=== PATIENT | female | born 1995 | race Hispanic/Latino ===

== ENCOUNTER 2022-06-28 21:22 | Emergency (ER) | payer SELFPAY ==
[2022-06-28] MEDS ORDERED: TETRACAINE HCL 0.5% 4ML OPTH ONE (22:25)
[2022-06-28] MEDS ORDERED: FLUORESCEIN SODIUM 1 MG/WRAP ONE ×2 (22:25→22:54)
[2022-06-28] MEDS ORDERED: HYDROCODONE/APAP 5/325 MG TAB ONE ×2 (22:25→23:11)
[2022-06-28] MEDS ORDERED: TETANUS & DIPHTHERIA TOX,ADULT 0.5 ML VIAL ONE (22:26)
--- NOTE | 2022-06-28 23:03 | ER ---
Nurse's Notes [facility] Name: Leila Simons Age: 27 yrs Sex: Female : 1995 Arrival Date: 06/28/2022 Time: 21:23 Bed 19 Private MD: Diagnosis: Photokeratitis, bilateral Presentation: 06/28 21:28 Chief complaint: Patient states: eye pain, redness, swelling, constant tears. 3 Coronavirus screen: Vaccine status: Patient reports being unvaccinated. Ebola Screen: No symptoms or risks identified at this time. Initial Sepsis Screen: Does the patient meet any 2 criteria? No. Patient's initial sepsis screen is negative. Does the patient have a suspected source of infection? No. Patient's initial sepsis screen is negative. Risk Assessment: Do you want to hurt yourself or someone else? Patient reports no desire to harm self or others. Onset of symptoms was June 28, 2022. 21:28 Method Of Arrival: Ambulatory [facility] 21:28 Acuity: FREYA 4 3 Triage Assessment: 21:28 General: Appears distressed, uncomfortable, Behavior is cooperative, appropriate for [facility] age. Pain: Complains of pain in right eye and left eye Pain does not radiate. Pain currently is 10 out of 10 on a pain scale. Quality of pain is described as burning, sharp, itching Pain began 1300 today Is continuous, Alleviated by nothing. Aggravated by exposure to light, blinking the eyes. EENT: Eyes are tearing on outer aspect of conjuctiva of right eye, iris of right eye, inner aspect of conjuctiva of right eye, outer aspect of conjuctiva of left eye, iris of left eye and inner aspect of conjunctiva of left eye Sclera/Cornea are reddened in outer aspect of conjuctiva of right eye, iris of right eye, inner aspect of conjuctiva of right eye, outer aspect of conjuctiva of left eye, iris of left eye and inner aspect of conjunctiva of left eye Lid(s) swollen. Reports blurred vision pain photophobia. Neuro: Level of Consciousness is awake, alert, obeys commands, Oriented to person, place, time, situation. Cardiovascular: Capillary refill < 3 seconds Patient's skin is warm and dry. Respiratory: Airway is patent Respiratory effort is even, unlabored. GI: No signs and/or symptoms were reported involving the gastrointestinal system. : No signs and/or symptoms were reported regarding the genitourinary system. Derm: No signs and/or symptoms reported regarding the dermatologic system. Musculoskeletal: No signs and/or symptoms reported regarding the musculoskeletal system. Historical: - Allergies: 21:30 No Known Allergies; eh3 - Home Meds: 21:30 None [Active]; eh3 - PMHx: 21:30 None; eh3 - PSHx: 21:30 None; eh3 - Immunization history:: Adult Immunizations unknown. - Social history:: Smoking status: Patient denies any tobacco usage or history of. Patient/guardian denies using alcohol, street drugs. Screenin:54 Abuse screen: Denies threats or abuse. Nutritional screening: No deficits noted. ll3 Tuberculosis screening: No symptoms or risk factors identified. 22:24 Fall Risk None identified. ld1 Assessment: 21:54 General: Appears uncomfortable, Behavior is cooperative. Pain: Complains of pain in ll3 left eye and right eye Pain currently is 10 out of 10 on a pain scale. Pain began 1300 Is continuous. Neuro: Level of Consciousness is awake, alert, obeys commands, Oriented to person, place, time, situation. Respiratory: Respiratory effort is even, unlabored, Respiratory pattern is regular, symmetrical. EENT: Eyes are tearing on left eye and right eye Reports blurred vision pain in left eye and right eye. Derm: Skin is pink, warm \T\ dry. Vital Signs: 21:28 BP 133 / 92; Pulse 73; Resp 16; Temp 98.3; Pulse Ox 99% on R/A; Weight 127.01 kg; eh3 Height 5 ft. 4 in. (162.56 cm); Pain 10/10; 21:28 Body Mass Index 48.06 (127.01 kg, 162.56 cm) eh3 Visual Acuity: 22:24 Left Eye Visual acuity 20/40, ; Right Eye Visual acuity 20/40, ; Both Eyes Visual ld1 acuity 20/40; Without Lenses; ED Course: 21:23 Patient arrived in ED. ja2 21:28 Arm band placed on right wrist. eh3 21:30 Triage completed. eh3 21:40 Davina Palma MD is Attending Physician. sd2 21:44 [facility] pm1 21:44 Davina Palma MD is Attending Physician. pm1 21:54 Julio C Quinonez RN is Primary Nurse. ll3 21:54 Patient has correct armband on for positive identification. Bed in low position. Call ll3 light in reach. Side rails up X 1. Adult w/ patient. 23:03 Michael Byrnes MD is Referral Physician. pm1 23:14 No provider procedures requiring assistance completed. eh3 23:23 Patient did not have IV access during this emergency room visit. ll3 Administered Medications: 22:23 Drug: HYDROcodone-acetaminophen 5 mg-325 mg 1 tabs Route: PO; ld1 23:30 Follow up: Response: No adverse reaction ll3 22:23 Drug: Tetanus-Diphtheria Toxoid Adult 0.5 ml {Test Engineer: [email or web address]. Exp: ld1 03/26/2024. Lot #: [id number]. } Route: IM; Site: right deltoid; 23:29 Follow up: Response: No adverse reaction ll3 22:23 Drug: Tetracaine Drops 0.5 % 1 drops {Note: Administered by Lisandro Stokes NP.} ld1 Route: Ophthalmic; Site: both eyes; 23:29 Follow up: Response: No adverse reaction ll3 23:07 Drug: HYDROcodone-acetaminophen 5 mg-325 mg 1 tabs Route: PO; ll3 23:29 Follow up: Response: No adverse reaction ll3 23:07 Drug: Tobramycin Ointment (0.3 %) 1 inches Route: Ophthalmic; Site: both eyes; ll3 23:24 Follow up: Response: No adverse reaction ll3 Medication: 22:24 Vaccine Information Statement (VIS) provided today. Questions and/or concerns ld1 addressed. VIS edition date: June 28, 2022. Outcome: 23:01 Discharge ordered by . pm1 23:23 Discharged to home via wheelchair, with family. ll3 23:23 Condition: stable 23:23 Discharge instructions given to patient, family, Instructed on discharge instructions, follow up and referral plans. medication usage, Demonstrated understanding of instructions, follow-up care, medications, Prescriptions given X 2. 23:30 Patient left the ED. ld1 Signatures: Lisandro Stokes NP PROSTHETIC TECHNICIAN pm1 Geeta Hendricks RN RN ld1 Cinthya Bahena Lynsea, RN RN 3 Libertad Sethi RN RN eh3 Davina Palma MD MD sd2 Corrections: (The following items were deleted from the chart) 21:33 21:28 Pulse 73bpm; Resp 16bpm; Pulse Ox 99% RA; Temp 98.3F; 127.01 kg; Height 5 ft. 4 eh3 in.; BMI: 48.0; Pain 08/30; eh3
--- NOTE | 2022-06-28 23:03 | EDPHYS ---
Physician Documentation [facility] Name: Leila Simons Age: 27 yrs Sex: Female : 1995 Arrival Date: 06/28/2022 Time: 21:23 Bed 19 Private MD: ED Physician Davina Palma HPI: 06/28 23:05 This 27 yrs old Female presents to ER via Ambulatory with complaints of Eye pm1 Problem. 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 pm1 Onset: The symptoms/episode began/occurred today. Duration: the symptoms are continuous. Aggravated by opening eye, Alleviated by nothing. Associated signs and symptoms: Pertinent negatives: fever. Patient does not utilize any form of vision correction. Severity of symptoms: in the emergency department the symptoms are unchanged. The patient has not experienced similar symptoms in the past. The patient has not recently seen a physician. 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 She did not have any eye protection on she was just looking away from the welding. Historical: - Allergies: 21:30 No Known Allergies; eh3 - Home Meds: 21:30 None [Active]; eh3 - PMHx: 21:30 None; eh3 - PSHx: 21:30 None; eh3 - Immunization history:: Adult Immunizations unknown. - Social history:: Smoking status: Patient denies any tobacco usage or history of. Patient/guardian denies using alcohol, street drugs. ROS: 23:05 Constitutional: Negative for fever, chills, and weight loss. pm1 23:05 Cardiovascular: Negative for chest pain, palpitations, and edema, Respiratory: Negative for shortness of breath, cough, wheezing, and pleuritic chest pain, Skin: Negative for injury, rash, and discoloration, Neuro: Negative for headache, weakness, numbness, tingling, and seizure. 23:05 Eyes: Positive for pain, redness, of the right eye and left eye. 23:05 All other systems are negative. Exam: 23:09 Constitutional: This is a well developed, well nourished patient who is awake, alert, pm1 and in no acute distress. Head/Face: Normocephalic, atraumatic. 23:09 Skin: Warm, dry with normal turgor. Normal color with no rashes, no lesions, and no evidence of cellulitis. MS/ Extremity: Pulses equal, no cyanosis. Neurovascular intact. Full, normal range of motion. 23:09 Eyes: Periorbital structures: no acute changes, Extraocular movements: no acute changes, Conjunctiva: injected, bilaterally, Corneas: abrasion, that is small, on the left, on the right, foreign body, is not appreciated, a fluorescein strip employed to appreciate the findings, Sclera: no acute changes. 23:09 Cardiovascular: Exam negative for acute changes, Rate: normal, Rhythm: regular, Pulses: no pulse deficits are appreciated. 23:09 Respiratory: Exam negative for acute changes, respiratory distress, shortness of breath, Breath sounds: are clear throughout. 23:09 Musculoskeletal/extremity: Exam is negative for acute changes. 23:09 Neuro: Exam negative for acute changes, Orientation: is normal, Mentation: is normal, Motor: is normal, moves all fours. Vital Signs: 21:28 BP 133 / 92; Pulse 73; Resp 16; Temp 98.3; Pulse Ox 99% on R/A; Weight 127.01 kg; eh3 Height 5 ft. 4 in. (162.56 cm); Pain 10/10; 21:28 Body Mass Index 48.06 (127.01 kg, 162.56 cm) 3 Visual Acuity: 22:24 Left Eye Visual acuity 20/40, ; Right Eye Visual acuity 20/40, ; Both Eyes Visual ld1 acuity 20/40; Without Lenses; MDM: 21:59 Patient medically screened. pm1 22:59 Data reviewed: vital signs. Data interpreted: Pulse oximetry: on room air is 99 %. pm1 Interpretation: normal. Counseling: I had a detailed discussion with the patient and/or guardian regarding: the historical points, exam findings, and any diagnostic results supporting the discharge/admit diagnosis. 06/28 22:10 Order name: Eye Tray; Complete Time: 22:23 pm1 06/28 22:10 Order name: Fluoresene Opth strip; Complete Time: 22:23 pm1 06/28 22:10 Order name: Visual Acuity; Complete Time: 22:23 pm1 Administered Medications: 22:23 Drug: HYDROcodone-acetaminophen 5 mg-325 mg 1 tabs Route: PO; ld1 23:30 Follow up: Response: No adverse reaction ll3 22:23 Drug: Tetanus-Diphtheria Toxoid Adult 0.5 ml {Apple Packing Header: [employer]. Exp: ld1 03/26/2024. Lot #: [id number]. } Route: IM; Site: right deltoid; 23:29 Follow up: Response: No adverse reaction ll3 22:23 Drug: Tetracaine Drops 0.5 % 1 drops {Note: Administered by Lisandro Stokes NP.} ld1 Route: Ophthalmic; Site: both eyes; 23:29 Follow up: Response: No adverse reaction ll3 23:07 Drug: HYDROcodone-acetaminophen 5 mg-325 mg 1 tabs Route: PO; ll3 23:29 Follow up: Response: No adverse reaction ll3 23:07 Drug: Tobramycin Ointment (0.3 %) 1 inches Route: Ophthalmic; Site: both eyes; ll3 23:24 Follow up: Response: No adverse reaction ll3 Disposition: 06/29 01:31 Co-signature as Attending Physician, Davina Palma MD STAFF ATTESTATION The sd2 patient's history, exam findings, diagnostics, and a summary of any interventions or procedures was reviewed in detail with the ED midlevel provider. I confirm the diagnosis as documented by the midlevel provider and I agree with the care plan articulated in the disposition section with regards to our discussion of the patient's case. Davina Palma MD. Disposition Summary: 06/28/22 23:01 Discharge Ordered Location: Home pm1 Problem: new pm1 Symptoms: have improved pm1 Condition: Stable pm1 Diagnosis - Photokeratitis, bilateral pm1 Followup: pm1 - With: Emergency Department - When: As needed - Reason: Worsening of condition Followup: pm1 - With: Private Physician - When: 2 - 3 days - Reason: Recheck today's complaints, Continuance of care, Re-evaluation by your physician Followup: pm1 - With: Michael Byrnes MD - When: 2 - 3 days - Reason: Recheck today's complaints, Continuance of care, Re-evaluation by your physician Discharge Instructions: - Discharge Summary Sheet pm1 - Ultraviolet Keratitis pm1 - How to Use Eye Drops and Eye Ointments pm1 Forms: - Medication Reconciliation Form pm1 - Thank You Letter pm1 - Antibiotic Education pm1 - Prescription Opioid Use pm1 Prescriptions: - Erythromycin 5 mg/gram (0.5 %) Ophthalmic Ointment - apply 1 centimeter by OPHTHALMIC route every 8 hours for 7 days Apply to both pm1 eyes; 1 tube; Refills: 0, Product Selection Permitted - Tylenol-Codeine #3 300 mg-30 mg Oral - take 2 tablet by ORAL route every 6 hours As needed; 20 tablet; Refills: 0, pm1 Product Selection Permitted Signatures: Lisandro Stokes NP [employer] pm1 Geeta Hendricks RN RN ld1 Julio C Quinonez RN RN ll3 Libertad Sethi RN RN eh3 Davina Palma MD MD sd2
[2022-06-28] MEDS ORDERED: TOBRAMYCIN SULF 0.3% OPTH OINT ONE (23:11)
[2022-06-29 04:02] VITALS: BP 133/92; TEMP 98.3; O2SAT 99
== END 2022-06-28 23:30 | disposition home or self-care (01) ==
LOC: ER 21:22
DX: H16.133 Photokeratitis, bilateral (principal); Z23 Encounter for immunization
CPT/HCPCS: 90471; 90714; 99283

== ENCOUNTER 2022-08-03 12:58 | Emergency (ER) | payer SELFPAY ==
--- OUTSIDE RECORDS SUMMARY | 2022-08-03 13:02 | XMS REPORT | Continuity of Care Document ---
:1995 Author Organization [facility] t Address [address] [place] [address] Care Team Providers Name Role Phone JAMES POTTS Attending Clinician Unavailable JIM VANEGAS Attending Clinician Unavailable OLIVER KOVACS Attending Clinician Unavailable Rosalba Sabillon Attending Clinician Unavailable Physician, No Primary or Family Admitting Clinician Unavaila ble Payers Payer Name Policy Type Policy Number Effective Date Expiration Date S ource Problems This patient has no known problems. Allergies, Adverse Reactions, Alerts Allergy Allergy Status Severity Reaction(s) Onset Inactive Treating Comm ents Source Name Type Date Date Clinician No Known DA Active U 2011-11 [facility] Allergie 2-10 Clear s 00:00: Rosario 00 [facility] NO KNOWN Drug Active [facility] Medications This patient has no known medications. Procedures This patient has no known procedures. Encounters Start End Encounter Admission Attending Care Care Encounter Source Date/Time Date/Time Type Type Clinicians Facility Department ID 2021-03-21 2021-03-21 Emergency X [facility] ERT [id number] [facility] 22:50:00 22:50:00 [facility] 2020-12-28 2020-12-28 Emergency X KATLYN DEAGGIE ERT [id number] [facility] 22:57:00 22:57:00 JAMES [facility] 2020-07-07 2020-07-07 Emergency X GUILHERME, [facility] ERT [id number] [facility] 14:07:00 14:07:00 JIM [facility] 2020-05-10 2020-05-13 Inpatient [facility] MARIANNE [id number] [facility] 21:14:00 08:16:59 24 [facility] 2020-05-10 2020-05-10 Emergency X BETHANIE, [facility] ERT [id number] [facility] 21:47:04 21:47:04 OLIVER [facility] 2019-11-18 2019-11-18 Emergency EM Sabillon, [facility] MAR[facility] [id number] [facility] 12:05:00 13:24:00 Rosalba 40 [facility] Results Test Description Test Time Test Comments Results Result Comments Source URINALYSIS COMPLETE 2019-11-18 12:50:00 Test Item Value Reference Range Interpretation Comme nts UA COLOR (test code = COLU) YELLOW UA APPEARANCE (test code = APPU) SLHZY UA GLUCOSE DIPSTICK (test code = DGLUU) NORMAL mg/dl NORMAL UA BILIRUBIN DIPSTICK (test code = BILU) NEGATIVE mg/dL NEGATIVE UA KETONE DIPSTICK (test code = KETU) 150 mg/dl mg/dl NEGATIVE A UA SPECIFIC GRAVITY (test code = SGU) 1.020 1.000-1.030 UA BLOOD DIPSTICK (test code = DIANNE) 25 Richard/micL Richard/micL NEGATIVE A UA PH DIPSTICK (test code = ANNMARIE) 6.0 5.0-9.0 UA PROTEIN DIPSTICK (test code = PROU) 30 mg/dl NEGATIVE A UA UROBILINIOGEN DIPSTICK (test code = URO) NORMAL mg/dl NORMAL UA NITRITE DIPSTICK (test code = KAYLEIGH) NEGATIVE NEGATIVE UA LEUKOCYTE ESTERASE DIPSTICK (test code = NEGATIVE Stone/micL NEGAT HARSHAD LEUU) UA WBC (test code = WBCU) 0-3 WBC/HPF NONE UA RBC (test code = RBCU) 3-5 RBC/HPF 0-3 UA EPITHELIAL CELLS (test code = EPIU) 1-3 EPI/HPF 0-3 UA BACTERIA (test code = BACU) TRACE NONE UR HCG [id number] 12:50:00 Test Item Value Reference Range Interpretation Comments UR HCG QUAL (test code = HCGQLU) NEGATIVE NEGATIVE URINALYSIS [id number] 12:47:00 Test Item Value Reference Range Interpretation Comments UA COLOR (test code = COLU) UA APPEARANCE (test code = APPU) UA GLUCOSE DIPSTICK (test NORMAL mg/dl NORMAL code = DGLUU) UA BILIRUBIN DIPSTICK NEGATIVE mg/dL NEGATIVE (test code = BILU) UA KETONE DIPSTICK (test 150 mg/dl mg/dl NEGATIVE A code = KETU) UA SPECIFIC GRAVITY (test 1.020 1.000-1.030 code = SGU) UA BLOOD DIPSTICK (test 25 Richard/micL Richard/micL NEGATIVE A code = DIANNE) UA PH DIPSTICK (test code 6.0 5.0-9.0 = ANNMARIE) UA PROTEIN DIPSTICK (test 30 mg/dl NEGATIVE A code = PROU) UA UROBILINIOGEN DIPSTICK NORMAL mg/dl NORMAL (test code = URO) UA NITRITE DIPSTICK (test NEGATIVE NEGATIVE code = KAYLEIGH) UA LEUKOCYTE ESTERASE NEGATIVE Stone/micL NEGATIVE DIPSTICK (test code = LEUU) UA WBC (test code = WBCU) WBC/HPF NONE UA RBC (test code = RBCU) RBC/HPF 0-3 UA EPITHELIAL CELLS (test EPI/HPF 0-3 code = EPIU) UA BACTERIA (test code = NONE BACU) UR HCG [id number] 12:47:00 Test Item Value Reference Range Interpretation Comments UR HCG QUAL (test code = HCGQLU) NEGATIVE URINALYSIS [id number] 12:47:00 Test Item Value Reference Range Interpretation Comments UA COLOR (test code = COLU) UA APPEARANCE (test code = APPU) UA GLUCOSE DIPSTICK (test NORMAL mg/dl NORMAL code = DGLUU) UA BILIRUBIN DIPSTICK NEGATIVE mg/dL NEGATIVE (test code = BILU) UA KETONE DIPSTICK (test 150 mg/dl mg/dl NEGATIVE A code = KETU) UA SPECIFIC GRAVITY (test 1.020 1.000-1.030 code = SGU) UA BLOOD DIPSTICK (test 25 Richard/micL Richard/micL NEGATIVE A code = DIANNE) UA PH DIPSTICK (test code 6.0 5.0-9.0 = ANNMARIE) UA PROTEIN DIPSTICK (test 30 mg/dl NEGATIVE A code = PROU) UA UROBILINIOGEN DIPSTICK NORMAL mg/dl NORMAL (test code = URO) UA NITRITE DIPSTICK (test NEGATIVE NEGATIVE code = KAYLEIGH) UA LEUKOCYTE ESTERASE NEGATIVE Stone/micL NEGATIVE DIPSTICK (test code = LEUU) UA WBC (test code = WBCU) WBC/HPF NONE UA RBC (test code = RBCU) RBC/HPF 0-3 UA EPITHELIAL CELLS (test EPI/HPF 0-3 code = EPIU) UA BACTERIA (test code = NONE BACU) UR HCG [id number] 12:47:00 Test Item Value Reference Range Interpretation Comments UR HCG QUAL (test code = HCGQLU) NEGATIVE NEGATIVE - XR CHEST 2 [id number] 12:34:00 FAX: Oliver Kovacs NP [phone] [facility]: St: PRE Name: SHERLEY PARRISH [facility]ly [facility] : 1995 Age/S: 24/F [address] [facility] Unit #: [id number] Loc: [place], [place]: [place] [id number] Acct: [id number] Dis Date: Status: PRE ER PHONE #: [phone] Exam Date: 11/18/2019 1227 FAX #: Reason: cough EXAMS: CPT CODE: [id number] XR CHEST 2 V 50032 EXAM: - XR CHEST 2 V COMPARISON: 06/11/2018 LOCATION: [facility] HISTORY: 24 years-old Female with cough FINDINGS: The cardiomediastinal silhouette is within normal limits. The lungs are well aerated. No large pneumothorax or pleural effusion. Osseous structures and soft tissues demonstrate no acute findings. The visualized upper abdomen is unremarkable. IMPRESSION: No acute cardiopulmonary abnormality. at 1234 Reported and signed by: Krishan Pitt MD CC: Olievr Kovacs NP Technologist: BARBARA SIN Trnscrd Date/Time/By: 11/18/2019 (5936) : By: [email or web address] PAGE 1 Signed Report FAX: Oliver Kovacs NP [phone] [facility]: St: PRE Name: PARRISHSHERLEY [facility] : 1995 Age/S: Formerly [facility] [employer] Unit #: [id number] Loc: [address] [place], [place]: [place] [id number] Acct: [id number] Dis Date: Status: PRE ER PHONE #: [phone] Exam Date: 11/18/2019 1227 FAX #: [phone] Reason: cough EXAMS: CPT CODE: [id number] XR CHEST 2 V 98964 (Continued) Orig Print D/T: S: 11/18/2019 (6434) PAGE 2 Signed Report- CT ABD PELVIS [id number] 16:55:00 FAX: Toñito Aguilar MD [facility]: St: PRE Name: PARRISHSHERLEY [facility] : 1995 [facility] [address] [facility] [id number] Loc: [address] Phys: Toñ[place] [id number] Acct: [id number] Dis Date: Status: PRE ER PHONE #: [phone] Exam Date: 09/25/2019 1643 FAX #: [phone] Reason: LLq pain EXAMS: CPT CODE: [id number] CT ABD PELVIS W/CONT 70525 HISTORY: Left lower quadrant pain, abdominal pain. CT abdomen and pelvis, contrast enhanced. Reformatted sagittal and coronal images. COMPARISON: June 11, 2018 Automated exposure control, iterative reconstruction technique, and/or adjustment of mA and/or kV according to patient's size was utilized for optimum radiation dose reduction.Following the intravenous administration of 100 ml of Isovue 300 but no oral contrast, a study of the abdomen and pelvis was performed. The study includes some of the lung bases, which appear to be clear. Mild interstitial changes may be present. No pericardial or pleural fluid can be found. Similar li paul perfusion no perfusion. Hypodense area, a pseudolesion at the falciform ligament region is stable. Gallbladder intact. Liver margins are smooth. Spleen appears to be normal. Pancreas intact. No ductal dilatation. The kidneys do not show obstruction, large stones or stranding. Normal aortic diameter and perfusion. Adrenals intact. No bowel obstruction. Stomach with moderate amount of food from recent meal. Small bowel distribution intact. The large bowel shows normal appendix. No evidence of fluid accumulation. Some mild fatty infiltrative changes in the mucosa seen of the large bowel. The study of the pelvis shows bladder nearly empty. Uterus intact. Tiny follicular cysts in the ovaries likely present. Largest on the right possibly at 2 cm. No free fluid or inflammatory changes. No findings of inguinal hernia. Bony structures intact with no bony destructive or sclerotic process. Spinal alignment normal.. IMPRESSION: No acute abnormality in the abdomen or pelvis, similar PAGE 1 Signed Report (CONTINUED) FAX: Toñito Aguilar MD [facility]: St: PRE Name: SHERLEY PARRISH [facility] : 1995 Age/S: 24/F [address] [facility] [address] Unit: [id number] Loc: [address] [place], [place] Phys: Toñ[place] [id number] Acct: [id number] Dis Date: Status: PRE ER PHONE #: [phone] Exam Date: 09/25/2019 1643 FAX #: [phone] Reason: LLq pain EXAMS: CPT CODE: [id number] CT ABD PELVIS W/CONT 38707 (Continued) appearance to the previous study possibly with a right-sided follicular cyst this time. No inflammatory changes or free fluid. No acute inflammatory changes in the left lower quadrant. Location: 9 at 1009 Reported and signed by: Flynn Gaston M.D. CC: Toñito Aguilar MD Technologist: WALLACE STOREY Trnscrd Dt/Tm: 09/25/2019 (0397) tJOSE ROBERTOM Orig Print D/T: S: 09/25/2019 (4838 PAGE 2 Signed Report- DUP AB/PEL/SC [id number] 16:32:00 FAX: Toñito Aguilar MD [facility]: St: PRE Name: SHERLEY PARRISH [facility] : 1995 Age/S: 24/F [address] Unit #: [id number] Loc: [address] [place], [place] Phys: Toñ[place] [id number] Acct: [id number] Dis Date: Status: PRE ER PHONE #: [phone] Exam Date: 09/25/2019 1620 FAX #: [phone] Reason: PELVIC PAIN LLQ PAIN EXAMS: CPT CODE: [id number] DUP AB/PEL/SC COMP 36941 ULTRASOUND: - US PELVIS COMPLETE, - DUP AB/PEL/SC COMP History: Pelvic pain Comparison: None. B-mode/Delacruz scale imaging with color Doppler perfusion imaging and spectral analysis was performed. The uterus is 6.7 x 3.7 x 4.9cm with endometrium at 6.9 mm. The right ovary is 3.2 x 2.3 x 3.4 cm with uniform perfusion. Small fo llicular cyst present at 2 cm in diameter, fairly simple. Left ovary intact at 4.4 x 2 x 2.6 cm. Normal perfusion pattern. The patient refused transvaginal exam. Impression: No acute abnormality in thepelvis. Empty normal sized uterus. Tiny follicular cyst right ovary. Normal ovarian perfusion bilaterally. Location: U 19 at 1632 Reported and signed by: Ari Gaston M.D. CC: Toñito Aguilar MD Technologist: LOGAN MILLER Trnscrd Date/Time/By: 09/25/2019 (5976) : By: [facility] PAGE 1 Signed Report FAX: Toñito Aguilar MD [facility]: St: PRE -- Name: PARRISHSHERLEY Lim [facility] : 1995 Age/S: 24/F [address] [facility] Unit #: [id number] Loc: [address] [place], [place] Phys: Toñ[place] [id number] Acct: [id number] Dis Date: Status:PRE ER PHONE #: [phone] Exam Date: 09/25/2019 1620 FAX #: [phone] Reason: PELVIC PAIN LLQ PAIN EXAMS: CPT CODE: [id number] DUP AB/PEL/SC COMP 14197 (Continued) Orig Print D/T: S: 09/25/2019 (7241) PAGE 2 Signed Report- US PELVIS COMPLETE 2019-09-25 16:32:00 FAX: Toñito Aguilar MD [facility]: St: PRE Name: SHERLEY PARRISH [facility] : 1995 Age/S: 24/F [address] [facility] Unit #: [id number] Loc: [address] Phys: Toñ[place] [address] Acct: [id number] Dis Date: Status: PRE ER PHONE #: [phone] Exam Date: 09/25/2019 1619 FAX #: [phone] Reason: Pelvic pain llq pain EXAMS: CPT CODE: [id number] US PELVIS COMPLETE 33501 ULTRASOUND: - US PELVIS COMPLETE, - DUP AB/PEL/SC COMP History: Pelvic pain Comparison: None. B-mode/Delacruz scale imaging with color Doppler perfusion imaging and spectral analysis was performed. The uterus is 6.7 x 3.7 x 4.9 cm with endometrium at 6.9 mm. The right ovary is 3.2 x 2.3 x 3.4 cm with uniform perfusion. Small follicular cyst present at 2 cm in diameter, fairly simple. Left ovary intact at 4.4 x 2 x 2.6 cm. Normal perfusion pattern. The patient refused transvaginal exam. Impression: No acute abnormality in the pelvis. Empty normal sized uterus. Tiny follicular cyst right ovary. Normal ovarian perfusion bilaterally. Location: U 19 at 9743 Reported and signed by: Ari Gaston M.D. CC: Toñito Aguilar MD Technologist: LOGAN MILLER Trnscrd Date/Time/By: 09/25/2019 (9009) : By: [facility] PAGE 1 Signed Report FAX: Joe Aguilar [facility]: St: PRE --Name: SHERLEY PARRISH [facility] : 1995 Age/S: 24/F [address] [facility] #: [id number] Loc: [address] Phys: Toñ[place] [address] Acct: [id number] Dis Date: Status: PRE ER PHONE #: [phone] Exam Date: 09/25/2019 1619 FAX #: [phone] Reason: Pelvic pain llq pain EXAMS: CPT CODE: [id number] US PELVIS COMPLETE 92815 (Continued) Orig Print D/T: S: 09/25/2019(1635) PAGE 2 Signed ReportURINALYSIS [id number] 16:31:00 Test Item Value Reference Range Interpretation Comments UA COLOR (test code = YELLOW COLU) UA APPEARANCE (test code SLHZY = APPU) UA GLUCOSE DIPSTICK (test NORMAL mg/dl NORMAL code = DGLUU) UA BILIRUBIN DIPSTICK NEGATIVE mg/dL NEGATIVE (test code = BILU) UA KETONE DIPSTICK (test NEGATIVE mg/dl NEGATIVE code = KETU) UA SPECIFIC GRAVITY (test 1.020 1.000-1.030 code = SGU) UA BLOOD DIPSTICK (test NEGATIVE Richard/micL NEGATIVE code = DIANNE) UA PH DIPSTICK (test code 8.0 5.0-9.0 = ANNMARIE) UA PROTEIN DIPSTICK (test NEGATIVE mg/dl NEGATIVE code = PROU) UA UROBILINIOGEN DIPSTICK 4.0 mg/dl mg/dl NORMAL A (test code = URO) UA NITRITE DIPSTICK (test NEGATIVE NEGATIVE code = KAYLEIGH) UA LEUKOCYTE ESTERASE 25 Stone/micL Stone/micL NEGATIVE A DIPSTICK (test code = LEUU) UA WBC (test code = WBCU) 1-3 WBC/HPF NONE UA RBC (test code = RBCU) 0-1 RBC/HPF 0-3 UA EPITHELIAL CELLS (test 5-10 EPI/HPF 0-3 A code = EPIU) UA BACTERIA (test code = FEW NONE BACU) UA MUCUS (test code = 2+ MUCU) UA OTHER (test code = CLUE CELLS OTHERU) Specimen comments: Clean CatchUR HCG [id number] 16:16:00 Test Item Value Reference Range Interpretation Comments UR HCG QUAL (test code = HCGQLU) NEGATIVE NEGATIVE BASIC METABOLIC [id number] 16:16:00 Test Item Value Reference Range Interpretation Comments SODIUM (test code = NA) 142 mmol/l 134.0-147.0 N POTASSIUM (test code = K) 3.7 mmol/L 3.6-5.2 N CHLORIDE (test code = CL) 108 mmol/l 98.0-107.0 H CARBON DIOXIDE (test code = CO2) 23.1 mmol/l 21.0-33.0 N ANION GAP (test code = GAP) 14.6 0-20 N GLUCOSE (test code = GLU) 98 mg/dl 70.0-110.0 N BLOOD UREA NITROGEN (test code = 7 mg/dl 7.0-18.0 N BUN) CREATININE (test code = CREAT) 0.50 mg/dL 0.60-1.30 L GFR NON BLACK (test code = 162 mL/min 110-120 H GFRNONBLACK) GFR BLACK (test code = GFRBLACK) 196 mL/min 133-145 H CALCIUM (test code = CA) 8.9 mg/dl 8.0-10.5 N HEPATIC FUNCTION PANEL [id number] 16:16:00 Test Item Value Reference Range Interpretation Comments TOTAL PROTEIN (test code = PROT) 7.1 gm/dL 6.4-8.2 N ALBUMIN (test code = ALB) 3.6 gm/dl 3.2-4.7 N BILIRUBIN TOTAL (test code = BILT) 0.3 mg/dl 0.0-1.0 N BILIRUBIN DIRECT (test code = 0.1 mg/dl 0.0-0.3 N BILD) SGOT/AST (test code = AST) 14 Units/L 15.0-37.0 L SGPT/ALT (test code = ALT) 23 Units/L 12.0-78.0 N ALKALINE PHOSPHATASE TOTAL (test 67 Units/L 50.0-136.0 N code = ALKP) [id number] 16:16:00 Test Item Value Reference Range Interpretation Comments LIPASE (test code = LIP) 135 Units/L 65.0-230.0 N DRUGS OF ABUSE SCREEN [id number] 16:12:00 Test Item Value Reference Interpretation Comments Range URN COCAINE (test NEGATIVE NEGATIVE Cocaine cu t-off code = COCAURN) concentratio n: 300 ng/mL URN CANNABINOIDS POSITIVE NEGATIVE A UNCONFIRMED INITIAL (test code = SCREENING ONLY; SUGGEST CANNABURN) ADDITIONALCONFI RMATORY TESTING.Cannabi noids cut-off concent ration: 50 ng/mL URN AMPHETAMINE POSITIVE NEGATIVE A UNCONFIRMED INITIAL (test code = SCREENING ONLY; SUGGEST AMPHETURN) ADDITIONALCONFI RMATORY TESTING.Ampheta mine cut-off concentration: 1000 ng/mL URN BARBITURATE NEGATIVE NEGATIVE Barbiturate cut-off (test code = concentration: 200 ng/mL BARBITURN) URN BENZODIAZEPINE NEGATIVE NEGATIVE Benzodiaz epine cut-off (test code = concentration: 200 ng/mL BENZOURN) URN OPIATES (test NEGATIVE NEGATIVE Opiates cu t-off code = OPIATURN) concentrati on: 200 ng/mL URN PHENCYCLIDINE NEGATIVE NEGATIVE Phencyclid ine(PCP) cut-off (PCP) (test code = concentra tion: 25 ng/ml PHENCURN) URN METHADONE (test NEGATIVE NEGATIVE Methadon e cut-off code = METHAURN) concentrati on: 300 ng/mL Specimen comments: Clean CatchBASIC METABOLIC [id number] 16:12:00 Test Item Value Reference Range Interpretation Comments SODIUM (test code = NA) 142 mmol/l 134.0-147.0 N POTASSIUM (test code = K) 3.7 mmol/L 3.6-5.2 N CHLORIDE (test code = CL) 108 mmol/l 98.0-107.0 H CARBON DIOXIDE (test code = CO2) 23.1 mmol/l 21.0-33.0 N ANION GAP (test code = GAP) 14.6 0-20 N GLUCOSE (test code = GLU) mg/dl 70.0-110.0 BLOOD UREA NITROGEN (test code = mg/dl 7.0-18.0 BUN) CREATININE (test code = CREAT) mg/dL 0.60-1.30 GFR NON BLACK (test code = mL/min 110-120 GFRNONBLACK) GFR BLACK (test code = GFRBLACK) mL/min 133-145 CALCIUM (test code = CA) mg/dl 8.0-10.5 HEPATIC FUNCTION PANEL [id number] 16:12:00 Test Item Value Reference Range Interpretation Comments TOTAL PROTEIN (test code = PROT) gm/dL 6.4-8.2 ALBUMIN (test code = ALB) gm/dl 3.2-4.7 BILIRUBIN TOTAL (test code = BILT) mg/dl 0.0-1.0 BILIRUBIN DIRECT (test code = BILD) mg/dl 0.0-0.3 SGOT/AST (test code = AST) Units/L 15.0-37.0 SGPT/ALT (test code = ALT) Units/L 12.0-78.0 ALKALINE PHOSPHATASE TOTAL (test Units/L 50.0-136.0 code = ALKP) [id number] 16:12:00 Test Item Value Reference Range Interpretation Comments LIPASE (test code = LIP) Units/L 65.0-230.0 CBC W/AUTO [id number] 16:08:00 Test Item Value Reference Range Interpretation Comments WHITE BLOOD CELL (test code = 11.2 K/mm3 4.5-11.0 H WBC) RED BLOOD CELL (test code = 5.25 M/mm3 3.80-5.20 H RBC) HEMOGLOBIN (test code = HGB) 15.3 gm/dL 12.0-16.0 N HEMATOCRIT (test code = HCT) 46.3 % 36.0-48.0 N MEAN CELL VOLUME (test code = 88.2 UM3 82.0-99.0 N MCV) MEAN CELL HGB (test code = MCH) 29.1 UUG 25.5-32.5 N MEAN CELL HGB CONCETRATION 33.0 gm/dL 29.0-35.5 N (test code = MCHC) RED CELL DISTRIBUTION WIDTH 12.6 % 11.5-15.0 N (test code = RDW) RED CELL DISTRIBUTION WIDTH SD 40.8 fL 34.8-50.2 N (test code = RDW-SD) PLATELET COUNT (test code = 309 K/mm3 150-400 N PLT) MEAN PLATELET VOLUME (test code 10.7 fl 7.4-10.4 H = MPV) NEUTROPHIL % (test code = NT%) 59.7 % 49.0-76.0 N IMMATURE GRANULOCYTE % (test 0.4 % 0.0-0.4 N code = IG%) LYMPHOCYTE % (test code = LY%) 30.1 % 23.0-38.0 N MONOCYTE % (test code = MO%) 7.2 % 1.0-10.0 N EOSINOPHIL % (test code = EO%) 2.2 % 1.0-5.0 N BASOPHIL % (test code = BA%) 0.4 % 0.0-1.0 N NEUTROPHIL # (test code = NT#) 6.7 K/mm3 2.4-6.3 H IMMATURE GRANULOCYTE # (test 0.05 x10 3/uL 0.00-0.07 N code = IG#) LYMPHOCYTE # (test code = LY#) 3.4 K/mm3 1.2-4.0 N MONOCYTE # (test code = MO#) 0.8 K/mm3 0.0-0.6 H EOSINOPHIL # (test code = EO#) 0.3 K/MM3 0.0-0.7 N BASOPHIL # (test code = BA#) 0.1 K/mm3 0.0-0.2 N
[2022-08-03 14:16] LABS: Urine Blood Trace-intact (Negative); Urine Glucose Negative (Negative); Urine Protein Negative (Negative); Urine Specific Gravity 1.015 (1.005-1.030); Urine pH 5.5 (5.0-7.0)
[2022-08-03 14:23] LABS: Absolute Lymphocytes (CBC) 4.2 K/uL (0.7-4.9); Hematocrit 37.6 % (36.0-45.0); Lymphocytes % 30.1 % (15.3-44.8); MPV 8.2 fL (7.6-11.3); RBC Red Blood Cell Count 4.47 M/uL (3.86-4.86)
[2022-08-03] MEDS ORDERED: ONDANSETRON 4 MG/2 ML VIAL ONE (14:33)
[2022-08-03] MEDS ORDERED: NA CHLORIDE 0.9% 1,000 ML ONE (14:33)
[2022-08-03 14:44] LABS: Albumin 3.6 g/dL (3.4-5.0); Bilirubin Total 0.2 mg/dL (0.2-1.0); Potassium 3.5 mmol/L (3.5-5.1); Protein, Total 7.2 g/dL (6.4-8.2)
[2022-08-03] MEDS ORDERED: MORPHINE 4 MG/ML SYR ONE (14:44)
--- NOTE | 2022-08-03 15:31 | RAD REPORT ---
EXAM DESCRIPTION: CTAbdomen Pelvis W Contrast - 08/03/2022 3:21 pm CLINICAL HISTORY: Abdominal pain. lower abdominal pain COMPARISON: No comparisons TECHNIQUE: Biphasic CT imaging of the abdomen and pelvis was performed with 100 ml non-ionic IV cont rast. All CT scans are performed using dose optimization technique as appropriate and may include automated exposure control or mA/KV adjustment according to patient size. FINDINGS: The lung bases are clear. The liver, spleen, pancreas, adrenal glands and kidneys are within normal limits. No bowel obstruction, free air, free fluid or abscess. The appendix is normal. No evidence of signi ficant lymphadenopathy. No suspicious bony findings. IMPRESSION: No acute intra-abdominal or pelvic finding.
[2022-08-03] MEDS ORDERED: KETOROLAC 30 MG/ML INJ ONE (16:45)
--- NOTE | 2022-08-03 17:43 | RAD REPORT ---
EXAM DESCRIPTION: US - Transvaginal Study Probe - 08/03/2022 5:30 pm CLINICAL HISTORY: pelvic pain Pelvic pain. COMPARISON: No comparisons FINDINGS: The uterus is normal in size, shape and echotexture. The uterus measures 7.9 x 5.4 x 4.4 c m. The endometrial stripe measures 7 mm, normal. Both ovaries are normal in size, shape and echotexture. The right ovary measures 2.7 x 1.9 x 1.9 cm. The left ovary measures 3.1 x 2.9 x 2.3 cm. No ovarian or parovarian lesions. No adnexal masses. Normal Doppler blood flow was demonstrated to both ovaries. No significant pelvic ascites. IMPRESSION: Unremarkable study.
[2022-08-03] MEDS ORDERED: DIAZEPAM 10 MG/2 ML INJ SYRINGE ONE (18:20)
--- NOTE | 2022-08-03 18:54 | EDPHYS ---
Physician Documentation [facility] Name: Leila Simons Age: 27 yrs Sex: Female : 1995 Arrival Date: 08/03/2022 Time: 12:59 Bed 16 Private MD: ED Physician Reilly Teague HPI: 08/03 13:51 This 27 yrs old Female presents to ER via Ambulatory with complaints of jmm Abdominal Pain. 13:51 The patient presents with abdominal pain. Onset: The symptoms/episode began/occurred jmm acutely, today. The symptoms do not radiate. Associated signs and symptoms: Pertinent negatives: fever. The symptoms are described as achy. 18:52 This is a 27-year-old female with complaints of lower abdominal pelvic pain beginning jmm after performing heavy lifting earlier today. Denies vomiting or diarrhea. Denies dysuria or vaginal bleeding.. 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 - Social history:: Smoking status: Patient denies any tobacco usage or history of. ROS: 18:52 Constitutional: Negative for fever, chills, and weight loss, Cardiovascular: Negative jmm for chest pain, palpitations, and edema, Respiratory: Negative for shortness of breath, cough, wheezing, and pleuritic chest pain. 18:52 Abdomen/GI: Positive for abdominal pain. 18:52 All other systems are negative. Exam: 18:52 Constitutional: This is a well developed, well nourished patient who is awake, alert, jmm and in no acute distress. Head/Face: atraumatic. Eyes: EOMI, no conjunctival erythema appreciated ENT: Moist Mucus Membranes Neck: Trachea midline, Supple Chest/axilla: Normal chest wall appearance and motion. Cardiovascular: Regular rate and rhythm. No edema appreciated Respiratory: Normal respirations, no respiratory distress appreciated 18:52 Back: Normal ROM Skin: General appearance color normal MS/ Extremity: Moves all extremities, no obvious deformities appreciated, no edema noted to the lower extremities Neuro: Awake and alert Psych: Behavior is normal, Mood is normal, Patient is cooperative and pleasant 18:52 Abdomen/GI: Inspection: abdomen appears normal, Bowel sounds: normal, Palpation: soft, moderate abdominal tenderness, in the suprapubic area, right lower quadrant and left lower quadrant. Vital Signs: 13:31 BP 135 / 97; Pulse 72; Resp 16; Temp 98.1; Pulse Ox 100% on R/A; Weight 127.01 kg (R); bm7 Height 5 ft. 4 in. (162.56 cm); Pain 10/10; 14:32 BP 121 / 83; Pulse 60; Resp 16; Pulse Ox 98% on R/A; em6 15:30 BP 139 / 82; Pulse 79; Resp 18; Pulse Ox 98% on R/A; em6 18:00 BP 124 / 78; Pulse 61; Resp 18; Pulse Ox 98% on R/A; em6 19:15 BP 129 / 80; Pulse 84; Resp 18; Pulse Ox 99% on R/A; em6 13:31 Body Mass Index 48.06 (127.01 kg, 162.56 cm) bm7 MDM: 13:51 Patient medically screened. randy 18:53 Data reviewed: vital signs, nurses notes. Counseling: I had a detailed discussion with horace the patient and/or guardian regarding: the historical points, exam findings, and any diagnostic results supporting the discharge/admit diagnosis, lab results, the need for outpatient follow up, to return to the emergency department if symptoms worsen or persist or if there are any questions or concerns that arise at home. ED course: Pain is partially relieved in the ED. Patient advised follow-up PCP and otherwise given strict return precautions. Patient understood and agrees plan of care.. 08/03 13:52 Order name: CBC with Diff; Complete Time: 14:33 [facility] 08/03 13:52 Order name: CMP; Complete Time: 15:09 [facility] 08/03 13:52 Order name: Lipase; Complete Time: 15:09 [facility] 08/03 13:52 Order name: CT Abd/Pelvis - IV Contrast Only; Complete Time: 15:33 [facility] 08/03 14:15 Order name: Urine --Ancillary (enter results) 08/03 14:16 Order name: Urine Dipstick-Ancillary; Complete Time: 14:17 [facility] 08/03 13:52 Order name: IV Saline Lock; Complete Time: 14:13 [facility] 08/03 17:07 Order name: Transvaginal Study Probe; Complete Time: 17:46 [facility] 08/03 13:52 Order name: Labs collected and sent; Complete Time: 14:13 [facility] 08/03 13:52 Order name: Urine Dipstick-Ancillary (obtain specimen); Complete Time: 14:13 [facility] 08/03 13:52 Order name: Urine Test (obtain specimen); Complete Time: 14:14 [facility] Administered Medications: 14:10 Drug: NS 0.9% 1000 ml Route: IV; Rate: 1 bolus; Site: left antecubital; em6 19:16 Follow up: Response: No adverse reaction; IV Status: Completed infusion; IV Intake: em6 1000ml 14:10 Drug: Zofran (Ondansetron) 4 mg Route: IVP; Site: left antecubital; em6 14:30 Follow up: Response: No adverse reaction em6 14:38 Drug: morphine 4 mg Route: IVP; Infused Over: 4 mins; Site: left antecubital; em6 15:20 Follow up: Response: No adverse reaction; RASS: Alert and Calm (0) em6 16:50 Drug: Ketorolac 30 mg Route: IVP; Site: left antecubital; em6 17:20 Follow up: Response: No adverse reaction em6 18:16 Drug: Valium (diazepam) 5 mg Route: IVP; Site: left antecubital; em6 19:16 Follow up: Response: No adverse reaction; RASS: Alert and Calm (0) em6 Disposition Summary: 08/03/22 18:54 Discharge Ordered Location: Home [facility] Condition: Stable [facility] Diagnosis - Lower abdominal strain [facility] Followup: jmm - With: Private Physician - When: 2 - 3 days - Reason: Recheck today's complaints, Continuance of care, Re-evaluation by your physician Discharge Instructions: - Discharge Summary Sheet [facility] - Abdominal Pain, Adult jmm - Muscle Strain [facility] Forms: - Work release form jmm - Medication Reconciliation Form [facility] - Thank You Letter m - Antibiotic Education jmm - Prescription Opioid Use [facility] Prescriptions: - Zanaflex 4 mg Oral Tablet - take 1 tablet by ORAL route every 8 hours As needed; 20 tablet; Refills: 0, jmm Product Selection Permitted - Diclofenac Sodium 75 mg Oral Tablet Sustained Release - take 1 tablet by ORAL route 2 times per day; 30 tablet; Refills: 0, Product jabier Selection Permitted Signatures: Dispatcher [employer] EDReilly Scott MD MD cha Mickail, Joel, PA PA jmm McCarthy, Brittany, RN RN bm7 Za Manjarrez RN RN em6 Corrections: (The following items were deleted from the chart) 17:07 16:14 Pelvis Complete+US.RAD.BRZ ordered. [facility] 18:52 13:51 The symptoms are described as horace yañez
--- NOTE | 2022-08-03 18:54 | ER ---
Nurse's Notes [facility] Name: Leila Simons Age: 27 yrs Sex: Female : 1995 Arrival Date: 08/03/2022 Time: 12:59 Bed 16 Private MD: Diagnosis: Lower abdominal strain Presentation: 08/03 13:31 Chief complaint: Patient states: My doctor sent me over here today after I started bm7 vomiting and having severe pain in my lower abdomen. I was sent by Hardeep WILSON. Coronavirus screen: At this time, the client does not indicate any symptoms associated with coronavirus-19. Ebola Screen: No symptoms or risks identified at this time. Initial Sepsis Screen: Does the patient meet any 2 criteria? No. Patient's initial sepsis screen is negative. Does the patient have a suspected source of infection? No. Patient's initial sepsis screen is negative. Risk Assessment: Do you want to hurt yourself or someone else? Patient reports no desire to harm self or others. Onset of symptoms was August 03, 2022 at 08:00. 13:31 Method Of Arrival: Ambulatory 7 13:31 Acuity: FREYA 3 bm7 Triage Assessment: 13:33 General: Appears in no apparent distress. uncomfortable, obese, Behavior is calm, bm7 cooperative, appropriate for age. Pain: Complains of pain in suprapubic area. EENT: No deficits noted. No signs and/or symptoms were reported regarding the EENT system. Neuro: No deficits noted. Cardiovascular: No deficits noted. Respiratory: No deficits noted. GI: Abdomen is flat, obese, Bowel sounds present X 4 quads. Abd is soft X 4 quads Abdomen is tender to palpation in suprapubic area Reports nausea, vomiting. : Reports burning with urination. Derm: No deficits noted. No signs and/or symptoms reported regarding the dermatologic system. Musculoskeletal: No deficits noted. No signs and/or symptoms reported regarding the musculoskeletal system. 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 - Social history:: Smoking status: Patient denies any tobacco usage or history of. Screenin:40 Abuse screen: Denies threats or abuse. Nutritional screening: No deficits noted. em6 Tuberculosis screening: No symptoms or risk factors identified. Fall Risk IV access (20 points). Total Waldron Fall Scale indicates No Risk (0-24 pts). Assessment: 13:40 General: Appears comfortable, Behavior is calm, cooperative. Pain: Complains of pain in em6 right lower quadrant and left lower quadrant Pain radiates to left low back and right low back. Pain: Pain currently is 6 out of 10 on a pain scale. Quality of pain is described as radiating, sharp, Pain began suddenly, Is continuous. Neuro: Aguero Agitation-Sedation Scale (RASS): 0 - Alert and Calm Level of Consciousness is awake, alert, obeys commands, Oriented to person, place, time, situation. Cardiovascular: Heart tones present Patient's skin is warm and dry. Respiratory: Airway is patent Respiratory effort is even, unlabored, Respiratory pattern is regular, symmetrical, Breath sounds are clear bilaterally. GI: Abdomen is non-distended, Abd is soft and non tender Reports vomiting. : Reports burning with urination. EENT: No signs and/or symptoms were reported regarding the EENT system. Derm: No signs and/or symptoms reported regarding the dermatologic system. Musculoskeletal: Circulation, motion, and sensation intact. Range of motion: intact in all extremities. 14:30 Reassessment: Patient and/or family updated on plan of care and expected duration. Pain em6 level reassessed. Patient is alert, oriented x 3, equal unlabored respirations, skin warm/dry/pink. Reassessment: notified provider of the pain. new order provider . . Pain: Complains of pain in right lower quadrant and left lower quadrant Pain does not radiate. Pain currently is 10 out of 10 on a pain scale. 15:30 Reassessment: Patient and/or family updated on plan of care and expected duration. Pain em6 level reassessed. Patient is alert, oriented x 3, equal unlabored respirations, skin warm/dry/pink. Patient states symptoms have improved. 15:30 Neuro: Aguero Agitation-Sedation Scale (RASS): 0 - Alert and Calm Level of em6 Consciousness is awake, alert, obeys commands, Oriented to person, place, time, situation. 16:30 Reassessment: Patient and/or family updated on plan of care and expected duration. Pain em6 level reassessed. Patient is alert, oriented x 3, equal unlabored respirations, skin warm/dry/pink. notified provider of pain. new order given. . Pain: Complains of pain in right lower quadrant and left lower quadrant. 17:30 Reassessment: Patient appears in no apparent distress at this time. Patient and/or em6 family updated on plan of care and expected duration. Pain level reassessed. Patient is alert, oriented x 3, equal unlabored respirations, skin warm/dry/pink. 18:00 Reassessment: Patient is alert, oriented x 3, equal unlabored respirations, skin em6 warm/dry/pink. Reassessment: provider notified. new order . Pain: Complains of pain in right lower quadrant and left lower quadrant. Vital Signs: 13:31 BP 135 / 97; Pulse 72; Resp 16; Temp 98.1; Pulse Ox 100% on R/A; Weight 127.01 kg (R); bm7 Height 5 ft. 4 in. (162.56 cm); Pain 10/10; 14:32 BP 121 / 83; Pulse 60; Resp 16; Pulse Ox 98% on R/A; em6 15:30 BP 139 / 82; Pulse 79; Resp 18; Pulse Ox 98% on R/A; em6 18:00 BP 124 / 78; Pulse 61; Resp 18; Pulse Ox 98% on R/A; em6 19:15 BP 129 / 80; Pulse 84; Resp 18; Pulse Ox 99% on R/A; em6 13:31 Body Mass Index 48.06 (127.01 kg, 162.56 cm) 7 ED Course: 12:59 Patient arrived in ED. rg4 13:33 Triage completed. bm7 13:33 Arm band placed on right wrist. bm7 13:39 Alvaro Taylor PA is PHCP. jmm 13:39 Reilly Teague MD is Attending Physician. jmm 13:40 Patient has correct armband on for positive identification. Bed in low position. Call em6 light in reach. Side rails up X 1. Pulse ox on. NIBP on. 14:14 Inserted saline lock: 20 gauge in left antecubital area, using aseptic technique. Blood em6 collected. 15:23 CT Abd/Pelvis - IV Contrast Only In Process Unspecified. EDMS 15:24 Dain Sinclair, RN is Primary Nurse. jd3 17:32 Transvaginal Study Probe In Process Unspecified. EDMS 19:15 No provider procedures requiring assistance completed. IV discontinued, intact, em6 bleeding controlled, No redness/swelling at site. Pressure dressing applied. Administered Medications: 14:10 Drug: NS 0.9% 1000 ml Route: IV; Rate: 1 bolus; Site: left antecubital; em6 19:16 Follow up: Response: No adverse reaction; IV Status: Completed infusion; IV Intake: em6 1000ml 14:10 Drug: Zofran (Ondansetron) 4 mg Route: IVP; Site: left antecubital; em6 14:30 Follow up: Response: No adverse reaction em6 14:38 Drug: morphine 4 mg Route: IVP; Infused Over: 4 mins; Site: left antecubital; em6 15:20 Follow up: Response: No adverse reaction; RASS: Alert and Calm (0) em6 16:50 Drug: Ketorolac 30 mg Route: IVP; Site: left antecubital; em6 17:20 Follow up: Response: No adverse reaction em6 18:16 Drug: Valium (diazepam) 5 mg Route: IVP; Site: left antecubital; em6 19:16 Follow up: Response: No adverse reaction; RASS: Alert and Calm (0) em6 Medication: 16:25 VIS not applicable for this client. em6 Intake: 19:16 IV: 1000ml; Total: 1000ml. em6 Outcome: 18:54 Discharge ordered by . horace 19:15 Discharged to home ambulatory. em6 19:15 Condition: stable 19:15 Discharge instructions given to patient, Instructed on discharge instructions, follow up and referral plans. medication usage, Demonstrated understanding of instructions, follow-up care, medications, Prescriptions given X 2. 19:17 Patient left the ED. em6 Signatures: Dispatcher [employer] EDMS Alvaro Taylor PA PA jmm Garcia, Rubi rg4 Dain Sinclair RN RN jChula Trejo RN RN bm7 Loki, Za, RN RN em6 Corrections: (The following items were deleted from the chart) 18:28 15:30 BP 124 / 78; Pulse 61bpm; Resp 18bpm; Pulse Ox 98% RA; em6 em6
[2022-08-03 22:26] LABS: Urine Specific Gravity/Preg 1.015 (1.005-1.030)
[2022-08-04 06:45] VITALS: TEMP 98.1
[2022-08-04 06:53] VITALS: BP 129/80; O2SAT 99
== END 2022-08-03 19:17 | disposition home or self-care (01) ==
LOC: ER 12:58
DX: S39.011A Strain of muscle, fascia and tendon of abdomen, initial encounter (principal)
CPT/HCPCS: 36415; 74177; 76830; 80053; 81003; 81025; 83690; 85025; 96361; 96374; 96375; 99284; J2405; J3360; J7030; Q9967

== ENCOUNTER 2023-02-06 21:23 | Emergency (ER) | payer SELFPAY ==
--- OUTSIDE RECORDS SUMMARY | 2023-02-06 21:26 | XMS REPORT | Continuity of Care Document ---
:1995 Author Organization [facility] t Address [address] [facility] [place]. [address] [place] [address] Care Team Providers Name Role Phone PCP, PATIENT DOES NOT HAVE A Primary Care Physician Unavaila JAMES Bishop Attending Clinician Unavailable JIM VANEGAS Attending Clinician [...] Allergie 2-10 Clear s 00:00: Rosario 00 [facility] NO KNOWN Drug Active [facility] Medications This patient has no known medications. Procedures This patient has no known procedures. Encounters Start End Encounter Admission Attending Care Care Encounter Source Date/Time Date/Time Type Type Clinicians Facility Department ID 2021-03-21 2021-03-21 Emergency X [facility] ERT [id number] [facility] 22:50[facility]00 [facility] [place] 2020-12-28 2020-12-29 Emergency X KATLYN [facility] ERT [id number] Univers 22:57:00 03:04:00 JAMES [facility] [place] [facility] 2020-07-07 2020-07-07 Emergency X GUILHERME, [facility] ERT [id number] Univers 14:07:00 14:07:00 JIM [facility] [place] [facility] 2020-05-10 2020-05-13 Inpatient [facility] MAR[facility]NE [id number] [facility] 21:14:00 08:16:[address] [facility] 2020-05-10 2020-05-10 Emergency X KWASI, [facility] ERT [id number] Univers 21:47:04 21:47:04 OLIVER [facility] [place] [facility] 2019-11-18 2019-11-18 Emergency EM Ridge, [facility] [id number] [facility] 12:05:00 13:24:[address] [facility] Results Test Description Test Time [...] DIPSTICK (test code = NEGATIVE Stone/micL NEGAT AHRSHAD LEUU) UA WBC (test code = WBCU) 0-3 WBC/HPF NONE UA RBC (test code = RBCU) 3-5 RBC/HPF 0-3 UA EPITHELIAL CELLS (test code = EPIU) 1-3 EPI/HPF 0-3 UA BACTERIA (test code = BACU) TRACE NONE UR HCG [id number] 12:50:00 Test Item Value Reference Range Interpretation Comments UR HCG QUAL (test code = HCGQLU) NEGATIVE NEGATIVE URINALYSIS [id number] 12:47:00 Test Item Value Reference Range Interpretation [...] (test code = NONE BACU) UR HCG [id number] 12:47:00 Test Item Value Reference Range Interpretation Comments UR HCG QUAL (test code = HCGQLU) NEGATIVE URINALYSIS [id number] 12:47:00 Test Item Value Reference Range Interpretation [...] (test code = NONE BACU) UR HCG [id number] 12:47:00 Test Item Value Reference Range Interpretation Comments UR HCG QUAL (test code = HCGQLU) NEGATIVE NEGATIVE - XR CHEST 2 [id number] 12:34:00 FAX: Oliver Kovacs NP [phone] [place]: St: PRE Name: SHERLEY PARRISH [facility] : 1995 Age/S: 24/F [address] [facility] Unit #: [id number] Loc: [place], [place]: [place] [address] Acct: [id number] Dis Date: Status: PRE ER PHONE #: [phone] Exam Date: 11/18/2019 1227 FAX #: [phone] Reason: cough EXAMS: CPT CODE: [id number] XR CHEST 2 V 98699 EXAM: - XR CHEST 2 V COMPARISON: 06/11/2018 LOCATION: [facility] HISTORY: 24 years-old Female with cough FINDINGS: The cardiomediastinal silhouette is within normal limits. The lungs are well aerated. No large pneumothorax or pleural effusion. Osseous structures and soft tissues demonstrate no acute findings. The visualized upper abdomen is unremarkable. IMPRESSION: No acute cardiopulmonary abnormality. 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 [address] Acct: [id number] Dis Date: Status: PRE ER PHONE #: [phone] Exam Date: 11/18/2019 1227 FAX #: [phone] Reason: cough EXAMS: CPT CODE: [id number] XR CHEST 2 V 23767 (Continued) Orig Print D/T: S: 11/18/2019 (5185) PAGE 2 Signed Report- CT ABD PELVIS [id number] 16:55:00 FAX: Toñito Aguilar MD [place]: St: PRE Name: SHERLEY PARRISH [facility] : 1995 Age/S: [address] [employer] Unit: [id number] Loc: [address] [place], [place] Phys: Toñ[place] [address] Acct: [id number] Dis Date: Status: PRE ER PHONE #: [phone] Exam Date: 09/25/2019 1643 FAX #: [phone] Reason: LLq pain EXAMS: CPT CODE: [id number] CT ABD PELVIS W/CONT 80440 HISTORY: Left lower quadrant pain, abdominal pain. [...] Signed Report (CONTINUED) FAX: Toñito Aguilar MD [place]: St: PRE Name: SHERLEY PARRISH [facility] : 1995 Age/S: [address] [facility] Unit: [id number] Loc: [address] Phys: Toñ[place] [address] Acct: [id number] Dis Date: Status: PRE ER PHONE #: [phone] Exam Date: 09/25/2019 1643 FAX #: [phone] Reason: LLq pain EXAMS: CPT CODE: [id number] CT ABD PELVIS W/CONT 01617 (Continued) appearance to the previous study possibly with a right-sided follicular cyst this time. No inflammatory changes or free fluid. No acute inflammatory changes in the left lower quadrant. Location: 9 at 9594 Reported and signed by: Flynn Gaston M.D. CC: Toñito Aguilar MD Technologist: WALLACE STOREY Trninrd Dt/Tm: 09/25/2019 (0063) t.JAYLENM Orig Print D/T: S: 09/25/2019 (6768 PAGE 2 Signed Report- JODRAN CASTRO/ROHIT/DONNIE [id number] 16:32:00 FAX: Toñito Aguilar MD [place]: St: PRE Name: SHERLEY PARRISH [facility] : 1995 Age/S: F [address] [facility] [employer] Unit #: [id number] Loc: [address] Phys: Toñ[place] [address] Acct: [id number] Dis Date: Status: PRE ER PHONE #: [phone] Exam Date: 09/25/2019 1620 FAX #: [phone] Reason: PELVIC PAIN LLQ PAIN EXAMS: CPT CODE: [id number] DUP AB/PEL/SC COMP 31261 ULTRASOUND: - US PELVIS COMPLETE, - DUP [...] MD Technologist: LOGAN MILLER Trnscrd Date/Time/By: 09/25/2019 (9952) : By: [facility] PAGE 1 Signed Report FAX: Toñito Aguilar MD [place]: St: PRE -- Name: SHERLEY PARRISH [facility] : 1995 Age/S: 24/F [address] [facility] Unit #: [id number] Loc: [address] Phys: Toñ[place] [address] Acct: [id number] Dis Date: Status: PRE ER PHONE #: [phone] Exam Date: 09/25/2019 1620 FAX #: [phone] Reason: PELVIC PAIN LLQPAIN EXAMS: CPT CODE: [id number] DUP AB/PEL/SC COMP 27600 (Continued) Orig Print D/T: S: 09/25/2019 (0601) PAGE 2 Signed Report- US PELVIS COMPLETE 2019-09-25 16:32:00 FAX: Toñito Aguilar MD [place]: St: PRE Name: SHERLEY PARRISH [facility] : 1995 Age/S: 24/F [address] [facility] Unit #: [id number] Loc: [address] Phys: Toñ[place] [address] Acct: [id number] Dis Date: Status: PRE ER PHONE #: [phone] Exam Date: 09/25/2019 1619 FAX #: [phone] Reason: Pelvic pain llq pain EXAMS: CPT CODE: [id number] US PELVIS COMPLETE 91977 ULTRASOUND: - US PELVIS COMPLETE, - DUP AB/PEL/SC COMP History: Pelvic pain Comparison: None. B-mode/Delacruz scale imaging with color Doppler perfusion imaging and spectral analysis was performed. The uterus is 6.7 x 3.7 x 4.9 cm with endometrium at 6.9 mm. The right ovary is 3.2 x 2.3 x 3.4 cm with uniform perfusion. Small f ollicular cyst present at 2 cm in diameter, [...] MD Technologist: LOGAN MILLER Trnscrd Date/Time/By: 09/25/2019 (0984) : By: Carissa PAGE 1 Signed Report FAX: Toñito Aguilar MD [place]: St: PRE -- Name: SHERLEY PARRISH [facility] : 1995 Age/S: 24/F [address] [facility] Unit #: [id number] Loc: [address] Phys: Toñ[place] [address] Acct: [id number] Dis Date: Status: PRE ER PHONE #: [phone] Exam Date: 09/25/2019 1619 FAX #: [phone] Reason: Pelvic pain llq pain EXAMS: CPT CODE: [id number] US PELVIS COMPLETE 26080 (Continued) Orig Print D/T: S: 09/25/2019 (1219) PAGE 2 Signed ReportURINALYSIS COMPLETE 2019-09-25 16:31:00 Test Item Value Reference Range Interpretation [...] CELLS OTHERU) Specimen comments: Clean CatchUR HCG [id number] 16:16:00 Test Item Value Reference Range Interpretation Comments UR HCG QUAL (test code = HCGQLU) NEGATIVE NEGATIVE BASIC METABOLIC [id number] 16:16:00 Test Item Value Reference Range Interpretation [...] 8.9 mg/dl 8.0-10.5 N HEPATIC FUNCTION PANEL [id number] 16:16:00 Test Item Value Reference Range Interpretation [...] 67 Units/L 50.0-136.0 N code = ALKP) [id number] 16:16:00 Test Item Value Reference Range Interpretation Comments LIPASE (test code = LIP) 135 Units/L 65.0-230.0 N DRUGS OF ABUSE SCREEN [id number] 16:12:00 Test Item Value Reference Interpretation Comments [...] 300 ng/mL Specimen comments: Clean CatchBASIC METABOLIC [id number] 16:12:00 Test Item Value Reference Range Interpretation [...] = CA) mg/dl 8.0-10.5 HEPATIC FUNCTION PANEL [id number] 16:12:00 Test Item Value Reference Range Interpretation Comments TOTAL PROTEIN (test code = PROT) gm/dL 6.4-8.2 ALBUMIN (test code = ALB) gm/dl 3.2-4.7 BILIRUBIN TOTAL (test code = BILT) mg/dl 0.0-1.0 BILIRUBIN DIRECT (test code = BILD) mg/dl 0.0-0.3 SGOT/AST (test code = AST) Units/L 15.0-37.0 SGPT/ALT (test code = ALT) Units/L 12.0-78.0 ALKALINE PHOSPHATASE TOTAL (test Units/L 50.0-136.0 code = ALKP) [id number] 16:12:00 Test Item Value Reference Range Interpretation Comments LIPASE (test code = LIP) Units/L 65.0-230.0 CBC W/AUTO [id number] 16:08:00 Test Item Value Reference Range Interpretation [...]
[2023-02-06 22:20] LABS: Urine Blood 3+ (Negative); Urine Glucose Negative (Negative); Urine Protein 2+ (Negative); Urine Specific Gravity 1.025 (1.005-1.030); Urine pH 5.5 (5.0-7.0)
[2023-02-06 22:24] LABS: Absolute Lymphocytes (CBC) 1.8 K/uL (0.7-4.9); Hematocrit 43.5 % (36.0-45.0); Lymphocytes % 12.1 % (15.3-44.8); MCV 84.2 fL (80-100); MPV 8.1 fL (7.6-11.3); RBC Red Blood Cell Count 5.16 M/uL (3.86-4.86)
[2023-02-06 22:29] LABS: Urine Specific Gravity/Preg 1.025 (1.005-1.030)
[2023-02-06] MEDS ORDERED: ONDANSETRON 4 MG/2 ML VIAL ONE (22:30)
[2023-02-06] MEDS ORDERED: DIPHENHYDRAMINE 50 MG/ML VIAL ONE (22:30)
[2023-02-06] MEDS ORDERED: NA CHLORIDE 0.9% 1,000 ML ONE (22:31)
[2023-02-06] MEDS ORDERED: PANTOPRAZOLE 40 MG INJ ONE (22:31)
[2023-02-06] MEDS ORDERED: DICYCLOMINE HCL 20 MG/2 ML AMP IM ONE (22:31)
[2023-02-06 22:33] LABS: Urine Bacteria <20 /HPF (<20); Urine Mucus 3+ /HPF (None Seen); Urine RBC >50 /HPF (None Seen)
[2023-02-06 22:43] LABS: Albumin 3.8 g/dL (3.4-5.0); Bilirubin Total 0.6 mg/dL (0.2-1.0); Potassium 3.3 mEq/L (3.5-5.1); Protein, Total 7.8 g/dL (6.4-8.2)
[2023-02-06 23:21] LABS: SARS-COV-2 RT PCR NEGATIVE (NEGATIVE)
[2023-02-07] MEDS ORDERED: POTASSIUM 25 MEQ EFFERV TAB ONE (00:14)
[2023-02-07] MEDS ORDERED: NA CHLORIDE 0.9% 1,000 ML ONE (00:26)
--- NOTE | 2023-02-07 00:40 | ER ---
Nurse's Notes [facility] Name: Leila Simons Age: 27 yrs Sex: Female : 1995 Arrival Date: 02/06/2023 Time: 21:26 Bed 5 Private MD: Diagnosis: Diarrhea, unspecified;Nausea with vomiting, unspecified Presentation: 02/06 21:31 Chief complaint: Patient states: "I have been having diarrhea and vomiting all day. as6 It's been pretty bad". Coronavirus screen: At this time, the client does not indicate any symptoms associated with coronavirus-19. Ebola Screen: No symptoms or risks identified at this time. Initial Sepsis Screen: Does the patient meet any 2 criteria? No. Patient's initial sepsis screen is negative. Does the patient have a suspected source of infection? No. Patient's initial sepsis screen is negative. Risk Assessment: Do you want to hurt yourself or someone else? Patient reports no desire to harm self or others. Onset of symptoms was February 06, 2023. 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 - Social history:: Smoking status: Patient denies any tobacco usage or history of. Screenin:55 [facility] ED Fall Risk Assessment (Adult) History of falling in the last 3 months, jb4 including since admission No falls in past 3 months (0 pts) Confusion or Disorientation No (0 pts) Score/Fall Risk Level 0 - 2 = Low Risk Oriented to surroundings, Maintained a safe environment. Abuse screen: Denies threats or abuse. Nutritional screening: No deficits noted. Tuberculosis screening: No symptoms or risk factors identified. Assessment: 21:53 General: Appears in no apparent distress. comfortable, Behavior is calm, cooperative, jb4 appropriate for age. Pain: Complains of pain in right lower quadrant and left lower quadrant Pain does not radiate. Pain currently is 9 out of 10 on a pain scale. Quality of pain is described as crampy. Neuro: Level of Consciousness is awake, alert, obeys commands, Oriented to person, place, time, situation. Cardiovascular: Patient's skin is warm and dry. Respiratory: Airway is patent Respiratory effort is even, unlabored, Respiratory pattern is regular, symmetrical. GI: Abdomen is non-distended, obese, Reports diarrhea, nausea, vomiting. : No signs and/or symptoms were reported regarding the genitourinary system. EENT: No signs and/or symptoms were reported regarding the EENT system. Derm: Skin is intact, Skin is pink, warm \\T\\ dry. Musculoskeletal: Circulation, motion, and sensation intact. Range of motion: intact in all extremities. 23:02 Reassessment: Patient appears in no apparent distress at this time. Patient and/or jb4 family updated on plan of care and expected duration. Pain level reassessed. Patient is alert, oriented x 3, equal unlabored respirations, skin warm/dry/pink. 02/07 00:13 Reassessment: Patient appears in no apparent distress at this time. Patient and/or jb4 family updated on plan of care and expected duration. Pain level reassessed. Patient is alert, oriented x 3, equal unlabored respirations, skin warm/dry/pink. Patient states feeling better. 00:52 Reassessment: Patient appears in no apparent distress at this time. Patient and/or jb4 family updated on plan of care and expected duration. Pain level reassessed. Patient is alert, oriented x 3, equal unlabored respirations, skin warm/dry/pink. D/c pending completion of IV fluids. 02:00 Reassessment: Patient appears in no apparent distress at this time. Patient and/or jb4 family updated on plan of care and expected duration. Pain level reassessed. Patient is alert, oriented x 3, equal unlabored respirations, skin warm/dry/pink. Patient states feeling better. Vital Signs: 02/06 21:31 BP 131 / 93; Pulse 111; Resp 18 S; Temp 98(O); Pulse Ox 95% on R/A; Weight 113.4 kg as6 (R); Height 5 ft. 4 in. (R); Pain 9/10; 22:45 BP 115 / 80; Pulse 96; Resp 16; Pulse Ox 98% on R/A; jb4 02/07 00:13 BP 121 / 71; Pulse 107; Resp 16; Pulse Ox 99% on R/A; jb4 01:00 BP 145 / 81; Pulse 106; Resp 16; Pulse Ox 99% on R/A; jb4 02:00 BP 130 / 87; Pulse 103; Resp 16; Pulse Ox 97% on R/A; jb4 02/06 21:31 Body Mass Index 42.91 (113.40 kg, 162.56 cm) as6 02/06 21:31 Pain Scale: Adult as6 ED Course: 02/06 21:26 Patient arrived in ED. jj6 21:31 Arm band placed on. as6 21:32 Reilly White PA is PHCP. cp 21:32 Corby Nicholson DO is Attending Physician. cp 21:33 Triage completed. as6 21:52 Librado Bradford, RN is Primary Nurse. jb4 21:55 Patient has correct armband on for positive identification. Bed in low position. Call jb4 light in reach. Side rails up X 1. Client placed on continuous cardiac and pulse oximetry monitoring. NIBP monitoring applied. 22:10 Initial lab(s) drawn, by me, sent to lab. Inserted saline lock: 22 gauge in right jb4 forearm, using aseptic technique. Blood collected. 22:13 Lipase Sent. jb4 22:13 CMP Sent. jb4 22:13 CBC with Diff Sent. jb4 23:12 CT Abd/Pelvis - IV Contrast Only In Process Unspecified. EDMS 02/07 02:01 No provider procedures requiring assistance completed. IV discontinued, intact, jb4 bleeding controlled, No redness/swelling at site. Pressure dressing applied. Administered Medications: 02/06 22:18 CANCELLED (Physician Discretion): diphenhydrAMINE IVP 12.5 mg IVP once cp 22:38 Drug: Pantoprazole IVP 40 mg Route: IVP; Site: right forearm; jb4 23:00 Follow up: Response: No adverse reaction; Marked relief of symptoms jb4 22:38 Drug: Dicyclomine IM 20 mg Route: IM; Site: right gluteus; jb4 23:00 Follow up: Response: No adverse reaction; Marked relief of symptoms jb4 22:38 Drug: diphenhydrAMINE IVP 25 mg Route: IVP; Site: right forearm; jb4 23:00 Follow up: Response: No adverse reaction; Marked relief of symptoms jb4 22:39 Drug: NS 0.9% IV 1000 ml Route: IV; Rate: 1 bolus; Site: right forearm; jb4 23:45 Follow up: Response: No adverse reaction; Marked relief of symptoms; IV Status: jb4 Infusion continued; IV Intake: 1000ml 22:39 Drug: Ondansetron IVP 4 mg Route: IVP; Site: right forearm; jb4 23:00 Follow up: Response: No adverse reaction; Marked relief of symptoms jb4 02/07 00:17 Drug: Potassium PO Effervescent Tablet 50 mEq Route: PO; jb4 01:58 Follow up: Response: No adverse reaction jb4 00:29 Drug: NS 0.9% IV 1000 ml Route: IV; Rate: 1 bolus; Site: right antecubital; jb4 01:58 Follow up: Response: No adverse reaction; Marked relief of symptoms; IV Status: jb4 Completed infusion; IV Intake: 1000ml Medication: 02:00 VIS not applicable for this client. jb4 Intake: 02/06 23:45 IV: 1000ml; Total: 1000ml. jb4 02/07 01:58 IV: 1000ml; Total: 2000ml. jb4 Outcome: 00:38 Discharge ordered by MD. cp 02:01 Discharged to home ambulatory, with family. jb4 02:01 Condition: stable 02:01 Discharge instructions given to patient, Instructed on discharge instructions, follow up and referral plans. medication usage, Demonstrated understanding of instructions, follow-up care, medications, Prescriptions given X 2. 02:03 Patient left the ED. jb4 Signatures: Dispatcher [employer] EDCT Reilly White PA PA cp Bryson, James, RN RN jb4 Ling Hernández jj6 Jean Carlos Alfnoso RN RN as6 Corrections: (The following items were deleted from the chart) 00:53 00:52 Reassessment: Patient appears in no apparent distress at this time. Patient jb4 and/or family updated on plan of care and expected duration. Pain level reassessed. Patient is alert, oriented x 3, equal unlabored respirations, skin warm/dry/pink. jb4
--- NOTE | 2023-02-07 00:40 | EDPHYS ---
Physician Documentation [facility] Name: Leila Simons Age: 27 yrs Sex: Female : 1995 Arrival Date: 02/06/2023 Time: 21:26 Bed 5 Private MD: ED Physician Corby Nicholson HPI: 02/05 22:00 This 27 yrs old Female presents to ER via Ambulatory with complaints of cp Nausea/Vomiting/Diarrhea. 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 - Social history:: Smoking status: Patient denies any tobacco usage or history of. ROS: 02/05 22:10 Constitutional: Positive for body aches, chills, poor PO intake, Negative for fever. cp 22:10 Eyes: Negative for injury, pain, redness, and discharge. cp 22:10 Cardiovascular: Negative for chest pain. 22:10 Respiratory: Negative for cough, shortness of breath, wheezing. 22:10 Abdomen/GI: Positive for abdominal pain, nausea, vomiting, and diarrhea, anorexia, Negative for hematemesis, black/tarry stool, rectal bleeding. 22:10 All other systems are negative. Exam: 22:10 Head/Face: Normocephalic, atraumatic. cp 22:10 Constitutional: The patient appears in no acute distress, alert, awake, non-toxic, well developed, well nourished, obese. 22:10 Eyes: Periorbital structures: appear normal, Conjunctiva: normal, no exudate, no injection, Sclera: no appreciated abnormality, Lids and lashes: appear normal, bilaterally. 22:10 ENT: External ear(s): are unremarkable, Nose: is normal, Mouth: Lips: moist, Oral mucosa: pink and intact, moist, Posterior pharynx: is normal, airway is patent, no erythema, no exudate. 22:10 Chest/axilla: Inspection: normal. 22:10 Cardiovascular: Rate: tachycardic, Rhythm: regular. 22:10 Respiratory: the patient does not display signs of respiratory distress, Respirations: normal, no use of accessory muscles, no retractions, labored breathing, is not present, Breath sounds: are clear throughout, no decreased breath sounds, no stridor, no wheezing. 22:10 Abdomen/GI: Inspection: abdomen appears normal, Bowel sounds: active, all quadrants, Palpation: soft, in all quadrants, moderate abdominal tenderness, in all quadrants. 22:10 Back: CVA tenderness, is absent. 22:10 Neuro: Orientation: to person, place \T\ time. Mentation: is normal. Vital Signs: 02/06 21:31 BP 131 / 93; Pulse 111; Resp 18 S; Temp 98(O); Pulse Ox 95% on R/A; Weight 113.4 kg as6 (R); Height 5 ft. 4 in. (R); Pain 9/10; 22:45 BP 115 / 80; Pulse 96; Resp 16; Pulse Ox 98% on R/A; jb4 02/07 00:13 BP 121 / 71; Pulse 107; Resp 16; Pulse Ox 99% on R/A; jb4 01:00 BP 145 / 81; Pulse 106; Resp 16; Pulse Ox 99% on R/A; jb4 02:00 BP 130 / 87; Pulse 103; Resp 16; Pulse Ox 97% on R/A; jb4 02/06 21:31 Body Mass Index 42.91 (113.40 kg, 162.56 cm) as6 02/06 21:31 Pain Scale: Adult as6 MDM: 02/06 21:35 Patient medically screened. cp 02/06 21:52 Order name: CBC with Diff; Complete Time: 23:09 cp 02/06 23:51 Interpretation: Normal except: WBC 15.10; RBC 5.16; CANDACE% 83.0; LYM% 12.1; NEUT A 12.5. cp 02/06 21:52 Order name: CMP; Complete Time: 23:09 cp 02/06 21:52 Order name: Lipase; Complete Time: 23:09 cp 02/06 21:52 Order name: Urine Microscopic Only; Complete Time: 23:09 cp 02/06 22:18 Order name: COVID-19/FLU A+B; Complete Time: 23:50 cp 02/06 23:50 Interpretation: Reviewed. 02/06 22:20 Order name: Urine --Ancillary (enter results); Complete Time: 23:09 rv1 02/06 22:21 Order name: Urine Dipstick-Ancillary; Complete Time: 23:09 EDMS 02/06 22:35 Order name: Urine Culture EDMN 02/06 22:18 Order name: CT Abd/Pelvis - IV Contrast Only cp 02/06 21:52 Order name: IV Saline Lock; Complete Time: 22:13 cp 02/06 21:52 Order name: Labs collected and sent; Complete Time: 22:13 cp 02/06 21:52 Order name: Urine Dipstick-Ancillary (obtain specimen); Complete Time: 22:20 cp 02/06 21:52 Order name: Urine Test (obtain specimen); Complete Time: 22:20 cp 02/07 00:04 Order name: PO challenge; Complete Time: 00:17 cp Administered Medications: 22:18 CANCELLED (Physician Discretion): diphenhydrAMINE IVP 12.5 mg IVP once cp 22:38 Drug: Pantoprazole IVP 40 mg Route: IVP; Site: right forearm; jb4 23:00 Follow up: Response: No adverse reaction; Marked relief of symptoms jb4 22:38 Drug: Dicyclomine IM 20 mg Route: IM; Site: right gluteus; jb4 23:00 Follow up: Response: No adverse reaction; Marked relief of symptoms jb4 22:38 Drug: diphenhydrAMINE IVP 25 mg Route: IVP; Site: right forearm; jb4 23:00 Follow up: Response: No adverse reaction; Marked relief of symptoms jb4 22:39 Drug: NS 0.9% IV 1000 ml Route: IV; Rate: 1 bolus; Site: right forearm; jb4 23:45 Follow up: Response: No adverse reaction; Marked relief of symptoms; IV Status: jb4 Infusion continued; IV Intake: 1000ml 22:39 Drug: Ondansetron IVP 4 mg Route: IVP; Site: right forearm; jb4 23:00 Follow up: Response: No adverse reaction; Marked relief of symptoms jb4 02/07 00:17 Drug: Potassium PO Effervescent Tablet 50 mEq Route: PO; jb4 01:58 Follow up: Response: No adverse reaction jb4 00:29 Drug: NS 0.9% IV 1000 ml Route: IV; Rate: 1 bolus; Site: right antecubital; jb4 01:58 Follow up: Response: No adverse reaction; Marked relief of symptoms; IV Status: jb4 Completed infusion; IV Intake: 1000ml Disposition: 03:45 Co-signature as Attending Physician, Corby Nicholson DO I was immediately available on-site ms3 in the Emergency Department for consultation in the care of the patient. Disposition Summary: 02/07/23 00:38 Discharge Ordered Location: Home cp Problem: new cp Symptoms: have improved cp Condition: Stable cp Diagnosis - Diarrhea, unspecified cp - Nausea with vomiting, unspecified cp Followup: cp - With: Private Physician - When: 2 - 3 days - Reason: Worsening of condition Discharge Instructions: - Discharge Summary Sheet cp - Food Choices to Help Relieve Diarrhea, Adult cp - Diarrhea, Adult cp - Nausea and Vomiting, Adult cp Forms: - Medication Reconciliation Form cp - Thank You Letter cp - Antibiotic Education cp - Prescription Opioid Use cp - Work release form jb4 Prescriptions: - Zofran 4 mg Oral Tablet - take 1 tablet by ORAL route every 12 hours As needed; 20 tablet; Refills: 0, cp Product Selection Permitted - dicyclomine 20 mg Oral Tablet - take 1 tablet by ORAL route 4 times per day; 30 tablet; Refills: 0, Product cp Selection Permitted Signatures: Dispatcher [employer] EDMS Reilly White PA PA cp Librado Bradford, RN RN jb4 Corby Nicholson DO DO ms3 Jean Carlos Alfonso RN RN as6 Corrections: (The following items were deleted from the chart) 02/06 22:18 22:18 diphenhydrAMINE IVP 12.5 mg IVP once ordered. cp cp 02/08 02:03 02/06 22:00 This 27 yrs old Female presents to ER via Ambulatory with cp complaints of Nausea/Vomiting/Diarrhea. cp
[2023-02-07 08:15] VITALS: TEMP 98
[2023-02-07 08:19] VITALS: BP 130/87; O2SAT 97
--- NOTE | 2023-02-07 12:05 | RAD REPORT ---
EXAM DESCRIPTION: Abdomen and Pelvis with contrast CLINICAL HISTORY: Abdominal pain. TECHNIQUE: CT scan of the abdomen and pelvis was performed with intravenous contrast. 5 mm axial ethel ges were obtained along with coronal and sagittal reformatted images. COMPARISON: 08/03/2022. DOSE OPTIMIZATION: This facility uses dose optimization techniques as appropriate to perform exams, including at least one of the following techniques: 1. Automated exposure control. 2. Adjustment of the mA and/or kV according to patient size (this includes techniques or standardized protocols for targeted exams where dose is matched to the indication/reason for exam, i.e. extremiti es or head). 3. Use of iterative reconstructive technique. FINDINGS: Lung Bases: No active disease. Liver: There is diffuse fatty liver infiltration. Spleen: Normal. Pancreas: Normal. Gallbladder: Normal. Adrenal Glands: Normal. Kidneys: Normal. Retroperitoneal Structures: Normal. Bowel Survey: The stomach is mildly distended with gas and fluid. There are multiple mildly distended small bowel loops with air-fluid levels. The appendix is unremarkable. There is evidence of liquefied stool throughout the colon. The above findings are suggestive of gastroenteritis with diarrhea. Uterus and Adnexa: Normal. Urinary Bladder: Normal. Peritoneal Cavity: Normal. Mesenteric Structures: Normal. Abdominal Wall: No hernia. Bony Structures: No suspicious lesions. IMPRESSION: 1. Findings suggestive of gastroenteritis with diarrhea. 2. Diffuse fatty liver infiltration. Electronically signed by: Geo Hopper MD 02/06/2023 11:28 PM CDT Due to temporary technical issues with the PACS/Fluency reporting system, reports are being signed by the in house radiologists without review as a courtesy to insure prompt reporting. The interpreting radiologist is fully responsible for the content of the report.
== END 2023-02-07 02:03 | disposition home or self-care (01) ==
LOC: ER 21:23
DX: R19.7 Diarrhea, unspecified (principal); R11.2 Nausea with vomiting, unspecified
CPT/HCPCS: 0240U; 36415; 74177; 80053; 81003; 81015; 81025; 83690; 85025; 87086; 87088; C9113; J0500; J1200; J2405; J7030; Q9967

== ENCOUNTER 2023-06-15 14:14 | Emergency (ER) | payer OTHER, SELFPAY ==
--- OUTSIDE RECORDS SUMMARY | 2023-06-15 14:18 | XMS REPORT | Continuity of Care Document ---
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 Quality Painful Radiation Does not radiate. Migration/Movement None Severity: Onset Moderate Severity: Current Moderate Associated with Reports: Nausea, Vomiting. Denies: Chills, Const ipation, Diarrhea, Fever. Associated Other Reports dizziness but denies UT I Sx. Exacerbated by Nothing Relieved by Nothing Free Text HPI Notes Free Text HPI Notes 24 y/o F presents to the ED with c/o LLQ abd pain onset today (time unspecified) . Pt reports associated dizziness and N/V but de nies UTI Sx, fever, chills, constipation or diarrhea. Pt reports LNMP as July. Pt reports she took home a test recently and it resulted negati ve. Portions of this section were scribed by Rai Navarro on 09/25/19 at 1937 Risk-Abd Pain F Under 40 )( Ectopic Risk factors reviewed Coronary Artery Disease Risk factors reviewed Thoracic Aortic Dissection Risk factors reviewed Portions of this section were scribed by Rai Navarro on 09/25/19 at 1937 Review of Systems ROS Statements All systems rev neg except as marked. Focused Review of Systems Constitutional Denies: Chills, Fever, Lethargy. Respiratory Denies: Cough, non-productive, Cough, productive , Shortness of breath. Cardiovascular Denies: Chest pain, Syncope. GI Reports: Abdominal pain (LLQ ), Nausea, Vomiting . Denies: Bloody/tarry stool, Constipation, Diarrhea. Female Denies: Dysuria, Flank pain, Hematuria. Musculoskeletal Denies: Back pain, Neck pain, Thoracic pain. Additional Review of Systems Eyes Denies: Redness bilat, Swelling bilat. Ears/Nose/Throat Denies: Nasal congestion, Sore throat. Skin Denies: Diaphoresis, Rash. Neurologic Reports: Dizziness. Denies: Change LOC, Confusion, Focal weakness, Generalized weakness, Headache, Lightheaded, Numbness, Synco pe. Portions of this section were scribed by Rai Navarro on 09/25/19 at 1937 Past Medical History - Adult Stated Complaint ABDOMINAL PAIN Allergies Coded Allergies: No Known Allergies (10/30/12) Home Medications Reported Medications No Known Home Medications Review of Nursing Notes Rev avail, and agree Pt reports no significant: Past medical history, Past surgical history, Family history Alcohol Use Denies EtOH use Drug Use Denies recreational drugs Smoking status for patients 13 years old or olde r: Current every day smoker Other Social History Local resident, Good social support Portions of this section were scribed by Rai Navarro on 09/25/19 at 1937 Physical Exam Vital Signs Vital Signs First Documented: Result Date Time Pulse Ox 100 09/25 151 B/P 131/91 09/25 151 B/P Mean 104 09/25 1514 O2 Delivery Room air 09/25 1514 Temp 36.7 09/25 151 Pulse 100 09/25 1514 Resp 18 09/25 1514 Last Documented: Result Date Time Pulse Ox 99 09/25 175 B/P 127/80 09/25 1759 B/P Mean 95 09/25 1759 Temp 36.6 09/25 1759 Pulse 96 09/25 175 Resp 18 09/25 175 O2 Delivery Room air 09/25 151 Review of Vital Signs Reviewed Focused PE General/Const General/Const Awake, Alert, Well developed Eyes Eyes PERRL, EOMI, No periorbital redness, No pe riorbital swelling, Conjunctiva NL Ears/Nose/Throat Ears/Nose/Throat Airway patent, Mucous membrane s moist, Pharynx NL Resp/Chest Respiratory/Chest Breath sounds NL, Breath soun ds = bilat, No respiratory distress, No rales, No rhonc hi, No wheezing, No chest tenderness, No chest wall deformity Cardiovascular Cardiovascular Heart rate NL, Regular rhythm, H eart sounds NL, Peripheral circulation NL, Pulses = bilaterally Abdomen/GI Abdomen/GI Soft, No guarding, No rebound, No di stention Tenderness/Guarding/Rebound Tender LLQ (TO PALPATION ). MS Back Back Inspection NL, Full range of motion, Painl ess range of motion, Non- tender, No midline vertebral tend, No pa raspinal tenderness, No CVA tenderness Skin Skin No rash, Warm, Dry Neurologic Neurologic Oriented X3, Speech NL, No m otor deficits, No sensory deficits, CN II - XII intact, Reflexes equal bilat, Cerebella r NL, Memory NL Additional PE MS Neck Neck Supple, No meningismus, Full range of motion, No adenopathy, No swelling , Non-tender, No midline vertebral tend Portions of this section were scribed by Rai Navarro on 09/25/19 at 1937 Interpretation Diagnostics Lab Results Interpretation Results Laboratory Tests 09/25/19 1533: [Embedded Image Not Available] Laboratory Tests: 09/25 09/25 1550 1550 Toxicology Urine Opiates Screen (NEGATIVE) NEGATIVE Urine Methadone Screen (NEGATIVE) NEGATIVE Urine Barbiturates (NEGATIVE) NEGATIVE Ur Phencyclidine Scrn (NEGATIVE) NEGATIVE Ur Amphetamines Screen (NEGATIVE) POSITIVE H U Benzodiazepines Scrn (NEGATIVE) NEGATIVE Urine Cocaine Screen (NEGATIVE) NEGATIVE Urine Cannabinoids (NEGATIVE) POSITIVE H Urines Urine Color YELLOW Urine Appearance SLHZY Urine pH (5.0 - 9.0) 8.0 Ur Specific Hardy (1.000 - 1.030) 1.020 Urine Protein (NEGATIVE mg/dl) NEGATIVE Urine Glucose (UA) (NORMAL mg/dl) NORMAL Urine Ketones (NEGATIVE mg/dl) NEGATIVE Urine Blood (NEGATIVE Richard/micL) NEGATIVE Urine Nitrite (NEGATIVE) NEGATIVE Urine Bilirubin (NEGATIVE mg/dL) NEGATIVE Urine Urobilinogen (NORMAL mg/dl) 4.0 mg/dl H Ur Leukocyte Esterase (NEGATIVE Stone/micL) 25 Le u/micL H Urine RBC (0 - 3 RBC/HPF) 0-1 Urine WBC (NONE WBC/HPF) 1-3 Ur Epithelial Cells (0 - 3 EPI/HPF) 5-10 H Urine Bacteria (NONE) FEW Urine Mucus 2+ Urine Other CLUE CELLS Urine HCG, Qual (NEGATIVE) NEGATIVE 09/25 1533 Chemistry Sodium (134.0 - 147.0 mmol/l) 142 Potassium (3.6 - 5.2 mmol/L) 3.7 Chloride (98.0 - 107.0 mmol/l) 108 H Carbon Dioxide (21.0 - 33.0 mmol/l) 23.1 Anion Gap (0 - 20) 14.6 BUN (7.0 - 18.0 mg/dl) 7 Creatinine (0.60 - 1.30 mg/dL) 0.50 L Est GFR ( Amer) (133 - 145 mL/min) 196 H Est GFR (Non-Af Amer) (110 - 120 mL/min) 162 H Glucose (70.0 - 110.0 mg/dl) 98 Calcium (8.0 - 10.5 mg/dl) 8.9 Total Bilirubin (0.0 - 1.0 mg/dl) 0.3 Direct Bilirubin (0.0 - 0.3 mg/dl) 0.1 AST (15.0 - 37.0 Units/L) 14 L ALT (12.0 - 78.0 Units/L) 23 Total Alk Phosphatase (50.0 - 136.0 Units/L) 67 Total Protein (6.4 - 8.2 gm/dL) 7.1 Albumin (3.2 - 4.7 gm/dl) 3.6 Lipase (65.0 - 230.0 Units/L) 135 Hematology WBC (4.5 - 11.0 K/mm3) 11.2 H RBC (3.80 - 5.20 M/mm3) 5.25 H Hgb (12.0 - 16.0 gm/dL) 15.3 Hct (36.0 - 48.0 %) 46.3 MCV (82.0 - 99.0 UM3) 88.2 MCH (25.5 - 32.5 UUG) 29.1 MCHC (29.0 - 35.5 gm/dL) 33.0 RDW (11.5 - 15.0 %) 12.6 Plt Count (150 - 400 K/mm3) 309 MPV (7.4 - 10.4 fl) 10.7 H Neut % (Auto) (49.0 - 76.0 %) 59.7 Lymph % (Auto) (23.0 - 38.0 %) 30.1 [place] % (Auto) (1.0 - 10.0 %) 7.2 Eos % (Auto) (1.0 - 5.0 %) 2.2 Baso % (Auto) (0.0 - 1.0 %) 0.4 Neut # (Auto) (2.4 - 6.3 K/mm3) 6.7 H Lymph # (Auto) (1.2 - 4.0 K/mm3) 3.4 [place] # (Auto) (0.0 - 0.6 K/mm3) 0.8 H Eos # (Auto) (0.0 - 0.7 K/MM3) 0.3 Baso # (Auto) (0.0 - 0.2 K/mm3) 0.1 Immature Gran % (0.0 - 0.4 %) 0.4 Immature Gran # (0.00 - 0.07 x10 3/uL) 0.05 Recent Impressions: ULTRASOUND - US PELVIS COMPLETE 09/25 1619 Report Impression - Status: SIGNED Entered: 09/25/2019 1635 Impression: No acute abnormality in the pelvis. Empty normal sized uterus. Tiny follicular cyst right ovary. Normal ovarian perfusion bilaterally. Location: U 19 Impression By: Mariza Ross ULTRASOUND - DUP AB/PEL/SC COMP 09/25 1620 Report Impression - Status: SIGNED Entered: 09/25/2019 1635 Impression: No acute abnormality in the pelvis. Empty normal sized uterus. Tiny follicular cyst right ovary. Normal ovarian perfusion bilaterally. Location: U 19 Impression By: Mariza Ross CAT SCAN - CT ABD PELVIS W/CONT 09/25 1643 Report Impression - Status: SIGNED Entered: 09/25/2019 1658 IMPRESSION: No acute abnormality in the abdomen or pelvis, similar appearance to the previous study possibly with a right-sided follicular cyst this time. No inflammatory zambrano es or free fluid. No acute inflammatory changes in the left lower steven drant. Location: U19 Impression By: Mariza Ross Lab Imaging Statement Laboratory radiographic studies reviewed and con sidered in the medical decision-making. Point of Care Testing Urinalysis Interpretation U/A reviewed Pulse Oximetry Pulse Ox % 100 On: Room air Interpretation Interpreted by me, Pulse oximetr y normal Time 1514 Test UR HCG REVIEWED Free Text I D Notes Free Text I D Notes ULTRASOUND - US PELVIS COMPLETE 09/25 1619 Report Impression - Status: SIGNED Entered: 09/25/2019 1635 Interpreted by : Radiologist Reviewed by : ED physician Impression: No acute abnormality in the pelvis. Empty normal sized uterus. Tiny follicular cyst right ovary. Normal ovarian perfusion bilaterally. Location: U 19 Impression By: Mariza Ross ULTRASOUND - DUP AB/PEL/SC COMP 09/25 1620 Report Impression - Status: SIGNED Entered: 09/25/2019 1635 Interpreted by : Radiologist Reviewed by : ED physician Impression: No acute abnormality in the pelvis. Empty normal sized uterus. Tiny follicular cyst right ovary. Normal ovarian perfusion bilaterally. Location: U 19 Impression By: Mariza Ross CAT SCAN - CT ABD PELVIS W/CONT 09/25 1643 Report Impression - Status: SIGNED Entered: 09/25/2019 1658 Interpreted by : Radiologist Reviewed by : ED physician IMPRESSION: No acute abnormality in the abdomen or pelvis, similar appearance to the previous study possibly with a right-sided follicular cyst this time. No inflammatory zambrano es or free fluid. No acute inflammatory changes in the left lower steven drant. Portions of this section were scribed by Rai Navarro on 09/25/19 at 1937 Re-Evaluation [facility] )( Re-Evaluation/Progress #1 Time of Re-Eval 1600 )( Re-Eval Status Improved Re-Eval Abdomen Soft, Non-tender Pain Re-Evaluation Denies pain Exam Post Tx - General Active, Alert, Appears no n-toxic Exam Post Tx - Sys Review Lungs clear Plan Post Re-Eval Plan discharge Abd Pain MDM Note F < 40 The patient is resting comfortably and feels bet ter, is alert and in no distress. The repeat examination is unremarkable and benign; in particular, there is no discomfort at McBurney's point. The history, exam, diagnostic testing, and current condition do not suggest ac cole appendicitis, bowel obstruction, tubovarian abscess, ectopic pregnan cy, ovarian torsion, acute cholecystitis, bowel perforation, major gastroin testinal bleeding, severe diverticulitis, sepsis, or other significant pat hology to warrant further testing, continued ED treatment, admission, or s urgical evaluation at this point. The vital signs have been stable. The pat ient does not have uncontrollable pain, intractable vomiting, or ot her significant symptoms. The patient's condition is stable and appropriate fo r discharge. The patient will pursue further outpatient evaluation with the [facility] care physician or other designated or consulting physician as in dicated in the discharge instructions. Re-Evaluation/Progress #2 Text/Dict Note > feeling much better > no N/V Time of Eval 1739 Re-Eval Status Improved ED Course Medication(s) Ordered Medication(s) Ordered: Central Nervous System Agents Sig/Hannah Start time Last Medication Dose Route Stop Time Status Admin Ketorolac 15 MG X1ED STA 09/25 1723 DC Tromethamine IV 09/25 1724 Diagnostic Agents Sig/Hannah Start time Last Medication Dose Route Stop Time Status Admin Iopamidol 0 .STK-MED ONE 09/25 1631 DC 09/25 IV 1647 Electrolytic, Caloric, And Dustin Sig/Hannah Start time Last Medication Dose Route Stop Time Status Admin Sodium Chloride 1,000 ML X1ED 09/25 1545 DCD 11 IV 10/25 1544 1606 Gastrointestinal Drugs Sig/Hannah Start time Last Medication Dose Route Stop Time Status Admin Ondansetron HCl 4 MG X1ED STA 09/25 1544 DC 11 IV 09/25 1545 1605 Portions of this section were scribed by Rai Navarro on 09/25/19 at 1937 Patient Discharge Departure Vital Signs/Condition Vital Signs First Documented: Result Date Time Pulse Ox 100 09/25 151 B/P 131/91 09/25 151 B/P Mean 104 09/25 151 O2 Delivery Room air 09/25 1514 Temp 36.7 09/25 151 Pulse 100 09/25 151 Resp 18 09/25 1514 Last Documented: Result Date Time Pulse Ox 99 09/25 1759 B/P 127/80 09/25 1759 B/P Mean 95 09/25 1759 Temp 36.6 09/25 1759 Pulse 96 09/25 1759 Resp 18 09/25 1759 O2 Delivery Room air 09/25 1514 All vital signs available at the time of this en try have been reviewed. Condition Improved Clinical Impression Clinical Impression Primary Impression: Ovarian cyst Secondary Impressions: Abdominal pain, Bacterial vaginosis Time of Impression 1740 Disposition Decision Discharge )( Discharged to Home Yes )( Time 1741 )( Date 09/25/19 Discharge/Care Plan Counseled Regarding Diagnosi s, Lab results, Imaging studies, Prescriptions, Need for follow-up, Smoking cessation, When to return to ED Prescriptions flagyl, tylenol extra strength; See Rx. Prescriptions Reviewed Risks, Benefits Discharge Note I have spoken with the patie nt and/or caregivers. I have explained the patient's condition, diagnoses and khalida atment plan based on the information available to me at this time. I have answered the patient's and/ or caregiver's questions and addressed any concerns. The patient and/or careg tj have as good an understanding of the patient 's diagnosis, condition and treatment plan as can be expected at this point. The vital signs have bee n stable. The patient's condition is stable and appr opriate for discharge from the emergency department. The patient will pursue further outpatient evalu ation with the primary care physician or other designated or consulting phys ician as outlined in the discharge instructions. The patient and/or caregivers are agreeable to this plan of care and follow-up instructions have been exp lained in detail. The patient and/or caregivers have received these instructio ns in written format and have expressed an understanding of the discharge inst ructions. The patient and/or caregivers are aware that any significant change in condition or worsening of symptoms should prompt an immediate return to [facility] or the closest emergency department or a call to 911. Quality Measures Preg Test for Women w/Abd Pa in Female age 14-50, Complaint of abdominal pn, Any preg test ordered Smoking Cessation Screened, tobacco user, Tobacc o cess intervention Tobacco Screening/Cessation 18 years or older, C ounseled 3-10 minutes Smoking Cessation Counseling The patient was questioned r egarding their smoking habits, and I have determined , as the patient's treating physician, that ther e is a medical necessity in regards to the patient's med ical condition to provide smoking cessation program education. The patient was a dvised to stop smoking and counseled for a period of greater than 3 minutes. The patient was instructed to follow up with a primary care physician for smoking cessation and given i nformation regarding local smoking cessation programs i n the area. The patient received detailed discharge instructions as to how to stop smoking. The patient expressed an understanding of the need to follow up and the plan for smokin g cessation. Supervising Physician Note Scribe Statement Rai Myles, 09/25/19 1547, scribing fo r and in the presence of [Dr. Aguilar ]. Signed By: Rai Myles, 09/25/19 6184 Provider Scribed Statement I personally performed the s ervices described in this documentation and reviewed the documentation that was dictated to the scrib e(s) in my presence, and it accurately records my words and actions. Toñito Aguilar, 09/27/19 Portions of this section were scribed by Rai Navarro on 09/25/19 at 1937 Electronically Signed by Toñito Aguilar MD on 06/08 at 8566 RPT #:[id number] END OF REPORT
[2023-06-15 14:46] LABS: Absolute Lymphocytes (CBC) 2.9 K/uL (0.7-4.9); Lymphocytes % 32.9 % (15.3-44.8); MCV 81.7 fL (80-100); MPV 7.9 fL (7.6-11.3); RBC Red Blood Cell Count 4.89 M/uL (3.86-4.86)
[2023-06-15] MEDS ORDERED: NA CHLORIDE 0.9% 1,000 ML ONE (14:49)
[2023-06-15] MEDS ORDERED: ONDANSETRON 4 MG/2 ML VIAL ONE (14:49)
--- NOTE | 2023-06-15 14:54 | RAD REPORT ---
EXAM DESCRIPTION: CT - CTHCSPWOC - 06/15/2023 2:41 pm CLINICAL HISTORY: Trauma, head and neck injury. PAIN COMPARISON: No comparisons TECHNIQUE: Axial 5 mm thick images of the head were obtained. Axial 2 mm thick images of the cervical spine were obtained with sagittal and coronal reconstruction images generated and reviewed. All CT scans are performed using dose optimization technique as appropriate and may include automated exposure control or mA/KV adjustment according to patient size. FINDINGS: CT HEAD WITHOUT CONTRAST: No acute hemorrhage, hydrocephalus or extra-axial collection is identified.No areas of brain edema or midline shift. The paranasal sinuses and mastoids are clear, except for a 2 cm mucous retention cyst left maxillary antrum.The calvarium is intact. CT CERVICAL SPINE WITHOUT CONTRAST: No fracture or subluxation.No prevertebral soft tissues swelling is identified. IMPRESSION: No acute intracranial or cervical spine findings.
[2023-06-15 15:01] LABS: Albumin 3.4 g/dL (3.4-5.0); Bilirubin Total 0.5 mg/dL (0.2-1.0); Potassium 3.7 mEq/L (3.5-5.1); Protein, Total 7.3 g/dL (6.4-8.2)
--- NOTE | 2023-06-15 16:14 | ER ---
Nurse's Notes [facility] Name: Leila Simons Age: 28 yrs Sex: Female : 1995 Arrival Date: 06/15/2023 Time: 14:14 Bed 5 Private MD: Diagnosis: Unspecified injury of head, initial encounter;Concussion without loss of consciousness Presentation: 06/15 14:20 Chief complaint: Patient states: "I fell coming down the steps of the RV 3 days ago and aa5 I was seen at the ER in [place] because I hit my head but since yesterday my head pain has gotten worse and I feel dizzy at times". Pt denies vomiting but reports nausea. Coronavirus screen: nausea. Ebola Screen: Patient denies travel to an Ebola-affected area in the 21 days before illness onset. Initial Sepsis Screen: Does the patient meet any 2 criteria? No. Patient's initial sepsis screen is negative. Does the patient have a suspected source of infection? No. Patient's initial sepsis screen is negative. Risk Assessment: Do you want to hurt yourself or someone else? Patient reports no desire to harm self or others. Onset of symptoms was May 2023. 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 - Social history:: Smoking status: Patient denies any tobacco usage or history of. Screenin:15 [facility] ED Fall Risk Assessment (Adult) History of falling in the last 3 months, db including since admission No falls in past 3 months (0 pts) Confusion or Disorientation No (0 pts) Intoxicated or Sedated No (0 pts) Impaired Gait No (0 pts) Mobility Assist Device Used No (0 pt) Altered Elimination No (0 pt) Score/Fall Risk Level 0 - 2 = Low Risk Oriented to surroundings, Maintained a safe environment. Abuse screen: Denies threats or abuse. Denies injuries from another. Nutritional screening: No deficits noted. Tuberculosis screening: No symptoms or risk factors identified. Assessment: 15:15 Reassessment: Patient appears in no apparent distress at this time. Patient and/or db family updated on plan of care and expected duration. Pain level reassessed. Patient is alert, oriented x 3, equal unlabored respirations, skin warm/dry/pink. General: Appears in no apparent distress. comfortable, Behavior is calm, cooperative. Pain: Complains of pain in scalp. Pain: Complains of pain in head. Neuro: Level of Consciousness is awake, alert, obeys commands, Oriented to person, place, time, situation, Moves all extremities. Respiratory: Airway is patent Respiratory effort is even, unlabored, Respiratory pattern is regular, symmetrical. GI: Abdomen is flat. 16:00 Reassessment: Patient appears in no apparent distress at this time. Patient and/or db family updated on plan of care and expected duration. Pain level reassessed. Patient is alert, oriented x 3, equal unlabored respirations, skin warm/dry/pink. General: Appears in no apparent distress. comfortable. Vital Signs: 14:20 BP 135 / 88; Pulse 81; Resp 18 S; Temp 97(TE); Pulse Ox 99% on R/A; Weight 113.4 kg aa5 (R); Height 5 ft. 6 in. (R); 15:00 BP 103 / 53; Pulse 73; Resp 16; Pulse Ox 96% on R/A; db 16:00 BP 108 / 56; Pulse 72; Resp 16; Pulse Ox 100% on R/A; db 14:20 Body Mass Index 40.35 (113.40 kg, 167.64 cm) aa5 Ayo Coma Score: 16:05 Eye Response: spontaneous(4). Motor Response: obeys commands(6). Verbal Response: randy oriented(5). Total: 15. ED Course: 14:19 Patient arrived in ED. im 14:20 Arm band placed on. aa5 14:23 Triage completed. aa5 14:25 Reilly Teague MD is Attending Physician. randy 14:41 Inserted saline lock: 20 gauge in left antecubital area, using aseptic technique. sm8 14:42 CT Head C Spine In Process Unspecified. EDMS 15:44 Genia Freeman, ERIKA is Primary Nurse. db 16:12 Phil Liu MD is Referral Physician. randy 16:46 Patient has correct armband on for positive identification. Bed in low position. Call db light in reach. Side rails up X2. Provided Education on: DISCHARGED. 16:46 No provider procedures requiring assistance completed. IV discontinued, intact, db bleeding controlled, No redness/swelling at site. Administered Medications: 15:01 Drug: NS 0.9% IV 1000 ml Route: IV; Rate: 1 bolus; Site: left antecubital; ko1 16:00 Follow up: Response: No adverse reaction; IV Status: Completed infusion; IV Intake: db 1000ml 15:01 Drug: Ondansetron IVP 4 mg Route: IVP; Site: left antecubital; ko1 16:44 Follow up: Response: No adverse reaction db 16:15 Drug: Ketorolac IVP 30 mg Route: IVP; Site: right antecubital; db 16:43 Follow up: Response: No adverse reaction db 16:37 CANCELLED (Duplicate Order): fentaNYL (PF) IVP 50 mcg IVP once randy Medication: 15:15 VIS not applicable for this client. db Intake: 16:00 IV: 1000ml; Total: 1000ml. db Outcome: 16:13 Discharge ordered by . [facility] 16:46 Discharged to home with family. db 16:46 Condition: stable 16:46 Discharge instructions given to patient, family, Instructed on discharge instructions, follow up and referral plans. Prescriptions given X 2. 16:50 Patient left the ED. db Signatures: Dispatcher [employer] Reilly Rivera MD MD cha Calderon, Audri, RN RN aa5 Ruth Rico RN RN ko1 Genia Freeman RN RN db Belle Quintero Scarlett sm8 Corrections: (The following items were deleted from the chart) 14:42 14:40 Inserted saline lock: 20 gauge in left antecubital area, using aseptic technique. sm8 upper arm, using aseptic technique. sm8
--- NOTE | 2023-06-15 16:14 | EDPHYS ---
Physician Documentation [facility] Name: Leila Simons Age: 28 yrs Sex: Female : 1995 Arrival Date: 06/15/2023 Time: 14:14 Bed 5 Private MD: ED Physician Reilly Teague HPI: 06/15 16:02 This 28 yrs old Female presents to ER via Ambulatory with complaints of Fall randy Injury - on 06/12. 16:02 Details of fall: The patient fell from a height, down approximately 3 stairs. Onset: randy The symptoms/episode began/occurred 3 day(s) ago. Associated injuries: The patient sustained injury to the head, neck injury, contusion, decreased range of motion. Severity of symptoms: At their worst the symptoms were mild, in the emergency department the symptoms are unchanged. The patient has not experienced similar symptoms in the past. 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 - Social history:: Smoking status: Patient denies any tobacco usage or history of. ROS: 16:03 Constitutional: Negative for fever, chills, and weight loss, Eyes: Negative for injury, randy pain, redness, and discharge, ENT: Negative for injury, pain, and discharge, Cardiovascular: Negative for chest pain, palpitations, and edema, Respiratory: Negative for shortness of breath, cough, wheezing, and pleuritic chest pain, Abdomen/GI: Negative for abdominal pain, nausea, vomiting, diarrhea, and constipation, Back: Negative for injury and pain, : Negative for injury, bleeding, discharge, and swelling, MS/Extremity: Negative for injury and deformity, Skin: Negative for injury, rash, and discoloration, Psych: Negative for depression, anxiety, suicide ideation, homicidal ideation, and hallucinations, Allergy/Immunology: Negative for hives, rash, and allergies, Endocrine: Negative for neck swelling, polydipsia, polyuria, polyphagia, and marked weight changes, Hematologic/Lymphatic: Negative for swollen nodes, abnormal bleeding, and unusual bruising. 16:03 Neck: Positive for pain with movement, of the left base of the skull. 16:03 Neuro: Positive for headache. Exam: 16:03 Constitutional: This is a well developed, well nourished patient who is awake, alert, randy and in no acute distress. Eyes: Pupils equal round and reactive to light, extra-ocular motions intact. Lids and lashes normal. Conjunctiva and sclera are non-icteric and not injected. Cornea within normal limits. Periorbital areas with no swelling, redness, or edema. ENT: Nares patent. No nasal discharge, no septal abnormalities noted. Tympanic membranes are normal and external auditory canals are clear. Oropharynx with no redness, swelling, or masses, exudates, or evidence of obstruction, uvula midline. Mucous membranes moist. Neck: Trachea midline, no thyromegaly or masses palpated, and no cervical lymphadenopathy. Supple, full range of motion without nuchal rigidity, or vertebral point tenderness. No Meningismus. Chest/axilla: Normal chest wall appearance and motion. Nontender with no deformity. No lesions are appreciated. Cardiovascular: Regular rate and rhythm with a normal S1 and S2. No gallops, murmurs, or rubs. Normal PMI, no JVD. No pulse deficits. Respiratory: Lungs have equal breath sounds bilaterally, clear to auscultation and percussion. No rales, rhonchi or wheezes noted. No increased work of breathing, no retractions or nasal flaring. Abdomen/GI: Soft, non-tender, with normal bowel sounds. No distension or tympany. No guarding or rebound. No evidence of tenderness throughout. Back: No spinal tenderness. No costovertebral tenderness. Full range of motion. Skin: Warm, dry with normal turgor. Normal color with no rashes, no lesions, and no evidence of cellulitis. MS/ Extremity: Pulses equal, no cyanosis. Neurovascular intact. Full, normal range of motion. Neuro: Awake and alert, GCS 15, oriented to person, place, time, and situation. Cranial nerves II-XII grossly intact. Motor strength 5/5 in all extremities. Sensory grossly intact. Cerebellar exam normal. Normal gait. Psych: Awake, alert, with orientation to person, place and time. Behavior, mood, and affect are within normal limits. 16:03 Constitutional: The patient appears alert, awake, well developed, well hydrated, well groomed, well nourished, obese. 16:03 Head/face: Noted is contusion, that is superficial, of the scalp and left base of the skull. Vital Signs: 14:20 BP 135 / 88; Pulse 81; Resp 18 S; Temp 97(TE); Pulse Ox 99% on R/A; Weight 113.4 kg aa5 (R); Height 5 ft. 6 in. (R); 15:00 BP 103 / 53; Pulse 73; Resp 16; Pulse Ox 96% on R/A; db 16:00 BP 108 / 56; Pulse 72; Resp 16; Pulse Ox 100% on R/A; db 14:20 Body Mass Index 40.35 (113.40 kg, 167.64 cm) aa5 Ayo Coma Score: 16:05 Eye Response: spontaneous(4). Motor Response: obeys commands(6). Verbal Response: randy oriented(5). Total: 15. MDM: 14:25 Patient medically screened. randy 16:05 Differential diagnosis: closed head injury, cardiac contusion, C spine fracture, randy cervical epidural bleed, epidural hematoma, intracerebral hemorrhage, migraine, subarachnoid bleed, subdural hematoma. Differential diagnosis: abrasion, closed head injury, contusion, fracture, multiple trauma, sprain, strain. Data reviewed: vital signs, nurses notes, lab test result(s), radiologic studies, CT scan. Consideration of Admission/Observation Escalation of care including admission/observation considered. I considered the following discharge prescriptions or medication management in the emergency department Medications were administered in the Emergency Department. See MAR. Independent interpretation of the following test(s) in the Emergency Department CT Scan: My interpretation is CT HEAD AND C SPINE. Test considered but Not performed: EKG: NO EKG. Historians other than the Patient: PT ONLY. Care significantly affected by the following chronic conditions: THYROID, OBESITY. Counseling: I had a detailed discussion with the patient and/or guardian regarding: the historical points, exam findings, and any diagnostic results supporting the discharge/admit diagnosis, lab results, radiology results, the need for outpatient follow up, for definitive care, a family practitioner. 06/15 14: Order name: CBC with Diff; Complete Time: 15:57 [facility] 06/15 14:27 Order name: Comprehensive Metabolic Panel; Complete Time: 15:57 [facility] 07/26 14:26 Order name: CT Head C Spine; Complete Time: 15:57 randy Administered Medications: 15:01 Drug: NS 0.9% IV 1000 ml Route: IV; Rate: 1 bolus; Site: left antecubital; ko1 16:00 Follow up: Response: No adverse reaction; IV Status: Completed infusion; IV Intake: db 1000ml 15:01 Drug: Ondansetron IVP 4 mg Route: IVP; Site: left antecubital; ko1 16:44 Follow up: Response: No adverse reaction db 16:15 Drug: Ketorolac IVP 30 mg Route: IVP; Site: right antecubital; db 16:43 Follow up: Response: No adverse reaction db 16:37 CANCELLED (Duplicate Order): fentaNYL (PF) IVP 50 mcg IVP once randy Disposition Summary: 06/15/23 16:13 Discharge Ordered Location: Home randy Problem: new randy Symptoms: have improved randy Condition: Stable randy Diagnosis - Unspecified injury of head, initial encounter randy - Concussion without loss of consciousness randy Followup: randy - With: Private Physician - When: 2 - 3 days - Reason: Recheck today's complaints, Continuance of care, Re-evaluation by your physician Followup: randy - With: Phil Liu MD - When: 2 - 3 days - Reason: Recheck today's complaints, Re-evaluation by your physician Discharge Instructions: - Discharge Summary Sheet randy - Concussion, Adult randy - Head Injury, Adult randy - Concussion, Adult, [id number] randy - Head Injury, Adult, [id number] [facility] Forms: - Medication Reconciliation Form [facility] - Thank You Letter [facility] - Antibiotic Education [facility] - Prescription Opioid Use [facility] - Patient Portal Instructions [facility] Prescriptions: - Ibuprofen 600 mg Oral Tablet - take 1 tablet by ORAL route every 6 hours As needed take with food; 25 tablet; [facility] Refills: 0, Product Selection Permitted - Zofran 4 mg Oral Tablet - take 1 tablet by ORAL route every 12 hours As needed; 20 tablet; Refills: 0, [facility] Product Selection Permitted Signatures: Dispatcher [employer] Reilly Rivera MD MD cha Calderon, Audri RN RN aa5 Ruth Rico RN RN ko1 Genia Freeman RN RN db Corrections: (The following items were deleted from the chart) 16:37 15:48 fentaNYL (PF) IVP 50 mcg IVP once ordered. randy randy
[2023-06-15] MEDS ORDERED: KETOROLAC 30 MG/ML INJ ONE (16:48)
[2023-06-15 17:43] VITALS: TEMP 97
[2023-06-15 17:45] VITALS: BP 108/56; O2SAT 100
== END 2023-06-15 16:50 | disposition home or self-care (01) ==
LOC: ER 14:14
DX: S06.0X0A Concussion without loss of consciousness, initial encounter (principal)
CPT/HCPCS: 85025; 36415; 80053; 70450; 72125; J2405; J7030; 99284

== ENCOUNTER 2023-07-22 10:36 | Emergency (ER) | payer OTHER ==
--- OUTSIDE RECORDS SUMMARY | 2023-07-22 10:41 | XMS REPORT | Continuity of Care Document ---
:1995 Author Organization [facility] t Address [address] [place] [address] Care Team Providers Name Role Phone PCP, PATIENT DOES NOT HAVE A Primary Care Physician UnavailZELALEM Almanzar Attending Clinician Unavailable Zelalem Loomis MD Attending Clinician Petrona Carbajal Attending Clinician Unavailable JAMES POTTS Attending Clinician Unavailable JIM VANEGAS Attending Clinician Unavailable OLIVER VILLALPANDO Attending Clinician Unavailable Rosalba Sabillon Attending Clinician Unavailable ZELALEM LOOMIS Admitting Clinician Unavailable Physician, No Primary or Family Admitting Clinician Aleksandra bloom Payers Payer Name Policy Type Policy Number Effective Date Expiration Date S delmis [employer] [id number] 2023 OUT OF NETWORK 00:00:00 Problems This patient has no known problems. Allergies, Adverse Reactions, Alerts Allergy Allergy Status Severity Reaction(s) Onset Inactive Treating Comm ents Source Name Type Date Date Clinician No Known DA Active U 2011-11 [facility] All[facility]ie 2-10 Clear s 00:00: Rosario 00 [facility] NO KNOWN Drug Active Univers ALLERGIE Class ity of S [place] [facility] Social History Social Habit Start Date Stop Date Quantity Comments Source Gender identity [facility] Sexual orientation Univer sity [facility] Tobacco use and 2021-03-21 2021-03-21 Smokeless Universit y of exposure 00:00:00 00:00:00 tobacco non-user [facility] History of Social 2021-03-21 2021-03-21 Univers ity of function 00:00:00 00:00:00 [facility] [birth year] [facility] Smoking Status Start Date Stop Date Source Never smoked tobacco [facility] Medications Ordered Filled Start Stop Current Ordering Indication Dosage Frequency Signature Comments Components Source Medication Medication Date Date Medication? Clinician (SIG) Name Name FENTanyl PF 2022- No 50ug 50 mcg, Un tj (SUBLIMAZE 06-13 Intramuscu it y of (PF)) 02:15: 01:51 lar, ONCE, [place] injection 00 :00 1 dose, On Medi nickolas 50 mcg [facility] 06/12/23 at 2114, Routine ondansetron 2022- No 4mg 4 mg, Univ ers (ZOFRAN-ODT 06-13 Oral, ity of ) 02:15: 01:51 ONCE, 1 [place] disintegrat 00 :00 dose, On Medi nickolas ing tablet [facility] 4 mg 06/12/23 at 211, Routine acetaminoph 2022- Yes 4647 1{tbl} Take 1 U nivers en-codeine 06-12 08-13 tablet by ity of 300-30 mg 00:00: 04:59 mouth [place] tablet 00 :00 every 6 Medical (six) Branch hours as needed for Pain (scale 4-6) for up to 20 days. Indication s: acute pain ondansetron 2022- Yes [id number] 4mg Take 1 Univers (ZOFRAN) 4 06-12 [...] Indication s: acute pain cyclobenzap 2020-0 Yes [id number] 10mg Take 1 Univers rine 10 mg 8-17 tablet by ity of tablet 00:00: mouth 3 [place] 00 (three) Medical times Branch daily as needed for Muscle Spasms. ibuprofen 2020-0 Yes [id number] 800mg Take 1 Univers 800 mg 8-17 tablet by ity of tablet 00:00: mouth [place] 00 every 8 Medical (eight) Branch hours as needed for Pain (scale 4-6). cyclobenzap 2020-0 Yes [id number] 10mg Take 1 Univers rine 10 mg 6-21 tablet by ity of tablet 00:00: mouth [place] 00 every 8 Medical (eight) Branch hours as needed for Muscle Spasms for up to 15 doses. Vital Signs Vital Name Observation Time Observation Value Comments Source Systolic blood 2023-06-13 03:00:00 141 mm[Hg] Univer sity [facility] Diastolic blood 2023-06-13 03:00:00 97 mm[Hg] [facility] Heart rate 2023-06-13 03:00:00 81 /min [facility] Oxygen saturation in 2023-06-13 03:00:00 98 /min [facility] Arterial blood by [facility] Pulse oximetry Branch Body temperature 2023-06-13 01:24:00 36.94 Carol [facility] Respiratory rate 2023-06-13 01:07:00 20 /min [facility] Body height 2023-06-13 01:06:[address] [facility] Body weight 2023-06-13 01:06:[address] [facility] BMI 2023-06-13 01:06:00 48.06 kg/m2 [facility] Procedures Procedure Date / Time Performed Performing Clinician [facility] e CONSENT/REFUSAL FOR 2023-06-13 01:05:04 Doctor Unassigned, No Un [facility] DIAGNOSIS AND Name Medical Branch TREATMENT Encounters Start End Encounter Admission Attending Care Care Encounter Source Date/Time Date/Time Type Type Clinicians Facility Department ID 2023-06-12 2023-06-12 Emergency X VLADISLAV [facility] ERT [id number] Univers 20:07:00 22:10:00 ZELALEM anthony [facility] 2023-06-12 2023-06-12 Emergency Vladislav [facility] [id number] Univers 20:07:00 22:10:00 Zelalem [facility] [id number] itanthony [facility] [id number] [facility] [id number] [address] ([facility] 2023-05-13 2023-05-13 Outpatient Cheremateng [facility] [id number] [facility] 15:15:00 15:15:00 , [facility] 2021-03-21 2021-03-21 Emergency X [facility] ERT [id number] Univers 22:50:00 22:50:00 [facility] 2020-12-28 2020-12-29 Emergency [facility] ERT [id number] Univers 22:57:00 03:04:00 JAMES [facility] 2020-07-07 2020-07-07 Emergency X GUILHERME, [facility] ERT [id number] Univers 14:07:00 14:07:00 JIM [facility] 2020-05-10 2020-05-13 Inpatient HCAMN MARIANNE [id number] [facility] 21:14:00 08:16:59 24 [facility] 2020-05-10 2020-05-10 Emergency X BETHANIE, [facility] ERT [id number] Univers 21:47:04 21:47:04 OLIVER [facility] 2019-11-18 2019-11-18 Emergency EM Ridge, [facility] MAR[facility] [id number] [facility] 12:05:00 13:24:00 Rosalba 40 [facility] Results Test Description Test Time Test [...] code = BACU) TRACE NONE UR HCG [id number] 12:50:00 Test Item Value Reference Range Interpretation Comments UR HCG QUAL (test code = HCGQLU) NEGATIVE NEGATIVE URINALYSIS [id number] 12:47:00 Test Item Value Reference Range Interpretation [...] (test code = NONE BACU) UR HCG [id number] 12:47:00 Test Item Value Reference Range Interpretation Comments UR HCG QUAL (test code = HCGQLU) NEGATIVE URINALYSIS [id number] 12:47:00 Test Item Value Reference Range Interpretation [...] (test code = NONE BACU) UR HCG [id number] 12:47:00 Test Item Value Reference Range Interpretation Comments UR HCG QUAL (test code = HCGQLU) NEGATIVE NEGATIVE - XR CHEST 2 [id number] 12:34:00 FAX: Oliver Villalpando NP [phone] [place]: [address] St: PRE Name: SHERLEY PARRISH [facility] : 1995 Age/S: 69[address] [facility] [employer] [facility] Unit #: [id number] Loc: [place], [place] Phys: NatalieCristino fortunena RECYCLABLE 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 The lungs are well aerated. No large pneumothorax or pleural effusion. Osseous structures and soft tissues demonstrate no acute findings. The visualized upper abdomenis unremarkable. IMPRESSION: No acute cardiopulmonary abnormality. at 1234 Reported and signed by: Krishan Pitt MD CC: Oliver Villalpando NP Technologist: BARBARA SIN Trnscrd Date/Time/By: 11/18/2019 (1234) : By: [email or web address] PAGE 1 Signed Report FAX: Oliver Villalpando NP [phone] [place]: St: PRE Name: SHERLEY PARRISH [facility] : 1995 [facility] 69[address] [facility]: [id number] Loc: [place], [place] Phys: Oliver Villalpando [id number] Acct: [id number] Dis Date: Status: PRE ER PHONE #: [phone] Exam Date: 11/18/2019 1227 FAX #: [phone] Reason: cough EXAMS: CPT CODE: [id number] XR CHEST 2 V 87180 (Continued) Orig Print D/T: S: 11/18/2019 (1237) PAGE 2 Signed Report- CT ABD PELVIS [id number] 16:55:00 FAX: Toñito Aguilar MD [place]: St: PRE Name: SHERLEY PARRISH [facility] : 1995 Age/S: 24/F [address] [facility] Unit: [id number] Loc: [address] Phys: Toñ[place] [id number] Acct: [id number] Dis Date: Status: PRE ER PHONE #: [phone] Exam Date: 09/25/2019 1643 FAX #: [phone] Reason: LLq pain EXAMS: CPT CODE: [id number] CT ABD PELVIS W/CONT 21845 HISTORY: Left lower quadrant pain, abdominal pain. CT abdomen and pelvis, contrast enhanced. Reformatted sagittal and coronal images.COMPARISON: June 11, 2018 Automated exposure control, iterative [...] or pleural fluid can be found. Similar l iver perfusion no perfusion. Hypodense area, a pseudolesion [...] No free fluid or inflammatory changes. No findingsof inguinal hernia. Bony structures intact with no bony destructive or sclerotic process. Spinal alignment normal.. IMPRESSION: No acute abnormality in the abdomen or pelvis, similar PAGE 1 Signed Report (CONTINUED) FAX: Toñito Aguilar MD [place]: St: PRE Name: PARRISHSHERLEY [facility] : 1995 Age/S: 24/F [address] [facility] Unit: [id number] Loc: [address] Phys: Toñ[place] [id number] Acct: [id number] Dis Date: Status: PRE ER PHONE #: [phone] Exam Date: 09/25/2019 1643 FAX #: [phone] Reason: LLq pain EXAMS: CPT CODE: [id number] CT ABD PELVIS W/CONT 70049 (Continued) appearance to the previous study possibly with a right-sided follicular cyst this time. No inflammatory changes or free fluid. No acute inflammatory changes in the left lower quadrant. Location: U19 at 9982 Reported and signed by: Ari Gaston M.D. CC: Toñito Aguilar MD Technologist: WALLACE STOREY Trnscrd Dt/Tm: 09/25/2019 (2428) tJOSE ROBERTOM Orig Print D/T: S: 09/25/2019 (1658 PAGE 2 Signed Report- DUP AB/PEL/SC [id number] 16:32:00 FAX: Toñito Aguilar MD [place]: St: PRE Name: SHERLEY PARRISH [facility] : 1995 Age/S: 24/F [address] [facility] [employer] [facility] Unit #: [id number] Loc: [address] Phys: Toñ[place] [address] Acct: [id number] Dis Date: Status: PRE ER PHONE #: [phone] Exam Date: 09/25/2019 1620 FAX #: [phone] Reason: PELVIC PAIN LLQ PAIN EXAMS: CPT CODE: [id number] DUP AB/PEL/SC COMP 80051 ULTRASOUND: - US PELVIS COMPLETE, - DUP AB/PEL/SC COMP History: Pelvic pain Comparison: None. B-mode/Delacruz scale imagingwith color Doppler perfusion imaging and spectral analysis [...] MD Technologist: LOGAN MILLER Trnscrd Date/Time/By: 09/25/2019 (9519) : By: [facility] PAGE 1 Signed Report FAX: Toñito Aguilar MD [place]: St: PRE --- Name: SHERLEY PARRISH [facility] : 1995 Age[facility]S: /69[address] [facility] #: [id number] Loc: [address] Phys: Toñ[place] [id number] Acct: [id number] Dis Date: Status: PRE ER PHONE #: [phone] Exam Date: 09/25/2019 1620 FAX #: [phone] Reason: PELVIC PAIN LLQ PAIN EXAMS: CPT CODE: [id number] DUP AB/PEL/SC COMP 13944 (Continued) Orig Print D/T: S: 09/25/2019 (1635) PAGE 2 Signed Report- US PELVIS COMPLETE 2019-09-25 16:32:00 FAX: Toñito Aguilar MD [place]: St: PRE Name: SHERLEY PARRISH [facility] : 1995 Age/S: 69[address] [facility] Unit #: [id number] Loc: [address] Phys: Toñ[place] [address] Acct: [id number] Dis Date: Status: PRE ER PHONE #: [phone] Exam Date: 09/25/2019 1619 FAX #: [phone] Reason: Pelvic pain llq pain EXAMS: CPT CODE: [id number] US PELVIS COMPLETE 57232 ULTRASOUND: - US PELVIS COMPLETE, - DUP [...] CC: Toñito Aguilar MD Technologist: LOGAN MILLER Trnpard Date/Time/By: 09/25/2019 (9085) : By: [facility] PAGE 1 Signed Report FAX: Toñito Aguilar MD [place]: St: PRE -- Name: SHERLEY PARRISH [facility] : 1995 Age/S: 24/F [address] [facility] Unit #: [id number] Loc: [address] [place] [address] Phys: Toñ[place] [address] Acct: [id number] Dis Date: Status: PRE ER PHONE #: [phone] Exam Date: 09/25/2019 1619 FAX #: [phone] Reason: Pelvic pain llq pain EXAMS: CPT CODE: [id number] US PELVIS COMPLETE 27567 (Continued) Orig Print D/T: S: 09/25/2019 (9718) PAGE 2 Signed ReportURINALYSIS COMPLETE 2019-09-25 16:31:00 [...] CELLS OTHERU) Specimen comments: Clean CatchUR HCG [id number] 16:16:00 Test Item Value Reference Range Interpretation Comments UR HCG QUAL (test code = HCGQLU) NEGATIVE NEGATIVE BASIC METABOLIC [id number] 16:16:00 Test Item Value Reference Range Interpretation [...] 8.9 mg/dl 8.0-10.5 N HEPATIC FUNCTION PANEL [id number] 16:16:00 Test Item Value Reference Range Interpretation [...] 67 Units/L 50.0-136.0 N code = ALKP) [id number] 16:16:00 Test Item Value Reference Range Interpretation Comments LIPASE (test code = LIP) 135 Units/L 65.0-230.0 N DRUGS OF ABUSE SCREEN [id number] 16:12:00 Test Item Value Reference Interpretation Comments [...] 300 ng/mL Specimen comments: Clean CatchBASIC METABOLIC [id number] 16:12:00 Test Item Value Reference Range Interpretation [...] = CA) mg/dl 8.0-10.5 HEPATIC FUNCTION PANEL [id number] 16:12:00 Test Item Value Reference Range Interpretation Comments TOTAL PROTEIN (test code = PROT) gm/dL 6.4-8.2 ALBUMIN (test code = ALB) gm/dl 3.2-4.7 BILIRUBIN TOTAL (test code = BILT) mg/dl 0.0-1.0 BILIRUBIN DIRECT (test code = BILD) mg/dl 0.0-0.3 SGOT/AST (test code = AST) Units/L 15.0-37.0 SGPT/ALT (test code = ALT) Units/L 12.0-78.0 ALKALINE PHOSPHATASE TOTAL (test Units/L 50.0-136.0 code = ALKP) [id number] 16:12:00 Test Item Value Reference Range Interpretation Comments LIPASE (test code = LIP) Units/L 65.0-230.0 CBC W/AUTO [id number] 16:08:00 Test Item Value Reference Range Interpretation [...] differe nt from the original. Shawnee Zamora [facility] 22:06:01-00:00 Pt discharged to home, pt gi [...] nt from the original. 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 Patient denies LOC or blood thinner use. Reports head pain and vomiting. Pmhx: hypothyroidism Patient GCS 15, RR Even and unlabored, NAD Electronically signed by Chen Houser RN at 8:07 PM CDT 2023-06-12 Formatting of this note is different from the or iginal. [facility] 20:04:00-00:00 [facility] Emergency Department Note Patient Name: Sherley Parrish Date of : 1995 28 year old female Treatment Room: [place] [address] Primary Care Physician: PATIENT DOES NOT HAVE [...] located right side of head and currently 10/. In erika tion, patient also c/o nause a with dry heaving as well. Patient also c/o nausea with dry heaving. 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 Gastrointestinal: Positive for nausea and vomiting. Negative for abdominal pain. 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 No loc reported. CT head unremark able. [...] Electronically signed by: Zelalem Loomis MD 06/12/232134 [facility] 2020-05-10 [facility] 21:20:00-00:00 [facility] EMERGENCY PROVIDER REPORT REPORT#:[id number] REPORT STATUS: Signed DATE:05/10/20 TIME: 2119 PATIENT: SHERLEY PARRISH UNIT #: [id number] ROOM/BED: AGE: 25 SEX: F PCP PHYS: No Primary or Family Ph ysician SERVICE AUTHOR: Soren Ramirez MD * ALL edits or amendments must be made on the Biodesy/computer document * HPI-Back Pain Under 40 General [...] 05/10 2115 Pulse 77 05/10 2115 Resp 20 05/10 2115 Review of Vital Signs Reviewed Free Text [...] Soren Ramirez MD on at 2201 RPT #:[id number] END OF REPORT 2019-11-18 [facility] 12:16:00-00:00 [facility] [facility] ([facility]) EMERGENCY PROVIDER REPORT REPORT#:[id number] REPORT STATUS: Signed DATE:11/18/19 TIME: 1216 PATIENT: SHERLEY PARRISH UNIT #: [id number] ROOM/BED: AGE: 24 SEX: F PCP PHYS: No Primary or Family P hysician SERVICE AUTHOR: Oliver Villalpando NP * ALL edits or amendments must be made on the Biodesy/computer document * [id number] Illness General Confirmed Patient Yes Patient Type [...] throat x 3 days. patient works at [employer]. Patient also states sh e took a [...] Result Date Time Pulse Ox 98 11/18 120 B/P 133/88 11/186 B/P Mean 103 11/18 1206 O2 Delivery Room air 11/18 120 Temp 38.8 11/18 120 Pulse 116 11/18 120 Resp 18 11/18 1206 Review of Vital [...] pH (5.0 - 9.0) 6.0 Ur Specific [place] (1.000 - 1.030) 1.020 Urine Protein (NEGATIVE [...] B Antigen - COM P NASOPHARG 11/18 123 Influenza Virus Type A Antigen - CO MP NASOPHARG Recent Impressions: RADIOLOGY - XR CHEST 2 V 11/18 1227 Report Impression - Status: SIGNED Entered: 11/18/2019 1237 IMPRESSION: No acute cardiopulmonary abnormality. Impression By: [email or web address] - Krishan Pitt MD Lab Imaging Statement Laboratory radiographic studies reviewed and co nsidered in the medical decision-making. Point of Care [...] X1ED STA 11/18 1215 DC 11/18 PO 12/29 1216 1236 Hormones And Synthetic Substit Sig/Hannah [...] symptoms should prompt an immediate return to [facility] or the closest emergency department or a call to 911. Electronically Signed by Oliver Villalpando NP on at 1329 RPT #:[id number] END OF REPORT 2019-11-18 [facility] 12:16:00-00:00 [facility] [facility] ([facility]) EMERGENCY PROVIDER REPORT REPORT#:[id number] REPORT STATUS: Signed DATE:11/18/19 TIME: 1216 PATIENT: SHERLEY PARRISH UNIT #: [id number] ROOM/BED: AGE: 24 SEX: F PCP PHYS: No Primary or Family Ph ysician SERVICE AUTHOR: Oliver Villalpando NP * ALL edits or amendments must be made on the Biodesy/computer document * Oliver Villalpando 11/18/19 1216: [id number]-[id number]-[id number] Illness General Confirmed Patient Yes Patient Type [...] throat x 3 days. patient works at [employer]. Patient also states sh e took a [...] pH (5.0 - 9.0) 6.0 Ur Specific [place] (1.000 - 1.030) 1.020 Urine Protein (NEGATIVE [...] symptoms should prompt an immediate return to [facility] or the closest emergency department or a call to 911. Rosalba Sabillon 11/18/19 1341: QET-Suy-Ioqp Illness General Initial Greet Date/Time 11/18/19 1209 Patient Discharge Departure Supervising Physician Note MidLv Saw Pt Alone I have reviewed the PA/RECYCLABLE MATERIALS COLLECTOR's note and plan of car e. I was available for consultation as needed at al l times during the patient's visit in the emergency department. I agree with the clinical impression , plan and disposition. Electronically Signed by Oliver Villalpando NP on at 1329 Electronically Signed by Rosalba Sabillon MD on at 1341 RPT #:[id number] END OF REPORT 2019-09-25 [facility] 15:46:00-00:00 [facility] ([facility]) EMERGENCY PROVIDER REPORT REPORT#:[id number] REPORT STATUS: Signed DATE:09/25/19 TIME: 1546 PATIENT: SHERLEY PARRISH UNIT #: [id number] ROOM/BED: AGE: 24 SEX: F PCP PHYS: No Primary or Family P hysician SERVICE AUTHOR: Toñito Aguilar MD * ALL edits or amendments must be made on the Biodesy/computer document * HPI-Abd Pain F Under 40 [...] 09/25 175 O2 Delivery Room air 09/25 1514 Review of Vital Signs Reviewed Focused PE [...] pH (5.0 - 9.0) 8.0 Ur Specific [place] (1.000 - 1.030) 1.020 Urine Protein (NEGATIVE [...] % (Auto) (23.0 - 38.0 %) 30.1 Billings % (Auto) (1.0 - 10.0 %) 7.2 Eos % (Auto) (1.0 - 5.0 %) 2.2 Baso % (Auto) (0.0 - 1.0 %) 0.4 Neut # (Auto) (2.4 - 6.3 K/mm3) 6.7 H Lymph # (Auto) (1.2 - 4.0 K/mm3) 3.4 Billings # (Auto) (0.0 - 0.6 K/mm3) 0.8 [...] perfusion bilaterally. Location: U 19 Impression By: Mariaz Ross CAT SCAN - CT ABD PELVIS [...] Rai Navarro on 09/25/19 at 1937 Re-Evaluation [facility] )( Re-Evaluation/Progress #1 Time of Re-Eval 1600 [...] and current condition do not suggest ac ione appendicitis, bowel obstruction, tubovarian abscess, ectopic pregnan [...] will pursue further outpatient evaluation with the [facility] care physician or other designated or [...] Ox 100 09/25 151 B/P 131/91 09/25 1514 B/P Mean 104 09/25 151 O2 Delivery Room air 09/25 1514 Temp 36.7 09/25 151 Pulse 100 09/25 151 Resp 18 09/25 1514 Last Documented: Result Date Time Pulse Ox 99 09/25 1759 B/P 127/80 09/25 1759 B/P Mean 95 09/25 1759 Temp 36.6 09/25 175 Pulse 96 09/25 175 Resp 18 09/25 1759 O2 Delivery Room air 09/25 151 All vital signs available at the time [...] symptoms should prompt an immediate return to [facility] or the closest emergency department or a [...] Aguilar ]. Signed By: Rai Myles, 09/25/19 3090 Provider Scribed Statement I personally performed the s ervices described in this documentation and reviewed the documentation that was dictated to the scrib e(s) in my presence, and it accurately records my words and actions. Toñito Aguilar, 09/27/19 Portions of this section were scribed by Rai Navarro on 09/25/19 at 1937 Electronically Signed by Toñito Aguilar MD on 06/08 at 8805 RPT #:[id number] END OF REPORT
[2023-07-22] MEDS ORDERED: ONDANSETRON 4 MG (ODT) TAB ONE (11:12)
[2023-07-22] MEDS ORDERED: IBUPROFEN 400 MG TAB ONE (11:12)
[2023-07-22 11:31] LABS: SARS-CoV-2 Antigen Rapid Res Negative (Negative)
--- NOTE | 2023-07-22 12:32 | ER ---
Nurse's Notes [facility] Name: Leila Simons Age: 28 yrs Sex: Female : 1995 Arrival Date: 07/22/2023 Time: 10:36 Bed 18 Private MD: Diagnosis: Vomiting, unspecified;Viral illness Presentation: 07/22 10:52 Chief complaint: Patient states: Cough, vomiting, fever, chills and diarrhea, onset nj1 yesterday. Has a bad headache. Coronavirus screen: Vaccine status: Patient reports being unvaccinated. Ebola Screen: Patient denies travel to an Ebola-affected area in the 21 days before illness onset. Initial Sepsis Screen: Does the patient meet any 2 criteria? HR > 90 bpm. No. Patient's initial sepsis screen is negative. Does the patient have a suspected source of infection? No. Patient's initial sepsis screen is negative. Risk Assessment: Do you want to hurt yourself or someone else? Patient reports no desire to harm self or others. Onset of symptoms was July 21, 2023. 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 - Social history:: Smoking status: Patient denies any tobacco usage or history of. - Family history:: not pertinent. - Hospitalizations: : No recent hospitalization is reported. Screenin:29 [facility] ED Fall Risk Assessment (Adult) History of falling in the last 3 months, mb9 including since admission No falls in past 3 months (0 pts) Confusion or Disorientation No (0 pts) Intoxicated or Sedated No (0 pts) Impaired Gait No (0 pts) Mobility Assist Device Used No (0 pt) Altered Elimination No (0 pt) Score/Fall Risk Level 0 - 2 = Low Risk Oriented to surroundings, Maintained a safe environment, Educated pt \T\ family on fall prevention, incl call for assistance when getting out of bed. Abuse screen: Denies threats or abuse. Nutritional screening: No deficits noted. Tuberculosis screening: No symptoms or risk factors identified. Assessment: 12:28 General: Appears in no apparent distress. Behavior is calm, cooperative, appropriate mb9 for age. Pain: Complains of pain in head Pain does not radiate. Quality of pain is described as throbbing. Neuro: Aguero Agitation-Sedation Scale (RASS): 0 - Alert and Calm Level of Consciousness is awake, alert, obeys commands, Oriented to person, place, time, situation, Appropriate for age. Neuro: Reports headache. Cardiovascular: Patient's skin is warm and dry. Respiratory: Reports cough that is. GI: Abdomen is round non-distended, Bowel sounds present X 4 quads. Abd is soft and non tender X 4 quads. Reports diarrhea, nausea, vomiting. : No signs and/or symptoms were reported regarding the genitourinary system. Derm: Skin is pink, warm \T\ dry. Musculoskeletal: Range of motion: intact in all extremities. Vital Signs: 10:52 BP 138 / 92; Pulse 108; Resp 18; Temp 99.8(O); Pulse Ox 98% ; Weight 127.01 kg; Height nj1 5 ft. 4 in. ; 12:28 BP 135 / 95; Pulse 95; Resp 18; Pulse Ox 97% on R/A; mb9 10:52 Body Mass Index 48.06 (127.01 kg, 162.56 cm) nj1 ED Course: 10:40 Patient arrived in ED. im 10:42 Indra Wade MD is Attending Physician. rn 10:56 Triage completed. nj1 10:56 Arm band placed on right wrist. nj1 12:27 Rosario García, ERIKA is Primary Nurse. mb9 12:29 Bed in low position. Call light in reach. Side rails up X 1. Client placed on mb9 continuous cardiac and pulse oximetry monitoring. NIBP monitoring applied. 12:30 No provider procedures requiring assistance completed. Patient did not have IV access mb9 during this emergency room visit. Administered Medications: 11:02 Drug: Ondansetron PO 4 mg Route: PO; nj1 12:27 Follow up: Response: No adverse reaction mb9 11:02 Drug: Ibuprofen PO 800 mg Route: PO; nj1 12:27 Follow up: Response: No adverse reaction mb9 Medication: 12:30 VIS not applicable for this client. mb9 Outcome: 12:32 Discharge ordered by . rn 12:55 Discharged to home ambulatory. mb9 12:55 Condition: stable 12:55 Discharge instructions given to patient, Instructed on discharge instructions, follow up and referral plans. Demonstrated understanding of instructions, follow-up care, medications, Prescriptions given X 1. 12:56 Patient left the ED. mb9 Signatures: Indra Wade MD MD rn Breneman, Rosario Mcmahon RN RN mb9 Courtney Atwood RN RN nj1 Belle Quintero Corrections: (The following items were deleted from the chart) 10:56 10:52 Pulse 108bpm; Resp 18bpm; Pulse Ox 98%; Temp 99.8F Oral; 127.01 kg; Height 5 ft. nj1 4 in.; BMI: 48.0; nj1 10:56 10:56 PMHx: Thyroid problem; nj1 nj1
--- NOTE | 2023-07-22 12:32 | EDPHYS ---
Physician Documentation [facility] Name: Leila Simons Age: 28 yrs Sex: Female : 1995 Arrival Date: 07/22/2023 Time: 10:36 Bed 18 Private MD: ED Physician Indra Wade HPI: 07/22 10:59 This 28 yrs old Female presents to ER via Ambulatory with complaints of Flu rn Symptoms, Vomiting/Diarrhea. 10:59 The patient presents to the emergency department with nausea, vomiting, diarrhea. rn Onset: The symptoms/episode began/occurred this morning. Possible causes: unknown. The symptoms are aggravated by nothing. The symptoms are alleviated by nothing. Severity of symptoms: At their worst the symptoms were moderate in the emergency department the symptoms are unchanged. The patient has not experienced similar symptoms in the past. Patient reports woke up early this morning with fever/chills/vomiting and diarrhea. Denies abdominal pain. Denies shortness of breath. No known sick contacts.. 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 - Social history:: Smoking status: Patient denies any tobacco usage or history of. - Family history:: not pertinent. - Hospitalizations: : No recent hospitalization is reported. ROS: 10:59 Constitutional: Positive for fever and chills Eyes: Negative for injury, pain, redness, rn and discharge, ENT: Positive for nasal congestion and sore throat Cardiovascular: Negative for chest pain, palpitations, and edema, Respiratory: Positive for cough, negative for shortness of breath Abdomen/GI: Positive for nausea/vomiting/diarrhea, negative for abdominal pain MS/Extremity: Negative for injury and deformity, Skin: Negative for injury, rash, and discoloration, Neuro: Positive for headache and generalized weakness Exam: 10:59 Constitutional: This is a well developed, well nourished patient who is awake, alert, rn and in no acute distress. Ambulatory to triage without difficulty or assistance Head/Face: Normocephalic, atraumatic. ENT: Mild pharyngeal erythema, no stridor, uvula midline Cardiovascular: Tachycardic, regular. No pulse deficits. Respiratory: No increased work of breathing, no retractions or nasal flaring. Abdomen/GI: Soft, non-tender Skin: Warm, dry MS/ Extremity: Pulses equal, no cyanosis. Neuro: Awake and alert, GCS 15 Vital Signs: 10:52 BP 138 / 92; Pulse 108; Resp 18; Temp 99.8(O); Pulse Ox 98% ; Weight 127.01 kg; Height nj1 5 ft. 4 in. ; 12:28 BP 135 / 95; Pulse 95; Resp 18; Pulse Ox 97% on R/A; mb9 10:52 Body Mass Index 48.06 (127.01 kg, 162.56 cm) nj1 MDM: 10:42 Patient medically screened. rn 12:31 Differential diagnosis: viral gastroenteritis, gastroenteritis, COVID, flu, viral rn illness. Data reviewed: vital signs, nurses notes, lab test result(s), and as a result, I will discharge patient. Counseling: I had a detailed discussion with the patient and/or guardian regarding the historical points, exam findings, and any diagnostic results supporting the discharge/admit diagnosis, lab results, the need for outpatient follow up, to return to the emergency department if symptoms worsen or persist or if there are any questions or concerns that arise at home. Response to treatment: the patient's symptoms have markedly improved after treatment, and as a result, I will discharge patient. Special discussion: I discussed with the patient/guardian in detail that at this point there is no indication for admission to the hospital. It is understood, however, that if the symptoms persist or worsen the patient needs to return immediately for re-evaluation. ED course: Patient feels much better, nausea resolved after Zofran. COVID/flu/strep all negative. Most likely viral illness. Will DC home with as needed Zofran and given return precautions.. 07/22 10:43 Order name: SARS RAPID; Complete Time: 12:03 rn 07/22 10:43 Order name: Flu; Complete Time: 12:03 rn 07/22 10:49 Order name: Strep rn 07/22 11:33 Order name: Throat Culture EDMS Administered Medications: 11:02 Drug: Ondansetron PO 4 mg Route: PO; la1 12:27 Follow up: Response: No adverse reaction mb9 11:02 Drug: Ibuprofen PO 800 mg Route: PO; nj1 12:27 Follow up: Response: No adverse reaction mb9 Disposition Summary: 07/22/23 12:32 Discharge Ordered Location: Home rn Problem: new rn Symptoms: have improved rn Condition: Stable rn Diagnosis - Vomiting, unspecified rn - Viral illness rn Followup: rn - With: Private Physician - When: As needed - Reason: Recheck today's complaints, Re-evaluation by your physician Discharge Instructions: - Discharge Summary Sheet rn - Nausea and Vomiting, Adult rn - Viral Illness, Adult rn Forms: - Medication Reconciliation Form rn - Thank You Letter rn - Antibiotic nurse extern - Prescription Opioid Use rn - Patient Portal Instructions rn - Leadership Thank You Letter rn - Work release form mb9 Prescriptions: - ondansetron 4 mg Oral Tablet,disintegrating - take 1 tablet by ORAL route every 8 hours As needed; 15 tablet; Refills: 0, rn Product Selection Permitted Signatures: Dispatcher [employer] EDIndra Villar MD MD rn Jaco, Norma, RN RN nj1 Rosario García RN mb9 Corrections: (The following items were deleted from the chart) 10:56 10:56 PMHx: Thyroid problem; nj1 nj1
[2023-07-22 13:09] VITALS: TEMP 99.8
[2023-07-22 13:13] VITALS: BP 135/95; O2SAT 97
== END 2023-07-22 12:56 | disposition home or self-care (01) ==
LOC: ER 10:36
DX: B34.9 Viral infection, unspecified (principal); Z20.822 Contact with and (suspected) exposure to COVID-19; E03.9 Hypothyroidism, unspecified
CPT/HCPCS: 87070; 36415; 87081; 87804 ×2; 99283; 87811; Q0162

== ENCOUNTER 2024-03-06 16:52 | Emergency (ER) | payer OTHER ==
--- OUTSIDE RECORDS SUMMARY | 2024-03-06 16:56 | XMS REPORT | Continuity of Care Document ---
Author Name Unknown Address [address] [facility] [place] [address] [facility] thconnect Address [address] [facility] [address] [place] [address] Care Team Providers Care Vaccine Specialist Name Role Phone PCP, PATIENT DOES NOT HAVE A Primary Care Physic prashanth Unavailable FARHAT DEL TORO Attending Clinician UnavailCED Manuel Attending Clinician Unavailable BÁRBARA HUA Attending Clinician Unavailable GENET DENSON Attending Clinician UnaJADIEL Hsu Attending Clinician Unavailable LAB90 Attending Clinician Unavailable DON VALENCIA Attending Clinician Unavailab ZELALEM Arroyo Attending Clinician Unavailable Zelalem Loomis MD Attending Clinician [phone] Petrona Carbajal Attending Clinician Unavailable JAMES POTTS Attending Clinician Unavailab JIM Muse Attending Clinician Unavailable OLIVER VILLALPANDO Attending Clinician Unavailable Rosalba Sabillon Attending Clinician Unavailable ZELALEM LOOMIS Admitting Clinician Unavailable Physician, No Primary or Family Admitting Clinic prashanth Unavailable Payers Payer Name Policy Type Policy Number Effective Date Expirati on Date Source [employer]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 9 [id number] 2023 00:00:00 [employer]WORK [id number] 2023 00:00:00 Problems Condition Name Condition Details Condition Category Status Onset Date Resolution Date Last Treatment Date Treating Clinician Comments Source Well adult exam Well adult exam Disease Active 2022-11 00:00: 00 Elizabeth carolina Class 3 severe obesity due to excess calories with body mass index (BMI) of 40.0 to 44.9 in adult Class 3 severe obesity due to excess calories with body mass index (BMI) of 40.0 to 44.9 in adult Disease Active 2022-11 00:00: 00 Elizabeth carolina Allergies, Adverse Reactions, Alerts Allergy Name Allergy Type Status Severity Reaction(s) Onset Date Inactive Date Treating Clinician Comments Source No Known Allergie s DA Active 2011-11 00:00: 00 [facility] NO KNOWN ALLERGIE S Drug Class Active [facility] Social History Social Habit Start Date Stop Date Quantity Comments Source Gender identity [facility] History of tobacco use Cigarette Smoker Elizabeth han - External Sexual orientation Brina Wynne - External History of Social function 2023-11-04 00:00:00 2023-11-04 00:00:00 Elizabeth Wynne - External Alcoholic beverage intake 2023-11-04 00:00:00 2023-11-04 00:00:00 .29 /d Elizabeth Wynne - External Tobacco use and exposure 2023-11-04 00:00:00 2023-11-04 00:00:00 Former smokeless tobacco user Elizabeth Wynne - External Alcohol intake 2023-11-04 00:00:00 2023-11-04 00:00:00 .29 /d Elizabeth Wynne - External Sex assigned at 1995 00:00:00 1995 00:00:00 Elizabeth Wynne - External Smoking Status Start Date Stop Date Source Ex-smoker 2023-11-04 00:00:00 2023-11-04 00:00:00 Brina Dempsey Never smoked tobacco [facility] Medications Ordered Medication Name Filled Medication Name Start Date Stop Date Current Medication? Ordering Clinician Indication Dosage Frequency Signature (SIG) Comments Components Source Ondansetron (ZOFRAN) 8 MG oral TABLET DISPERSIBLE 02-25 00:00: 00 Yes [id number] 8mg Q.30649753 [id number] 3D Take 1 tablet (8 mg total) by mouth every 8 hours as needed for nausea. Elizabeth carolina Albuterol HFA 108 (90 Base) MCG/ACT IN AERS 02-25 00:00: 00 Yes [id number] 2{puff} Q.25D Inhale 2 puffs into the lungs every 6 hours as needed for wheezing. Elizabeth carolina PseudoephMorisB romphen-DM 30-2-10 MG/5ML oral Syrup 02-25 00:00: 00 Yes [id number] 10mL Q.25D Take 10 mL by mouth 4 times daily as needed. Elizabeth carolina Nirmatrelvi r & Ritonavir STANDARD (30) (300/100) Therapy Pack 02-25 00:00: 00 Yes [id number] Take two 150 mg nirmatrelv ir (pink) tablets with one 100 mg ritonavir (white) tablet by mouth two times daily for 5 days. Elizabeth carolina Mupirocin (BACTROBAN) 2 % apply externally Ointment 2022-11 2-15 00:00: 00 Yes [id number] Apply 1 applicatio n. topically 3 times daily. Elizabeth carolina FENTanyl PF (SUBLIMAZE (PF)) injection 50 mcg 06-13 02:15: 00 06-13 01:51 :00 No 50ug 50 mcg, Intramuscu lar, ONCE, 1 dose, On 06/12/23 at 2115, Routine [facility] ondansetron (ZOFRAN-ODT ) disintegrat ing tablet 4 mg 06-13 02:15: 00 06-13 01:51 :00 No 4mg 4 mg, Oral, ONCE, 1 dose, On 06/12/23 at 2115, Rout[facility] acetaminoph en-codeine 300-30 mg tablet 06-12 00:00: 00 07-03 04:59 :00 No [id number] 1{tbl} Take 1 tablet by mouth every 6 (six) hours as needed for Pain (scale 4-6) for up to 20 days. Indication s: acute pain [facility] ondansetron (ZOFRAN) 4 mg tablet 06-12 00:00: 00 06-23 04:59 :00 No [id number] 4mg Take 1 tablet by mouth every 8 (eight) hours as needed for Nausea and Vomiting (N/V) for up to 10 days. [facility] traMADoL 50 mg tablet 12-29 00:00: 00 Yes [id number] 50mg Take 1 tablet by mouth every 6 (six) hours as needed for Pain (scale 7-10). Indication s: acute pain [facility] cyclobenzap rine 10 mg tablet 07-07 00:00: 00 Yes [id number] 10mg Take 1 tablet by mouth 3 (three) times daily as needed for Muscle Spasms. [facility] ibuprofen 800 mg tablet 07-07 00:00: 00 Yes [id number] 800mg Take 1 tablet by mouth every 8 (eight) hours as needed for Pain (scale 4-6). [facility] cyclobenzap rine 10 mg tablet 6 00:00: 00 Yes [id number] 10mg Take 1 tablet by mouth every 8 (eight) hours as needed for Muscle Spasms for up to 15 doses. [facility] Immunizations Ordered Immunization Name Filled Immunization Name Date Status Comments Source Tdap- (Boostrix, Adacel) Unknown Completed Elizabeth Wynne - External Influenza, Injectable, Mdck, Preservative Free, Quadrivalent Unknown Completed Elizabeth Wynne - External Tdap- (Boostrix, Adacel) Unknown Completed Elizabeth Wynne - External Influenza, Injectable, Mdck, Preservative Free, Quadrivalent Unknown Completed Elizabeth Wynne - External Tdap- (Boostrix, Adacel) Unknown Completed Elizabeth Urbinaybold - External Influenza, Injectable, Mdck, Preservative Free, Quadrivalent Unknown Completed Elizabeth Urbinaybold - External Vital Signs Vital Name Observation Time Observation Value Comments S delmis Systolic blood pressure 2023-11-04 16:18:00 128 mm[Hg] Elizabeth Urbinaybo ld - External Diastolic blood pressure 2023-11-04 16:18:00 65 mm[Hg] Elizabeth Urbinaybo ld - External Heart rate 2023-11-04 16:18:00 72 /min Benigno cruz Seybold - External Body temperature 2023-11-04 16:18:00 36 Carol Elizabeth Urbinaybold - External Respiratory rate 2023-11-04 16:18:00 16 /min Elizabeth Urbinaybold - External Body height 2023-11-04 16:18:00 157.5 cm Adrienne ey Seybold - External Body weight 2023-11-04 16:18:00 108.863 kg Adrienne ey Seybold - External BMI 2023-11-04 16:18:00 43.90 kg/m2 Adrienne ey Seybold - External Oxygen saturation in Arterial blood by Pulse oximetry 2023-11-04 16:18:00 97 /min Elizabeth Meehano ld - External Systolic blood pressure 2023-06-13 03:00:00 141 mm[Hg] [facility] Diastolic blood pressure 2023-06-13 03:00:00 97 mm[Hg] [facility] Heart rate 2023-06-13 03:00:00 81 /min [facility] [place] [place] [facility] in Arterial blood by Pulse oximetry 2023-06-13 03:00:00 98 /min [facility] Body temperature 2023-06-13 01:24:00 36.94 Carol [facility] Respiratory rate 2023-06-13 01:07:00 20 /min [facility] Body height 2023-06-13 01:06:00 162.6 cm [facility] Body weight 2023-06-13 01:06:00 127.007 kg [facility] BMI 2023-06-13 01:06:00 48.06 kg/m2 [facility] Procedures Procedure Date / Time Performed Performing Clinicia n Source CONSENT/REFUSAL FOR DIAGNOSIS AND TREATMENT 2023-06-13 01:05:04 Doctor Unassigned, [place] [facility] Encounters Start Date/Time End Date/Time Encounter Type Admission Type Attending [facility] Care Department Encounter ID Source 2024-02-29 11:00:00 2024-02-29 11:00:00 Outpatient FARHAT DEL TORO [id number] [facility] 2024-02-26 14:15:00 2024-02-26 14:15:00 Outpatient YEYO CED ELIZABETH BETANCOURT [id number] [facility] 2024-01-26 18:15:00 2024-01-26 18:15:00 Outpatient BÁRBARA HUA [id number] [facility] 2023-12-22 13:45:00 2023-12-22 13:45:00 Outpatient GENET DENSON [id number] [facility] 2023-11-28 00:00:00 2023-11-28 00:00:00 Outpatient SANTO JADIEL ELIZABETH BETANCOURT [id number] [facility] 2023-11-07 08:55:00 2023-11-07 08:55:00 Outpatient LAB90 ELIZABETH BETANCOURT [id number] [facility] 2023-11-04 10:30:00 2023-11-04 10:30:00 Outpatient ANNIEDON [id number] [facility] 2023-08-31 14:22:34 2023-08-31 14:22:34 Outpatient SFA SFA [id number] Dmitriy Herbert 2023-08-29 14:14:37 2023-08-29 14:14:37 Outpatient SFA SFA [id number] Dmitriy Herbert 2023-06-12 20:07:00 2023-06-12 22:10:00 Emergency ZELALEM JIMENES [facility]ATOLY [id number] [facility] 2023-06-12 20:07:00 2023-06-12 22:10:00 Zelalem Baca [facility] [id number] [facility] 2023-05-13 15:15:00 2023-05-13 15:15:00 Outpatient Petrona Carbajal CHW CHW [id number] [facility] 2021-03-21 22:50:00 2021-03-21 22:50:00 Emergency X RUST ERT [id number] [facility] 2020-12-28 22:57:00 2020-12-29 03:04:00 Emergency X JAMES POTTS [facility] ERT [id number] [facility] 2020-07-07 14:07:00 2020-07-07 14:07:00 Emergency X JIM VANEGAS [facility] ERT [id number] [facility] 2020-05-10 21:14:00 2020-05-13 08:16:59 Inpatient HCAMN MARIANNE [id number] 2020-05-10 21:47:04 2020-05-10 21:47:04 Emergency X OLIVER VILLALPANDO RUST ERT [id number] [facility] 2019-11-18 12:05:00 2019-11-18 13:24:00 Emergency EM Rosalba Sabillon HCAMN MARIANNE [id number] [facility] Results Test Description Test Time Test Comments Results Result Co mments Source UR HCG [id number] 12:50:00* Test Item Value Reference Range Interpretation Comme nts UR HCG QUAL (test code = HCGQLU) NEGATIVE NEGATIVE URINALYSIS [id number] 12:47:00* Test Item Value Reference Range Interpretation Comme nts UA COLOR (test code = COLU) UA APPEARANCE (test code = APPU) UA GLUCOSE DIPSTICK (test code = DGLUU) [...] UA LEUKOCYTE ESTERASE DIPSTICK (test code = LEUU) NEGATIVE Stone/micL NEGATIVE UA WBC (test code = WBCU) WBC/HPF NONE UA RBC (test code = RBCU) RBC/HPF 0-3 UA EPITHELIAL CELLS (test code = EPIU) EPI/HPF 0-3 UA BACTERIA (test code = BACU) NONE UR HCG [id number] 12:47:00* Test Item Value Reference Range Interpretation Comme nts UR HCG QUAL (test code = HCGQLU) NEGATIVE URINALYSIS [id number] 12:47:00* Test Item Value Reference Range Interpretation Comme nts UA COLOR (test code = COLU) UA APPEARANCE (test code = APPU) UA GLUCOSE DIPSTICK (test code = DGLUU) [...] UA LEUKOCYTE ESTERASE DIPSTICK (test code = LEUU) NEGATIVE Stone/micL NEGATIVE UA WBC (test code = WBCU) WBC/HPF NONE UA RBC (test code = RBCU) RBC/HPF 0-3 UA EPITHELIAL CELLS (test code = EPIU) EPI/HPF 0-3 UA BACTERIA (test code = BACU) NONE UR HCG [id number] 12:47:00* Test Item Value Reference Range Interpretation Comme nts UR HCG QUAL (test code = HCGQLU) NEGATIVE NEGATIVE - XR CHEST 2 [id number] 12:34:00FAX: Oliver Villalpando NP [phone] [facility]: St: PRE Name: SHERLEY PARRISH [facility] : 1995 Age/S: 24/F [address] [facility] Unit #: [id number] Loc: [place], [place]: [place] [address] Acct: [id number] Dis Date: Status: PRE ER PHONE #: [phone] Exam Date: 11/18/2019 1227 FAX #: Reason: cough EXAMS: CPT CODE: [id number] XR CHEST 2 V [id number] EXAM: - XR CHEST 2 V COMPARISON: 06/11/2018 LOCATION: 7 HISTORY: 24 years-old Female with cough FINDINGS: The cardiomediastinal silhouette is within normal limits. The lungs are well aerated. No large pneumothorax or pleural effusion. Osseous structures and soft tissues demonstrate no acute findings. The visualized upper abdomen is unremarkable. IMPRESSION: No acute cardiopulmonary abnormality. at 7371 Reported and signed by: Krishan Pitt MD CC: Oliver Villalpando NP Technologist: BARBARA SIN Trnscrd Date/Time/By: 11/18/2019 (0824) : By: [email or web address] PAGE 1 Signed Report FAX: Oliver Villalpando NP [phone] [facility]: St: PRE Name: SHERLEY PARRISH [facility] : 1995Age/S: [address] [facility] [employer] Unit #: [id number] Loc: [place], [place] Phys: Oliver Villalpando REJI [address] Acct: [id number] Dis Date: Status: PRE ER PHONE #: [phone] Exam Date: 2018 1227 FAX #: [phone] Reason: cough EXAMS: CPT CODE: [id number] XR CHEST 2 V 40937 (Continued) Orig Print D/T: S: 11/18/2019 (1237) PAGE 2 Signed Report- CT ABD PELVIS [id number] 16:55:00FAX: Toñito Aguilar MD [facility]: St: PRE Name: SHERLEY PARRISH [facility] : 1995 Age/S: [address] [facility] [employer] Unit: [id number] Loc: [address] Phys: Toñ[place] [address] Acct: [id number] Dis Date: Status: PRE ER PHONE #: [phone] Exam Date: 09/25/2019 1643 FAX #: [phone] Reason: LLq pain EXAMS: CPT CODE: [id number] CT ABD PELVIS W/CONT 60135 HISTORY: Left lower quadrant pain, abdominal pain. [...] includes some of the lung bases, which appearto be clear. Mild interstitial changes may be present. No pericardial or pleural fluid can be found. Similar liver perfusion no perfusion. Hypodense area, a pseudolesion at the falciform ligament region is stable. Gallbladder intact. Liver margins are smooth. Spleen appears to be normal. Pancreas intact. No ductal dilatation. The kidneys do not show obstruction, large stones or stranding. Normalaortic diameter and perfusion. Adrenals intact. No bowel obstruction. Stomach with moderate amount o f food from recent meal. Small bowel distribution intact. The large bowel shows normal appendix. Noevidence of fluid accumulation. Some mild fatty infiltrative changes in the mucosa seen of the large bowel. The study of the pelvis shows bladder nearly empty. Uterus intact. Tiny follicular cysts inthe ovaries likely present. Largest on the right possibly at 2 cm. No free fluid or inflammatory changes. No findings of inguinal hernia. Bony structures intact with no bony destructive or scleroticprocess. Spinal alignment normal.. IMPRESSION: No acute abnormality in the abdomen or pelvis, similar PAGE 1 Signed Report (CONTINUED) FAX: Toñito Aguilar MD [facility]: St: PRE Name: LINDA PARRISHZMINE [facility] : 1995 Age/S: 24/F [address] [facility] Unit: [id number] Loc: [address] Phys: Toñ[place] [address] Acct: [id number] Dis Date: Status: PRE ER PHONE #: [phone] Exam Date: 11/25/2018 1643 FAX #: [phone] Reason: LLq pain EXAMS: CPT CODE: [id number] CT ABD PELVIS [id number] (Continued) appearance to the previous study possibly with a right-sided follicular cyst thistime. No inflammatory changes or free fluid. No acute inflammatory changes in the left lower quadrant. Location: U19 at 1652 Reported and signed by: Ari Gaston M.D. CC: Toñito Aguilar MD Technologist: WALLACE Garcia Dt/Tm: 09/25/2019 (3479) t.ALBINOR.RCM Orig Print D/T: S: 09/25/2019 (0897 PAGE 2 Signed Report- DUP AB/PEL/SC [id number] 16:32:00FAX: Toñito Aguilar MD [facility]: St: PRE Name: SHERLEY PARRISH [facility] : 1995 Age/S: 24/F [address] [facility] Unit #: [id number] Loc: [address] Phys: Toñ[place] [address] Acct: [id number] Dis Date: Status: PRE ER PHONE #: [phone] Exam Date: 09/25/2019 1620 FAX #: [phone] Reason: PELVIC PAIN LLQ PAIN EXAMS: CPT CODE: [id number] DUP AB/PEL/SC COMP 73226 ULTRASOUND: - US PELVIS COMPLETE, - DUP [...] CC: Toñito Aguilar MD Technologist: LOGAN MILLER Trnazrd Date/Time/By: 09/25/2019 (326) : By: MonchoLUCILE [facility] PAGE 1 Signed Report FAX: Toñito Aguilar MD [facility]: St: PRE Name: SHERLEY PARRISH [facility] : 1995 Age/S: 24/F [address] [facility] Unit #: [id number] Loc: [address] Phys: Toñ[place] [address] Acct: [id number] Dis Date: Status: PRE ER PHONE #: [phone] Exam Date: 09/25/2019 1620 FAX #: [phone] Reason: PELVIC PAIN LLQ PAIN EXAMS: CPT CODE: [id number] DUP AB/PEL/SC COMP 08744 (Continued) Orig Print D/T: S: 09/25/2019 (1635) PAGE 2 Signed Report- US PELVIS COMPLETE 2019-09-25 16:32:00FAX: Toñito Aguilar MD [facility]: St: PRE Name: SHERLEY PARRISH [place] : 1995 Age/S: 24/F [address] [facility] [employer] [facility] Unit #: [id number] Loc: [address] Phys: Toñ[place] [address] Acct: [id number] Dis Date: Status: PRE ER PHONE #: [phone] Exam Date: 09/25/2019 1619 FAX #: [phone]: Pelvic pain llq pain EXAMS: CPT CODE: [id number] US PELVIS COMPLETE 34940 ULTRASOUND: - US PELVIS COMPLETE, - DUP AB/PEL/SC COMP History: Pelvic pain Comparison: None. B-mode/Delacruz scale imaging with color Doppler perfusion imaging and spectral analysis was performed. The uterus is 6.7 x 3.7 x 4.9 cm with endometrium at 6.9 mm. The right ovary is 3.2 x 2.3 x 3.4 cm with uniform perfusion.Small follicular cyst present at 2 cm in [...] MD Technologist: LOGAN MILLER Trnscrd Date/Time/By: 09/25/2019 (1632) : By: MonchoLUCILE [facility] PAGE 1 Signed Report FAX: Toñito Aguilar MD [facility]: St: PRE Name: SHERLEY PARRISH [facility] : 1995 Age/S: 24/F [address] [employer] Unit #: [id number] Loc: [address] [place], [place] Phys: Toñ[place] [address] Acct: [id number] Dis Date: Status: PRE ER PHONE #: [phone] Exam Date: 09/25/2019 1619 FAX #: [phone] Reason: Pelvic pain llq pain EXAMS: CPT CODE: [id number] US PELVIS COMPLETE 60130 (Continued) Orig Print D/T: S: 09/25/2019 (4525) PAGE 2 Signed ReportURINALYSIS COMPLETE 2019-09-25 16:31:00* Test Item Value Reference Range Interpretation Comme nts UA COLOR (test code = COLU) YELLOW UA APPEARANCE (test code = APPU) SLHZY UA GLUCOSE DIPSTICK (test code = DGLUU) NORMAL mg/dl NORMAL UA BILIRUBIN DIPSTICK (test code = BILU) NEGATIVE mg/dL NEGATIVE UA KETONE DIPSTICK (test code = KETU) NEGATIVE mg/dl NEGATIVE UA SPECIFIC GRAVITY (test code = SGU) 1.020 1.000-1.030 UA BLOOD DIPSTICK (test code = DIANNE) NEGATIVE Richard/micL NEGATIVE UA PH DIPSTICK (test code = ANNMARIE) 8.0 5.0-9.0 UA PROTEIN DIPSTICK (test code = PROU) NEGATIVE mg/dl NEGATIVE UA UROBILINIOGEN DIPSTICK (test code = URO) 4.0 mg/dl mg/dl NORMAL A UA NITRITE DIPSTICK (test code = KAYLEIGH) NEGATIVE NEGATIVE UA LEUKOCYTE ESTERASE DIPSTICK (test code = LEUU) 25 Stone/micL Stone/micL NEGATIVE A UA WBC (test code = WBCU) 1-3 WBC/HPF NONE UA RBC (test code = RBCU) 0-1 RBC/HPF 0-3 UA EPITHELIAL CELLS (test code = EPIU) 5-10 EPI/HPF 0-3 A UA BACTERIA (test code = BACU) FEW NONE UA MUCUS (test code = MUCU) 2+ UA OTHER (test code = OTHERU) CLUE CELLS Specimen comments: Clean CatchUR HCG [id number] 16:16:00* Test Item Value Reference Range Interpretation Comme nts UR HCG QUAL (test code = HCGQLU) NEGATIVE NEGATIVE BASIC METABOLIC [id number] 16:16:00* Test Item Value Reference Range Interpretation Comme nts SODIUM (test code = NA) 142 mmol/l 134.0-147.0 N POTASSIUM (test code = K) 3.7 mmol/L 3.6-5.2 N CHLORIDE (test code = CL) 108 mmol/l 98.0-107.0 H CARBON DIOXIDE (test code = CO2) 23.1 mmol/l 21.0-33.0 N ANION GAP (test code = GAP) 14.6 0-20 N GLUCOSE (test code = GLU) 98 mg/dl 70.0-110.0 N BLOOD UREA NITROGEN (test co de = BUN) 7 mg/dl 7.0-18.0 N CREATININE (test code = CREAT) 0.50 mg/dL 0.60-1.30 L GFR NON BLACK (test code = GFRNONBLACK) 162 mL/min 110-120 H GFR BLACK (test code = GFRBLACK) 196 mL/min 133-145 H CALCIUM (test code = CA) 8.9 mg/dl 8.0-10.5 N HEPATIC FUNCTION PANEL [id number] 16:16:00* Test Item Value Reference Range Interpretation Comme nts TOTAL PROTEIN (test code = PROT) 7.1 gm/dL 6.4-8.2 N ALBUMIN (test code = ALB) 3.6 gm/dl 3.2-4.7 N BILIRUBIN TOTAL (test code = BILT) 0.3 mg/dl 0.0-1.0 N BILIRUBIN DIRECT (test code = BILD) 0.1 mg/dl 0.0-0.3 N SGOT/AST (test code = AST) 14 Units/L 15.0-37.0 L SGPT/ALT (test code = ALT) 23 Units/L 12.0-78.0 N ALKALINE PHOSPHATASE TOTAL ( test code = ALKP) 67 Units/L 50.0-136.0 N [id number] 16:16:00* Test Item Value Reference Range Interpretation Comme nts LIPASE (test code = LIP) 135 Units/L 65.0-230.0 N DRUGS OF ABUSE SCREEN [id number] 16:12:00* Test Item Value Reference Range Interpretation Comments URN COCAINE (test code = COCAURN) NEGATIVE NEGATIVE Cocaine cut-off concentration: 300 ng/mL URN CANNABINOIDS (test code = CANNABURN) POSITIVE NEGATIVE A UNCONFIRMED INIT IAL SCREENING ONLY; SUGGEST ADDITIONALCONFIRMATORY TESTING.Cannabinoids cut-off concentration: 50 ng/mL URN AMPHETAMINE (test code = AMPHETURN) POSITIVE NEGATIVE A UNCONFIRMED INIT IAL SCREENING ONLY; SUGGEST ADDITIONALCONFIRMATORY TESTING.Amphetamine cut-off concentration: 1000 ng/mL URN BARBITURATE (test code = BARBITURN) NEGATIVE NEGATIVE Barbiturate cut- off concentration: 200 ng/mL URN BENZODIAZEPINE (test code = BENZOURN) NEGATIVE NEGATIVE Benzodiazepine c ut-off concentration: 200 ng/mL URN OPIATES (test code = OPIATURN) NEGATIVE NEGATIVE Opiates cut-off concentration: 200 ng/mL URN PHENCYCLIDINE (PCP) (test code = PHENCURN) NEGATIVE NEGATIVE Phencyclidine(PC P) cut-off concentration: 25 ng/ml URN METHADONE (test code = METHAURN) NEGATIVE NEGATIVE Methadone cut-o ff concentration: 300 ng/mL Specimen comments: Clean CatchBASIC METABOLIC [id number] 16:12:00* Test Item Value Reference Range Interpretation Comme nts SODIUM (test code = NA) 142 mmol/l 134.0-147.0 N POTASSIUM (test code = K) 3.7 mmol/L 3.6-5.2 N CHLORIDE (test code = CL) 108 mmol/l 98.0-107.0 H CARBON DIOXIDE (test code = CO2) 23.1 mmol/l 21.0-33.0 N ANION GAP (test code = GAP) 14.6 0-20 N GLUCOSE (test code = GLU) mg/dl 70.0-110.0 BLOOD UREA NITROGEN (test co de = BUN) mg/dl 7.0-18.0 CREATININE (test code = CREAT) mg/dL 0.60-1.30 GFR NON BLACK (test code = GFRNONBLACK) mL/min 110-120 GFR BLACK (test code = GFRBLACK) mL/min 133-145 CALCIUM (test code = CA) mg/dl 8.0-10.5 HEPATIC FUNCTION PANEL [id number] 16:12:00* Test Item Value Reference Range Interpretation Comme nts TOTAL PROTEIN (test code = PROT) gm/dL 6.4-8.2 ALBUMIN (test code = ALB) gm/dl 3.2-4.7 BILIRUBIN TOTAL (test code = BILT) mg/dl 0.0-1.0 BILIRUBIN DIRECT (test code = BILD) mg/dl 0.0-0.3 SGOT/AST (test code = AST) Units/L 15.0-37.0 SGPT/ALT (test code = ALT) Units/L 12.0-78.0 ALKALINE PHOSPHATASE TOTAL ( test code = ALKP) Units/L 50.0-136.0 [id number] 16:12:00* Test Item Value Reference Range Interpretation Comme nts LIPASE (test code = LIP) Units/L 65.0-230.0 CBC W/AUTO [id number] 16:08:00* Test Item Value Reference Range Interpretation Comme nts WHITE BLOOD CELL (test code = WBC) 11.2 K/mm3 4.5-11.0 H RED BLOOD CELL (test code = RBC) 5.25 M/mm3 3.80-5.20 H HEMOGLOBIN (test code = HGB) 15.3 gm/dL 12.0-16.0 N HEMATOCRIT (test code = HCT) 46.3 % 36.0-48.0 N MEAN CELL VOLUME (test code = MCV) 88.2 UM3 82.0-99.0 N MEAN CELL HGB (test code = MCH) 29.1 UUG 25.5-32.5 N MEAN CELL HGB CONCETRATION (test code = MCHC) 33.0 gm/dL 29.0-35.5 N RED CELL DISTRIBUTION WIDTH (test code = RDW) 12.6 % 11.5-15.0 N RED CELL DISTRIBUTION WIDTH SD (test code = RDW-SD) 40.8 fL 34.8-50.2 N PLATELET COUNT (test code = PLT) 309 K/mm3 150-400 N MEAN PLATELET VOLUME (test c ode = MPV) 10.7 fl 7.4-10.4 H NEUTROPHIL % (test code = NT%) 59.7 % 49.0-76.0 N IMMATURE GRANULOCYTE % (test code = IG%) 0.4 % 0.0-0.4 N LYMPHOCYTE % (test code = LY%) 30.1 % 23.0-38.0 N MONOCYTE % (test code = MO%) 7.2 % 1.0-10.0 N EOSINOPHIL % (test code = EO%) 2.2 % 1.0-5.0 N BASOPHIL % (test code = BA%) 0.4 % 0.0-1.0 N NEUTROPHIL # (test code = NT#) 6.7 K/mm3 2.4-6.3 H IMMATURE GRANULOCYTE # (test code = IG#) 0.05 x10 3/uL 0.00-0.07 N LYMPHOCYTE # (test code = LY#) 3.4 K/mm3 1.2-4.0 N MONOCYTE # (test code = MO#) 0.8 K/mm3 0.0-0.6 H EOSINOPHIL # (test code = EO#) 0.3 K/MM3 0.0-0.7 N BASOPHIL # (test code = BA#) 0.1 K/mm3 0.0-0.2 N Notes Date/Time Note Provider Source 2023-06-12 22:06:01 pPdv6QOD67YWp5COHT7qtwBA8mzcljxuuEhiq+0M Lb 86TRmgGAE4zevYt8zuDNJV2749-29-07O24:06:01F ormatting of this note might be different from the original.Pt discharged to home, pt given printed and verbal discharge instructions regarding diagnosis provided and follow up with PCP. Pt verbalized understanding of instructions, pt awake alert oriented, resp reg unlabored, skin w/d, color appropriate for race, moves all ext well. No adverse reaction to meds given in ER noted upon discharge. PIV d'cd, catheter intact, bleeding controlled and dressing intact. Prescription given.Advised to seek medical attention for new/prolonged/worsening of symptoms, pt ambulated from unit with steady gait, in no apparent distress. 07247-5Ssijdmmdd department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 Resp 18 11/18 120 Last Documented: Result Date Time Pulse Ox 98 11/18 1206 B/P 133/88 11/18 1206 B/P Mean 103 11/18 1206 O2 Delivery Room air 11/18 120 Temp 38.8 11/18 120 Pulse 116 11/18 120 Resp 18 11/18 120 Review of Vital Signs Reviewed Focused PEGeneral/Const General/Const Awake, Alert, No acute distress, Well appearing, Well developed, Well hydrated, Well nourished, Cooperative, Not toxic appearingEyes Eyes Atraumatic, PERRL, No nystagmus, No scleral icterusEars/Nose/Throat Ears/Nose/Throat Atraumatic, Airway patent Pharynx/Tonsils/Uvula Tonsillar erythema L, Tonsillar swelling R, Tonsillar swelling L. MS Neck Neck Atraumatic, Supple, No meningismus, Full range of motionResp/Chest Respiratory/Chest Atraumatic, Breath sounds NL, Breath sounds = bilat, No respiratory distressCardiovascular Cardiovascular Heart sounds NL, No murmurs, Cap refill not delayed Heart Rate/Rhythm Tachycardia. Negative: Irregular rhythm, Irreg irregular rhythm. Abdomen/GI Abdomen/GI Atraumatic, Soft, Non-tender, BS normoactiveLymphatic Lymphatic No gross adenopathy, No cervical adenopathy, No axillary adenopathySkin Skin Atraumatic, Color NL, No rash, Warm, Dry, IntactNeurologic Neurologic Oriented X3, Speech NL, No motor deficits, No sensory deficits Interpretation Diagnostics Lab Results InterpretationResultsLaboratory Tests: 11/18 1238 Urines Urine Color YELLOW Urine Appearance SLHZY Urine pH (5.0 - 9.0) 6.0 Ur Specific [place] (1.000 - 1.030) 1.020 Urine Protein (NEGATIVE mg/dl) 30 H Urine Glucose (UA) (NORMAL mg/dl) NORMAL Urine Ketones (NEGATIVE mg/dl) 150 mg/dl H Urine Blood (NEGATIVE Richard/micL) 25 Richard/micL H Urine Nitrite (NEGATIVE) NEGATIVE Urine Bilirubin (NEGATIVE mg/dL) NEGATIVE Urine Urobilinogen (NORMAL mg/dl) NORMAL Ur Leukocyte Esterase (NEGATIVE Stone/micL) NEGATIVE Urine RBC (0 - 3 RBC/HPF) 3-5 Urine WBC (NONE WBC/HPF) 0-3 Ur Epithelial Cells (0 - 3 EPI/HPF) 1-3 Urine Bacteria (NONE) TRACE Urine HCG, Qual (NEGATIVE) NEGATIVE Microbiology: Date/Time Procedure - Status Source Growth 11/18 1238 Group A Strep Rapid Antigen - RES THROAT 11/18 1238 Streptococcus Culture - RES THROAT 11/18 1238 Influenza Virus Type B Antigen - COMP NASOPHARG 11/18 1238 Influenza Virus Type A Antigen - COMP NASOPHARG Recent Impressions:RADIOLOGY - XR CHEST 2 V 11/18 1227 Report Impression - Status: SIGNED Entered: 11/18/2019 1237 IMPRESSION: No acute cardiopulmonary abnormality.Impression By: Cecille1 - Krishan Pitt MD Lab Imaging StatementLaboratory radiographic studies reviewed and considered in the medical decision-making. Point of Care TestingMicro Interpretation Influenza rapid - pos, Strep rapid - negUrinalysis Interpretation reviewedPulse Oximetry Pulse Ox % 98 On: Room airPregnancy Test Negative - urine HCG Re-Evaluation MDM Re-Evaluation/Progress URI/Flu Adult MDM NoteThe patient is now resting comfortably, is alert and in no distress. The patienthas a normal mental status and is neurologically intact. The patient appears well and is able to tolerate food or fluid by mouth, and there is no significantdehydration. There is no respiratory distress and no signs of systemic toxicity.The history, exam, diagnostic testing (if any) and current condition do not demonstrate an infectious process such as meningitis, severe pneumonia, retropharyngeal abscess, epiglottitis, sepsis or other serious bacterial infection requiring further testing, treatment, consultation, or admission at this time. The vital signs have been stable. The patient's condition is stable and appropriate for discharge. The patient will pursue further outpatient evaluation with the primary care physician or other designated or consulting physician as indicated in the discharge instructions. ED CourseMedication(s) OrderedMedication(s) Ordered:Central Nervous System Agents Sig/Hannah Start time Last [...] 11/18 1223 1235 Patient Discharge Departure Vital Signs/ConditionVital SignsFirst Documented: Result Date Time Pulse Ox 98 11/18 1206 B/P 133/88 11/18 1206 B/P Mean 103 11/18 1206 O2 Delivery Room air 11/18 120 Temp 38.8 11/18 1206 Pulse 116 11/18 1206 Resp 18 11/18 120 Last Documented: Result Date Time Pulse Ox 98 11/18 1206 B/P 133/88 11/18 1206 B/P Mean 103 11/18 1206 O2 Delivery Room air 11/18 120 Temp 38.8 11/18 1206 Pulse 116 11/18 1206 Resp 18 11/18 120 All vital signs available at the time of this entry have been reviewed. Condition Improved Clinical ImpressionClinical ImpressionPrimary Impression: Influenza B Disposition DecisionDischarge )( Discharged to Home Yes )( Time 1312 )( Date 11/18/19 Discharge/Care PlanCounseled Regarding Diagnosis, Lab results, Imaging studies, Prescriptions, Needfor follow-up, When to return to EDPrescriptionstamiflutessalon pearleprednisonemotrinPrescriptions Reviewed Risks, Benefits, Alternative treatment Discharge NoteI have spoken with the patient and/or caregivers. I have explained the patient'scondition, diagnoses and treatment plan based on the information available to meat this time. I have answered the patient's and/or caregiver's questions and addressed any concerns. The patient and/or caregivers have as good an understanding of the patient's diagnosis, condition and treatment plan as can beexpected at this point. The vital signs have been stable. The patient's condition is stable and appropriate for discharge from the emergency department. The patient will pursue further outpatient evaluation with the primary care physician or other designated or consulting physician as outlined in the discharge instructions. The patient and/or caregivers are agreeable to this planof care and follow-up instructions have been explained in detail. The patient and/or caregivers have received these instructions in written format and have expressed an understanding of the discharge instructions. The patient and/or caregivers are aware that any significant change in condition or worsening of symptoms should prompt an immediate return to this or the closest emergency department or a call to 911. Rosalba Sabillon 11/18/19 1341:RVU-Eek-Cpzv Illness GeneralInitial Greet Date/Time 11/18/19 1209 Patient Discharge Departure Supervising Physician Note MidLv Saw Pt AloneI have reviewed the PA/SHAREPOINT ANALYST's note and plan of care. I was available for consultation as needed at all times during the patient's visit in the emergency department. I agree with the clinical impression, plan and disposition. at 1329 at 1341RPT #:[id number] OF REPORTEDEmergency department [id number]:16:00E.[id number] for patient [id number]:42:01 [facility] 2019-09-25 15:46:00 [id number] [id number]:46:00 [facility] CenterEMERGENC[facility] PROVIDER REPORTREPORT#:[id number] REPORT STATUS: SignedDATE:09/25/19 TIME: 1546 PATIENT: SHERLEY PARRISH UNIT #: [id number]#: [id number] ROOM/BED:AGE: 24 SEX: F PCP PHYS: No Primary or Family PhysicianSERVICE AUTHOR: Toñito Aguilar MD * ALL edits or amendments must be made on the electronic/computer document * HPI-Abd Pain F Under 40 GeneralConfirmed Patient YesInitial Greet Date/Time 09/25/19 1513 PresentationChief Complaint Abdominal pain (LLQ )Hx Obtained From PatientSudden in Onset? NoOnset Occurred TodaySymptom Duration Since onsetProgression since Onset UnchangedContext of Onset N/A Caused by No trauma by historyLocation LLQQuality PainfulRadiationDoes not radiate. Migration/Movement NoneSeverity: Onset ModerateSeverity: Current ModerateAssociated withReports: Nausea, Vomiting. Denies: Chills, Constipation, Diarrhea, Fever. Associated Other Reports dizziness but denies UTI Sx. Exacerbated by NothingRelieved by Nothing Free Text HPI NotesFree Text HPI Notes24 y/o F presents to the ED with c/o LLQ abd pain onset today (time unspecified). Pt reports associated dizziness and N/V but denies UTI Sx, fever, chills, constipation or diarrhea. Pt reports LNMP as July. Pt reports she took homea test recently and it resulted negative. Portions of this section were scribed by Rai Myles on 09/25/19 at 1937 Risk-Abd Pain F Under 40)( Ectopic Risk factors reviewedCoronary Artery Disease Risk factors reviewedThoracic Aortic Dissection Risk factors reviewed Portions of this section were scribed by Rai Myles on 09/25/19 at 1937 Review of Systems ROS StatementsAll systems rev neg except as marked. Focused Review of SystemsConstitutionalDenies: Chills, Fever, Lethargy. RespiratoryDenies: Cough, non-productive, Cough, productive, Shortness of breath. CardiovascularDenies: Chest pain, Syncope. GIReports: Abdominal pain (LLQ ), Nausea, Vomiting. Denies: Bloody/tarry stool, Constipation, Diarrhea. FemaleDenies: Dysuria, Flank pain, Hematuria. MusculoskeletalDenies: Back pain, Neck pain, Thoracic pain. Additional Review of SystemsEyesDenies: Redness bilat, Swelling bilat. Ears/Nose/ThroatDenies: Nasal congestion, Sore throat. SkinDenies: Diaphoresis, Rash. NeurologicReports: Dizziness. Denies: Change LOC, Confusion, Focal weakness, Generalized weakness, Headache, Lightheaded, Numbness, Syncope. Portions of this section were scribed by Rai Myles on 09/25/19 at 1937 Past Medical History - AdultStated Complaint ABDOMINAL PAINAllergiesCoded Allergies:No Known Allergies (10/30/12) Home MedicationsReported MedicationsNo Known Home Medications Review of Nursing Notes Rev avail, and agreePt reports no significant: Past medical history, Past surgical history, Family historyAlcohol Use Denies EtOH useDrug Use Denies recreational drugsSmoking status for patients 13 years old or older: Current every day smokerOther Social History Local resident, Good social support Portions of this section were scribed by Rai Myles on 09/25/19 at 1937 Physical Exam Vital SignsVital SignsFirst Documented: Result Date Time Pulse Ox 100 09/25 1514 B/P 131/91 09/25 1514 B/P Mean 104 09/25 1514 O2 Delivery Room air 09/25 1514 Temp 36.7 09/25 1514 Pulse 100 09/25 151 Resp 18 09/25 1514 Last Documented: Result Date Time Pulse Ox 99 09/25 1759 B/P 127/80 09/25 1759 B/P Mean 95 09/25 1759 Temp 36.6 09/25 1759 Pulse 96 09/25 1759 Resp 18 09/25 1759 O2 Delivery Room air 09/25 1514 Review of Vital Signs Reviewed Focused PEGeneral/Const General/Const Awake, Alert, Well developedEyes Eyes PERRL, EOMI, No periorbital redness, No periorbital swelling, Conjunctiva NLEars/Nose/Throat Ears/Nose/Throat Airway patent, Mucous membranes moist, Pharynx NLResp/Chest Respiratory/Chest Breath sounds NL, Breath sounds = bilat, No respiratory distress, No rales, No rhonchi, No wheezing, No chest tenderness, No chest wall deformityCardiovascular Cardiovascular Heart rate NL, Regular rhythm, Heart sounds NL, Peripheral circulation NL, Pulses = bilaterallyAbdomen/GI Abdomen/GI Soft, No guarding, No rebound, No distention Tenderness/Guarding/Rebound Tender LLQ (TO PALPATION ). MS Back Back Inspection NL, Full range of motion, Painless range of motion, Non-tender, No midline vertebral tend, No paraspinal tenderness, No CVA tendernessSkin Skin No rash, Warm, DryNeurologic Neurologic Oriented X3, Speech NL, No motor deficits, No sensory deficits, CNII - XII intact, Reflexes equal bilat, Cerebellar NL, Memory NL Additional PEMS Neck Neck Supple, No meningismus, Full range of motion, No adenopathy, No swelling, Non-tender, No midline vertebral tend Portions of this section were scribed by Rai Myles on 09/25/19 at 1937 Interpretation Diagnostics Lab Results InterpretationResultsLaboratory Tests 09/25/19 1533:[Embedded Image Not Available]Laboratory Tests: 09/25 09/25 1550 1550 Toxicology Urine Opiates Screen (NEGATIVE) NEGATIVE Urine Methadone Screen (NEGATIVE) NEGATIVE Urine Barbiturates (NEGATIVE) NEGATIVE Ur Phencyclidine Scrn (NEGATIVE) NEGATIVE Ur Amphetamines Screen (NEGATIVE) POSITIVE H U Benzodiazepines Scrn (NEGATIVE) NEGATIVE Urine Cocaine Screen (NEGATIVE) NEGATIVE Urine Cannabinoids (NEGATIVE) POSITIVE H Urines Urine Color YELLOW Urine Appearance SLHZY Urine pH (5.0 - 9.0) 8.0 Ur Specific [place] (1.000 - 1.030) 1.020 Urine Protein (NEGATIVE mg/dl) NEGATIVE Urine Glucose (UA) (NORMAL mg/dl) NORMAL Urine Ketones (NEGATIVE mg/dl) NEGATIVE Urine Blood (NEGATIVE Richard/micL) NEGATIVE Urine Nitrite (NEGATIVE) NEGATIVE Urine Bilirubin (NEGATIVE mg/dL) NEGATIVE Urine Urobilinogen (NORMAL mg/dl) 4.0 mg/dl H Ur Leukocyte Esterase (NEGATIVE Stone/micL) 25 Stone/micL H Urine RBC (0 - 3 RBC/HPF) [...] % (Auto) (23.0 - 38.0 %) 30.1 [place] % (Auto) (1.0 - 10.0 %) 7.2 Eos % (Auto) (1.0 - 5.0 %) 2.2 Baso % (Auto) (0.0 - 1.0 %) 0.4 Neut # (Auto) (2.4 - 6.3 K/mm3) 6.7 H Lymph # (Auto) (1.2 - 4.0 K/mm3) 3.4 [place] # (Auto) (0.0 - 0.6 K/mm3) 0.8 H Eos # (Auto) (0.0 - 0.7 K/MM3) 0.3 Baso # (Auto) (0.0 - 0.2 K/mm3) 0.1 Immature Gran % (0.0 - 0.4 %) 0.4 Immature Gran # (0.00 - 0.07 x10 3/uL) 0.05 Recent Impressions:ULTRASOUND - US PELVIS COMPLETE 09/25 8849 Report Impression - Status: SIGNED Entered: 09/25/2019 6430 Impression: No acute abnormality in the pelvis. Empty normal sizeduterus. Tiny follicular cyst right ovary. Normal ovarian perfusionbilaterally. Location: U 19Impression By: Carissa Gaston M.D.ULTRASOUND - DUP AB/PEL/SC COMP 09/25 1620 Report Impression - Status: SIGNED Entered: 09/25/2019 1635 Impression: No acute abnormality in the pelvis. Empty normal sizeduterus. Tiny follicular cyst right ovary. Normal ovarian perfusionbilaterally. Location: U 19Impression By: Carissa Gaston M.D.CAT SCAN - CT ABD PELVIS W/CONT 09/25 1643 Report Impression - Status: SIGNED Entered: 09/25/2019 1658 IMPRESSION: No acute abnormality in the abdomen or pelvis, similarappearance to the previous study possibly with a right-sidedfollicular cyst this time. No inflammatory changes or free fluid. Noacute inflammatory changes in the left lower quadrant. Location: D23Pwdgeaerdh By: Carissa Gaston M.D. Lab Imaging StatementLaboratory radiographic studies reviewed and considered in the medical decision-making. Point of Care TestingUrinalysis Interpretation U/A reviewedPulse Oximetry Pulse Ox % 100 On: Room air Interpretation Interpreted by me, Pulse oximetry normal Time 1514Pregnancy Test UR HCG REVIEWED Free Text I D NotesFree Text I D NotesULTRASOUND - US PELVIS COMPLETE 09/25 1619 Report Impression - Status: SIGNED Entered: 09/25/2019 1635 Interpreted by : Radiologist Reviewed by : ED physician Impression: No acute abnormality in the pelvis. Empty normal sizeduterus. Tiny follicular cyst right ovary. Normal ovarian perfusionbilaterally. Location: U 19Impression By: Carissa Gaston M.D. ULTRASOUND - DUP AB/PEL/SC COMP 09/25 1620 Report Impression - Status: SIGNED Entered: 09/25/2019 1635 Interpreted by : Radiologist Reviewed by : ED physician Impression: No acute abnormality in the pelvis. Empty normal sizeduterus. Tiny follicular cyst right ovary. Normal ovarian perfusionbilaterally. Location: U 19Impression By: Carissa Gaston M.D. CAT SCAN - CT ABD PELVIS W/CONT 09/25 1643 Report Impression - Status: SIGNED Entered: 09/25/2019 1658 Interpreted by : Radiologist Reviewed by : ED physician IMPRESSION: No acute abnormality in the abdomen or pelvis, similarappearance to the previous study possibly with a right-sidedfollicular cyst this time. No inflammatory changes or free fluid. Noacute inflammatory changes in the left lower quadrant. Portions of this section were scribed by Rai Myles on 09/25/19 at 1937 Re-Evaluation MDM )( Re-Evaluation/Progress #1Time of Re-Eval 1600)( Re-Eval Status ImprovedRe-Eval Abdomen Soft, Non-tenderPain Re-Evaluation Denies painExam Post Tx - General Active, Alert, Appears non-toxicExam Post Tx - Sys Review Lungs clearPlan Post Re-Eval Plan discharge Abd Pain MDM Note F < 40The patient is resting comfortably and feels better, is alert and in no distress. The repeat examination is unremarkable and benign; in particular, there is no discomfort at McBurney's point. The history, exam, diagnostic testing, and current condition do not suggest acute appendicitis, bowel obstruction, tubovarian abscess, ectopic , ovarian torsion, acute cholecystitis, bowel perforation, major gastrointestinal bleeding, severe diverticulitis, sepsis, or other significant pathology to warrant further testing, continued ED treatment, admission, or surgical evaluation at this point. The vital signs have been stable. The patient does not have uncontrollable pain, intractable vomiting, or other significant symptoms. The patient's condition is stable and appropriate for discharge. The patient will pursue further outpatient evaluation with the primary care physician or other designated or consulting physician as indicated in the discharge instructions. Re-Evaluation/Progress #2Text/Dict Note> feeling much better> no N/V Time of Eval 1739Re-Eval Status Improved ED CourseMedication(s) OrderedMedication(s) Ordered:Central Nervous System Agents Sig/Hannah Start time Last [...] Chloride 1,000 ML X1ED 09/25 1545 DCD 09/25 IV 10/25 1544 1606 Gastrointestinal Drugs Sig/Hannah Start time Last Medication Dose Route Stop Time Status Admin Ondansetron HCl 4 MG X1ED STA 09/25 1544 DC 09/25 IV 09/25 1545 1605 Portions of this section were scribed by Rai Myles on 09/25/19 at 1937 Patient Discharge Departure Vital Signs/ConditionVital SignsFirst Documented: Result Date Time Pulse Ox 100 09/25 1514 B/P 131/91 09/25 1514 B/P Mean 104 09/25 151 O2 Delivery Room air 09/25 1514 Temp 36.7 09/25 151 Pulse 100 09/25 1514 Resp 18 09/25 1514 Last Documented: Result Date Time Pulse Ox 99 09/25 1759 B/P 127/80 09/25 175 B/P Mean 95 09/25 175 Temp 36.6 09/25 175 Pulse 96 09/25 175 Resp 18 09/25 175 O2 Delivery Room air 09/25 151 All vital signs available at the time of this entry have been reviewed. Condition Improved Clinical ImpressionClinical ImpressionPrimary Impression: Ovarian cystSecondary Impressions: Abdominal pain, Bacterial vaginosisTime of Impression 174 Disposition DecisionDischarge )( Discharged to Home Yes )( Time 174 )( Date 09/25/19 Discharge/Care PlanCounseled Regarding Diagnosis, Lab results, Imaging studies, Prescriptions, Needfor follow-up, Smoking cessation, When to return to EDPrescriptionsflagyl, tylenol extra strength; See Rx. Prescriptions Reviewed Risks, Benefits Discharge NoteI have spoken with the patient and/or caregivers. I have explained the patient'scondition, diagnoses and treatment plan based on the information available to meat this time. I have answered the patient's and/or caregiver's questions and addressed any concerns. The patient and/or caregivers have as good an understanding of the patient's diagnosis, condition and treatment plan as can beexpected at this point. The vital signs have been stable. The patient's condition is stable and appropriate for discharge from the emergency department. The patient will pursue further outpatient evaluation with the primary care physician or other designated or consulting physician as outlined in the discharge instructions. The patient and/or caregivers are agreeable to this planof care and follow-up instructions have been explained in detail. The patient and/or caregivers have received these instructions in written format and have expressed an understanding of the discharge instructions. The patient and/or caregivers are aware that any significant change in condition or worsening of symptoms should prompt an immediate return to this or the closest emergency department or a call to 911. Quality MeasuresPreg Test for Women w/Abd Pain Female age 14-50, Complaint of abdominal pn, Any preg test orderedSmoking Cessation Screened, tobacco user, Tobacco cess interventionTobacco Screening/Cessation 18 years or older, Counseled 3-10 minutes Smoking Cessation CounselingThe patient was questioned regarding their smoking habits, and I have determined, as the patient's treating physician, that there is a medical necessity in regards to the patient's medical condition to provide smoking cessation program education. The patient was advised to stop smoking and counseled for a period ofgreater than 3 minutes. The patient was instructed to follow up with a primary care physician for smoking cessation and given information regarding local smoking cessation programs in the area. The patient received detailed discharge instructions as to how to stop smoking. The patient expressed an understanding of the need to follow up and the plan for smoking cessation. Supervising Physician Note Scribe StatementRai Myles, 09/25/19 1667, scribing for and in the presence of [Dr. Aguilar ].Signed By: Rai Myles, 09/25/19 5563 Provider Scribed StatementI personally performed the services described in this documentation and reviewedthe documentation that was dictated to the scribe(s) in my presence, and it accurately records my words and actions. Toñito Aguilar, 09/27/19 Portions of this section were scribed by Rai Myles on 09/25/19 at 1937 at 8406RPT #:[id number] OF REPORTHendrick [facility] department [id number]:46:00E.[id number] for patient [id number]:[id number] [facility]MN
[2024-03-06] MEDS ORDERED: ONDANSETRON 4 MG/2 ML VIAL ONE (17:23)
[2024-03-06] MEDS ORDERED: MECLIZINE HCL 12.5 MG TAB ONE (17:30)
[2024-03-06 17:36] LABS: Absolute Basophils 0.1 K/uL (0-0.5); Absolute Eosinophils 0.2 K/uL (0-0.5); Absolute Lymphocytes (CBC) 4.2 K/uL (0.7-4.9); Absolute Monocytes 0.7 K/uL (0.1-1.3); Absolute Neutrophil 6.5 K/uL (1.8-8.0); Basophils % 0.8 % (0-1.3); Eosinophils % 1.8 % (0-4.4); Hematocrit 42.2 % (36.0-45.0); Hemoglobin 13.9 g/dL (12.0-15.0); Lymphocytes % 35.5 % (15.3-44.8); MCHC 32.9 g/dL (32.0-36.0); MCV 85.2 fL (80-100); MPV 8.5 fL (7.6-11.3); Monocytes % 6.3 % (3.3-12.3); Neutrophils % 55.6 % (41.7-73.7); Nucleated Red Blood Cells % 0.1 % (0-0); Platelets 286 thou/uL (152-406); RBC Red Blood Cell Count 4.96 M/uL (3.86-4.86); Red Cell Distribution Width 13.9 % (12.1-15.2)
[2024-03-06 17:55] LABS: Anion Gap 8.5 mEq/L (5.0-15.0); Potassium 3.5 mEq/L (3.5-5.1); Troponin High Sensitivity 5.3 pg/mL (<58.9)
--- NOTE | 2024-03-06 18:10 | RAD REPORT ---
EXAM DESCRIPTION: Johnny Single View03/06/2024 5:51 pm CLINICAL HISTORY: DYSPNEA COMPARISON: No comparisons TECHNIQUE: Portable AP view of the chest. FINDINGS: Decreased inspiratory effort and elevation of the right hemidiaphragm somewhat limit evalu ation. The lungs are clear. No pneumothorax or effusion. The cardiomediastinal contours are unremark able. IMPRESSION: No acute cardiopulmonary process.
--- NOTE | 2024-03-06 18:32 | ER ---
Nurse's Notes [facility] Name: Leila Simons Age: 28 yrs Sex: Female : 1995 Arrival Date: 03/06/2024 Time: 16:52 Bed 5 Private MD: Diagnosis: Dizziness and giddiness Presentation: 03/06 17:04 Chief complaint: Patient states: fatigue, dizziness and scalp pain x2-3 days. as6 Coronavirus screen: At this time, the client does not indicate any symptoms associated with coronavirus-19. Ebola Screen: No symptoms or risks identified at this time. Initial Sepsis Screen: Does the patient meet any 2 criteria? No. Patient's initial sepsis screen is negative. Does the patient have a suspected source of infection? No. Patient's initial sepsis screen is negative. Risk Assessment: Do you want to hurt yourself or someone else? Patient reports no desire to harm self or others. Onset of symptoms was March 04, 2024. 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 - Infectious Disease History:: Denies. - Social history:: Smoking status: Patient denies any tobacco usage or history of. Screenin:15 Abuse screen: Denies threats or abuse. Denies injuries from another. Nutritional nj1 screening: No deficits noted. 17:15 Tuberculosis screening: No symptoms or risk factors identified. nj1 18:15 [facility] ED Fall Risk Assessment (Adult) History of falling in the last 3 months, kb3 including since admission No falls in past 3 months (0 pts) Confusion or Disorientation No (0 pts) Intoxicated or Sedated No (0 pts) Impaired Gait No (0 pts) Mobility Assist Device Used No (0 pt) Altered Elimination No (0 pt) Score/Fall Risk Level 0 - 2 = Low Risk Oriented to surroundings, Maintained a safe environment, Educated pt \T\ family on fall prevention, incl call for assistance when getting out of bed. Assessment: 17:15 General: Appears in no apparent distress. comfortable, Behavior is calm, cooperative, nj1 appropriate for age. 17:15 Pain: Denies pain. Neuro: Level of Consciousness is awake, alert, obeys commands, nj1 Oriented to person, place, time, situation, Reports weakness generalized Malaise. Cardiovascular: Patient's skin is warm and dry. Rhythm is regular. Respiratory: Airway is patent Respiratory effort is even. 17:20 GI: Pt is actively vomiting. nj1 Vital Signs: 17:03 BP 118 / 83; Pulse 66; Resp 18 S; Temp 98.4(O); Pulse Ox 100% on R/A; Weight 97.52 kg as6 (R); Height 5 ft. 2 in. (R); Pain 10/10; 18:28 BP 123 / 93; Pulse 65; Resp 20; Pulse Ox 100% on R/A; nj1 17:03 Body Mass Index 39.32 (97.52 kg, 157.48 cm) as6 17:03 Pain Scale: Adult as6 ED Course: 16:55 Patient arrived in ED. ec2 16:55 Chepe Wing MD is Attending Physician. ec2 16:59 Courtney Atwood, ERIKA is Primary Nurse. nj1 17:03 Arm band placed on. as6 17:05 Triage completed. as6 17:15 Patient has correct armband on for positive identification. Bed in low position. Call nj1 light in reach. Adult w/ patient. 17:15 Provided Education on: call light, fall precautions. nj1 17:20 Inserted saline lock: 22 gauge in right forearm, using aseptic technique. Blood nj1 collected. 17:53 XRAY Chest (1 view) In Process Unspecified. EDMS 18:00 Door closed. Noise minimized. Lights dimmed. Warm blanket given. as6 18:00 EKG done, by ED staff, reviewed by Chepe Wing MD. as6 18:45 No provider procedures requiring assistance completed. nj1 18:45 IV discontinued, intact, bleeding controlled, Pressure dressing applied. nj1 Administered Medications: 17:27 Drug: Ondansetron IVP 4 mg IVP once; over 2 minutes Route: IVP; Site: right forearm; nj1 18:00 Follow up: Response: No adverse reaction; Nausea is decreased nj1 17:34 Drug: Meclizine PO 50 mg PO once Route: PO; nj1 18:40 Follow up: Response: No adverse reaction; Marked relief of symptoms nj1 Medication: 18:45 VIS not applicable for this client. nj1 Outcome: 18:31 Discharge ordered by . ec2 18:45 Discharged to home ambulatory, with significant other, nj1 18:45 Condition: stable nj1 18:45 Discharge instructions given to patient, Instructed on discharge instructions, follow up and referral plans. medication usage, Demonstrated understanding of instructions, follow-up care, medications, Prescriptions given X 1, 18:49 Patient left the ED. nj1 Signatures: Dispatcher [employer] Jean Carlos Pritchard RN RN as6 Maria A Cast RN RN kb3 Courtney Atwood RN RN nj1 Chepe Wing MD MD ec2
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
[2024-03-06 23:41] VITALS: BP 123/93; TEMP 98.4; O2SAT 100
== END 2024-03-06 18:49 | disposition home or self-care (01) ==
LOC: ER 16:52
DX: R42 Dizziness and giddiness (principal)
CPT/HCPCS: 93005; 85025; 80048; 36415; 84484; 71045; 96374; 99284; J8597; J2405

== ENCOUNTER 2024-07-05 01:41 | Emergency (ER) | payer OTHER ==
[2024-07-05] MEDS ORDERED: NA CHLORIDE 0.9% 50 ML ONE (02:59)
[2024-07-05] MEDS ORDERED: KETOROLAC 30 MG/ML INJ ONE (02:59)
[2024-07-05] MEDS ORDERED: DIPHENHYDRAMINE 50 MG/ML VIAL ONE (02:59)
[2024-07-05] MEDS ORDERED: METOCLOPRAMIDE 10 MG/2mL INJ ONE (02:59)
[2024-07-05] MEDS ORDERED: NA CHLORIDE 0.9% 1,000 ML ONE (03:00)
[2024-07-05 03:08] LABS: PT Prothrombin Time 10.9 SECONDS (9.4-12.5); Protime INR 0.97
[2024-07-05 03:22] LABS: Specific Gravity 1.023 (1.005-1.030)
[2024-07-05 03:25] LABS: Absolute Basophils 0.1 K/uL (0-0.5); Absolute Eosinophils 0.1 K/uL (0-0.5); Absolute Lymphocytes (CBC) 4.6 K/uL (0.7-4.9); Absolute Monocytes 1.1 K/uL (0.1-1.3); Absolute Neutrophil 7.6 K/uL (1.8-8.0); Basophils % 0.7 % (0-1.3); Eosinophils % 0.5 % (0-4.4); Hematocrit 44.6 % (36.0-45.0); Lymphocytes % 34.3 % (15.3-44.8); MCH 29.2 pg (27.0-35.0); MCHC 33.6 g/dL (32.0-36.0); MCV 86.9 fL (80-100); MPV 8.8 fL (7.6-11.3); Monocytes % 7.9 % (3.3-12.3); Neutrophils % 56.6 % (41.7-73.7); Platelets 312 thou/uL (152-406); RBC Red Blood Cell Count 5.13 M/uL (3.86-4.86)
[2024-07-05 03:27] LABS: ALT/SGPT 22 U/L (13-56); AST/SGOT 13 U/L (15-37); Albumin 3.8 g/dL (3.4-5.0); Albumin/Globulin Ratio 0.9 (1.1-1.8); Alkaline Phosphatase 77 U/L (45-117); Anion Gap 11.6 mEq/L (5.0-15.0); BUN Blood Urea Nitrogen 10 mg/dL (7-18); Bicarbonate 24 mEq/L (21-32); Bilirubin Total 0.4 mg/dL (0.2-1.0); Globulin 4.1 g/dL (2.3-3.5); Glomerular Filtration Rate 108 ml/min (=/>90); Glucose Level 103 mg/dL (74-106); Magnesium 2.2 mg/dL (1.6-2.4); Potassium 3.6 mEq/L (3.5-5.1); Protein, Total 7.9 g/dL (6.4-8.2); Sodium Level 137 mEq/L (136-145)
[2024-07-05 03:29] LABS: Bilirubin Direct < 0.2 mg/dL (0-0.2); Bilirubin Indirect, Calculated 0.2 mg/dL (0.2-0.8)
--- NOTE | 2024-07-05 05:37 | ER ---
Nurse's Notes [facility] Name: Leila Simons Age: 29 yrs Sex: Female : 1995 Arrival Date: 07/05/2024 Time: 01:41 Bed 13 Private MD: Diagnosis: Chronic tension-type headache;Partially erupted wisdom tooth #17, pain associated with partial eruption of wisdom tooth, dental cavity tooth #16, dental cavity tooth #32 Presentation: 07/05 01:59 Chief complaint: Patient states: bad headache on zoroastrian that radiates to the top of vc1 head. Dizzy. Coronavirus screen: Client denies travel out of the [place] in the last 14 days. At this time, the client does not indicate any symptoms associated with coronavirus-19. Ebola Screen: Patient negative for fever greater than or equal to 101.5 degrees Fahrenheit, and additional compatible Ebola Virus Disease symptoms Patient denies exposure to infectious person. Patient denies travel to an Ebola-affected area in the 21 days before illness onset. No symptoms or risks identified at this time. Initial Sepsis Screen: Does the patient meet any 2 criteria? No. Patient's initial sepsis screen is negative. Does the patient have a suspected source of infection? No. Patient's initial sepsis screen is negative. Risk Assessment: Do you want to hurt yourself or someone else? Patient reports no desire to harm self or others. Note Been having headaches for about 6 months has a head CT ordered without contrast on the . Onset of symptoms is unknown. Care prior to arrival: None. Activity prior to arrival: None. Mechanism of Injury: No Mechanism of Injury. Transition of care: patient was not received from another setting of care. 01:59 Method Of Arrival: Ambulatory vc1 01:59 Acuity: FREYA 3 vc1 Triage Assessment: 02:03 Headache History: The patient has had previous headaches and this one is similar to 1 previous episodes. General: Appears in no apparent distress. comfortable, well groomed, well developed, well nourished, Behavior is calm, cooperative, appropriate for age. Pain: Complains of pain in right zoroastrian and left zoroastrian Pain radiates to top of head Pain currently is 10 out of 10 on a pain scale. Quality of pain is described as throbbing, Pain began suddenly, about 6 months, tonight is worse Also complains of photophobia. EENT: No deficits noted. No signs and/or symptoms were reported regarding the EENT system. Neuro: Reports dizziness, headache parietal area. Cardiovascular: No deficits noted. Respiratory: Airway is patent Respiratory effort is even, unlabored, Respiratory pattern is regular, symmetrical, Breath sounds are clear bilaterally. GI: No deficits noted. No signs and/or symptoms were reported involving the gastrointestinal system. : No deficits noted. No signs and/or symptoms were reported regarding the genitourinary system. Derm: Skin is intact, is healthy with good turgor, Skin is dry, Skin is normal. Musculoskeletal: No deficits noted. No signs and/or symptoms reported regarding the musculoskeletal system. 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 - Infectious Disease History:: Denies. - Social history:: Smoking status: Reported history of juuling and/or vaping. - Family history:: not pertinent. Screenin:05 [facility] ED Fall Risk Assessment (Adult) History of falling in the last 3 months, vc1 including since admission No falls in past 3 months (0 pts) Confusion or Disorientation No (0 pts) Intoxicated or Sedated No (0 pts) Impaired Gait No (0 pts) Mobility Assist Device Used No (0 pt) Altered Elimination No (0 pt) Score/Fall Risk Level 0 - 2 = Low Risk Oriented to surroundings, Maintained a safe environment, Educated pt \T\ family on fall prevention, incl call for assistance when getting out of bed. Abuse screen: Denies threats or abuse. Nutritional screening: No deficits noted. Tuberculosis screening: No symptoms or risk factors identified. Assessment: 05:55 Reassessment: Patient appears in no apparent distress at this time. Patient and/or vc1 family updated on plan of care and expected duration. Pain level reassessed. Patient is alert, oriented x 3, equal unlabored respirations, skin warm/dry/pink. Patient states feeling better. Patient states symptoms have improved. Vital Signs: 01:59 BP 145 / 92; Pulse 83; Resp 16; Temp 99.2; Pulse Ox 100% ; Weight 88 kg; Height 5 ft. 2 vc1 in. ; Pain 10/10; 05:55 BP 138 / 88; Pulse 80; Resp 16; Pulse Ox 100% ; vc1 01:59 Body Mass Index 35.48 (88.00 kg, 157.48 cm) vc1 01:59 Pain Scale: Adult vc1 Springer Coma Score: 22:12 Eye Response: spontaneous(4). Motor Response: obeys commands(6). Verbal Response: sp4 oriented(5). Total: 15. 22:13 Eye Response: spontaneous(4). Motor Response: obeys commands(6). Verbal Response: sp4 oriented(5). Total: 15. NIH Stroke Scale Scores: 22:12 NIHSS Score: 0 sp4 ED Course: 01:43 Patient arrived in ED. jj6 01:45 Reggie Garcia MD is Attending Physician. sp4 02:02 Triage completed. vc1 02:03 Arm band placed on right wrist. vc1 02:03 Patient has correct armband on for positive identification. Bed in low position. Call vc1 light in reach. Pulse ox on. NIBP on. 03:12 Basic Metabolic Panel Sent. vc1 03:12 CBC with Diff Sent. vc1 03:12 LFT's Sent. vc1 03:12 Magnesium Sent. vc1 03:12 Test, Urine Sent. vc1 03:12 Inserted saline lock: 20 gauge in right upper arm, using aseptic technique. Blood vc1 collected. Flushed with 10 mL NS. 03:19 CT Head Brain wo Cont In Process Unspecified. EDMS 05:35 Fabián Torres DDS is Referral Physician. sp4 05:55 Sarahi Agudelo, ERIKA is Primary Nurse. vc1 05:55 No provider procedures requiring assistance completed. IV discontinued, intact, vc1 bleeding controlled, No redness/swelling at site. Pressure dressing applied. 06:07 Provided Education on: medication safety. vc1 Administered Medications: 03:11 Drug: NS 0.9% IV 1000 ml IV at 1 bolus Per protocol; 1000 mL bolus Route: IV; Rate: 1 vc1 bolus; Site: right upper arm; 05:58 Follow up: IV Status: Completed infusion; IV Intake: 1000ml vc1 03:11 Drug: metoCLOPramide IVP 10 mg IVP once; over 1 to 2 minutes Route: IVP; Site: right vc1 upper arm; 05:58 Follow up: Response: No adverse reaction; Marked relief of symptoms vc1 03:11 Drug: diphenhydrAMINE IVP 25 mg IVP once Route: IVP; Site: right antecubital; vc1 05:58 Follow up: Response: No adverse reaction; Marked relief of symptoms; Pain is decreased vc1 03:12 Drug: Ketorolac IVP 30 mg IVP once Route: IVP; Site: right upper arm; vc1 05:58 Follow up: Response: No adverse reaction; Marked relief of symptoms; Pain is decreased vc1 Medication: 02:06 VIS not applicable for this client. vc1 Intake: 05:58 IV: 1000ml; Total: 1000ml. vc1 Outcome: 05:36 Discharge ordered by spAbiel 06:05 Discharged to home ambulatory, vc1 06:05 Condition: good 06:05 Discharge instructions given to patient, Instructed on discharge instructions, follow up and referral plans. Demonstrated understanding of instructions, follow-up care, Prescriptions given X 2, 06:08 Patient left the ED. vc1 NIH Stroke Scale - NIH Stroke Score Date: 07/05/2024 Time: 22:12 Total Score = 0 10. Dysarthria (speech clarity - read or repeat words) - 0(Normal) 11. Extinction and Inattention (visual/tactile/auditory/spatial/personal) - 0(No abnormality) 1a. Level of Consciousness (LOC) - 0(Alert) 1b. Level of Consciousness (LOC) (Month \T\ Age) - 0(Both) 1c. LOC Commands (Open \T\ Closes Eyes/Clinic Md Associate) - 0(Both) 2. Best Gaze (Lateral Gaze Paresis) - 0(Normal) 3. Visual Field Loss - 0(No visual loss) 4. Facial Palsy - 0(Normal) 5a. Left Arm: Motor (10-second hold) - 0(No drift) 5b. Right Arm: Motor (10-second hold) - 0(No drift) 6a. Left Leg: Motor (5-second hold - always test supine) - 0(No drift) 6b. Right Leg: Motor (5-second hold - always test supine) - 0(No drift) 7. Limb Ataxia (finger/nose \T\ heel/weber - test with eyes open) - 0(Absent) 8. Sensory Loss (pinprick arms/legs/face) - 0(Normal) 9. Best Language: Aphasia (description/naming/reading) - 0(No aphasia) Initials: sp4 Signatures: Dispatcher [employer] Ling [id number] Sarahi Agudelo RN RN vc1 Reggie Garcia MD MD sp4
--- NOTE | 2024-07-05 05:37 | EDPHYS ---
Physician Documentation [facility] Name: Leila Simons Age: 29 yrs Sex: Female : 1995 Arrival Date: 07/05/2024 Time: 01:41 Bed 13 Private MD: ED Physician Reggie Garcia HPI: 07/05 02:18 This 29 yrs old Female presents to ER via Ambulatory with complaints of sp4 Headache, Dizziness. 02:18 29-year-old female presents with persistent headaches for the past 6 months.. sp4 22:12 Patient presents with 6 months of worsening headache and dizziness.. 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 - Infectious Disease History:: Denies. - Social history:: Smoking status: Reported history of juuling and/or vaping. - Family history:: not pertinent. ROS: 22:12 Constitutional: Negative for fever, chills, and weight loss, Positive persistent sp4 headache and dizziness 22:12 All other systems are negative, Exam: 22:12 Constitutional: This is a well developed, well nourished patient who is awake, alert, sp4 and in no acute distress. Head/Face: Normocephalic, atraumatic. Eyes: Pupils equal round and reactive to light, extra-ocular motions intact. Lids and lashes normal. Conjunctiva and sclera are not injected. Cornea within normal limits. Periorbital areas with no swelling, redness, or edema. ENT: Nares patent. No nasal discharge, no septal abnormalities noted. Tympanic membranes are normal and external auditory canals are clear. Oropharynx with no redness, swelling, or masses, exudates, or evidence of obstruction, uvula midline. Mucous membranes moist. Neck: Trachea midline, no thyromegaly or masses palpated, and no cervical lymphadenopathy. Supple, full range of motion without nuchal rigidity, or vertebral point tenderness. Chest/axilla: Normal chest wall appearance and motion. Nontender with no deformity. No lesions are appreciated. Cardiovascular: Regular rate and rhythm with a normal S1 and S2. No gallops, murmurs, or rubs. Normal PMI, no JVD. No pulse deficits. Respiratory: Lungs have equal breath sounds bilaterally, clear to auscultation and percussion. No rales, rhonchi or wheezes noted. No increased work of breathing, no retractions or nasal flaring. Abdomen/GI: Soft, with normal bowel sounds. No distension or tympany. No guarding or rebound. No evidence of tenderness throughout. Back: No spinal tenderness. No costovertebral tenderness. Skin: Warm, dry with normal turgor. Normal color with no rashes, no lesions, and no evidence of cellulitis. MS/ Extremity: Pulses equal, no cyanosis. Neurovascular intact. Full, normal range of motion. Neuro: Awake and alert, GCS 15, oriented to person, place, time, and situation. Cranial nerves II-XII grossly intact. Motor strength 5/5 in all extremities. Sensory grossly intact. Psych: Awake, alert, with orientation to person, place and time. Behavior, mood, and affect are within normal limits Vital Signs: 01:59 BP 145 / 92; Pulse 83; Resp 16; Temp 99.2; Pulse Ox 100% ; Weight 88 kg; Height 5 ft. 2 vc1 in. ; Pain 10/10; 05:55 BP 138 / 88; Pulse 80; Resp 16; Pulse Ox 100% ; vc1 01:59 Body Mass Index 35.48 (88.00 kg, 157.48 cm) vc1 01:59 Pain Scale: Adult vc1 NIH Stroke Scale Scores: 22:12 NIHSS Score: 0 sp4 Ayo Coma Score: 22:12 Eye Response: spontaneous(4). Motor Response: obeys commands(6). Verbal Response: sp4 oriented(5). Total: 15. 22:13 Eye Response: spontaneous(4). Motor Response: obeys commands(6). Verbal Response: sp4 oriented(5). Total: 15. MDM: 01:45 Patient medically screened. sp4 05:28 ED course: CLINICAL HISTORY: Headache COMPARISON: CT Head C Spine MPR 06/15/2023. sp4 TECHNIQUE: CT HEAD WITHOUT IV CONTRAST on 07/05/2024 2:17 AM CDT This exam was performed according to our departmental dose-optimization program, which includes automated exposure control, adjustment of the mA and/or kV according to patient size and/or use of iterative reconstruction technique. FINDINGS: There is no acute hemorrhage, mass effect or midline shift. Delacruz-white differentiation is preserved. There is no hydrocephalus. There is no significant volume loss for age. The calvarium is intact. Orbits and globes are unremarkable. There is a mucous retention cyst in the floor of the left maxillary sinus. Mastoid air cells are clear. IMPRESSION: No acute intracranial findings.. 22:13 Differential diagnosis: cluster headache, glaucoma, migraine, neoplasm, vasomotor sp4 headache. Data reviewed: vital signs, nurses notes, lab test result(s), radiologic studies, CT scan. ED course: CT labs are unremarkable. Patient stable for discharge.. 07/05 01:45 Order name: Test, Urine; Complete Time: 05:28 sp4 07/05 02:17 Order name: Basic Metabolic Panel; Complete Time: : sp4 07/05 02:17 Order name: CBC with Diff; Complete Time: 05: sp4 07/05 02:17 Order name: LFT's; Complete Time: 05: sp4 07/05 02:17 Order name: Magnesium; Complete Time: : sp4 07/05 02:17 Order name: PT-INR; Complete Time: 05:28 sp4 07/05 02:17 Order name: TSH; Complete Time: 05: sp4 07/05 02:17 Order name: T4 Free; Complete Time: 05: sp4 07/05 02:17 Order name: CT Head Brain wo Cont sp4 07/05 02:17 Order name: IV Saline Lock; Complete Time: 03:12 sp4 07/05 02:17 Order name: Labs collected and sent; Complete Time: 03:12 sp4 Administered Medications: 03:11 Drug: NS 0.9% IV 1000 ml IV at 1 bolus Per protocol; 1000 mL bolus Route: IV; Rate: 1 vc1 bolus; Site: right upper arm; 05:58 Follow up: IV Status: Completed infusion; IV Intake: 1000ml vc1 03:11 Drug: metoCLOPramide IVP 10 mg IVP once; over 1 to 2 minutes Route: IVP; Site: right vc1 upper arm; 05:58 Follow up: Response: No adverse reaction; Marked relief of symptoms vc1 03:11 Drug: diphenhydrAMINE IVP 25 mg IVP once Route: IVP; Site: right antecubital; vc1 05:58 Follow up: Response: No adverse reaction; Marked relief of symptoms; Pain is decreased vc1 03:12 Drug: Ketorolac IVP 30 mg IVP once Route: IVP; Site: right upper arm; vc1 05:58 Follow up: Response: No adverse reaction; Marked relief of symptoms; Pain is decreased vc1 Disposition Summary: 07/05/24 05:36 Discharge Ordered Notes: Location: Home sp4 Problem: new sp4 Symptoms: have improved sp4 Condition: Stable sp4 Diagnosis - Chronic tension-type headache sp4 - Partially erupted wisdom tooth #17, pain associated with partial eruption of wisdom sp4 tooth, dental cavity tooth #16, dental cavity tooth #32 Followup: sp4 - With: Fabián Torres DDS - When: 7 - 10 days - Reason: Recheck today's complaints Discharge Instructions: - Discharge Summary Sheet sp4 - General Headache Without Cause sp4 Forms: - Patient Portal Instructions sp4 Prescriptions: - Fioricet 50-300-40 mg Oral capsule - take 1 capsule ORAL route every 8 hours PRN headache; 30 capsule; Refills: 0, sp4 Product Selection Permitted - promethazine 25 mg Oral tablet - take 1 tablet ORAL route every 6 hours As needed PRN nausea; 30 tablet; sp4 Refills: 0, Product Selection Permitted NIH Stroke Scale - NIH Stroke Score Date: 07/05/2024 Time: 22:12 Total Score = 0 10. Dysarthria (speech clarity - read or repeat words) - 0(Normal) 11. Extinction and Inattention (visual/tactile/auditory/spatial/personal) - 0(No abnormality) 1a. Level of Consciousness (LOC) - 0(Alert) 1b. Level of Consciousness (LOC) (Month \T\ Age) - 0(Both) 1c. LOC Commands (Open \T\ Closes Eyes/Buttermaker) - 0(Both) 2. Best Gaze (Lateral Gaze Paresis) - 0(Normal) 3. Visual Field Loss - 0(No visual loss) 4. Facial Palsy - 0(Normal) 5a. Left Arm: Motor (10-second hold) - 0(No drift) 5b. Right Arm: Motor (10-second hold) - 0(No drift) 6a. Left Leg: Motor (5-second hold - always test supine) - 0(No drift) 6b. Right Leg: Motor (5-second hold - always test supine) - 0(No drift) 7. Limb Ataxia (finger/nose \T\ heel/weber - test with eyes open) - 0(Absent) 8. Sensory Loss (pinprick arms/legs/face) - 0(Normal) 9. Best Language: Aphasia (description/naming/reading) - 0(No aphasia) Initials: sp4 Signatures: Dispatcher [employer] EDMS Sarahi Agudelo RN RN vc1 Reggie Garcia MD MD sp4 Corrections: (The following items were deleted from the chart) 02:17 02:17 BASIC METABOLIC PANEL+C.LAB.BRZ ordered. EDMS EDMS 02:17 02:17 CBC+H.LAB.BRZ ordered. EDMS EDMS 02:17 02:17 HEPATIC FUNCTION+C.LAB.BRZ ordered. EDMS EDMS 02:17 02:17 MAGNESIUM+C.LAB.BRZ ordered. EDMS EDMS 02:17 02:17 PROTIME (+INR)+COAG.LAB.BRZ ordered. EDMS EDMS 02:17 02:17 THYROID STIMULAT HORMONE+C.LAB.BRZ ordered. EDMS EDMS 02:17 02:17 T4 FREE+C.LAB.BRZ ordered. EDMS EDMS 02:18 02:18 Head Brain Wo Cont+CT.RAD.BRZ ordered. EDMS EDMS
[2024-07-05 06:12] VITALS: TEMP 99.2; O2SAT 100
[2024-07-05 06:14] VITALS: BP 138/88
--- NOTE | 2024-07-05 13:34 | RAD REPORT ---
EXAM DESCRIPTION: CT - Head Brain Wo Cont - 07/05/2024 3:17 am CLINICAL HISTORY: Headache COMPARISON: CT Head C Spine MPR 06/15/2023. TECHNIQUE: CT HEAD WITHOUT IV CONTRAST on 07/05/2024 2:17 AM CDT This exam was performed according to our departmental dose-optimization program, which includes autom ated exposure control, adjustment of the mA and/or kV according to patient size and/or use of iterati ve reconstruction technique. FINDINGS: There is no acute hemorrhage, mass effect or midline shift. Delacruz-white differentiation is preserved. There is no hydrocephalus. There is no significant volume loss for age. The calvarium is intact. Orbits and globes are unremarkable. There is a mucous retention cyst in the floor of the left maxillary sinus. Mastoid air cells are clear. IMPRESSION: No acute intracranial findings. Electronically signed by: Major Purvis MD 07/05/2024 04:41 AM CDT RP Due to temporary technical issues with the PACS/Fluency reporting system, reports are being signed by the in house radiologist without review as a courtesy to ensure prompt reporting. The interpreting r adiologist is fully responsible for the content of the report.
--- OUTSIDE RECORDS SUMMARY | 2024-07-06 09:18 | XMS REPORT | Continuity of Care Document ---
Author Name Unknown Address [address] [facility] [address] [place] [address] [facility] thconnect Address [address] [facility] [place] [address] Care Team Providers Care Cut Off Saw Set Up Operator Name Role Phone PCP, PATIENT DOES NOT HAVE A Primary Care Physic prashanth Unavailable DON VALENCIA Attending Clinician Unavailab le LAB90 Attending Clinician Unavailable FARHAT DEL TORO Attending Clinician UnavailCED Manuel Attending Clinician Unavailable BÁRBARA HUA Attending Clinician Unavailable GENET DENSON Attending Clinician UnaJADIEL Hsu Attending Clinician Unavailable ZELALEM LOOMIS Attending Clinician Unavailable Zelalem Loomis MD Attending Clinician [phone] Petrona Carbajal Attending Clinician Unavailable JAMES POTTS Attending Clinician Unavailab JIM Muse Attending Clinician Unavailable OLIVER VILLALPANDO Attending Clinician Unavailable Rosalba Sabillon Attending Clinician Unavailable ZELALEM LOOMIS Admitting Clinician Unavailable Physician, No Primary or Family Admitting Clinic prashanth Unavailable Payers Payer Name Policy Type Policy Number Effective Date Expirati on Date Source [employer] MP MARCEL HERNANDEZ S 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 94 ON 9 [id number] 2023 00:00:00 [employer] COMM[employer] OUT OF NETWORK [id number] 2023 00:00:00 Problems Condition Name Condition Details [...] Allergie s DA Active 2011-11 00:00: 00 [facility] NO KNOWN ALLERGIE S Drug Class Active [facility] Social History Social Habit Start Date Stop Date Quantity Comments Source Gender identity [facility] History of tobacco use Cigarette Smoker Elizabeth han - External Sexual orientation Brina Wynne - External Alcoholic beverage intake 2024-06-15 00:00:00 2024-06-15 00:00:00 .29 /d Elizabeth Wynne - External Tobacco use and exposure 2023-11-04 00:00:00 2023-11-04 00:00:00 Former smokeless tobacco user Elizabeth Wynne - External Alcohol intake 2023-11-04 00:00:00 2023-11-04 00:00:00 .29 /d Eliazbeth Wynne - External History of Social function 2023-11-04 00:00:00 2023-11-04 00:00:00 Elizabeth Wynne - External Sex assigned at 1995 00:00:00 1995 00:00:00 Elizabeth Wynne - External Smoking Status Start Date Stop Date Source Ex-smoker 2023-11-04 00:00:00 2023-11-04 00:00:00 K anthony Dempsey Never smoked tobacco [facility] Medications Ordered Medication Name Filled Medication Name Start Date Stop Date Current Medication? Ordering Clinician Indication Dosage Frequency Signature (SIG) Comments Components Source Topiramate 25 MG oral Tablet 06-15 00:00: 00 Yes [id number] 25mg Q.5D Take 1 tablet (25 mg total) by mouth 2 times daily. Elizabeth carolina Sumatriptan Succinate 25 MG oral Tablet 06-15 00:00: 00 06-15 00:00 :00 No [id number] 25mg Take 1 tablet (25 mg total) by mouth once as needed for migraine (May repeat in 2 hours if unresolved . Do not exceed 200 mg in 24 hours.). Elizabeth carolina Ondansetron (ZOFRAN) 8 MG oral TABLET DISPERSIBLE 02-25 00:00: 00 06-15 00:00 :00 No [id number] 8mg Q.79607484 [id number] 3D Take 1 tablet (8 mg total) by mouth every 8 hours as needed for nausea. Elizabeth carolina Albuterol HFA 108 (90 Base) MCG/ACT IN AERS 02-25 00:00: 00 06-15 00:00 :00 No [id number] 2{puff} Q.25D Inhale 2 puffs into the lungs every 6 hours as needed for wheezing. Elizabeth carolina Pseudoeph-B romphen-DM 30-2-10 MG/5ML oral Syrup 02-25 00:00: 00 06-15 00:00 :00 No [id number] 10mL Q.25D Take 10 mL by mouth 4 times daily as needed. Elizabeth carolina Nirmatrelvi r & Ritonavir STANDARD (30) (300/100) Therapy Pack 02-25 00:00: 00 06-15 00:00 :00 No [id number] Take two 150 mg nirmatrelv ir (pink) tablets with one 100 mg ritonavir (white) tablet by mouth two times daily for 5 days. Elizabeth carolina Mupirocin (BACTROBAN) 2 % apply externally Ointment 2022-11 2-15 00:00: 00 06-15 00:00 :00 No [id number] Q.83113436 [id number] 3D Apply 1 applicatio n. topically 3 times daily. Elizabeth carolina FENTanyl PF (SUBLIMAZE (PF)) injection 50 mcg 06-13 02:15: 00 06-13 01:51 :00 No 50ug 50 mcg, Intramuscu lar, ONCE, 1 dose, On 06/12/23 at 211, Routine [facility] ondansetron (ZOFRAN-ODT ) disintegrat ing tablet 4 mg 06-13 02:15: 00 06-13 01:51 :00 No 4mg 4 mg, Oral, ONCE, 1 dose, On Tue06/12/23 at 211, Routine [facility] acetaminoph en-codeine 300-30 mg tablet 06-12 00:00: 00 07-03 04:59 :00 No [id number] 1{tbl} Take 1 tablet by mouth every 6 (six) hours as needed for Pain (scale 4-6) for up to 20 days. Indication s: acute pain [facility] ondansetron (ZOFRAN) 4 mg tablet 06-12 00:00: 00 06-23 04:59 :00 No [id number] 4mg Take 1 tablet by mouth every 8 (eight) hours as needed for Nausea and Vomiting (N/V) for up to 10 days. [facility] traMADoL 50 mg tablet 12-29 00:00: 00 Yes [id number] 50mg Take 1 tablet by mouth every 6 (six) hours as needed for Pain (scale 7-10). Indication s: acute pain [facility] cyclobenzap rine 10 mg tablet 07-07 00:00: 00 Yes [id number] 10mg Take 1 tablet by mouth 3 (three) times daily as needed for Muscle Spasms. [facility] ibuprofen 800 mg tablet 07-07 00:00: 00 Yes [id number] 800mg Take 1 tablet by mouth every 8 (eight) hours as needed for Pain (scale 4-6). [facility] cyclobenzap rine 10 mg tablet 05-11 00:00: 00 Yes [id number] 10mg Take 1 tablet by mouth every 8 (eight) hours as needed for Muscle Spasms for up to 15 doses. [facility] Immunizations Ordered Immunization Name Filled Immunization Name Date Status Comments Source Tdap- (Boostrix, Adacel) Unknown Completed Elizaebth ybold - External Influenza, Injectable, Mdck, Preservative Free, Quadrivalent Unknown Completed Elizabeth Seybold - External Tdap- (Boostrix, Adacel) Unknown Completed Elizabeth ybold - External Influenza, Injectable, Mdck, Preservative Free, Quadrivalent Unknown Completed Elizabeth Seybold - External Tdap- (Boostrix, Adacel) Unknown Completed Elizabeth carolynold - External Influenza, Injectable, Mdck, Preservative Free, Quadrivalent Unknown Completed Elizabeth Seybold - External Tdap- (Boostrix, Adacel) Unknown Completed Elizabeth Seybold - External Influenza, Injectable, Mdck, Preservative Free, Quadrivalent Unknown Completed Elizabeth ybguille - External Vital Signs Vital Name Observation Time Observation Value Comments S ource Systolic blood pressure 2024-06-15 19:42:00 118 mm[Hg] Elizabeth selene ld - External Diastolic blood pressure 2024-06-15 19:42:00 78 mm[Hg] Elizabeth Carter ld - External Heart rate 2024-06-15 19:42:00 68 /min Benigno cruz Seybguille - External Body temperature 2024-06-15 19:42:00 36.56 Carol Elizabeth ybold - External Respiratory rate 2024-06-15 19:42:00 18 /min Elizabeth Meehanold - External Body height 2024-06-15 19:42:00 157.5 cm Adrienne roa Seybold - External Body weight 2024-06-15 19:42:00 87.544 kg Adrienne roa Seybold - External BMI 2024-06-15 19:42:00 35.30 kg/m2 Adrienne roa Seybold - External Oxygen saturation in Arterial blood by Pulse oximetry 2024-06-15 19:42:00 99 /min Elizabeth Meehano ld - External Systolic blood pressure 2023-11-04 16:18:00 128 mm[Hg] Elizabeth Meehano ld - External Diastolic blood pressure 2023-11-04 16:18:00 65 mm[Hg] Elizabeth Urbinaybo ld - External Heart rate 2023-11-04 16:18:00 72 /min Benigno cruz Seybold - External Body temperature 2023-11-04 16:18:00 36 Carol Elizabeth Urbinaybold - External Respiratory rate 2023-11-04 16:18:00 16 /min Elizabeth Urbinaybold - External Body height 2023-11-04 16:18:00 157.5 cm Adrienne roa Seybold - External Body weight 2023-11-04 16:18:00 108.863 kg Adrienne roa Seybold - External BMI 2023-11-04 16:18:00 43.90 kg/m2 Adrienne roa Seybold - External Oxygen saturation in Arterial blood by Pulse oximetry 2023-11-04 16:18:00 97 /min Elizabeth Meehano ld - External Systolic blood pressure 2023-06-13 03:00:00 141 mm[Hg] [facility] Diastolic blood pressure 2023-06-13 03:00:00 97 mm[Hg] [facility] Heart rate 2023-06-13 03:00:00 81 /min [facility] Oxygen saturation in Arterial blood by Pulse oximetry 2023-06-13 03:00:00 98 /min [facility] Body temperature 2023-06-13 01:24:00 36.94 Carol [facility] Respiratory rate 2023-06-13 01:07:00 20 /min [facility] Body height 2023-06-13 01:06:00 162.6 cm [facility] Body weight 2023-06-13 01:06:00 127.007 kg [facility] BMI 2023-06-13 01:06:00 48.06 kg/m2 [facility] Procedures Procedure Date / Time Performed Performing Clinicia n Source CONSENT/REFUSAL FOR DIAGNOSIS AND TREATMENT 2023-06-13 01:05:04 Doctor Unassigned, [facility] Encounters Start Date/Time End Date/Time Encounter Type Admission Type Attending [facility] Care Department Encounter ID Source 2024-07-13 08:30:00 2024-07-13 08:30:00 Outpatient DON VALENCIACAITLIN BETANCOURT [id number] Elizabeth guille 2024-07-10 08:00:00 2024-07-10 08:00:00 Outpatient ELIZABETH BETANCOURT [id number] [facility] 2024-07-05 00:00:00 2024-07-05 00:00:00 Outpatient DON VALENCIA ELIZABETH BETANCOURT [id number] [facility] 2024-07-05 00:00:00 2024-07-05 00:00:00 Outpatient DON VALENCIA ELIZABETH BETANCOURT [id number] [facility] 2024-07-04 08:00:00 2024-07-04 08:00:00 Outpatient ELIZABETH BETANCOURT [id number] [facility] 2024-07-02 08:00:00 2024-07-02 08:00:00 Outpatient ELIZABETH BETANCOURT [id number] [facility] 2024-06-29 16:10:00 2024-06-29 16:10:00 Outpatient LABDat ELIZABETH BETANCOURT [id number] [facility] 2024-06-29 00:00:00 2024-06-29 00:00:00 Outpatient DON VALENCIA ELIZABETH BETANCOURT [id number] [facility] 2024-06-27 08:00:00 2024-06-27 08:00:00 Outpatient [facility]ABETH [facility]ANCOURT [id number] [facility] 2024-06-22 00:00:00 2024-06-22 00:00:00 Outpatient DON VALENCIA ELIZABETH BETANCOURT [id number] [facility] 2024-06-20 08:00:00 2024-06-20 08:00:00 Outpatient ELIZABETH BETANCOURT [id number] Elizabeth [facility] 2024-06-19 00:00:00 2024-06-19 00:00:00 Outpatient DON VALENCIA ELIZABETH BETANCOURT [id number] [facility] 2024-06-19 00:00:00 2024-06-19 00:00:00 Outpatient DON VALENCIA ELIZABETH BETANCOURT [id number] Elizabeth Urbinaybguille 2024-06-15 15:45:00 2024-06-15 15:45:00 Outpatient LABDat ELIZABETH BETANCOURT [id number] Elizabeth Urbinaybguille 2024-06-15 15:00:00 2024-06-15 15:00:00 Outpatient DON VALENCIA ELIZABETH BETANCOURT [id number] [facility] 2024-06-15 00:00:00 2024-06-15 00:00:00 Outpatient ELIZABETH BETANCOURT [id number] Elizabeth [facility] 2024-06-15 00:00:00 2024-06-15 00:00:00 Outpatient DON VALNECIA ELIZABETH BETANCOURT [id number] [facility] 2024-03-07 00:00:00 2024-03-07 00:00:00 Outpatient DON VALENCIA [facility]AB[facility] [id number] [facility] 2024-02-29 11:00:00 2024-02-29 11:00:00 Outpatient FARHAT DEL TORO [id number] [facility] 2024-02-26 14:15:00 2024-02-26 14:15:00 Outpatient CED ORONA [id number] [facility] 2024-01-26 18:15:00 2024-01-26 18:15:00 Outpatient BÁRBARA HUA [id number] [facility] 2023-12-22 13:45:00 2023-12-22 13:45:00 Outpatient GENET DENSON [id number] [facility] 2023-11-28 00:00:00 2023-11-28 00:00:00 Outpatient JADIEL BLANCHARD [id number] [facility] 2023-11-07 08:55:00 2023-11-07 08:55:00 Outpatient LAB90 ELIZABETH BETANCOURT [id number] [facility] 2023-11-04 10:30:00 2023-11-04 10:30:00 Outpatient DON VALENCIA [id number] Elizabeth Wynne 2023-08-31 14:22:34 2023-08-31 14:22:34 Outpatient [facility] [id number] Dmitriy Herbert 2023-08-29 14:14:37 2023-08-29 14:14:37 Outpatient [facility] [id number] Dmitriy Herbert 2023-06-12 20:07:00 2023-06-12 22:10:00 Emergency X ZELALEM LOOMIS [facility] ERT [id number] [facility] 2023-06-12 20:07:00 2023-06-12 22:10:00 Emergency Zelalem Loomis [facility] [id number] [facility] 2023-05-13 15:15:00 2023-05-13 15:15:00 Outpatient Raven Petrona [facility] [id number] [facility] 2021-03-21 22:50:00 2021-03-21 22:50:00 Emergency X [facility] ERT [id number] [facility] 2020-12-28 22:57:00 2020-12-29 03:04:00 Emergency X KATLYN JAMES [facility] ERT [id number] [facility] 2020-07-07 14:07:00 2020-07-07 14:07:00 Emergency X JIM VANEGAS [facility] ERT [id number] [facility] 2020-05-10 21:14:00 2020-05-13 08:16:59 Inpatient HCAMN MARIANNE [id number] [facility] 2020-05-10 21:47:04 2020-05-10 21:47:04 Emergency X RAVIGHISLAINEOLIVER [facility] ERT [id number] [facility] 2019-11-18 12:05:00 2019-11-18 13:24:00 Emergency EM Rosalba Sabillon HCAMN MARIANNE [id number] [facility] Results Test Description Test Time Test Comments Results Result Co mments Source UR HCG [id number] 12:50:00* Test Item Value Reference Range Interpretation Comme nts UR HCG QUAL (test code = HCGQLU) NEGATIVE NEGATIVE URINALYSIS [id number] 12:47:00* Test Item Value Reference Range Interpretation [...] (test code = BACU) NONE UR HCG [id number] 12:47:00* Test Item Value Reference Range Interpretation Comme nts UR HCG QUAL (test code = HCGQLU) NEGATIVE URINALYSIS [id number] 12:47:00* Test Item Value Reference Range Interpretation [...] (test code = BACU) NONE UR HCG [id number] 12:47:00* Test Item Value Reference Range Interpretation Comme nts UR HCG QUAL (test code = HCGQLU) NEGATIVE NEGATIVE - XR CHEST 2 [id number] 12:34:00FAX: Oliver Villalpando NP [phone] [place]: St: PRE Name: SHERLEY PARRISH [facility] : 1995 Age/S: 24/F [address] [facility] Unit #: [id number] [place]: [place]: [place] [id number] Acct: [id number] Dis Date: Status: PRE ER PHONE #: [phone] Exam Date: 11/18/2019 1227 FAX #: [phone] Reason: cough EXAMS: CPT CODE: [id number] XR CHEST 2 V 55781 EXAM: - XR CHEST 2 V COMPARISON: 06/11/2018 LOCATION: [facility] HISTORY: 24 years-old Female with cough FINDINGS: The cardiomediastinal silhouette is within normal limits. The lungs are well aerated. No large pneumothorax or pleural effusion. Osseous structures and soft tissues demonstrate no acute findings. The visualized upper abdomen is unremarkable. IMPRESSION: No acute cardiopulmonary abnormality. Electronically Signedby Krishan Pitt MD on 11/18/2019 at 8479 Reported and signed by: Krishan Pitt MD CC: Oliver Villalpando NP Technologist: BARBARA Wynnrd Date/Time/By: 11/18/2019 (5540) : By: [email or web address] PAGE 1 Signed Report FAX: Oliver Villalpando NP [phone] [place]: St: PRE Name: SHERLEY PARRISH [facility] : 1995 Age/S: 24/F [address] [facility] [employer] Unit #: [id number] Loc: [place], [place] Phys: Oliver Villalpando NET FRONT END DEVELOPER [address] Acct: [id number] Dis Date: Status: PRE ER PHONE #: [phone] Exam Date: 1227 FAX #: [phone] Reason: cough EXAMS: CPT CODE: [id number] XR CHEST 2 V 82289 (Continued) Orig Print D/T: S: 11/18/2019 (7672) PAGE 2 Signed Report- CT ABD PELVIS [id number] 16:55:00FAX: Toñito Aguilar MD [place]: St: PRE Name: SHERLEY PARRISH [facility] : 1995 Age/S: 24/F [address] [employer] Unit: [id number] Loc: [address] [place], [place] Phys: Toñ[place] [address] Acct: [id number] Dis Date: Status: PRE ER PHONE #: [phone] Exam Date: 09/25/2019 1643 FAX #: [phone] Reason: LLq pain EXAMS: CPT CODE: [id number] CT ABD PELVIS W/CONT 96353 HISTORY: Left lower quadrantpain, abdominal pain. CT abdomen and pelvis, contrast enhanced. Reformatted sagittal and coronal images. COMPARISON: June 11, 2018 Automated exposure control, iterative reconstruction technique, and/or adjustment of mA and/or kV according to patient's size was utilized for optimum radiation dose re duction. Following the intravenous administration of 100 ml [...] are smooth. Spleen appears to be normal. Pancreasintact. No ductal dilatation. The kidneys do not show obstruction, large stones or stranding. Normal aortic diameter and perfusion. Adrenals intact. No bowel obstruction. Stomach with moderate amountof food from recent meal. Small bowel distribution [...] Signed Report (CONTINUED) FAX: Toñito Aguilar MD [place]: St: PRE Name: SHERLEY PARRISH [facility] : 1995 Age/S: [address] [facility] Unit: [id number] Loc: E.[address] [place] [address] Phys: Toñ[place] [address] Acct: [id number] Dis Date: Status: PRE ER PHONE #: [phone] Exam Date: 11/25/2018 1643 FAX #: [phone] Reason: LLq pain EXAMS: CPT CODE: [id number] CT ABD PELVIS [id number] (Continued) appearance to the previous study possibly with a right-sided follicular cyst thistime. No inflammatory changes or free fluid. No acute inflammatory changes in the left lower quadrant. Location: 9 at 3754 Reported and signed by: Ari Gaston M.D. CC: Toñito Aguilar MD Technologist: WALLACE STOREY Trnjose ard Dt/Tm: 09/25/2019 (2446) [id number] Orig Print D/T: S: 09/25/2019 (9828 PAGE 2 Signed Report- DUP AB/PEL/SC COMP 2019-09-25 16:32:00FAX: Toñito Aguilar MD [place]: EM St: PRE Name: SHERLEY PARRISH [facility] : 1995 Age/S: [address] [facility] Unit #: [id number] Loc: [address] Phys: Toñ[place] [address] Acct: [id number] Dis Date: Status: PRE ER PHONE #: [phone] Exam Date: 09/25/2019 1626 FAX #: [phone] Reason: PELVIC PAIN LLQ PAIN EXAMS: CPT CODE: [id number] DUP AB/PEL/SC COMP 30603 ULTRASOUND: - US PELVIS COMPLETE, - DUP [...] MD Technologist: LOGAN MILLER Trnscrd Date/Time/By: 09/25/2019 (163) : By: [facility] PAGE 1 Signed Report FAX: Toñito Aguilar MD [place]: St: PRE Name: SHERLEY PARRISH [facility] : 1995 Age/S: 24/F [address] [facility] Unit #: [id number] Loc: [address] [place], [place] Phys: Toñ[place] [address] Acct: [id number] Dis Date: Status: PRE ER PHONE #: [phone] Exam Date: 09/25/2019 1620 FAX #: [phone] Reason: PELVIC PAIN LLQ PAIN EXAMS: CPT CODE: [id number] DUP AB/PEL/SC COMP 32491 (Continued) Orig Print D/T: S: 09/25/2019 (1633) PAGE 2 Signed Report- US PELVIS COMPLETE 2019-09-25 16:32:00FAX: Toñito Aguilar MD [place]: St: PRE Name: SHERLEY PARRISH [facility] : 1995 Age/S: 24/F [address] [facility] Unit #: [id number] Loc: [address] Phys: Toñ[place] [address] Acct: [id number] Dis Date: Status: PRE ER PHONE #: [phone] Exam Date: 09/25/2019 1619 FAX #: [phone] Reason: Pelvic pain llq pain EXAMS: CPT CODE: [id number] US PELVIS COMPLETE 10640 ULTRASOUND: - USPELVIS COMPLETE, - DUP AB/PEL/SC COMP History: Pelvic [...] Ari Gaston M.D. CC: Toñito Aguilar MD Technologist:LOGAN MILLER Trnscrd Date/Time/By: 09/25/2019 (5032) : By: Carissa PAGE 1 Signed Report FAX: Toñito Aguilar MD [place]: St: PRE Name: SHERLEY PARRISH [facility] : 1995 Age/S: 24/F [address] [facility] [employer] Unit #: [id number] Loc: [address] Phys: Toñ[place] [address] Acct: [id number] Dis Date: Status: PRE ER PHONE #: [phone] Exam Date: 09/25/2019 1619 FAX #: [phone] Reason: Pelvic pain llq pain EXAMS: CPT CODE: [id number] PELVIS COMPLETE 81110 (Continued) Orig Print D/T: S: 09/25/2019 (1497) PAGE 2 Signed ReportURINALYSIS COMPLETE 2019-09-25 16:31:00* [...] CLUE CELLS Specimen comments: Clean CatchUR HCG [id number] 16:16:00* Test Item Value Reference Range Interpretation Comme nts UR HCG QUAL (test code = HCGQLU) NEGATIVE NEGATIVE BASIC METABOLIC [id number] 16:16:00* Test Item Value Reference Range Interpretation [...] 8.9 mg/dl 8.0-10.5 N HEPATIC FUNCTION PANEL [id number] 16:16:00* Test Item Value Reference Range Interpretation [...] code = ALKP) 67 Units/L 50.0-136.0 N [id number] 16:16:00* Test Item Value Reference Range Interpretation Comme nts LIPASE (test code = LIP) 135 Units/L 65.0-230.0 N DRUGS OF ABUSE SCREEN [id number] 16:12:00* Test Item Value Reference Range Interpretation [...] 300 ng/mL Specimen comments: Clean CatchBASIC METABOLIC [id number] 16:12:00* Test Item Value Reference Range Interpretation [...] = CA) mg/dl 8.0-10.5 HEPATIC FUNCTION PANEL [id number] 16:12:00* Test Item Value Reference Range Interpretation [...] ( test code = ALKP) Units/L 50.0-136.0 [id number] 16:12:00* Test Item Value Reference Range Interpretation Comme nts LIPASE (test code = LIP) Units/L 65.0-230.0 CBC W/AUTO [id number] 16:08:00* Test Item Value Reference Range Interpretation [...] Notes Date/Time Note Provider Source 2023-06-12 22:06:01 Formatting of this n ote might be different from the original. Pt discharged to home, pt given printed and [...] with steady gait, in no apparent distress. Shawnee Zamora RN [facility] 2023-06-12 20:05:26 Formatting of this n ote might be different from the original. 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 Patient denies LOC or blood thinner use. Reports head pain and vomiting. Pmhx: hypothyroidism Patient GCS 15, RR Even and unlabored, NAD Chen Houser RN [facility] 2023-06-12 20:04:00 Formatting of this n ote is different from the original. [facility] Emergency Department Note Patient Name: Sherley Parrish Date of : 1995 28 year old female Treatment Room: [place] [address] Primary Care Physician: PATIENT DOES NOT HAVE A PCP Patient Escorted by: Self [9] Mode of Arrival: Personal means [1] EMS Treatment Prior to ED Arrival: Travel and Exposure Screening: Symptoms Does patient have any of these symptoms?: (not recorded) Exposure Screening Has patient had contact with someone with a communicable disease in the last month?: (not recorded) Diseases exposed to:: (not recorded) Is Patient ?: (not recorded) Exposure Date: (not recorded) Chief Complaint: Chief Complaint Patient presents with Fall Head Injury History of Present Illness: Patient presenting to ED with c/o headache and [...] any recent illness History provided by: Patient contract engineer used: No Past Medical History/Immunizations: No past [...] Heart sounds: Normal heart sounds. No murmur heard. Pulmonary: Effort: Pulmonary effort is normal. 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 No loc reported. CT head unremarkable. X ray of right knee also done and unremarkable as well. Patient DC home and instructed to follow up with PCP as needed Medical Decision Making Problems Addressed: Acute pain of right knee: acute illness or injury Concussion without loss of consciousness, sequela: acute illness or injury Contusion of right knee, initial encounter: acute illness or injury Fall, initial encounter: acute illness or injury Nonintractable headache, unspecified chronicity pattern, unspecified headache type: acute illness or injury Amount and/or Complexity of Data Reviewed Radiology: ordered. Decision-making details documented in ED Course. Risk Prescription drug management. [...] Electronically signed by: Zelalem Loomis MD 06/12/232134 [facility] 2020-05-10 21:20:00 [facility] ([facility] EMERGENCY PROVIDER REPORT REPORT#:[id number] REPORT STATUS: Signed DATE:05/10/20 TIME: 2119 PATIENT: SHERLEY PARRISH UNIT #: [id number] ROOM/BED: AGE: 25 SEX: F PCP PHYS: No Primary or Family Physician SERVICE AUTHOR: Soren Ramirez MD * ALL edits or amendments must be made on the electronic/computer document * HPI-Back Pain Under 40 General [...] Associated with Denies: Abdominal pain, Chest pain, Cough, Dyspnea, Dysuria, [...] Risk Stratification Thoracic Aortic Dissection Risk factors reviewed, No risk factors Epidural Hematoma Risk factors reviewed, No risk factors Epidural Abscess Risk factors reviewed, No risk factors Nexus C-Spine Criteria No: Post midline tenderness, Intoxicated, Altered LOC/alertness, Focal neuro deficit pres, Distracting injury pres. Review of Systems Free Text ROS Notes Free Text ROS Notes Constitutional no fever Head - No headache ENT no earache no sore throat no nasal bleeding. Eyes no blurry vision no eye pain no photophobia Respiratory system no shortness of breath no cough Cardiovascular system no chest pain Abdominal no abdominal pain no nausea no vomiting Skin no rash no lacerations no abrasions Musculoskeletal has back pain. Hematology: No bleeding. Endocrine no polydipsia no polyphagia. Allergy and immunology no hives no itching no rhinorrhea no sneezing Neurology - no altered mental status no confusions no dizziness no lightheadedness no syncope Psychiatry no agitation no confusion no hallucinations no [...] patients 13 years old or older: Never Smoker Other Social History Local resident, Good social support Physical Exam Vital Signs Vital Signs First Documented: Result Date Time Pulse Ox 100 05/10 2115 B/P 139/98 05/10 2115 B/P Mean 111 05/10 2115 O2 Delivery Room air 05/10 2115 Temp 36.4 05/10 2115 Pulse 77 05/10 2115 Resp 20 05/10 2115 Last Documented: Result Date Time Pulse Ox 100 05/10 2115 B/P 139/98 05/10 2115 B/P Mean 111 05/10 2115 O2 Delivery Room air 05/10 2115 Temp 36.4 05/10 2115 Pulse 77 05/10 2115 Resp 05/10 Review of Vital Signs Reviewed Free Text PE Notes Free Text PE Notes General examination alert awake no acute distress nontoxic appearance cooperative Head atraumatic normocephalic Neck atraumatic supple no meningismus signs no adenopathy no swelling no midline tenderness nontender no JVD no tracheal deviation no carotid bruit bruit Lymphadenopathy no gross lymphadenopathy Eyes atraumatic pupils equal and reactive to light no nystagmus no scleral icterus ENT atraumatic airway patent no peritonsillar abscess no trismus no pooling of secretions Respiratory system atraumatic breath sounds are normal no respiratory distress no rails no wheezing no rhonchi no retractions Cardiovascular system heart rate normal regular rhythm heart sounds normal no gallop no murmur capillary refills normal Abdomen atraumatic soft nontender McBurney's no nontender no guarding no rebound bowel sounds normal no distention Back -tenderness to the left paraspinal soft tissue lumbar area no midline tenderness straight leg raising test negative no CVA tenderness Skin atraumatic color normal no rash no swelling normal turgor Upper extremity atraumatic normal on inspection no deformity Lower extremity atraumatic normal inspection no deformity Neuro oriented x3 speech normal no motor deficits . Cranial nerves II through XII intact reflexes normal cerebellar normal memory normal Patient Discharge Departure Vital Signs/Condition Vital [...] OF URGENT CARES IN THE AREA at [address] [facility] #:[id number] END OF REPORT [facility] 2019-11-18 12:16:00 [facility] ([facility]) EMERGENCY PROVIDER REPORT REPORT#:[id number] REPORT STATUS: Signed DATE:11/18/19 TIME: 1216 PATIENT: SHERLEY PARRISH UNIT #: [id number] ROOM/BED: AGE: 24 SEX: F PCP PHYS: No Primary or Family Physician SERVICE AUTHOR: Oliver Villalpando NET FRONT END DEVELOPER * ALL edits or amendments must be made on the electronic/computer document * [id number] Illness General Confirmed Patient Yes Patient Type [...] Notes Patient is a 24 year old female that presents with FLS and sore throat x 3 days. patient works at [employer]. Patient also states she took a home test that was positive then again and it was negative . LMP- August. Patient has no other compliant then those of FLS Review of Systems ROS Statements All systems rev neg except as marked. Complete sys rev neg except as marked. Focused Review of Systems Constitutional Reports: Chills, Fever, Malaise. Denies: Fatigue, Lethargy. Eyes Denies: Blurred bilat, Diplopia, Discharge bilat, Eye pain bilat, Photophobia, Redness bilat. Ears/Nose/Throat Reports: Nasal congestion, Sore throat. Denies: Ear drainage bilat, Ear ringing bilat, Earache bilat, Hearing loss bilat, Mouth pain, Nose bleeding, Sinus problem. Respiratory Reports: Cough, productive, Dyspnea on exertion. Denies: Cough, non-productive, Pleuritic pain, Shortness of breath, Wheezing. Cardiovascular Denies: Chest pain, Dyspnea on exertion, Palpitations, Syncope. GI Denies: Abdominal pain, Diarrhea, Nausea, Vomiting. Musculoskeletal Reports: Myalgia. Denies: Back pain, Extremity pain, Extremity swelling. Hematologic Denies: Adenopathy, Bleeding, Bruising. [...] years old or older: Current every day smoker Other Social History [...] PE General/Const General/Const Awake, Alert, No acute distress, Well appearing, Well developed , Well hydrated, Well nourished, Cooperative, Not toxic appearing Eyes Eyes Atraumatic, PERRL, No nystagmus, No scleral icterus Ears/Nose/Throat Ears/Nose/Throat Atraumatic, Airway patent Pharynx/Tonsils/Uvula Tonsillar erythema L, Tonsillar swelling R, Tonsillar swelling L. MS Neck Neck Atraumatic, Supple, No meningismus, Full range of motion Resp/Chest Respiratory/Chest Atraumatic, Breath sounds NL, Breath sounds = bilat, No respiratory distress Cardiovascular Cardiovascular Heart sounds NL, No murmurs, Cap refill not delayed Heart Rate/Rhythm Tachycardia. Negative: Irregular rhythm, Irreg irregular rhythm. Abdomen/GI Abdomen/GI Atraumatic, Soft, Non-tender, BS normoactive Lymphatic Lymphatic No gross adenopathy, No cervical adenopathy, No axillary adenopathy Skin Skin Atraumatic, Color NL, No rash, Warm, Dry, Intact Neurologic Neurologic Oriented X3, Speech NL, No motor deficits, No sensory deficits Interpretation Diagnostics Lab Results Interpretation Results Laboratory Tests: 11/18 1238 Urines Urine Color YELLOW Urine Appearance SLHZY Urine pH (5.0 - 9.0) 6.0 Ur Specific [place] (1.000 - 1.030) 1.020 Urine Protein (NEGATIVE [...] Type A Antigen - COMP NASOPHARG Recent Impressions: RADIOLOGY - XR CHEST 2 V 11/18 1227 Report Impression - Status: SIGNED Entered: 11/18/2019 1237 IMPRESSION: No acute cardiopulmonary abnormality. Impression By: [email or web address] - Krishan Pitt MD Lab Imaging Statement Laboratory radiographic studies reviewed and considered in the medical decision-making. Point of Care Testing Micro Interpretation Influenza rapid - pos, Strep rapid - neg Urinalysis Interpretation reviewed Pulse Oximetry Pulse Ox % 98 On: Room air Test Negative - urine HCG Re-Evaluation MDM Re-Evaluation/Progress URI/Flu Adult MDM Note The patient is now resting comfortably, is alert and in no distress. The patient has a normal mental status and is neurologically intact. The patient appears well and is able to tolerate food or fluid by mouth, and there is no significant dehydration. There is no respiratory distress and no signs of systemic toxicity. The history, exam, diagnostic testing (if any) and [...] as indicated in the discharge instructions. ED Course Medication(s) Ordered Medication(s) Ordered: Central [...] entry have been reviewed. Condition Improved Clinical Impression Clinical Impression Primary Impression: Influenza B Disposition Decision Discharge )( Discharged to Home Yes )( Time 1312 )( Date 11/18/19 Discharge/Care Plan Counseled Regarding Diagnosis, Lab results, Imaging studies, Prescriptions, Need for follow-up, When to return to ED Prescriptions tamiflu tessalon pearle prednisone motrin Prescriptions Reviewed Risks, Benefits, Alternative treatment Discharge Note I have spoken with the patient and/or caregivers. I have explained the patient's condition, diagnoses and treatment plan based on the [...] of care and follow-up instructions have been explained in detail. The patient and/or caregivers have received these instructions in written format and have expressed an understanding of the discharge instructions. The patient and/or caregivers are aware that any significant change in condition or worsening of symptoms should prompt an immediate return to this or the closest emergency department or a call to 911. at 1329 RPT #:[id number] END OF REPORT [facility] 2019-11-18 12:16:00 [facility] ([facility] EMERGENCY PROVIDER REPORT REPORT#:[id number] REPORT STATUS: Signed DATE:11/18/19 TIME: 1216 PATIENT: SHERLEY PARRISH UNIT #: [id number] ROOM/BED: AGE: 24 SEX: F PCP PHYS: No Primary or Family Physician SERVICE AUTHOR: Oliver Villalpando NP * ALL edits or amendments must be made on the electronic/computer document * Oliver Villalpando 11/18/19 1216: [id number] Illness General Confirmed Patient Yes Patient Type [...] Notes Patient is a 24 year old female that presents with FLS and sore throat x 3 days. patient works at [employer]. Patient also states she took a home test that was positive then again and it was negative . LMP- August. Patient has no other compliant then those of FLS Review of Systems ROS Statements All systems rev neg except as marked. Complete sys rev neg except as marked. Focused Review of Systems Constitutional Reports: Chills, Fever, Malaise. Denies: Fatigue, Lethargy. Eyes Denies: Blurred bilat, Diplopia, Discharge bilat, Eye pain bilat, Photophobia, Redness bilat. Ears/Nose/Throat Reports: Nasal congestion, Sore throat. Denies: Ear drainage bilat, Ear ringing bilat, Earache bilat, Hearing loss bilat, Mouth pain, Nose bleeding, Sinus problem. Respiratory Reports: Cough, productive, Dyspnea on exertion. Denies: Cough, non-productive, Pleuritic pain, Shortness of breath, Wheezing. Cardiovascular Denies: Chest pain, Dyspnea on exertion, Palpitations, Syncope. GI Denies: Abdominal pain, Diarrhea, Nausea, Vomiting. Musculoskeletal Reports: Myalgia. Denies: Back pain, Extremity pain, Extremity swelling. Hematologic Denies: Adenopathy, Bleeding, Bruising. [...] years old or older: Current every day smoker Other Social History [...] PE General/Const General/Const Awake, Alert, No acute distress, Well appearing, Well developed , Well hydrated, Well nourished, Cooperative, Not toxic appearing Eyes Eyes Atraumatic, PERRL, No nystagmus, No scleral icterus Ears/Nose/Throat Ears/Nose/Throat Atraumatic, Airway patent Pharynx/Tonsils/Uvula Tonsillar erythema L, Tonsillar swelling R, Tonsillar swelling L. MS Neck Neck Atraumatic, Supple, No meningismus, Full range of motion Resp/Chest Respiratory/Chest Atraumatic, Breath sounds NL, Breath sounds = bilat, No respiratory distress Cardiovascular Cardiovascular Heart sounds NL, No murmurs, Cap refill not delayed Heart Rate/Rhythm Tachycardia. Negative: Irregular rhythm, Irreg irregular rhythm. Abdomen/GI Abdomen/GI Atraumatic, Soft, Non-tender, BS normoactive Lymphatic Lymphatic No gross adenopathy, No cervical adenopathy, No axillary adenopathy Skin Skin Atraumatic, Color NL, No rash, Warm, Dry, Intact Neurologic Neurologic Oriented X3, Speech NL, No motor deficits, No sensory deficits Interpretation Diagnostics Lab Results Interpretation Results Laboratory Tests: 11/18 1238 Urines Urine Color YELLOW Urine Appearance SLHZY Urine pH (5.0 - 9.0) 6.0 Ur Specific [place] (1.000 - 1.030) 1.020 Urine Protein (NEGATIVE [...] Type A Antigen - COMP NASOPHARG Recent Impressions: RADIOLOGY - XR CHEST 2 V 11/18 1227 Report Impression - Status: SIGNED Entered: 11/18/2019 1237 IMPRESSION: No acute cardiopulmonary abnormality. Impression By: [email or web address] - Krishan Pitt MD Lab Imaging Statement Laboratory radiographic studies reviewed and considered in the medical decision-making. Point of Care Testing Micro Interpretation Influenza rapid - pos, Strep rapid - neg Urinalysis Interpretation reviewed Pulse Oximetry Pulse Ox % 98 On: Room air Test Negative - urine HCG Re-Evaluation MDM Re-Evaluation/Progress URI/Flu Adult MDM Note The patient is now resting comfortably, is alert and in no distress. The patient has a normal mental status and is neurologically intact. The patient appears well and is able to tolerate food or fluid by mouth, and there is no significant dehydration. There is no respiratory distress and no signs of systemic toxicity. The history, exam, diagnostic testing (if any) and [...] as indicated in the discharge instructions. ED Course Medication(s) Ordered Medication(s) Ordered: Central [...] 133/88 11/18 1206 B/P Mean 103 11/18 120 O2 Delivery Room air 11/18 1206 Temp 38.8 11/18 120 Pulse 116 11/18 1206 Resp 18 11/18 1206 All vital signs available at the time of this entry have been reviewed. Condition Improved Clinical Impression Clinical Impression Primary Impression: Influenza B Disposition Decision Discharge )( Discharged to Home Yes )( Time 1312 )( Date 11/18/19 Discharge/Care Plan Counseled Regarding Diagnosis, Lab results, Imaging studies, Prescriptions, Need for follow-up, When to return to ED Prescriptions tamiflu tessalon pearle prednisone motrin Prescriptions Reviewed Risks, Benefits, Alternative treatment Discharge Note I have spoken with the patient and/or caregivers. I have explained the patient's condition, diagnoses and treatment plan based on the [...] of care and follow-up instructions have been explained [...] call to 911. Rosalba Sabillon 11/18/19 1341: [id number] Illness General Initial Greet Date/Time 11/18/19 1209 Patient Discharge Departure Supervising Physician Note MidLv Saw Pt Alone I have reviewed the PA/NET FRONT END DEVELOPER's note and plan of care. I was available for consultation as needed at all times during the patient's visit in the emergency department. I agree with the clinical impression, plan and disposition. at 1329 at 1327 [facility] #:[id number] END OF REPORT [facility] 2019-09-25 15:46:00 [facility] ([facility]) EMERGENCY PROVIDER REPORT REPORT#:[id number] REPORT STATUS: Signed DATE:09/25/19 TIME: 1546 PATIENT: SHERLEY PARRISH UNIT #: [id number] ROOM/BED: AGE: 24 SEX: F PCP PHYS: No Primary or Family Physician SERVICE AUTHOR: Toñito Aguilar MD * ALL [...] Associated with Reports: Nausea, Vomiting. Denies: Chills, Constipation, Diarrhea, Fever. Associated Other Reports dizziness but denies UTI Sx. Exacerbated by Nothing Relieved by Nothing Free Text HPI Notes Free Text HPI Notes 24 y/o F presents to the ED with c/o LLQ abd pain onset today (time unspecified) . Pt reports associated dizziness and N/V but denies UTI Sx, fever, chills, constipation or diarrhea. Pt reports LNMP as July. Pt reports she took home a test recently and it resulted negative. Portions [...] Fever, Lethargy. Respiratory Denies: Cough, non-productive, Cough, productive, Shortness of breath. Cardiovascular Denies: Chest pain, Syncope. GI Reports: Abdominal pain (LLQ ), Nausea, Vomiting. Denies: Bloody/tarry stool, Constipation, Diarrhea. Female Denies: [...] years old or older: Current every day smoker Other Social History [...] No periorbital redness, No periorbital swelling, Conjunctiva NL Ears/Nose/Throat Ears/Nose/Throat Airway patent, Mucous membranes moist, Pharynx NL Resp/Chest Respiratory/Chest Breath sounds NL, Breath sounds = bilat, No respiratory distress, No rales, No rhonchi, No wheezing, No chest tenderness, No chest wall deformity Cardiovascular Cardiovascular Heart rate NL, Regular rhythm, Heart sounds NL, Peripheral circulation NL, Pulses = bilaterally Abdomen/GI Abdomen/GI Soft, No guarding, No rebound, No distention Tenderness/Guarding/Rebound Tender LLQ (TO PALPATION ). MS Back Back Inspection NL, Full range of motion, Painless range of motion, Non- tender, No midline vertebral tend, No paraspinal tenderness, No CVA tenderness Skin Skin No rash, Warm, Dry Neurologic Neurologic Oriented X3, Speech NL, No motor deficits, No sensory deficits, CN II - XII intact, Reflexes equal bilat, Cerebellar NL, Memory NL Additional PE MS Neck [...] pH (5.0 - 9.0) 8.0 Ur Specific Linden (1.000 - 1.030) 1.020 Urine Protein (NEGATIVE [...] % (Auto) (23.0 - 38.0 %) 30.1 [place] % (Auto) (1.0 - 10.0 %) 7.2 Eos % (Auto) (1.0 - 5.0 %) 2.2 Baso % (Auto) (0.0 - 1.0 %) 0.4 Neut # (Auto) (2.4 - 6.3 K/mm3) 6.7 H Lymph # (Auto) (1.2 - 4.0 K/mm3) 3.4 [place] # (Auto) (0.0 - 0.6 K/mm3) 0.8 [...] perfusion bilaterally. Location: U 19 Impression By: Carissa Gaston M.D. ULTRASOUND - DUP AB/PEL/SC COMP 09/25 1620 Report Impression - Status: SIGNED Entered: 09/25/2019 1635 Impression: No acute abnormality in the pelvis. Empty normal sized uterus. Tiny follicular cyst right ovary. Normal ovarian perfusion bilaterally. Location: U 19 Impression By: Carissa Gaston M.D. CAT SCAN - CT ABD PELVIS W/CONT 09/25 1643 Report Impression - Status: SIGNED Entered: 09/25/2019 1658 IMPRESSION: No acute abnormality in the abdomen or pelvis, similar appearance to the previous study possibly with a right-sided follicular cyst this time. No inflammatory changes or free fluid. No acute inflammatory changes in the left lower quadrant. Location: U19 Impression By: Carissa Gaston M.D. Lab Imaging Statement Laboratory radiographic studies reviewed and considered in the medical decision-making. Point of Care Testing Urinalysis Interpretation U/A reviewed Pulse Oximetry Pulse Ox % 100 On: Room air Interpretation Interpreted by id, Pulse oximetry normal Time 1514 Test UR HCG REVIEWED [...] perfusion bilaterally. Location: U 19 Impression By: Carissa Gaston M.D. ULTRASOUND - DUP AB/PEL/SC COMP 09/25 1620 Report Impression - Status: SIGNED Entered: 09/25/2019 1635 Interpreted by : Radiologist Reviewed by : ED physician Impression: No acute abnormality in the pelvis. Empty normal sized uterus. Tiny follicular cyst right ovary. Normal ovarian perfusion bilaterally. Location: U 19 Impression By: Carissa Gaston M.D. CAT SCAN - [...] 09/25/19 at 1937 Re-Evaluation MDM )( Re-Evaluation/Progress #1 Time of Re-Eval 1600 )( Re-Eval Status Improved Re-Eval Abdomen Soft, Non-tender Pain Re-Evaluation Denies pain Exam Post Tx - General Active, Alert, Appears non-toxic Exam Post Tx - Sys Review Lungs clear Plan Post Re-Eval Plan discharge Abd Pain MDM Note F < 40 The patient is resting comfortably and feels better, [...] as indicated in the discharge instructions. Re-Evaluation/Progress #2 Text/Dict [...] 09/25 1514 O2 Delivery Room air 09/25 151 Temp 36.7 09/25 151 Pulse 100 09/25 1514 Resp 18 09/25 151 Last Documented: Result Date Time Pulse Ox 99 09/25 1759 B/P 127/80 09/25 1759 B/P Mean 95 09/25 1759 Temp 36.6 09/25 175 Pulse 96 09/25 175 Resp 18 09/25 175 O2 Delivery Room air 09/25 151 All vital signs available at the time of this entry have been reviewed. Condition Improved Clinical Impression Clinical Impression Primary Impression: Ovarian cyst Secondary Impressions: Abdominal pain, Bacterial vaginosis Time of Impression 1740 Disposition Decision Discharge )( Discharged to Home Yes )( Time 174 )( Date 09/25/19 Discharge/Care Plan Counseled Regarding Diagnosis, Lab results, Imaging studies, Prescriptions, Need for follow-up, Smoking cessation, When to return to ED Prescriptions flagyl, tylenol extra strength; See Rx. Prescriptions Reviewed Risks, Benefits Discharge Note I have spoken with the patient and/or caregivers. I have explained the patient's condition, diagnoses and treatment plan based on the [...] of care and follow-up instructions have been explained [...] Quality Measures Preg Test for Women w/Abd Pain Female age 14-50, Complaint of abdominal pn, Any preg test ordered Smoking Cessation Screened, tobacco user, Tobacco cess intervention Tobacco Screening/Cessation 18 years or older, Counseled 3-10 minutes Smoking Cessation Counseling The patient was questioned regarding their smoking habits, and I have determined , as the patient's treating physician, that there [...] for smoking cessation. Supervising Physician Note Scribe Statement Rai Myles, 09/25/19 1547, scribing for and in the presence of [Dr. Aguilar ]. Signed By: Rai Myles, 09/25/191546 Provider Scribed Statement I personally performed the services described in this documentation and reviewed the documentation that was dictated to the scribe(s) in my presence, and it accurately records my words and actions. Toñito Aguilar, 09/27/19 Portions of this section were scribed by Rai Myles on 09/25/19 at 1937 at 205 RPT #:[id number] END OF REPORT [facility]
== END 2024-07-05 06:08 | disposition home or self-care (01) ==
LOC: ER 01:41
DX: G44.229 Chronic tension-type headache, not intractable (principal); K00.6 Disturbances in tooth eruption; K08.89 Other specified disorders of teeth and supporting structures; K02.9 Dental caries, unspecified; E03.9 Hypothyroidism, unspecified; F17.290 Nicotine dependence, other tobacco product, uncomplicated; Z79.899 Other long term (current) drug therapy
CPT/HCPCS: 85025; 80048; 36415; 83735; 81025; 85610; 80076; 84443; 84439; 70450; 99284; J2765; J1200; J7030

== ENCOUNTER 2024-09-15 19:51 | Emergency (ER) | payer OTHER ==
--- OUTSIDE RECORDS SUMMARY | 2024-09-15 19:54 | XMS REPORT | Continuity of Care Document ---
Author Name Unknown Address [address] [facility] [address]. [address] [place] [address] [facility] thconnect Address [address] [facility]. 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 9 [id number] 2023 00:00:00 [employer] [id number] 2023 00:00:00 Problems Condition Name Condition Details Condition Category Status Onset Date Resolution Date Last Treatment Date Treating Clinician Comments Source Well adult exam Well adult exam Disease Active 2022-11 00:00: 00 Elizabeth Ashrafa ge Class 3 severe obesity due to excess calories with body mass index (BMI) of 40.0 to 44.9 in adult Class 3 severe obesity due to excess calories with body mass index (BMI) of 40.0 to 44.9 in adult Disease Active 2022-11 00:00: 00 Elizabeth Wynne - [place] Allergies, Adverse Reactions, Alerts Allergy Name Allergy Type Status Severity Reaction(s) Onset Date Inactive Date Treating Clinician Comments Source No Known Allergie s DA Active U 2011-11 00:00: 00 [facility] NO KNOWN ALLERGIE S Drug Class Active [facility] Social History Social Habit Start Date Stop Date Quantity Comments Source Gender identity [facility] History of tobacco use Cigarette Smoker Elizabeth han - External Sexual orientation Brina Wynne - External Alcoholic beverage intake 2024-06-15 00:00:00 2024-06-15 00:00:00 .29 /d Elizabeth Wynne - External Tobacco use and exposure 2023-11-04 00:00:00 2023-11-04 00:00:00 Former smokeless tobacco user Elizabeth Wynne - External Alcohol intake 2023-11-04 00:00:00 2023-11-04 00:00:00 .29 /d Elizabeth Wynne - External History of Social function 2023-11-04 00:00:00 2023-11-04 00:00:00 Elizabeth Wynne - External Sex [birth year] at 1995 00:00:00 1995 00:00:00 Elizabeth Wynne - External Smoking Status Start Date Stop Date Source Ex-smoker 2023-11-04 00:00:00 2023-11-04 00:00:00 Brina Wynne - Roselyn Never smoked tobacco [facility] Medications Ordered Medication Name Filled Medication Name Start Date Stop Date Current Medication? Ordering Clinician Indication Dosage Frequency Signature (SIG) Comments Components Source Topiramate 25 MG oral Tablet 06-15 00:00: 00 Yes [id number] 25mg Q.5D Take 1 tablet (25 mg total) by mouth 2 times daily. Elizabeth carolina Sumatriptan Succinate 25 MG oral Tablet 06-15 00:00: 00 06-15 00:00 :00 No [id number] 25mg Take 1 tablet (25 mg total) by mouth once as needed for migraine (May repeat in 2 hours if unresolved . Do not exceed 200 mg in 24 hours.). Elizabeth carolina Ondansetron (ZOFRAN) 8 MG oral TABLET DISPERSIBLE 02-25 00:00: 00 06-15 00:00 :00 No [id number] 8mg Q.[id number] 3D Take 1 tablet (8 mg total) by mouth every 8 hours as needed for nausea. Elizabeth carolina Albuterol HFA 108 (90 Base) MCG/ACT IN AERS 02-25 00:00: 00 06-15 00:00 :00 No [id number] 2{puff} Q.25D Inhale 2 puffs into the lungs every 6 hours as needed for wheezing. Elizabeth carolina Pseudoeph-B romphen-DM 30-2-10 MG/5ML oral Syrup 02-25 00:00: 00 06-15 00:00 :00 No [id number] 10mL Q.25D Take 10 mL by mouth 4 times daily as needed. Elizabeth carolina Nirmatrelvi r & Ritonavir STANDARD (30) (300/100) Therapy Pack 02-25 00:00: 00 06-15 00:00 :00 No [id number] Take two 150 mg nirmatrelv ir (pink) tablets with one 100 mg ritonavir (white) tablet by mouth two times daily for 5 days. Elizabeth carolina Mupirocin (BACTROBAN) 2 % apply externally Ointment 2022-11 00:00: 00 06-15 00:00 :00 No [id number] Q.[id number] 3D Apply 1 applicatio n. topically 3 times daily. Elizabeth carolina FENTanyl PF (SUBLIMAZE (PF)) injection 50 mcg 06-13 02:15: 00 06-13 01:51 :00 No 50ug 50 mcg, Intramuscu lar, ONCE, 1 dose, On 06/12/23 at 2114, Routine [facility] ondansetron (ZOFRAN-ODT ) disintegrat ing tablet 4 mg 06-13 02:15: 06-13 01:51 :00 No 4mg 4 mg, Oral, ONCE, 1 dose, On 06/12/23 at 2114, [facility]ine [facility] acet[facility]oph [facility]-codeine 300-30 mg tablet 06-12 00:00: 00 07-03 04:59 :00 No [id number] 1{tbl} Take 1 tablet by mouth every 6 (six) hours as needed for Pain (scale 4-6) for up to 20 days. Indication s: acute pain [facility] ondansetron (ZOFRAN) 4 mg tablet 06-12 00:00: 00 06-23 04:59 :00 No [id number] 4mg Take 1 tablet by mouth every 8 (eight) hours as needed for Nausea and Vomiting (N/V) for up to 10 days. [facility] traMADoL 50 mg tablet 12-29 00:00: 00 Yes [id number] 50mg Take 1 tablet by mouth every 6 (six) hours as needed for Pain (scale 7-10). Indication s: acute pain [facility] cyclobenzap rine 10 mg tablet 17 00:00: 00 Yes [id number] 10mg Take 1 tablet by mouth 3 (three) times daily as needed for Muscle Spasms. [facility] ibuprofen 800 mg tablet 817 00:00: 00 Yes [id number] 800mg Take 1 tablet by mouth every 8 (eight) hours as needed for Pain (scale 4-6). [facility] cyclobenzap rine 10 mg tablet 05-11 00:00: 00 Yes [id number] 10mg Take 1 tablet by mouth every 8 (eight) hours as needed for Muscle Spasms for up to 15 doses. [facility] Immunizations Ordered Immunization Name Filled Immunization Name Date Status Comments Source Tdap- (Boostrix, Adacel) Unknown Completed Elizabeth Meehanold - External Influenza, Injectable, Mdck, Preservative Free, Quadrivalent Unknown Completed Elizabeth Seybold - External Tdap- (Boostrix, Adacel) Unknown Completed Elizabeth Meehanold - External Influenza, Injectable, Mdck, Preservative Free, Quadrivalent Unknown Completed Elizabeth Seybold - External Tdap- (Boostrix, Adacel) Unknown Completed Elizabeth ybold - External Influenza, Injectable, Mdck, Preservative Free, Quadrivalent Unknown Completed Elizabeth Seybold - External Tdap- (Boostrix, Adacel) Unknown Completed Elizabeth ybold - External Influenza, Injectable, Mdck, Preservative Free, Quadrivalent Unknown Completed Elizabeth ybold - External Vital Signs Vital Name Observation Time Observation Value Comments S ource Systolic blood pressure 2024-06-15 19:42:00 118 mm[Hg] Elizabeth Carter ld - External Diastolic blood pressure 2024-06-15 19:42:00 78 mm[Hg] Elizabeth Meehano ld - External Heart rate 2024-06-15 19:42:00 68 /min Benigno cruz Seybold - External Body temperature 2024-06-15 19:42:00 36.56 Carol Elizabeth ybold - External Respiratory rate 2024-06-15 19:42:00 18 /min Elizabeth ybold - External Body height 2024-06-15 19:42:00 157.5 cm Adrienne ey Seybold - External Body weight 2024-06-15 19:42:00 87.544 kg Adrienne ey Seybold - External BMI 2024-06-15 19:42:00 35.30 kg/m2 Adrienne ey Seybold - External Oxygen saturation in Arterial blood by Pulse oximetry 2024-06-15 19:42:00 99 /min Elizabeth Meehano ld - External Systolic blood pressure 2023-11-04 16:18:00 128 mm[Hg] Elizabeth Meehano ld - External Diastolic blood pressure 2023-11-04 16:18:00 65 mm[Hg] Elizabeth Meehano ld - External Heart rate 2023-11-04 16:18:00 [...] Systolic blood pressure 2023-06-13 03:00:00 141 mm[Hg] [facility] Diastolic blood pressure 2023-06-13 03:00:00 97 mm[Hg] [facility] Heart rate 2023-06-13 03:00:00 81 /min [facility] in Arterial blood by Pulse oximetry 2023-06-13 03:00:00 98 /min [facility] Body temperature 2023-06-13 01:24:00 36.94 Carol [facility] Respiratory rate 2023-06-13 01:07:00 20 /min [facility] BMI 2023-06-13 01:06:00 48.06 kg/m2 [facility] Body height 2023-06-13 01:06:00 162.6 cm [facility] Body weight 2023-06-13 01:06:00 127.007 kg [facility] Procedures Procedure Date / Time Performed Performing Clinicia n Source CONSENT/REFUSAL FOR DIAGNOSIS AND TREATMENT 2023-06-13 01:05:04 Doctor Unassigned, Mccaulley [facility] Encounters Start Date/Time End Date/Time Encounter Type Admission Type Attending [facility] Care Department Encounter ID Source 2024-09-24 09:45:00 2024-09-24 09:45:00 Outpatient MARY LALA [facility] [id number] [facility] 2024-09-10 14:00:00 2024-09-10 14:00:00 Outpatient BEENA HARDIN [facility] [id number] [facility] 2024-09-03 13:45:00 2024-09-03 13:45:00 Outpatient GILDA RODRIGUEZ [id number] [facility] 2024-08-14 08:00:00 2024-08-14 08:00:00 [facility] [id number] [facility] 08:30:00 2024-07-24 08:30:00 Outpatient ELIZABETH BETANCOURT [id number] Elizabeth [facility] 2024-07-16 00:00:00 2024-07-16 00:00:00 Outpatient DON VALENCIA [id number] [facility] 2024-07-15 00:00:00 2024-07-15 00:00:00 Outpatient DON VALENCIA [id number] [facility] 2024-07-13 08:30:00 2024-07-13 08:30:00 Outpatient DON VALENCIA [id number] [facility] 2024-07-11 09:30:00 2024-07-11 09:30:00 Outpatient ELIZABETH BETANCOURT [id number] Elizabeth [facility] 2024-07-10 08:00:00 2024-07-10 08:00:00 Outpatient ELIZABETH BETANCOURT [id number] Elizabeth [facility] 2024-07-05 00:00:00 2024-07-05 00:00:00 Outpatient DON VALENCIA [id number] [facility] 2024-07-05 00:00:00 2024-07-05 00:00:00 Outpatient DON VALENCIA ELIZABETH [id number] [facility] 2024-07-04 08:00:00 2024-07-04 08:00:00 Outpatient ELIZABETH ELIZABETH [id number] [facility] 2024-07-02 08:00:00 2024-07-02 08:00:00 Outpatient ELIZABETH ELIZABETH [id number] [facility] 2024-07-01 00:00:00 2024-07-01 00:00:00 Outpatient DON VALENCIA ELIZABETH [id number] [facility] 2024-06-29 16:10:00 2024-06-29 16:10:00 Outpatient LABDat ELIZABETH ELIZABETH [id number] [facility] 2024-06-29 00:00:00 2024-06-29 00:00:00 Outpatient DON VALENCIA [facility] [id number] [facility] 2024-06-27 08:00:00 2024-06-27 08:00:00 Outpatient ELIZABETH ELIZABETH [id number] [facility] 2024-06-22 00:00:00 2024-06-22 00:00:00 Outpatient DON VALENCIA ELIZABETH [id number] [facility] 2024-06-20 08:00:00 2024-06-20 08:00:00 Outpatient ELIZABETH BETANCOURT [id number] [facility] 2024-06-19 00:00:00 2024-06-19 00:00:00 Outpatient DON VALENCIA ELIZABETH [id number] [facility] 2024-06-19 00:00:00 2024-06-19 00:00:00 Outpatient DON VALENCIA ELIZABETH [id number] Elizabeth Seybold 2024-06-15 15:45:00 2024-06-15 15:45:00 Outpatient LAB90 ELIZABETH BETANCOURT [id number] Elizabeth Sey[facility] 2024-06-15 15:00:00 2024-06-15 15:00:00 Outpatient DON VALENCIA [facility] [id number] Elizabeth [facility] 2024-06-15 00:00:00 2024-06-15 00:00:00 Outpatient ELIZABETH BETANCOURT [id number] [facility] 2024-06-15 00:00:00 2024-06-15 00:00:00 Outpatient DON VALENCIA [facility] [id number] [facility] 2024-03-07 00:00:00 2024-03-07 00:00:00 Outpatient DON VALENCIA [facility] [id number] [facility] 2024-02-29 11:00:00 2024-02-29 11:00:00 Outpatient ALVERTOFARHAT [facility] [id number] [facility] 2024-02-26 14:15:00 2024-02-26 14:15:00 Outpatient YEYO CED [facility] [id number] [facility] 2024-01-26 18:15:00 2024-01-26 18:15:00 Outpatient BÁRBARA HUA [id number] [facility] 2023-12-22 13:45:00 2023-12-22 13:45:00 Outpatient DENSONGENET TRIANA [facility] [id number] [facility] 2023-11-28 00:00:00 2023-11-28 00:00:00 Outpatient RENEAJADIEL BARRETT [facility] [id number] [facility] 2023-11-07 08:55:00 2023-11-07 08:55:00 Outpatient DENISE [facility] [id number] [facility] 2023-11-04 10:30:00 2023-11-04 10:30:00 Outpatient DON VALENCIA [facility] [id number] [facility] 2023-08-31 14:22:34 2023-08-31 14:22:34 Outpatient SFA SFA [id number] Dmitriy Herbert 2023-08-29 14:14:37 2023-08-29 14:14:37 Outpatient SFA SFA [id number] Dmitriy Herbert 2023-06-12 20:07:00 2023-06-12 22:10:00 Emergency X ZELALEM LOOMIS [facility] [id number] [facility] 2023-06-12 20:07:00 2023-06-12 22:10:00 Emergency Zelalem Loomis [facility] ([facility] [id number] [facility] 2023-05-13 15:15:00 2023-05-13 15:15:00 Outpatient Petrona Carbajal CHW CHW [id number] [facility] 2021-03-21 22:50:00 2021-03-21 22:50:00 Emergency X [facility] E[facility] [id number] [facility] 2020-12-28 22:57:00 2020-12-29 03:04:00 Emergency X JAMES POTTS [facility] [id number] [facility] 2020-07-07 14:07:00 2020-07-07 14:07:00 Emergency X JIM VANEGAS [facility] [id number] [facility] 2020-05-10 21:14:00 2020-05-13 08:16:59 Inpatient HCAMN MARIANNE [id number] [facility] 2020-05-10 21:47:04 2020-05-10 21:47:04 Emergency X OLIVER VILLALPANDO [facility] [id number] [facility] 2019-11-18 12:05:00 2019-11-18 13:24:00 Emergency EM Ridge Rosalba HCAMN MARIANNE [id number] [facility] Results Test Description Test Time Test Comments Results Result Co mments Source UR HCG [id number] 12:50:00* Test Item Value Reference Range Interpretation Comme nts UR HCG QUAL (test code = HCGQLU) NEGATIVE NEGATIVE URINALYSIS [id number] 12:47:00* Test Item Value Reference Range Interpretation [...] (test code = BACU) NONE UR HCG [id number] 12:47:00* Test Item Value Reference Range Interpretation Comme nts UR HCG QUAL (test code = HCGQLU) NEGATIVE URINALYSIS [id number] 12:47:00* Test Item Value Reference Range Interpretation [...] (test code = BACU) NONE UR HCG [id number] 12:47:00* Test Item Value Reference Range Interpretation Comme nts UR HCG QUAL (test code = HCGQLU) NEGATIVE NEGATIVE - XR CHEST 2 [id number] 12:34:00FAX: Oliver Villalpando NP [phone] [place]: St: PRE Name: SHERLEY PARRISH [facility] : 1995 Age/S: 24/F [facility] Unit #: [id number] [place]: [place] Phys: Oliver Vill[place]ando [place] [id number]: [id number] Dis Date: Status: PRE ER PHONE #: [phone] Exam Date: 11/18/2019 1227 FAX #: [phone] Reason: cough EXAMS: CPT CODE: [id number] XR CHEST 2 V 25832 EXAM: - XR CHEST 2 V COMPARISON: 06/11/2018 LOCATION: [facility] HISTORY: 24 years-old Female with cough FINDINGS: The cardiomediastinal silhouette is within normal limits. The lungs are well aerated. No large pneumothorax or pleuraleffusion. Osseous structures and soft tissues demonstrate no acute findings. The visualized upper abdomen is unremarkable. IMPRESSION: No acute cardiopulmonary abnormality. at 8804 Reported and signed by: Krishan Pitt MD CC: Oliver Villalpando NP Technologist: BARBARA SIN Trnscrd Date/Time/By: 11/18/2019 (6254) : By: [email or web address] PAGE 1 Signed Report FAX: Oliver Villalpando NP [phone] [place]: St: PRE Name: SHERLEY PARRISH [facility] : 1995 [facility] [address] [facility] [id number] Loc: [place], [place]: [place] [id number] Acct: [id number] Dis Date: Status: PRE ER PHONE #: [phone] Exam Date: 1227 FAX #: [phone] Reason: cough EXAMS: CPT CODE: [id number] XR CHEST 2 V 73480 (Continued) Orig Print D/T: S: 11/18/2019 (1237) PAGE 2 Signed Report- CT ABD PELVIS [id number] 16:55:00FAX: Toñito Aguilar MD [place]: St: PRE Name: FRANCOISSHERLEY [facility] : 1995 [facility] [address] [facility] Unit: [id number] Loc: [address] Phys: Toñ[place] [address] Acct: [id number] Dis Date: Status: PRE ER PHONE #: [phone] Exam Date: 09/25/2019 1643 FAX #: [phone] Reason: LLq pain EXAMS: CPT CODE: [id number] CT ABD PELVIS W/CONT 30285 HISTORY: Left lower quadrant pain, abdominal pain. CT abdomen and pelvis, contrast enhanced. Reformatted sagittal and coronal images. COMPARISON: June 11, 2018 Automated exposure control, iterative reconstruction technique, and/oradjustment of mA and/or kV according to patient's [...] Signed Report (CONTINUED) FAX: Toñito Aguilar MD [place]: St: PRE Name: SHERLEY PARRISH [facility] : 1995 Age/S: 24/F [address] [facility] [employer] Unit: [id number] Loc: [address] Phys: Toñ[place] [address] Acct: [id number] Dis Date: Status: PRE ER PHONE #: [phone] Exam Date: 03/2019 1643 FAX #: [phone] Reason: LLq pain EXAMS: CPT CODE: [id number] CT ABD PELVIS W/CONT 62993 (Continued) appearance to the previous study possibly with a right-sided follicular cyst this time. No inflammatory changes or free fluid. No acute inflammatory changes in the left lower quadrant. Location: U19 at 1655 Reported and signed by: Ari Gaston M.D. CC: Toñito Aguilar MD Technologist: WALLACE STOREY Trnscrd Dt/Tm: 09/25/2019 (6073) tJOSE ROBERTOM Orig Print D/T: S: 09/25/2019 (9733 PAGE 2 Signed Report- DUP AB/PEL/SC COMP 2019-09-25 16:32:00FAX: Toñito Aguilar MD [place]: St: PRE Name: PARRISHSHERLEY [facility] : 1995 Age/S: 24/F [address] [facility] Unit #: [id number] Loc: [address] Phys: Toñ[place] [address] Acct: [id number] Dis Date: Status: PRE ER PHONE #: [phone] Exam Date: 09/25/2019 1620 FAX #: [phone] Reason: PELVIC PAIN LLQ PAIN EXAMS: CPT CODE: [id number] DUP AB/PEL/SC COMP 16859 ULTRASOUND: - USPELVIS COMPLETE, - DUP AB/PEL/SC [...] Aguilar MD Technologist:LOGAN MILLER Trnscrd Date/Time/By: 09/25/2019 (116) : By: [facility] PAGE 1 Signed Report FAX: Toñito Aguilar MD [place]: St: PRE Name: SHERLEY PARRISH [facility] : 1995 Age/S: 24/F [address] [facility] Unit #: [id number] Loc: [address] Phys: Toñ[place] [address] Acct: [id number] Date: Status: PRE ER PHONE #: [phone] Exam Date: 09/25/2019 1620 FAX #: [phone] Reason: PELVIC PAIN LLQ PAIN EXAMS: CPT CODE: [id number] DUP AB/PEL/SC COMP 59234 (Continued) Orig Print D/T: S: 09/25/2019 (6876) PAGE 2 Signed Report- US PELVIS COMPLETE 2019-09-25 16:32:00FAX: Toñito Aguilar MD [place]: St: PRE Name: SHERLEY PARRISH [facility] : 1995 Age/S: 24/F [address] [facility] Unit #: [id number] Loc: [address] Phys: Toñ[place] [address] Acct: [id number] Dis Date: Status: PRE ER PHONE #: [phone] Exam Date: 09/25/2019 1619 FAX #: [phone] Reason: Pelvic pain llq pain EXAMS: CPT CODE: [id number] US PELVIS COMPLETE 54926 ULTRASOUND: - USPELVIS COMPLETE, - DUP AB/PEL/SC [...] MILLER Trnscrd Date/Time/By: 09/25/2019 (163) : By: [facility] PAGE 1 Signed Report FAX: Toñito Aguilar MD [place]: St: PRE Name: SHERLEY PARRISH [facility] : 1995 Age/S: 24/F [address] [facility] [employer] Unit #: [id number] Loc: E[facility] [place], [place] Phys: Toñ[place] [address] Acct: [id number] Date: Status: PRE ER PHONE #: [phone] Exam Date: 09/25/2019 1617 FAX #: [phone] Reason: Pelvic pain llq pain EXAMS: CPT CODE: [id number] US PELVIS COMPLETE 69963 (Continued) Orig Print D/T: S: 09/25/2019 (1394) PAGE 2 Signed ReportURINALYSIS COMPLETE 2019-09-25 16:31:00* [...] CLUE CELLS Specimen comments: Clean CatchUR HCG [id number] 16:16:00* Test Item Value Reference Range Interpretation Comme nts UR HCG QUAL (test code = HCGQLU) NEGATIVE NEGATIVE BASIC METABOLIC [id number] 16:16:00* Test Item Value Reference Range Interpretation [...] 8.9 mg/dl 8.0-10.5 N HEPATIC FUNCTION PANEL [id number] 16:16:00* Test Item Value Reference Range Interpretation [...] code = ALKP) 67 Units/L 50.0-136.0 N [id number] 16:16:00* Test Item Value Reference Range Interpretation Comme nts LIPASE (test code = LIP) 135 Units/L 65.0-230.0 N DRUGS OF ABUSE SCREEN [id number] 16:12:00* Test Item Value Reference Range Interpretation [...] 300 ng/mL Specimen comments: Clean CatchBASIC METABOLIC [id number] 16:12:00* Test Item Value Reference Range Interpretation [...] = CA) mg/dl 8.0-10.5 HEPATIC FUNCTION PANEL [id number] 16:12:00* Test Item Value Reference Range Interpretation [...] ( test code = ALKP) Units/L 50.0-136.0 [id number] 16:12:00* Test Item Value Reference Range Interpretation Comme nts LIPASE (test code = LIP) Units/L 65.0-230.0 CBC W/AUTO [id number] 16:08:00* Test Item Value Reference Range Interpretation [...] in no apparent distress. Shawnee Zamora RN [facility] 2023-06-12 20:05:26 Formatting of this n ote might be different from the original. 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 Patient denies LOC or blood thinner use. Reports head pain and vomiting. Pmhx: hypothyroidism Patient GCS 15, RR Even and unlabored, NAD Chen Houser RN [facility] [employer] 2023-06-12 20:04:00 Formatting of this n ote is different from the original. 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 No loc reported. CT head unremarkable. X [...] Electronically signed by: Zelalem Loomis MD 06/12/232134 On license of [facility] 2020-05-10 21:20:00 [facility] ([facility] EMERGENCY PROVIDER REPORT REPORT#:[id number] REPORT STATUS: Signed DATE:05/10/20 TIME: 2119 PATIENT: SHERLEY PARRISH UNIT #: [id number] ROOM/BED: AGE: 25 SEX: F PCP PHYS: [...] URGENT CARES IN THE AREA at 2201 RPT #:[id number] END OF REPORT [facility] 2019-11-18 12:16:00 [facility] ([facility]) EMERGENCY PROVIDER REPORT REPORT#:[id number] REPORT STATUS: Signed DATE:11/18/19 TIME: 1216 PATIENT: SHERLEY PARRISH UNIT #: [id number] ROOM/BED: AGE: 24 SEX: F PCP PHYS: No Primary or Family Physician SERVICE AUTHOR: Oliver Villalpando NP * ALL edits or amendments must be made on the electronic/computer document * [id number] Illness General Confirmed Patient Yes Patient Type [...] throat x 3 days. patient works at [employer]. Patient also states she took a home [...] pH (5.0 - 9.0) 6.0 Ur Specific [place] (1.000 - 1.030) 1.020 Urine Protein (NEGATIVE [...] a call to 911. at 1329 RPT #:[id number] END OF REPORT [facility] 2019-11-18 12:16:00 [facility] ([facility]) EMERGENCY PROVIDER REPORT REPORT#:[id number] REPORT STATUS: Signed DATE:11/18/19 TIME: 1215 PATIENT: SHERLEY PARRISH UNIT #: [id number] ROOM/BED: AGE: 24 SEX: F PCP PHYS: No Primary or Family Physician SERVICE AUTHOR: Oliver Villalpando NP * ALL edits or amendments must be made on the electronic/computer document * Oliver Villalpando 11/18/19 1216: [id number] Illness General Confirmed Patient Yes Patient Type [...] throat x 3 days. patient works at [employer]. Patient also states she took a home [...] Diagnostics Lab Results Interpretation Results Laboratory Tests: 11/188 Urines Urine Color YELLOW Urine Appearance SLHZY Urine pH (5.0 - 9.0) 6.0 Ur Specific [place] (1.000 - 1.030) 1.020 Urine Protein (NEGATIVE [...] call to 911. Rosalba Sabillon 11/18/19 1341: [id number] Illness General Initial Greet Date/Time 11/18/19 1209 Patient Discharge Departure Supervising Physician Note MidLv Saw Pt Alone I have reviewed the PA/PROCESS SAFETY MANAGER's note and plan of care. I was available for consultation as needed at all times during the patient's visit in the emergency department. I agree with the clinical impression, plan and disposition. at 1329 at 1341 RPT #:[id number] END OF REPORT [facility] 2019-09-25 15:46:00 [facility] ([facility]) EMERGENCY PROVIDER REPORT REPORT#:[id number] REPORT STATUS: Signed DATE:09/25/19 TIME: 1546 PATIENT: SHERLEY PARRISH UNIT #: [id number] ROOM/BED: AGE: 24 SEX: F PCP PHYS: [...] Pulse 100 09/25 151 Resp 18 09/25 151 Last Documented: Result Date Time Pulse Ox 99 09/25 175 B/P 127/80 09/25 175 B/P Mean 95 09/25 1759 Temp 36.6 [...] pH (5.0 - 9.0) 8.0 Ur Specific [place] (1.000 - 1.030) 1.020 Urine Protein (NEGATIVE [...] CELLS Urine HCG, Qual (NEGATIVE) NEGATIVE 09/25 153 Chemistry Sodium (134.0 - 147.0 mmol/l) 142 [...] % (Auto) (23.0 - 38.0 %) 30.1 Dukes % (Auto) (1.0 - 10.0 %) 7.2 Eos % (Auto) (1.0 - 5.0 %) 2.2 Baso % (Auto) (0.0 - 1.0 %) 0.4 Neut # (Auto) (2.4 - 6.3 K/mm3) 6.7 H Lymph # (Auto) (1.2 - 4.0 K/mm3) 3.4 Dukes # (Auto) (0.0 - 0.6 K/mm3) 0.8 H Eos # (Auto) (0.0 - 0.7 K/MM3) 0.3 Baso # (Auto) (0.0 - 0.2 K/mm3) 0.1 Immature Gran % (0.0 - 0.4 %) 0.4 Immature Gran # (0.00 - 0.07 x10 3/uL) 0.05 Recent Impressions: ULTRASOUND - US PELVIS COMPLETE 09/25 161 Report Impression - Status: SIGNED Entered: 09/25/2019 [...] Interpreted by me, Pulse oximetry normal Time 1514 Test UR [...] Room air 09/25 151 Temp 36.7 09/25 1514 Pulse 100 09/25 1514 Resp 18 09/25 1514 Last Documented: Result Date Time Pulse Ox 99 09/25 1759 B/P 127/80 09/25 175 B/P Mean 95 09/25 175 Temp 36.6 09/25 175 Pulse 96 09/25 1759 Resp 18 09/25 [...] Physician Note Scribe Statement Rai Myles, 09/25/19 5716, scribing for and in the presence of [Dr. Aguilar ]. Signed By: Rai Myles, 09/25/19 3559 Provider Scribed Statement I personally performed the services described in this documentation and reviewed the documentation that was dictated to the scribe(s) in my presence, and it accurately records my words and actions. Toñito Aguilar, 09/27/19 Portions of this section were scribed by Rai Myles on 09/25/19 at 1937 at 2057 RPT #:[id number] END OF REPORT [facility]
[2024-09-15] MEDS ORDERED: HYDROCODONE/APAP 5/325 MG TAB ONE (20:36)
[2024-09-15] MEDS ORDERED: KETOROLAC 30 MG/ML INJ ONE (20:36)
--- NOTE | 2024-09-15 21:17 | EDPHYS ---
Physician Documentation [facility] Name: Leila Simons Age: 29 yrs Sex: Female : 1995 Arrival Date: 09/15/2024 Time: 19:51 Bed IW3 Private MD: ED Physician Indra Wade HPI: 09/15 22:44 This 29 yrs old Female presents to ER via Ambulatory with complaints of dr5 Toothache. 22:44 The patient presents with broken tooth/teeth, pain, redness, swelling. The problem is dr5 located in the right buccal mucosa. Pt is a 29 year old female coming in with continued right sided tooth pain. Pt has been taking amoxicillin for 2-3 days. She reports going to the dentist and was told she needed her tooth removed.. 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 - Infectious Disease History:: Denies. - Social history:: Smoking status: Patient denies any tobacco usage or history of. Patient/guardian denies using alcohol, street drugs. ROS: 22:44 Constitutional: as per hpi dr5 Exam: 22:44 Constitutional: This is a well developed, well nourished patient who is awake, alert, dr5 and in no acute distress. Neck: Trachea midline, no thyromegaly or masses palpated, and no cervical lymphadenopathy. Supple, full range of motion without nuchal rigidity, or vertebral point tenderness. No Meningismus. Chest/axilla: Normal chest wall appearance and motion. Nontender with no deformity. No lesions are appreciated. Cardiovascular: Regular rate and rhythm with a normal S1 and S2. Normal PMI, no JVD. No pulse deficits. Respiratory: Lungs have equal breath sounds bilaterally, clear to auscultation. No rales, rhonchi or wheezes noted. No increased work of breathing, no retractions or nasal flaring. Abdomen/GI: Soft, non-tender, non-distended Back: No spinal tenderness. No costovertebral tenderness. Full range of motion. Neuro: Awake and alert, GCS 15, oriented to person, place, time, and situation. Cranial nerves II-XII grossly intact. Motor strength 5/5 in all extremities. Sensory grossly intact. Cerebellar exam normal. Normal gait. 22:44 ENT: Mouth: abscess, that is minimal, of the lower right first bicuspid, lower right second bicuspid and lower right first molar, Vital Signs: 20:16 BP 138 / 97; Pulse 76; Resp 17 S; Temp 97.4(O); Pulse Ox 100% on R/A; Weight 68.04 kg aa5 (R); Height 5 ft. 2 in. (R); 21:27 BP 131 / 89; Pulse 71; Resp 16 S; Temp 97.1(O); Pulse Ox 100% on R/A; lg3 20:16 Body Mass Index 27.44 (68.04 kg, 157.48 cm) aa5 MDM: 19:53 Medical Screening Exam initiated dr5 22:44 Differential diagnosis: dental caries, dental abscess, pericoronitis. Data reviewed: dr5 vital signs, nurses notes. Consideration of Admission/Observation Escalation of care including admission/observation considered. Considered admission if patient presented with fever and facial swelling / abscess concerning about going into the facial cavities.. I considered the following discharge prescriptions or medication management in the emergency department Medications were administered in the Emergency Department. See MAR. Care significantly affected by the following chronic conditions: Hypothyroidism. Care significantly affected by the following Social Determinants of Health: Poor access to healthcare and/or lack of insurance, Poor access to transportation. Medication response: Toradol partially relieved the patient's pain, [place]. Response to treatment: the patient's symptoms have markedly improved after treatment. ED course: Will add clindamycin on to her current regimen. I recommended patient follow up with dentist this next week for management and removal of tooth.. Administered Medications: 20:59 Drug: Ketorolac IM 15 mg IM once Route: IM; Site: right deltoid; aa5 21:27 Follow up: Response: No adverse reaction lg3 20:59 Drug: HYDROcodone-acetaminophen PO 5 mg-325 mg 1 tabs PO once Route: PO; aa5 21:26 Follow up: Response: No adverse reaction; Marked relief of symptoms; RASS: Alert and lg3 Calm (0) Disposition: 22:47 Co-signature as Attending Physician, Indra Wade MD I reviewed the patient's care rn provided by the Advanced Practice Provider and agree with the diagnosis and treatment plan. Disposition Summary: 09/15/24 21:16 Discharge Ordered Notes: Location: Home dr5 Condition: Stable dr5 Diagnosis - Dental caries, unspecified dr5 Followup: dr5 - With: Emergency Department - When: As needed - Reason: Worsening of condition Followup: dr5 - With: Private Physician - When: 1 - 2 days - Reason: Recheck today's complaints, Continuance of care, Re-evaluation by your physician Discharge Instructions: - Discharge Summary Sheet dr5 - Dental Pain dr5 Forms: - Medication Reconciliation Form dr5 - Antibiotic Education dr5 - Patient Portal Instructions dr5 - Leadership Thank You Letter dr5 Prescriptions: - Clindamycin HCl 300 mg Oral Capsule - take 1 capsule ORAL route every 6 hours for 10 days; 40 capsule; Refills: 0, dr5 Product Selection Permitted - Ibuprofen 800 mg Oral Tablet - take 1 tablet ORAL route every 8 hours As needed take with food; 30 tablet; dr5 Refills: 0, Product Selection Permitted Signatures: Indra Wade MD MD rn Calderon, Audri RN RN aa5 Oli Stewart, BLOWING ENGINEER-C BLOWING ENGINEER-Cdr5 Zbarina Lozano RN lg3
--- NOTE | 2024-09-15 21:17 | ER ---
Nurse's Notes [facility] Name: Leila Simons Age: 29 yrs Sex: Female : 1995 Arrival Date: 09/15/2024 Time: 19:51 Bed IW3 Private MD: Diagnosis: Dental caries, unspecified Presentation: 09/15 20:16 Chief complaint: Patient states: bad tooth on ABX and pain meds. new onset headache. aa5 Coronavirus screen: Client denies travel out of the [place] in the last 14 days. At this time, the client does not indicate any symptoms associated with coronavirus-19. Ebola Screen: No symptoms or risks identified at this time. Initial Sepsis Screen: Does the patient meet any 2 criteria? No. Patient's initial sepsis screen is negative. Does the patient have a suspected source of infection? No. Patient's initial sepsis screen is negative. Risk Assessment: Do you want to hurt yourself or someone else? Patient reports no desire to harm self or others. Onset of symptoms is unknown. 20:16 Method Of Arrival: Ambulatory aa5 20:16 Acuity: FREYA 5 aa5 Triage Assessment: 20:18 General: Appears in no apparent distress. uncomfortable, Behavior is calm, cooperative. aa5 Pain: Complains of pain in mouth. EENT: Reports pain in mouth. Neuro: No deficits noted. Aguero Agitation-Sedation Scale (RASS): 0 - Alert and Calm Level of Consciousness is awake, alert, obeys commands, Oriented to person, place, time, situation. Cardiovascular: No deficits noted. Denies chest pain, shortness of breath, Capillary refill < 3 seconds Clubbing of nail beds is absent JVD is absent Patient's skin is warm and dry. Respiratory: No deficits noted. Airway is patent Respiratory effort is even, unlabored, Respiratory pattern is regular, symmetrical. GI: No deficits noted. No signs and/or symptoms were reported involving the gastrointestinal system. : No deficits noted. No signs and/or symptoms were reported regarding the genitourinary system. Derm: No deficits noted. No signs and/or symptoms reported regarding the dermatologic system. Skin is intact, is healthy with good turgor, Skin is dry, Skin is normal, Skin temperature is warm. Musculoskeletal: No deficits noted. No signs and/or symptoms reported regarding the musculoskeletal system. Circulation, motion, and sensation intact. Range of motion: intact in all extremities. 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 - Infectious Disease History:: Denies. - Social history:: Smoking status: Patient denies any tobacco usage or history of. Patient/guardian denies using alcohol, street drugs. Screenin:19 [facility] ED Fall Risk Assessment (Adult) History of falling in the last 3 months, aa5 including since admission No falls in past 3 months (0 pts) Confusion or Disorientation No (0 pts) Intoxicated or Sedated No (0 pts) Impaired Gait No (0 pts) Mobility Assist Device Used No (0 pt) Altered Elimination No (0 pt) Score/Fall Risk Level 0 - 2 = Low Risk Oriented to surroundings, Maintained a safe environment, Educated pt \T\ family on fall prevention, incl call for assistance when getting out of bed, Assessed \T\ reinforced patient's understanding of fall precautions. Abuse screen: Denies threats or abuse. Denies injuries from another. Nutritional screening: No deficits noted. Tuberculosis screening: No symptoms or risk factors identified. Assessment: 20:19 General: see triage assessment. aa5 21:26 Reassessment: Patient appears in no apparent distress at this time. No changes from lg3 previously documented assessment. Patient and/or family updated on plan of care and expected duration. Pain level reassessed. Patient is alert, oriented x 3, equal unlabored respirations, skin warm/dry/pink. Vital Signs: 20:16 BP 138 / 97; Pulse 76; Resp 17 S; Temp 97.4(O); Pulse Ox 100% on R/A; Weight 68.04 kg aa5 (R); Height 5 ft. 2 in. (R); 21:27 BP 131 / 89; Pulse 71; Resp 16 S; Temp 97.1(O); Pulse Ox 100% on R/A; lg3 20:16 Body Mass Index 27.44 (68.04 kg, 157.48 cm) aa5 ED Course: 19:52 Patient arrived in ED. gm2 19:53 Oli Stewart FNP-C is [facility]. dr5 19:53 Indra Wade MD is Attending Physician. dr5 20:18 Triage completed. aa5 20:18 Arm band placed on right wrist. aa5 20:19 Patient has correct armband on for positive identification. aa5 21:26 No provider procedures requiring assistance completed. Patient did not have IV access lg3 during this emergency room visit. Administered Medications: 20:59 Drug: Ketorolac IM 15 mg IM once Route: IM; Site: right deltoid; aa5 21:27 Follow up: Response: No adverse reaction lg3 20:59 Drug: HYDROcodone-acetaminophen PO 5 mg-325 mg 1 tabs PO once Route: PO; aa5 21:26 Follow up: Response: No adverse reaction; Marked relief of symptoms; RASS: Alert and lg3 Calm (0) Medication: 20:19 VIS not applicable for this client. aa5 Outcome: 21:16 Discharge ordered by . dr5 21:26 Discharged to home ambulatory, lg3 21:26 Condition: stable 21:26 Discharge instructions given to patient, Instructed on discharge instructions, follow up and referral plans. medication usage, Demonstrated understanding of instructions, follow-up care, medications, Prescriptions given X 2, 21:27 Patient left the ED. lg3 Signatures: Araceli Lopez, RN RN aa5 Zabrina Lozano RN RN lg3 Phyllis Perez gm2 Oli Stewart FNP-C GLASS FINISHER-Cdr5
[2024-09-16 09:36] VITALS: O2SAT 100
[2024-09-16 09:38] VITALS: BP 131/89; TEMP 97.1
== END 2024-09-15 21:27 | disposition home or self-care (01) ==
LOC: ER 19:51
DX: K02.9 Dental caries, unspecified (principal)
CPT/HCPCS: 96372; 99284

== ENCOUNTER 2024-12-18 14:08 | Emergency (ER) | payer OTHER ==
--- NOTE | 2024-12-18 14:28 | EDPHYS ---
Physician Documentation [facility] Name: Leila Simons Age: 29 yrs Sex: Female : 1995 Arrival Date: 12/18/2024 Time: 14:08 Bed DX4 Private MD: ED Physician Corby Nicholson HPI: 12/18 14:29 This 29 yrs old Female presents to ER via Unassigned with complaints of ms3 Toothache. 14:29 Sahara Simons, a 29-year-old female, presents to the emergency department with a severe ms3 toothache lasting more than a month. She reports that the pain has become unbearable today, rating it a 10 out of 10 on the pain scale. The pain radiates and intensifies with movement and talking. She has been taking Tylenol, but it has not provided significant relief. . 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 - Infectious Disease History:: Denies. - Social history:: Smoking status: Patient denies any tobacco usage or history of. ROS: 14:29 Constitutional: Negative for fever, and chills. Cardiovascular: Negative for chest ms3 pain, and palpitations. Respiratory: Negative for shortness of breath, cough, wheezing, and pleuritic chest pain, Abdomen/GI: Negative for abdominal pain, nausea, vomiting, diarrhea, and constipation, 14:29 MS/Extremity: Negative for injury and deformity, Skin: Negative for injury, rash, and discoloration, 14:29 ENT: Positive for dental pain, Exam: 14:29 Constitutional: This is a well developed, well nourished patient who is awake, alert, ms3 and in no acute distress. 14:29 Cardiovascular: Regular rate and rhythm with a normal S1 and S2. No gallops, murmurs, or rubs. Normal PMI, no JVD. No pulse deficits. Respiratory: Lungs have equal breath sounds bilaterally, clear to auscultation and percussion. No rales, rhonchi or wheezes noted. No increased work of breathing, no retractions or nasal flaring. Abdomen/GI: Soft, non-tender, with normal bowel sounds. No distension or tympany. No guarding or rebound. No evidence of tenderness throughout. 14:29 ENT: Dental exam: dental caries, that is moderate, specifically in the lower right second molar (#31), Vital Signs: 14:37 Pulse 66; Resp 18; Temp 98.1; Pulse Ox 100% ; Weight 113.4 kg; Pain 10/10; ap3 14:37 Pain Scale: Adult ap3 MDM: 14:26 Medical Screening Exam initiated ms3 14:29 Differential diagnosis: dental caries, dental abscess. Data reviewed: vital signs, ms3 nurses notes, and as a result, I will discharge patient. I considered the following discharge prescriptions or medication management in the emergency department Medications were administered in the Emergency Department. See MAR. Counseling: I had a detailed discussion with the patient and/or guardian regarding the historical points, exam findings, and any diagnostic results supporting the discharge/admit diagnosis, the need for outpatient follow up, to return to the emergency department if symptoms worsen or persist or if there are any questions or concerns that arise at home. Special discussion: I discussed with the patient/guardian in detail that at this point there is no indication for admission to the hospital. It is understood, however, that if the symptoms persist or worsen the patient needs to return immediately for re-evaluation. Administered Medications: No medications were administered Disposition Summary: 12/18/24 14:27 Discharge Ordered Notes: Location: Home ms3 Condition: Stable ms3 Diagnosis - Dental pain ms3 - Dental caries, unspecified ms3 Followup: ms3 - With: Jameel Payton DDS - When: 2 - 3 days - Reason: Recheck today's complaints Discharge Instructions: - Discharge Summary Sheet ms3 - Dental Caries, Adult ms3 Forms: - Medication Reconciliation Form ms3 - Antibiotic Education ms3 - Prescription Opioid Use ms3 - Patient Portal Instructions ms3 - Leadership Thank You Letter ms3 Prescriptions: - penicillin V potassium 500 mg Oral tablet - take 1 tablet ORAL route every 6 hours for 5 days; 28 tablet; Refills: 0, ms3 Product Selection Permitted Signatures: Olivia Hughes RN RN ap3 Corby Nicholson DO DO ms3
--- NOTE | 2024-12-18 14:44 | ER ---
Nurse's Notes [facility] Name: Leila Simons Age: 29 yrs Sex: Female : 1995 Arrival Date: 12/18/2024 Time: 14:08 Bed DX4 Private MD: Diagnosis: Dental pain;Dental caries, unspecified Presentation: 12/18 14:37 Chief complaint: Patient states: she has been having right sided lower tooth pain for ap3 approx one month of which she rates a 10/10 on the pain scale. Coronavirus screen: At this time, the client does not indicate any symptoms associated with coronavirus-19. Ebola Screen: No symptoms or risks identified at this time. Initial Sepsis Screen: Does the patient meet any 2 criteria? No. Patient's initial sepsis screen is negative. Does the patient have a suspected source of infection? No. Patient's initial sepsis screen is negative. Risk Assessment: Do you want to hurt yourself or someone else? Patient reports no desire to harm self or others. Onset of symptoms is unknown. 14:37 Method Of Arrival: Ambulatory ap3 14:37 Acuity: FREYA 4 ap3 Triage Assessment: 14:38 General: Appears in no apparent distress. Behavior is calm, cooperative, appropriate ap3 for age. Pain: Complains of pain in lower right second molar (#31). EENT: Reports pain in lower right second molar (#31). Neuro: Level of Consciousness is awake, alert, obeys commands, Oriented to person, place, time, situation, Appropriate for age. Cardiovascular: Patient's skin is warm and dry. Respiratory: Airway is patent Respiratory effort is even, unlabored, Respiratory pattern is regular, symmetrical. 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 - Infectious Disease History:: Denies. - Social history:: Smoking status: Patient denies any tobacco usage or history of. Screenin:39 [facility] ED Fall Risk Assessment (Adult) History of falling in the last 3 months, ap3 including since admission No falls in past 3 months (0 pts) Confusion or Disorientation No (0 pts) Intoxicated or Sedated No (0 pts) Impaired Gait No (0 pts) Mobility Assist Device Used No (0 pt) Altered Elimination No (0 pt) Score/Fall Risk Level 0 - 2 = Low Risk Oriented to surroundings, Maintained a safe environment, Educated pt \T\ family on fall prevention, incl call for assistance when getting out of bed, Assessed \T\ reinforced patient's understanding of fall precautions, Hourly rounding (assess needs \T\ fall precautionary measures) done, Used ambulatory aids as needed (educated on \T\ assisted with), Used gait belt as appropriate. Abuse screen: Denies threats or abuse. Nutritional screening: No deficits noted. Tuberculosis screening: No symptoms or risk factors identified. Vital Signs: 14:37 Pulse 66; Resp 18; Temp 98.1; Pulse Ox 100% ; Weight 113.4 kg; Pain 10/10; ap3 14:37 Pain Scale: Adult ap3 ED Course: 14:10 Patient arrived in ED. mr 14:12 Corby Nicholson DO is Attending Physician. ms3 14:27 Jameel Payton DDS is Referral Physician. ms3 14:38 Triage completed. ap3 14:39 Arm band placed on right wrist. ap3 14:39 No provider procedures requiring assistance completed. Patient did not have IV access ap3 during this emergency room visit. 14:40 Patient has correct armband on for positive identification. Adult w/ patient. ap3 14:44 Provided Education on: discharge instructions . ap3 Administered Medications: No medications were administered Medication: 14:40 VIS not applicable for this client. ap3 Outcome: 14:27 Discharge ordered by . ms3 14:43 Discharged to home ambulatory, ap3 14:43 Condition: good 14:43 Discharge instructions given to patient, Instructed on discharge instructions, follow up and referral plans. medication usage, Demonstrated understanding of instructions, follow-up care, medications, Prescriptions given X 1, 14:44 Patient left the ED. ap3 Signatures: Rosario Butler, Olivia Goetz, RN RN ap3 Corby Nicholson DO DO ms3
[2024-12-18 19:03] VITALS: TEMP 98.1; O2SAT 100
--- OUTSIDE RECORDS SUMMARY | 2024-12-19 02:27 | XMS REPORT | Continuity of Care Document ---
Author Name Unknown Address [address] [facility] [address]. [address] [place] [address] [facility] thconnect Address [address] [facility]. 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 94 ON 9 [id number] 2023 00:00:00 [employer] [id number] 2023 00:00:00 Problems Condition Name Condition Details [...] adult Disease Active 2022-11 00:00: 00 Elizabeth Ashrafa l Allergies, Adverse Reactions, Alerts Allergy Name Allergy Type Status Severity Reaction(s) Onset Date Inactive Date Treating Clinician Comments Source No Known Allergie s DA Active 2011-11 00:00: 00 [facility] NO KNOWN ALLERGIE S Drug Class Active [facility] Social History Social Habit Start Date Stop Date Quantity Comments Source Gender identity [facility] History of tobacco use Cigarette Smoker [...] Source Ex-smoker 2023-11-04 00:00:00 2023-11-04 00:00:00 Brina Subramanian Roselyn Never smoked tobacco [facility] Medications Ordered Medication Name Filled Medication Name Start Date Stop Date Current Medication? Ordering Clinician Indication Dosage Frequency Signature (SIG) Comments Components Source Topiramate 25 MG oral Tablet 06-15 00:00: 00 Yes [id number] 25mg Q.5D Take 1 tablet (25 mg total) by mouth 2 times daily. Elizabeth carolina Sumatriptan Succinate 25 MG oral Tablet 06-15 00:00: 00 06-15 00:00 :00 No [id number] 25mg Take 1 tablet (25 mg total) by mouth once as needed for migraine (May repeat in 2 hours if unresolved . Do not exceed 200 mg in 24 hours.). Elizabeth carolina Ondansetron (ZOFRAN) 8 MG oral TABLET DISPERSIBLE 02-25 00:00: 00 06-15 00:00 :00 No [id number] 8mg Q.[id number] 3D Take 1 tablet (8 mg total) by mouth every 8 hours as needed for nausea. Elizabeth carolina Albuterol HFA 108 (90 Base) MCG/ACT IN AERS 02-25 00:00: 00 06-15 00:00 :00 No [id number] 2{puff} Q.25D Inhale 2 puffs into the lungs every 6 hours as needed for wheezing. Elizabeth carolina Pseudoeph-B romphen-DM 30-2-10 MG/5ML oral Syrup 02-25 00:00: 00 06-15 00:00 :00 No [id number] 10mL Q.25D Take 10 mL by mouth 4 times daily as needed. Elizabeth carolina Nirmatrelvi r & Ritonavir STANDARD (30) (300/100) Therapy Pack 02-25 00:00: 00 06-15 00:00 :00 No [id number] Take two 150 mg nirmatrelv ir (pink) tablets with one 100 mg ritonavir (white) tablet by mouth two times daily for 5 days. Elizabeth carolina Mupirocin (BACTROBAN) 2 % apply externally Ointment 2022-11 00:00: 00 06-15 00:00 :00 No [id number] Q.52356573 6298125015 3D Apply 1 applicatio n. topically 3 times daily. Elizabeth carolina FENTanyl PF (SUBLIMAZE (PF)) injection 50 mcg 06-13 02:15: 00 06-13 01:51 :00 No 50ug 50 mcg, Intramuscu lar, ONCE, 1 dose, On 06/12/23 at 2114, Routine [facility] ondansetron (ZOFRAN-ODT ) disintegrat ing tablet 4 mg 06-13 02:15: 06-13 01:51 :00 No 4mg 4 mg, Oral, ONCE, 1 dose, On 06/12/23 at 2114, Routine [facility] acetaminoph en-codeine 300-30 mg tablet 06-12 00:00: 00 07-03 04:59 :00 No 4647 1{tbl} Take 1 tablet by mouth every 6 (six) hours as needed for Pain (scale 4-6) for up to 20 days. Indication s: acute pain [facility] ondansetron (ZOFRAN) 4 mg tablet 06-12 00:00: 00 06-23 04:59 :00 No [id number] 4mg Take 1 tablet by mouth every 8 (eight) hours as needed for Nausea and Vomiting (N/V) for up to 10 days. [facility] traMADoL 50 mg tablet 12-29 00:00: 00 Yes [id number] 50mg Take 1 tablet by mouth every 6 (six) hours as needed for Pain (scale 7-10). Indication s: acute pain [facility] cyclobenzap rine 10 mg tablet 07-07 00:00: 00 Yes [id number] 10mg Take 1 tablet by mouth 3 (three) times daily as needed for Muscle Spasms. [facility] ibuprofen 800 mg tablet 817 00:00: 00 Yes [id number] 800mg Take 1 tablet by mouth every 8 (eight) hours as needed for Pain (scale 4-6). [facility] cyclobenzap rine 10 mg tablet 6 00:00: 00 Yes [id number] 10mg Take 1 tablet by mouth every 8 (eight) hours as needed for Muscle Spasms for up to 15 doses. [facility] Immunizations Ordered Immunization Name Filled [...] Systolic blood pressure 2023-06-13 03:00:00 141 mm[Hg] [facility] Diastolic blood pressure 2023-06-13 03:00:00 97 mm[Hg] [facility] Heart rate 2023-06-13 03:00:00 81 /min [facility] O[facility] saturation in Arterial blood by Pulse oximetry 2023-06-13 03:00:00 98 /min [facility] Body temperature 2023-06-13 01:24:00 36.94 Carol [facility] Respiratory rate 2023-06-13 01:07:00 20 /min [facility] BMI 2023-06-13 01:06:00 48.06 kg/m2 [facility] Body height 2023-06-13 01:06:00 162.6 cm [facility] Body weight 2023-06-13 01:06:00 127.007 kg [facility] Procedures Procedure Date / Time Performed Performing Clinicia n Source CONSENT/REFUSAL FOR DIAGNOSIS AND TREATMENT 2023-06-13 01:05:04 Doctor Unassigned, Ty Ty [facility] Encounters Start Date/Time End Date/Time Encounter Type Admission Type Attending [facility] Care Department Encounter ID Source 2024-09-24 09:45:00 2024-09-24 09:45:00 Outpatient MARY LALA ELIZABETH BETANCOURT [id number] [facility] 2024-09-10 14:00:00 2024-09-10 14:00:00 Outpatient BEENA HARDIN [facility]AB[facility] [id number] [facility] 2024-09-03 13:45:00 2024-09-03 13:45:00 Outpatient JENNIFER GILDACarol BETANCOURT [id number] [facility] 2024-08-14 08:00:00 2024-08-14 08:00:00 Outpatient ELIZABETH BETANCOURT [id number] [facility] 2024-07-24 08:30:00 2024-07-24 08:30:00 Outpatient ELIZABETH BETANCOURT [id number] [facility] 2024-07-16 00:00:00 2024-07-16 00:00:00 Outpatient DON VALENCIA [id number] [facility] 2024-07-15 00:00:00 2024-07-15 00:00:00 Outpatient DON VALENCIA [id number] [facility] 2024-07-13 08:30:00 2024-07-13 08:30:00 Outpatient DON VALENCIA [id number] [facility] 2024-07-11 09:30:00 2024-07-11 09:30:00 Outpatient ELIZABETH BETANCOURT [id number] [facility] 2024-07-10 08:00:00 2024-07-10 08:00:00 Outpatient ELIZABETH BETANCOURT [id number] [facility] 2024-07-05 00:00:00 2024-07-05 00:00:00 Outpatient DON VALENCIA [id number] [facility] 2024-07-05 00:00:00 2024-07-05 00:00:00 Outpatient DON VALENCIA ELIZABETH [id number] [facility] 2024-07-04 08:00:00 2024-07-04 08:00:00 Outpatient ELIZABETH ELIZABETH [id number] Elizabeth Sey[facility] 2024-07-02 08:00:00 2024-07-02 08:00:00 Outpatient ELIZABETH ELIZABETH [id number] [facility] 2024-07-01 00:00:00 2024-07-01 00:00:00 Outpatient DON VALENCIA ELIZABETH [id number] [facility] 2024-06-29 16:10:00 2024-06-29 16:10:00 Outpatient LABDat ELIZABETH ELIZABETH [id number] [facility] 2024-06-29 00:00:00 2024-06-29 00:00:00 Outpatient DON VALENCIA ELIZABETH [id number] [facility] 2024-06-27 08:00:00 2024-06-27 08:00:00 Outpatient ELIZABETH ELIZABETH [id number] [facility] 2024-06-22 00:00:00 2024-06-22 00:00:00 Outpatient DON VALENCIA [facility]AB[facility] [id number] [facility] 2024-06-20 08:00:00 2024-06-20 08:00:00 Outpatient ELIZABETH BETANCOURT [id number] [facility] 2024-06-19 00:00:00 2024-06-19 00:00:00 Outpatient DON VALENCIA ELIZABETH [id number] Elizabeth Seybold 2024-06-19 00:00:00 2024-06-19 00:00:00 Outpatient DON VALENCIA ELIZABETH [id number] Elizabeth Seybold 2024-06-15 15:45:00 2024-06-15 15:45:00 Outpatient LAB90 ELIZABETH BETANCOURT [id number] Elizabeth Seybold 2024-06-15 15:00:00 2024-06-15 15:00:00 Outpatient DON VALENCIA ELIZABETHCAITLIN BETANCOURT [id number] [facility] 2024-06-15 00:00:00 2024-06-15 00:00:00 Outpatient ELIZABETH BETANCOURT [id number] [facility] 2024-06-15 00:00:00 2024-06-15 00:00:00 Outpatient DON VALENCIA ELIZABETH [facility] [id number] [facility] 2024-03-07 00:00:00 2024-03-07 00:00:00 Outpatient DON VALENCIA ELIZABETH BETANCOURT [id number] [facility] 2024-02-29 11:00:00 2024-02-29 11:00:00 Outpatient ALVERTO FARHAT [facility] [id number] [facility] 2024-02-26 14:15:00 2024-02-26 14:15:00 Outpatient YEYO CED ELIZABETH [facility]ANC[facility] [id number] [facility] 2024-01-26 18:15:00 2024-01-26 18:15:00 Outpatient BÁRBARA HUA [id number] [facility] 2023-12-22 13:45:00 2023-12-22 13:45:00 Outpatient JANIYAGENET [facility]ABETH [facility] [id number] [facility] 2023-11-28 00:00:00 2023-11-28 00:00:00 Outpatient KAROLINAJADIEL Cuadra ELIZABETH BETANC[facility] [id number] [facility] 2023-11-07 08:55:00 2023-11-07 08:55:00 Outpatient LABDat ELIZABETH BETANCOURT [id number] [facility] 2023-11-04 10:30:00 2023-11-04 10:30:00 Outpatient DON VALENCIA ELIZABETH BETANCOURT [id number] [facility] 2023-08-31 14:22:34 2023-08-31 14:22:34 Outpatient SFA SFA [id number] Dmitriy Te Keon 2023-08-29 14:14:37 2023-08-29 14:14:37 Outpatient SFA SFA [id number] Dmitriy Herbert 2023-06-12 20:07:00 2023-06-12 22:10:00 Emergency X ZELALEM LOOMIS [facility] ERT [id number] [facility] 2023-06-12 20:07:00 2023-06-12 22:10:00 Emergency Zelalem Loomis [facility] [id number] [facility] 2023-05-13 15:15:00 2023-05-13 15:15:00 Outpatient Petrona Carbajal CHW CHW [id number] [facility] 2021-03-21 22:50:00 2021-03-21 22:50:00 Emergency X [facility] ERT [id number] [facility] 2020-12-28 22:57:00 2020-12-29 03:04:00 Emergency X JAMES POTTS [facility] ERT [id number] [facility] 2020-07-07 14:07:00 2020-07-07 14:07:00 Emergency X JIM VANEGAS [facility] ERT [id number] [facility] 2020-05-10 21:14:00 2020-05-13 08:16:59 Inpatient HCAMN MARIANNE [id number] 24 [facility] 2020-05-10 21:47:04 2020-05-10 21:47:04 Emergency X OLIVER VILLALPANDO [facility] ERT [id number] [facility] 2019-11-18 12:05:00 2019-11-18 13:24:00 Emergency EM Rosalba Sabillon HCAMN MARIANNE [id number] 40 [facility] Results Test Description Test Time Test Comments Results Result Co mments Source UR HCG [id number] 12:50:00* Test Item Value Reference Range Interpretation Comme nts UR HCG QUAL (test code = HCGQLU) NEGATIVE NEGATIVE URINALYSIS [id number] 12:47:00* Test Item Value Reference Range Interpretation [...] (test code = BACU) NONE UR HCG [id number] 12:47:00* Test Item Value Reference Range Interpretation Comme nts UR HCG QUAL (test code = HCGQLU) NEGATIVE URINALYSIS [id number] 12:47:00* Test Item Value Reference Range Interpretation [...] (test code = BACU) NONE UR HCG [id number] 12:47:00* Test Item Value Reference Range Interpretation Comme nts UR HCG QUAL (test code = HCGQLU) NEGATIVE NEGATIVE - XR CHEST 2 [id number] 12:34:00FAX: Oliver Villalpando NP [phone] [place]: St: PRE Name: FRANCOSISHERLEY [facility] : 1995 Age[facility]S: 24/F [facility] Unit #: [id number] [place] Phys: [place] [id number]: [id number] Dis Date: Status: PRE ER PHONE #: [phone] Exam Date: 11/18/2019 1227 FAX #: [phone] Reason: cough EXAMS: CPT CODE: [id number] XR CHEST 2 V 33578 EXAM: - XR CHEST 2 V COMPARISON: 06/11/2018 LOCATION: [facility] HISTORY: 24 years-old Female with cough FINDINGS: The cardiomediastinal silhouette is within normal limits. The lungs are well aerated. No large pneumothorax or pleuraleffusion. Osseous structures and soft tissues demonstrate no acute findings. The visualized upper abdomen is unremarkable. IMPRESSION: No acute cardiopulmonary abnormality. at 7135 Reported and signed by: Krishan Pitt MD CC: Oliver Villalpando NP Technologist: BARBARA SIN Trnscrd Date/Time/By: 11/18/2019 (0464) : By: [email or web address] PAGE 1 Signed Report FAX: Oliver Villalpando NP [phone] [place]: St: PRE Name: SHERLEY PARRISH [facility] : 1995 [facility] [address] [facility] Unit #: [id number] [place]: [place]: [place] [id number] Acct: [id number] Dis Date: Status: PRE ER PHONE #: [phone] Exam Date: 1227 FAX #: [phone] Reason: cough EXAMS: CPT CODE: [id number] XR CHEST 2 V 30141 (Continued) Orig Print D/T: S: 11/18/2019 (1237) PAGE 2 Signed Report- CT ABD PELVIS [id number] 16:55:00FAX: Toñito Aguilar MD [place]: St: PRE Name: FRANCOISSHERLEY [facility] : 1995 [facility] [address] [facility] Unit: [id number] Loc: [address] Phys: Toñ[place] [address] Acct: [id number] Dis Date: Status: PRE ER PHONE #: [phone] Exam Date: 09/25/2019 1643 FAX #: [phone] Reason: LLq pain EXAMS: CPT CODE: [id number] CT ABD PELVIS W/CONT 33935 HISTORY: Left lower quadrant pain, abdominal pain. [...] Signed Report (CONTINUED) FAX: Toñito Aguilar MD [place]: St: PRE Name: SHERLEY PARRISH [facility] : 1995 Age/S: 24/F [address] [facility] Unit: [id number] Loc: [address] Phys: Toñ[place] [address] Acct: [id number] Dis Date: Status: PRE ER PHONE #: [phone] Exam Date: 03/2019 1643 FAX #: [phone] Reason: LLq pain EXAMS: CPT CODE: [id number] CT ABD PELVIS W/CONT 60125 (Continued) appearance to the previous study possibly with a right-sided follicular cyst this time. No inflammatory changes or free fluid. No acute inflammatory changes in the left lower quadrant. Location: U19 at 1655 Reported and signed by: Ari Gaston M.D. CC: Toñito Aguilar MD Technologist: WALLACE STOREY Trnscrd Dt/Tm: 09/25/2019 (9777) tJOSE ROBERTOM Orig Print D/T: S: 09/25/2019 (4108 PAGE 2 Signed Report- DUP AB/PEL/SC COMP 2019-09-25 16:32:00FAX: Toñito Aguilar MD [place]: St: PRE Name: PARRISHSHERLEY [facility] : 1995 Age/S: 24/F [address] [facility] Unit #: [id number] Loc: [address] Phys: Toñ[place] [address] Acct: [id number] Dis Date: Status: PRE ER PHONE #: [phone] Exam Date: 09/25/2019 1620 FAX #: [phone] Reason: PELVIC PAIN LLQ PAIN EXAMS: CPT CODE: [id number] DUP AB/PEL/SC COMP 81339 ULTRASOUND: - USPELVIS COMPLETE, - DUP AB/PEL/SC [...] Aguilar MD Technologist:LOGAN MILLER Trnscrd Date/Time/By: 09/25/2019 (210) : By: [facility] PAGE 1 Signed Report FAX: Toñito Aguilar MD [place]: St: PRE Name: SHERLEY PARRISH [facility] : 1995 Age/S: 24/F [address] [facility] Unit #: [id number] Loc: [address] Phys: Toñ[place] [address] Acct: [id number] Date: Status: PRE ER PHONE #: [phone] Exam Date: 09/25/2019 1620 FAX #: [phone] Reason: PELVIC PAIN LLQ PAIN EXAMS: CPT CODE: [id number] DUP AB/PEL/SC COMP 96212 (Continued) Orig Print D/T: S: 09/25/2019 (0656) PAGE 2 Signed Report- US PELVIS COMPLETE 2019-09-25 16:32:00FAX: Toñito Aguilar MD [place]: St: PRE Name: SHERLEY PARRISH [facility] : 1995 Age/S: 24/F [address] [facility] Unit #: [id number] Loc: [address] Phys: Toñ[place] [address] Acct: [id number] Dis Date: Status: PRE ER PHONE #: [phone] Exam Date: 09/25/2019 1619 FAX #: [phone] Reason: Pelvic pain llq pain EXAMS: CPT CODE: [id number] US PELVIS COMPLETE 23139 ULTRASOUND: - USPELVIS COMPLETE, - DUP AB/PEL/SC [...] MILLER Trnscrd Date/Time/By: 09/25/2019 (163) : By: [facility] PAGE 1 Signed Report FAX: Toñito Aguilar MD [place]: St: PRE Name: SHERLEY PARRISH [facility] : 1995 Age/S: 24/F [address] Unit #: [id number] Loc: [address] Phys: Toñ[place] [address] Acct: [id number] Date: Status: PRE ER PHONE #: [phone] Exam Date: 09/25/2019 1614 FAX #: [phone] Reason: Pelvic pain llq pain EXAMS: CPT CODE: [id number] US PELVIS COMPLETE 16557 (Continued) Orig Print D/T: S: 09/25/2019 (9329) PAGE 2 Signed ReportURINALYSIS COMPLETE 2019-09-25 16:31:00* [...] CLUE CELLS Specimen comments: Clean CatchUR HCG [id number] 16:16:00* Test Item Value Reference Range Interpretation Comme nts UR HCG QUAL (test code = HCGQLU) NEGATIVE NEGATIVE BASIC METABOLIC [id number] 16:16:00* Test Item Value Reference Range Interpretation [...] 8.9 mg/dl 8.0-10.5 N HEPATIC FUNCTION PANEL [id number] 16:16:00* Test Item Value Reference Range Interpretation [...] code = ALKP) 67 Units/L 50.0-136.0 N [id number] 16:16:00* Test Item Value Reference Range Interpretation Comme nts LIPASE (test code = LIP) 135 Units/L 65.0-230.0 N DRUGS OF ABUSE SCREEN [id number] 16:12:00* Test Item Value Reference Range Interpretation [...] 300 ng/mL Specimen comments: Clean CatchBASIC METABOLIC [id number] 16:12:00* Test Item Value Reference Range Interpretation [...] = CA) mg/dl 8.0-10.5 HEPATIC FUNCTION PANEL [id number] 16:12:00* Test Item Value Reference Range Interpretation [...] ( test code = ALKP) Units/L 50.0-136.0 [id number] 16:12:00* Test Item Value Reference Range Interpretation Comme nts LIPASE (test code = LIP) Units/L 65.0-230.0 CBC W/AUTO [id number] 16:08:00* Test Item Value Reference Range Interpretation [...]
== END 2024-12-18 14:44 | disposition home or self-care (01) ==
LOC: ER 14:08
DX: K02.9 Dental caries, unspecified (principal)
CPT/HCPCS: 99283

== ENCOUNTER 2025-03-26 10:06 | Emergency (ER) | payer OTHER, SELFPAY ==
--- OUTSIDE RECORDS SUMMARY | 2025-03-26 10:11 | XMS REPORT | Continuity of Care Document ---
Author Name Unknown Address [address] [facility] [place] [address] [facility] Address [address] [facility] [place] [address] Care Team Providers Care Professor Of Early Childhood Education Name Role Phone PCP, PATIENT DOES NOT HAVE A Primary Care Physic prashanth Unavailable JADIEL BLANCHARD Attending Clinician Unavailable MARY LALA Attending Clinician Unavailable BEENA HARDIN Attending Clinician Unavailable GILDA RODRIGUEZ Attending Clinician Unavailab DON Padron Attending Clinician Unavailab le LAB90 Attending Clinician Unavailable FARHAT DEL TORO Attending Clinician UnavailCED Manuel Attending Clinician Unavailable BÁRBARA HUA Attending Clinician Unavailable GENET DENSON Attending Clinician UnaZELALEM Barrett Attending Clinician Unavailable Zelalem Loomis MD Attending Clinician Petrona Carbajal Attending Clinician Unavailable JAMES POTTS Attending Clinician Unavailab JIM Muse Attending Clinician Unavailable OLIVER VILLALPANDO Attending Clinician Unavailable Rosalba Sabillon Attending Clinician Unavailable ZELALEM LOOMIS Admitting Clinician Unavailable Physician, No Primary or Family Admitting Clinic prashanth Unavailable Payers Payer Name Policy Type Policy Number Effective Date Expirati on Date Source 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 [id number] 2024 00:00:00 [employer] [id number] 2023 00:00:00 Problems Condition Name Condition Details Condition Category Status Onset Date Resolution Date Last Treatment Date Treating Clinician Comments Source Well adult exam Well adult exam Disease Active 2022-11 00:00: 00 Elizabeth Ashrafa l Class 3 severe obesity due to excess calories with body mass index (BMI) of 40.0 to 44.9 in adult Class 3 severe obesity due to excess calories with body mass index (BMI) of 40.0 to 44.9 in adult Disease Active 2022-11 00:00: 00 Elizabeth Wynne - Externa l Allergies, Adverse Reactions, Alerts Allergy Name Allergy Type Status Severity Reaction(s) Onset Date Inactive Date Treating Clinician Comments Source No Known Allergie s DA Active 2011-11 00:00: 00 [facility] NO KNOWN ALLERGIE S Drug Class Active [facility] Social History Social Habit Start Date Stop Date Quantity Comments Source Gender identity [facility] History of tobacco use Cigarette Smoker Elizabeth [...] MG oral Tablet 06-15 00:00: 00 Yes [id number] 25mg Q.5D Take 1 tablet (25 mg total) by mouth 2 times daily. Elizabeth carolina Sumatriptan Succinate 25 MG oral Tablet 06-15 00:00: 00 06-15 00:00 :00 No [id number] 25mg Take 1 tablet (25 mg total) by mouth once as needed for migraine (May repeat in 2 hours if unresolved . Do not exceed 200 mg in 24 hours.). Elizabeth carolina Ondansetron (ZOFRAN) 8 MG oral TABLET DISPERSIBLE 02-25 00:00: 00 06-15 00:00 :00 No [id number] 8mg Q.[id number] 3D Take 1 tablet (8 mg total) by mouth every 8 hours as needed for nausea. Elizabeth carolina Albuterol HFA 108 (90 Base) MCG/ACT IN AERS 02-25 00:00: 00 06-15 00:00 :00 No [id number] 2{puff} Q.25D Inhale 2 puffs into the lungs every 6 hours as needed for wheezing. Elizabeth carolina Pseudoeph-B romphen-DM 30-2-10 MG/5ML oral Syrup 02-25 00:00: 00 06-15 00:00 :00 No [id number] 10mL Q.25D Take 10 mL by mouth 4 times daily as needed. Elizabeth carolina Nirmatrelvi r & Ritonavir STANDARD (30) (300/100) Therapy Pack 02-25 00:00: 00 06-15 00:00 :00 No [id number] Take two 150 mg nirmatrelv ir (pink) tablets with one 100 mg ritonavir (white) tablet by mouth two times daily for 5 days. Elizabeth carolina Mupirocin (BACTROBAN) 2 % apply externally Ointment 2022-11 00:00: 00 06-15 00:00 :00 No [id number] Q.20587481 [id number] 3D Apply 1 applicatio n. topically 3 times daily. Elizabeth carolina FENTanyl PF (SUBLIMAZE (PF)) injection 50 mcg 06-13 02:15: 06-13 01:51 :00 No 50ug 50 mcg, Intramuscu lar, ONCE, 1 dose, On 06/12/23 at 2114, Routine [facility] ondansetron (ZOFRAN-ODT ) disintegrat ing tablet 4 mg 06-13 02:15: 00 06-13 01:51 :00 No 4mg 4 mg, Oral, ONCE, 1 dose, On 06/12/23 at 2114, Routine [facility] acetaminoph en-codeine 300-30 mg tablet 06-12 00:00: 00 07-03 04:59 :00 No [id number] 1{tbl} Take 1 tablet by mouth every 6 (six) hours as needed for Pain (scale 4-6) for up to 20 days. Indication s: acute pain [facility] ondansetron (ZOFRAN) 4 mg tablet 06-12 00:00: 00 06-23 04:59 :00 No [id number] 4mg Take 1 tablet by mouth every 8 (eight) hours as needed for Nausea and Vomiting (N/V) for up to 10 days. [facility] traMADoL 50 mg tablet 12-29 00:00: 00 Yes [id number] 50mg Take 1 tablet by mouth every 6 (six) hours as needed for Pain (scale 7-10). Indication s: acute pain [facility] cyclobenzap rine 10 mg tablet 17 00:00: 00 Yes [id number] 10mg Take 1 tablet by mouth 3 (three) times daily as needed for Muscle Spasms. [facility] ibuprofen 800 mg tablet 07-07 00:00: 00 Yes [id number] 800mg Take 1 tablet by mouth every 8 (eight) hours as needed for Pain (scale 4-6). [facility] cyclobenzap rine 10 mg tablet 05-11 00:00: 00 Yes [id number] 10mg Take 1 tablet by mouth every 8 (eight) hours as needed for Muscle Spasms for up to 15 doses. [facility] Immunizations Ordered Immunization Name Filled Immunization Name Date Status Comments Source Tdap- (Boostrix, Adacel) Unknown Completed Elizabeth Urbinaybold [...] Value Comments S delmis Systolic blood pressure 2024-06-15 19:42:00 118 mm[Hg] Elizabeth Meehano ld - External Diastolic blood pressure 2024-06-15 19:42:00 78 mm[Hg] Elizabeth Meehano ld - External Heart rate 2024-06-15 19:42:00 68 /min Benigno Wynne - External Body temperature 2024-06-15 19:42:00 36.56 Carol Elizabeth Urbinaybold - External Respiratory rate 2024-06-15 19:42:00 18 /min Elizabeth Urbinaybold - External Body height 2024-06-15 19:42:00 157.5 [...] Heart rate 2023-11-04 16:18:00 72 /min Benigno Meehanold - External Body temperature 2023-11-04 16:18:00 36 [...] Systolic blood pressure 2023-06-13 03:00:00 141 mm[Hg] [facility] Diastolic blood pressure 2023-06-13 03:00:00 97 mm[Hg] [facility] Heart rate 2023-06-13 03:00:00 81 /min [facility] O[facility] saturation in Arterial blood by Pulse oximetry 2023-06-13 03:00:00 98 /min [facility] Body temperature 2023-06-13 01:24:00 36.94 Carol [facility] Respiratory rate 2023-06-13 01:07:00 20 /min [facility] BMI 2023-06-13 01:06:00 48.06 kg/m2 [facility] Body height 2023-06-13 01:06:00 162.6 cm [facility] Body weight 2023-06-13 01:06:00 127.007 kg [facility] Procedures Procedure Date / Time Performed Performing Clinicia n Source CONSENT/REFUSAL FOR DIAGNOSIS AND TREATMENT 2023-06-13 01:05:04 Doctor Unassigned, [place] [facility] Encounters Start Date/Time End Date/Time Encounter Type Admission Type Attending [facility] Care Department Encounter ID Source 2025-02-12 00:00:00 2025-02-12 00:00:00 Outpatient JADIEL BLANCHARD [facility]IZAB[facility]RT [id number] [facility] 2024-09-24 09:45:00 2024-09-24 09:45:00 Outpatient SPIKE MARY ELIZABETH BETANCOURT [id number] [facility] 2024-09-10 14:00:00 2024-09-10 14:00:00 Outpatient LASHAWN BEENAYaneth BETANCOURT [id number] [facility] 2024-09-03 13:45:00 2024-09-03 13:45:00 Outpatient GILDA RODRIGUEZ [id number] [facility] 2024-08-14 08:00:00 2024-08-14 08:00:00 Outpatient ELIZABETH BETANCOURT [id number] [facility] 2024-07-24 08:30:00 2024-07-24 08:30:00 Outpatient ELIZABETH BETANCOURT [id number] [facility] 2024-07-16 00:00:00 2024-07-16 00:00:00 Outpatient DON VALENCIA [id number] [facility] 2024-07-15 00:00:00 2024-07-15 00:00:00 Outpatient DON VALENCIA [id number] [facility] 2024-07-13 08:30:00 2024-07-13 08:30:00 Outpatient DON VALENCIA [id number] [facility] 2024-07-11 09:30:00 2024-07-11 09:30:00 Outpatient ELIZABETH BETANCOURT [id number] [facility] 2024-07-10 08:00:00 2024-07-10 08:00:00 Outpatient ELIZABETH BETANCOURT [id number] [facility] 2024-07-05 00:00:00 2024-07-05 00:00:00 Outpatient DON VALENCIA [facility]AB[facility] [id number] [facility] 2024-07-05 00:00:00 2024-07-05 00:00:00 Outpatient DON VALENCIA ELIZABETH [id number] [facility] 2024-07-04 08:00:00 2024-07-04 08:00:00 Outpatient ELIZABETH BETANCOURT [id number] [facility] 2024-07-02 08:00:00 2024-07-02 08:00:00 Outpatient ELIZABETH BETANCOURT [id number] [facility] 2024-07-01 00:00:00 2024-07-01 00:00:00 Outpatient DON VALENCIA ELIZABETH [id number] [facility] 2024-06-29 16:10:00 2024-06-29 16:10:00 Outpatient LAB90 ELIZABETH BETANCOURT [id number] [facility] 2024-06-29 00:00:00 2024-06-29 00:00:00 Outpatient DON VALENCIA ELIZABETH [id number] [facility] 2024-06-27 08:00:00 2024-06-27 08:00:00 Outpatient ELIZABETH BETANCUORT [id number] [facility] 2024-06-22 00:00:00 2024-06-22 00:00:00 Outpatient DON VALENCIA ELIZABETH [facility] [id number] [facility] 2024-06-20 08:00:00 2024-06-20 08:00:00 Outpatient ELIZABETH BETANCOURT [id number] [facility] 2024-06-19 00:00:00 2024-06-19 00:00:00 Outpatient DON VALENCIACAITLIN BETANCOURT [id number] [facility] 2024-06-19 00:00:00 2024-06-19 00:00:00 Outpatient DON VALENCIA ELIZABETH [id number] Elizabeth [facility] 2024-06-15 15:45:00 2024-06-15 15:45:00 Outpatient LAB90 ELIZABETH BETANCOURT [id number] [facility] 2024-06-15 15:00:00 2024-06-15 15:00:00 Outpatient DON VALENCIA ELIZABETH BET[facility]OURT [id number] [facility] 2024-06-15 00:00:00 2024-06-15 00:00:00 Outpatient ELIZABETH BETANCOURT [id number] [facility] 2024-06-15 00:00:00 2024-06-15 00:00:00 Outpatient DON VALENCIA ELIZABETH [id number] [facility] 2024-03-07 00:00:00 2024-03-07 00:00:00 Outpatient DON VALENCIA ELIZABETH BETANCOURT [id number] [facility] 2024-02-29 11:00:00 2024-02-29 11:00:00 Outpatient FARHAT DEL TORO ELIZABETH [facility] [id number] [facility] 2024-02-26 14:15:00 2024-02-26 14:15:00 Outpatient CED ORONA [id number] [facility] 2024-01-26 18:15:00 2024-01-26 18:15:00 Outpatient JAVID BÁRBARARAJI BETANCOURT [id number] [facility] 2023-12-22 13:45:00 2023-12-22 13:45:00 Outpatient JANIYA GENET [facility]ABETH [facility] [id number] [facility] 2023-11-28 00:00:00 2023-11-28 00:00:00 Outpatient JADIEL BLANCHARD [id number] [facility] 2023-11-07 08:55:00 2023-11-07 08:55:00 Outpatient LABDat ELIZABETH BETANCOURT [id number] [facility] 2023-11-04 10:30:00 2023-11-04 10:30:00 Outpatient DON VALENCIA ELIZABETH BETANCOURT [id number] [facility] 2023-08-31 14:22:34 2023-08-31 14:22:34 Outpatient SFA SFA [id number] Dmitriy Herbert 2023-08-29 14:14:37 2023-08-29 14:14:37 Outpatient SFA SFA [id number] Dmitriy Herbert 2023-06-12 20:07:00 2023-06-12 22:10:00 Emergency X ZELALEM LOOMIS [facility] ERT [id number] [facility] 2023-06-12 20:07:00 2023-06-12 22:10:00 Emergency Zelalem Loomis [facility] ([facility] [id number] [facility] 2023-05-13 15:15:00 2023-05-13 15:15:00 Outpatient Thaliaharishfelix Petrona [facility] [id number] [facility] 2021-03-21 22:50:00 2021-03-21 22:50:00 Emergency X [facility] ERT [id number] [facility] 2020-12-28 22:57:00 2020-12-29 03:04:00 Emergency X JAMES POTTS [facility] ERT [id number] [facility] 2020-07-07 14:07:00 2020-07-07 14:07:00 Emergency X JIM VANEGAS [facility] ERT [id number] [facility] 2020-05-10 21:14:00 2020-05-13 08:16:59 Inpatient HCAMN MARIANNE [id number] 24 [facility] 2020-05-10 21:47:04 2020-05-10 21:47:04 Emergency X RAVIGHISLAINE OLIVER [facility] ERT [id number] [facility] 2019-11-18 12:05:00 2019-11-18 13:24:00 Emergency EM Rosalba Sabillon HCAMN MARIANNE [id number] [facility] Results Test Description Test Time Test Comments Results Result Co mments Source UR HCG [id number] 12:50:00* Test Item Value Reference Range Interpretation Comme nts UR HCG QUAL (test code = HCGQLU) NEGATIVE NEGATIVE URINALYSIS [id number] 12:47:00* Test Item Value Reference Range Interpretation [...] (test code = BACU) NONE UR HCG [id number] 12:47:00* Test Item Value Reference Range Interpretation Comme nts UR HCG QUAL (test code = HCGQLU) NEGATIVE URINALYSIS [id number] 12:47:00* Test Item Value Reference Range Interpretation [...] (test code = BACU) NONE UR HCG [id number] 12:47:00* Test Item Value Reference Range Interpretation Comme nts UR HCG QUAL (test code = HCGQLU) NEGATIVE NEGATIVE - XR CHEST 2 [id number] 12:34:00FAX: Oliver Villalpando NP [phone] [place]: St: PRE Name: SHERLEY PARRISH [facility] : 1995 Age/S: 24/F [address] [facility] Unit #: [id number] Loc: [place], [place]: [place] [address] Acct: [id number] Dis Date: Status: PRE ER PHONE #: [phone] Exam Date: 11/18/2019 1225 FAX #: Reason: cough EXAMS: CPT CODE: [id number] XR CHEST 2 V 99873 EXAM: - XR CHEST 2 V COMPARISON: 06/11/2018 LOCATION: [facility] HISTORY: 24 years-old Female with cough FINDINGS: The cardiomediastinal silhouette is within normal limits. The lungs are well aerated. No large pneumothorax or pleural effusion. Osseous structures and soft tissues demonstrate no acute findings. The visualized upper abdomen is unremarkable. IMPRESSION: No acute cardiopulmonary abnormality. at 1234 Reported and signed by: Krishan Pitt MD CC: Oliver Villalpando NP Technologist: BARBARA SIN Trnpard Date/Time/By: 11/18/2019 (1545) : By: [email or web address] PAGE 1 Signed Report FAX: Oliver Villalpando NP [phone] [place]: St: PRE Name: SHERLEY PARRISH [facility] : 1995Age/S: [address] [employer] Unit #: [id number] Loc: [place], [place]: [place] [address] Acct: [id number] Dis Date: Status: PRE ER PHONE #: [phone] Exam Date: 11/18 1227 FAX #: [phone] Reason: cough EXAMS: CPT CODE: [id number] XR CHEST 2 V 09747 (Continued) Orig Print D/T: S: 11/18/2019 (6158) PAGE 2 Signed Report- CT ABD PELVIS [id number] 16:55:00FAX: Toñito Aguilar MD [place]: St: PRE Name: SHERLEY PARRISH [facility] : 1995 Age/S: [address] [employer] Unit: [id number] Loc: [address] Phys: Toñ[place] [address] Acct: [id number] Dis Date: Status: PRE ER PHONE #: [phone] Exam Date: 09/25/2019 1643 FAX #: [phone] Reason: LLq pain EXAMS: CPT CODE: [id number] CT ABD PELVIS W/CONT 59728 HISTORY: Left lower quadrantpain, abdominal pain. CT [...] Signed Report (CONTINUED) FAX: Toñito Aguilar MD [place]: St: PRE Name: SHERLEY PARRISH [facility] : 1995 Age/S: 24/F [address] [facility] Unit: [id number] Loc: [address] Phys: Toñ[place] [address] Acct: [id number] Dis Date: Status: PRE ER PHONE #: [phone] Exam Date: 03/2019 1643 FAX #: [phone] Reason: LLq pain EXAMS: CPT CODE: [id number] CT ABD PELVIS W/CONT 42111 (Continued) appearance to the previous study possibly with a right-sided follicular cyst this time. No inflammatory changes or free fluid. No acute inflammatory changes in the left lower quadrant. Location: U19 at 1655 Reported and signed by: Ari Gaston M.D. CC: Toñito Aguilar MD Technologist: WALLACE STOREY Trnscrd Dt/Tm: 09/25/2019 (0737) [email or web address] Orig Print D/T: S: 09/25/2019 (5944 PAGE 2 Signed Report- DUP AB/PEL/SC COMP 2019-09-25 16:32:00FAX: Toñito Aguilar MD [place]: St: PRE Name: SHERLEY PARRISH [facility] : 1995 Age/S: 24/F [address] [facility] Unit #: [id number] Loc: [address] [place], [place] Phys: Toñ[place] [address] Acct: [id number] Dis Date: Status: PRE ER PHONE #: [phone] Exam Date: 09/25/2019 1620 FAX #: [phone] Reason: PELVIC PAIN LLQ PAIN EXAMS: CPT CODE: [id number] DUP AB/PEL/SC COMP 37535 ULTRASOUND: - US PELVIS COMPLETE, - DUP AB/PEL/SC COMP History: Pelvic pain Comparison: None. B-mode/Delacruz scale imaging with color Doppler perfusion imaging and spectral analysis was performed. The uterus is 6.7 x 3.7x 4.9 cm with endometrium at 6.9 mm. The right ovary is 3.2 x 2.3 x 3.4 cm with uniform perfusion. Small follicular cyst present at 2 cm in diameter, fairly simple. Left ovary intact at 4.4 x 2 x 2.6cm. Normal perfusion pattern. The patient refused transvaginal exam. Impression: No acute abnormality in the pelvis. Empty normal sized uterus. Tiny follicular cyst right ovary. Normal ovarian perfusion bilaterally. Location: U 19 at 6232 Reported and signed by: Ari Gaston M.D. CC: Toñito Aguilar MD Technologist: LOGAN MILLER Trnscrd Date/Time/By: 09/25/2019 (8170) : By: [facility] PAGE 1 Signed Report FAX: Toñito Aguilar MD [place]: St: PRE Name: SHERLEY PARRISH [facility] : 1995 Age/S: 24/F [address] [facility] Unit #: [id number] Loc: [address] [place], [place] Phys: Toñ[place] [address] Acct: [id number] Dis Date: Status: PRE ER PHONE #: [phone] Exam Date: 09/25/2019 1620 FAX #: [phone] Reason: PELVIC PAIN LLQ PAIN EXAMS: CPT CODE: [id number] DUP AB/PEL/SC COMP 47894 (Continued) Orig Print D/T: S: 09/25/2019 (6282) PAGE 2 Signed Report- US PELVIS COMPLETE 2019-09-25 16:32:00FAX: Toñito Aguilar MD [place]: St: PRE Name: SHERLEY PARRISH [facility] : 1995 Age/S: 24/F [address] [facility] Unit #: [id number] Loc: [address] Phys: Toñ[place] [address] Acct: [id number] Dis Date: Status: PRE ER PHONE #: [phone] Exam Date: 09/25/2019 1619 FAX #: [phone] Reason: Pelvic pain llq pain EXAMS: CPT CODE: [id number] US PELVIS COMPLETE 71565 ULTRASOUND: - US PELVIS COMPLETE, - DUP AB/PEL/SC COMP History: Pelvic pain Comparison: None. B-mode/Delacruz scale imaging with color Doppler perfusion imaging and spectral analysis was performed. The uterus is 6.7 x3.7 x 4.9 cm with endometrium at 6.9 mm. The right ovary is 3.2 x 2.3 x 3.4 cm with uniform perfusion. Small follicular cyst present at 2 cm in diameter, fairly simple. Left ovary intact at 4.4 x 2 x2.6 cm. Normal perfusion pattern. The patient refused transvaginal exam. Impression: No acute abnormality in the pelvis. Empty normal sized uterus. Tiny follicular cyst right ovary. Normal ovarian perfusion bilaterally. Location: U 19 at 1632 Reported and signed by: Ari Gaston M.D. CC: Toñito Aguilar MD Technologist: LOGAN MILLER Trnscrd Date/Time/By: 09/25/2019 (2972) : By: [facility] PAGE 1 Signed Report FAX: Toñito Aguilar MD [place]: St: PRE Name: SHERLEY PARRISH [facility] : 1995 Age/S: 24/F [address] [employer] Unit #: [id number] Loc: [facility] [place], [place] Phys: Toñ[place] [address] Acct: [id number] Dis Date: Status: PRE ER PHONE #: [phone] Exam Date: 09/25/2019 1619 FAX #: [phone] Reason: Pelvic pain llq pain EXAMS: CPT CODE: [id number] US PELVIS COMPLETE 12540 (Continued) Orig Print D/T: S: 09/25/2019 (1635) PAGE 2 Signed ReportURINALYSIS COMPLETE 2019-09-25 16:31:00* [...] CLUE CELLS Specimen comments: Clean CatchUR HCG [id number] 16:16:00* Test Item Value Reference Range Interpretation Comme nts UR HCG QUAL (test code = HCGQLU) NEGATIVE NEGATIVE BASIC METABOLIC [id number] 16:16:00* Test Item Value Reference Range Interpretation [...] 8.9 mg/dl 8.0-10.5 N HEPATIC FUNCTION PANEL [id number] 16:16:00* Test Item Value Reference Range Interpretation [...] code = ALKP) 67 Units/L 50.0-136.0 N [id number] 16:16:00* Test Item Value Reference Range Interpretation Comme nts LIPASE (test code = LIP) 135 Units/L 65.0-230.0 N DRUGS OF ABUSE SCREEN [id number] 16:12:00* Test Item Value Reference Range Interpretation [...] 300 ng/mL Specimen comments: Clean CatchBASIC METABOLIC [id number] 16:12:00* Test Item Value Reference Range Interpretation [...] = CA) mg/dl 8.0-10.5 HEPATIC FUNCTION PANEL [id number] 16:12:00* Test Item Value Reference Range Interpretation [...] ( test code = ALKP) Units/L 50.0-136.0 [id number] 16:12:00* Test Item Value Reference Range Interpretation Comme nts LIPASE (test code = LIP) Units/L 65.0-230.0 CBC W/AUTO [id number] 16:08:00* Test Item Value Reference Range Interpretation [...] in no apparent distress. Shawnee Zamora RN [facility] 2023-06-12 20:05:26 Formatting of this n ote might be different from the original. Sherley Parrish is a 28 year old female presenting after falling down two steps and hitting her head about 20min [employer]. Patient denies LOC or blood thinner use. Reports head pain and vomiting. Pmhx: hypothyroidism Patient GCS 15, RR Even and unlabored, NAD Chen Houser RN [facility] - Health 2023-06-12 20:04:00 Formatting of this n ote is different from the original. [facility] Emergency Department Note Patient Name: Sherley Parrish Date of : 1995 28 year old female Treatment Room: [place] [address] Primary Care Physician: PATIENT DOES NOT HAVE [...] any recent illness History provided by: Patient interpreter used: No Past Medical History/Immunizations: No [...] walking down trailer steps that occurred today [employer]. No loc reported. CT head unremarkable. X [...] Electronically signed by: Zelalem Loomis MD 06/12/232134 [facility] 2020-05-10 21:20:00 [facility] ([facility]) EMERGENCY PROVIDER REPORT REPORT#:[id number] REPORT STATUS: Signed DATE:05/10/20 TIME: 2119 PATIENT: SHERLEY PARRISH UNIT #: [id number] ROOM/BED: AGE: 25 SEX: F PCP PHYS: [...] CARES IN THE AREA at 2201 RPT #:[id number] END OF REPORT [facility] 2019-11-18 12:16:00 [facility] ([facility]) EMERGENCY PROVIDER REPORT REPORT#:[id number] REPORT STATUS: Signed DATE:11/18/19 TIME: 1216 PATIENT: SHERLEY PARRISH UNIT #: [id number] ROOM/BED: AGE: 24 SEX: F PCP PHYS: No Primary or Family Physician SERVICE AUTHOR: Oliver Villalpando NP * ALL edits or amendments must be made on the electronic/computer document * RCG-Lcn-Mxut Illness General Confirmed Patient Yes Patient Type [...] throat x 3 days. patient works at [employer]. Patient also states she took a home [...] pH (5.0 - 9.0) 6.0 Ur Specific Export (1.000 - 1.030) 1.020 Urine Protein (NEGATIVE [...] a call to 911. at 1329 RPT #:[id number] END OF REPORT [facility] 2019-11-18 12:16:00 [facility] ([facility]) EMERGENCY PROVIDER REPORT REPORT#:[id number] REPORT STATUS: Signed DATE:11/18/19 TIME: 1216 PATIENT: SHERLEY PARRISH UNIT #: [id number] ROOM/BED: AGE: 24 SEX: F PCP PHYS: No Primary or Family Physician SERVICE AUTHOR: Oliver Villalpando NP * ALL edits or amendments must be made on the electronic/computer document * Oliver Villalpando 11/18/19 1216: [id number] Illness General Confirmed Patient Yes Patient Type [...] throat x 3 days. patient works at [employer]. Patient also states she took a home [...] 11/18 120 O2 Delivery Room air 11/18 120 Temp [...] pH (5.0 - 9.0) 6.0 Ur Specific Export (1.000 - 1.030) 1.020 Urine Protein (NEGATIVE [...] call to 911. Rosalba Sabillon 11/18/19 1341: DGX-Nmz-Sncy Illness General Initial Greet Date/Time 11/18/19 1209 Patient Discharge Departure Supervising Physician Note MidLv Saw Pt Alone I have reviewed the PA/TRAINING INTERN's note and plan of care. I was available for consultation as needed at all times during the patient's visit in the emergency department. I agree with the clinical impression, plan and disposition. at 1329 at 1341 RPT #:[id number] END OF REPORT [facility] 2019-09-25 15:46:00 [facility] ([facility]) EMERGENCY PROVIDER REPORT REPORT#:[id number] REPORT STATUS: Signed DATE:09/25/19 TIME: 1546 PATIENT: SHERLEY PARRISH UNIT #: [id number] ROOM/BED: AGE: 24 SEX: F PCP PHYS: [...] Ox 100 09/25 1514 B/P 131/91 09/25 151 B/P Mean 104 [...] pH (5.0 - 9.0) 8.0 Ur Specific Export (1.000 - 1.030) 1.020 Urine Protein (NEGATIVE [...] % (Auto) (23.0 - 38.0 %) 30.1 [place] % (Auto) (1.0 - 10.0 %) 7.2 Eos % (Auto) (1.0 - 5.0 %) 2.2 Baso % (Auto) (0.0 - 1.0 %) 0.4 Neut # (Auto) (2.4 - 6.3 K/mm3) 6.7 H Lymph # (Auto) (1.2 - 4.0 K/mm3) 3.4 [place] # (Auto) (0.0 - 0.6 K/mm3) 0.8 [...] perfusion bilaterally. Location: U 19 Impression By: aCrissa Gaston M.D. ULTRASOUND - DUP AB/PEL/SC COMP [...] 100 On: Room air Interpretation Interpreted by pa, Pulse oximetry normal Time 1514 Test UR [...] better > no N/V Time of Eval 173 Re-Eval Status Improved ED Course Medication(s) Ordered [...] Physician Note Scribe Statement Rai Myles, 09/25/19 0145, scribing for and in the presence of [Dr. Aguilar ]. Signed By: Rai Myles, 09/25/19 409 Provider Scribed Statement I personally performed the services described in this documentation and reviewed the documentation that was dictated to the scribe(s) in my presence, and it accurately records my words and actions. Toñito Aguilar, 09/27/19 Portions of this section were scribed by Rai Myles on 09/25/19 at 1937 at 2056 RPT #:[id number] END OF REPORT [facility]
[2025-03-26] MEDS ORDERED: ONDANSETRON 4 MG/2 ML VIAL ONE (10:39)
[2025-03-26] MEDS ORDERED: MORPHINE 4 MG/ML SYR ONE (10:39)
[2025-03-26 11:23] LABS: Absolute Basophils 0.1 K/uL (0-0.5); Absolute Eosinophils 0.2 K/uL (0-0.5); Absolute Lymphocytes (CBC) 3.5 K/uL (0.7-4.9); Absolute Monocytes 0.7 K/uL (0.1-1.3); Absolute Neutrophil 5.3 K/uL (1.8-8.0); Basophils % 0.6 % (0-1.3); Eosinophils % 1.9 % (0-4.4); Hematocrit 40.5 % (36.0-45.0); Hemoglobin 14.1 g/dL (12.0-15.0); Lymphocytes % 35.9 % (15.3-44.8); MCH 30.2 pg (27.0-35.0); MCHC 34.9 g/dL (32.0-36.0); MCV 86.6 fL (80-100); MPV 8.4 fL (7.6-11.3); Neutrophils % 54.6 % (41.7-73.7); Nucleated Red Blood Cells % 0.1 % (0-0); Platelets 322 thou/uL (152-406); RBC Red Blood Cell Count 4.68 M/uL (3.86-4.86); Red Cell Distribution Width 12.9 % (12.1-15.2)
[2025-03-26 11:24] LABS: Specific Gravity 1.014 (1.005-1.030); Sqamous Epithelial None Seen /HPF (None Seen); Urine Bacteria None Seen /HPF (<20); Urine Bilirubin NEGATIVE (Negative); Urine Blood 3+ (OVER) (Negative); Urine Clarity Extremely Turbid (Clear); Urine Color Brown (Yellow); Urine Culture Reflex Order REFLEXED; Urine Glucose NEGATIVE (Negative); Urine Ketones NEGATIVE (Negative); Urine Microscopic Reflex YN ORDER UMIC; Urine Mucus Slight /HPF (None Seen); Urine Nitrite NEGATIVE (Negative); Urine Protein 1+ (Negative); Urine RBC >50 /HPF (None Seen); Urine Urobilinogen Normal (Normal); Urine pH 7.5 (5.0-7.0)
[2025-03-26 11:25] LABS: Specific Gravity 1.014 (1.005-1.030)
--- NOTE | 2025-03-26 11:28 | RAD REPORT ---
EXAMINATION: US PELVIS TRANSVAGINAL WITH DOPPLER CLINICAL INDICATION: Female 29 years old. pelvic pain TECHNIQUE: Real-time ultrasonography of the pelvis was performed transvaginally. Color and spectral D oppler evaluation of the ovaries was performed. COMPARISON: No prior exam. FINDINGS: UTERUS AND CERVIX: The uterus measures cm (cervix to fundus x AP x transverse). 8 x 8 mm hypoechoic m ass anterior myometrium. The endometrium is normal, 4 mm in thickness. RIGHT OVARY: Normal. The right ovary measures 2.6 x 1.7 x 1.6 cm. Normal color and spectral Doppler evaluation of the right ovary.. LEFT OVARY: Normal. The left ovary measures 3.4 x 2.2 x 2.0 cm. Normal color and spectral Doppler evaluation of the left ovary.. FREE FLUID: No free fluid. IMPRESSION: 8 mm fundal myometrial fibroid, otherwise negative study.
--- NOTE | 2025-03-26 12:05 | RAD REPORT ---
EXAMINATION: CT ABDOMEN AND PELVIS WITH CONTRAST CLINICAL INDICATION: ABD PAIN TECHNIQUE: CT abdomen and pelvis was performed, after the administration of IV contrast, as per [facility] protocol. Axial, sagittal and coronal reconstructions were obtained. One or more of the following dose reduction techniques were used: Automated exposure control, adjustment of the mA and k V according to patient size, and iterative reconstruction. Unless otherwise specified, incidental findings do not require dedicated imaging follow-up. COMPARISON: 03/26/2023 FINDINGS: LOWER CHEST: The visualized lung bases are clear. LIVER: Normal in size and contour. No focal lesion. Grossly unremarkable gallbladder. SPLEEN: Normal size. No focal lesion. PANCREAS: No mass, ductal dilation, or deshaun-pancreatic fluid. ADRENALS: Normal; no mass. KIDNEYS: Normal size and contour. No hydronephrosis. GASTROINTESTINAL TRACT: No evidence of free air, significant intra-abdominal free fluid, bowel obstru ction or abscess. APPENDIX: Normal appendix. LYMPH NODES: No lymphadenopathy. MUSCULOSKELETAL: Mild disc bulging lower lumbar spine. IMPRESSION: No acute or concerning abnormalities seen in the abdomen or pelvis.
[2025-03-26 12:14] LABS: Albumin 3.6 g/dL (3.4-5.0); Anion Gap 7.1 mEq/L (5.0-15.0); Bilirubin Total 0.5 mg/dL (0.2-1.0); Globulin 3.6 g/dL (2.3-3.5); Potassium 4.1 mEq/L (3.5-5.1); Protein, Total 7.2 g/dL (6.4-8.2)
--- NOTE | 2025-03-26 12:17 | EDPHYS ---
Physician Documentation [facility] Name: Leila Simons Age: 29 yrs Sex: Female : 1995 Arrival Date: 03/26/2025 Time: 10:06 Bed 16 Private MD: ED Physician Indra Wade HPI: 03/26 10:46 This 29 yrs old Female presents to ER via Ambulatory with complaints of rn Abdominal Pain, Low Back Pain. 10:46 The patient presents with pain that is acute. The symptoms are located in the low back. rn Onset: The symptoms/episode began/occurred 2 day(s) ago. Modifying factors: The patient symptoms are alleviated by nothing, the patient symptoms are aggravated by nothing. Associated signs and symptoms: Pertinent positives: abdominal pain, Pertinent negatives: fever, incontinence, numbness, tingling, urinary retention. Severity of symptoms: At their worst the symptoms were moderate, in the emergency department the symptoms have improved. Patient reports 2 days of lower back pain that radiates to the right groin, began around the time her current menstrual period started. Patient reports passing small clots from vagina but does not believe blood is from the urinary system. No history of kidney stones. No trauma. No fever or chills.. Historical: - Allergies: 10:28 No Known Allergies; ll1 - PMHx: 10:28 Hypothyroidism; ll1 - PSHx: 10:28 None; ll1 - Immunization history:: Adult Immunizations up to date. - Infectious Disease History:: Denies. - Social history:: Smoking status: Patient denies any tobacco usage or history of. - Family history:: not pertinent. - Hospitalizations: : No recent hospitalization is reported. ROS: 10:46 Constitutional: Negative for fever, chills, and weight loss, Cardiovascular: Negative rn for chest pain, palpitations, and edema, Respiratory: Negative for shortness of breath, cough, wheezing, and pleuritic chest pain, Abdomen/GI: Positive for right lower abdominal pain Back: Positive for lower back pain : Negative for hematuria Exam: 10:46 Constitutional: This is a well developed, well nourished patient who is awake, alert, rn and in no acute distress. Cardiovascular: Regular rate and rhythm. No pulse deficits. Abdomen/GI: Soft, nontender Back: No CVA tenderness. No spinal tenderness Vital Signs: 10:30 BP 129 / 94; Pulse 74; Resp 17; Temp 98.4; Pulse Ox 100% ; Weight 104.33 kg; Height 5 ll1 ft. 2 in. ; Pain 10/10; 11:30 BP 124 / 75; Pulse 68; Resp 16; Pulse Ox 100% on R/A; db 10:30 Body Mass Index 42.07 (104.33 kg, 157.48 cm) ll1 10:30 Pain Scale: Adult ll1 MDM: 10:14 Medical Screening Exam initiated rn 12:15 Differential diagnosis: arthritis, strain, Herniated disc UTI, Uterine fibroid. Data rn reviewed: vital signs, nurses notes, lab test result(s), radiologic studies, CT scan, ultrasound, and as a result, I will discharge patient. Counseling: I had a detailed discussion with the patient and/or guardian regarding the historical points, exam findings, and any diagnostic results supporting the discharge/admit diagnosis, lab results, radiology results, the need for outpatient follow up, to return to the emergency department if symptoms worsen or persist or if there are any questions or concerns that arise at home. Response to treatment: the patient's symptoms have resolved after treatment, the patient's condition has returned to base line, the patient is now symptom free, and as a result, I will discharge patient. Special discussion: I discussed with the patient/guardian in detail that at this point there is no indication for admission to the hospital. It is understood, however, that if the symptoms persist or worsen the patient needs to return immediately for re-evaluation. Based on the history and exam findings, there is no indication for further emergent testing or inpatient evaluation. I discussed with the patient/guardian the need to see the OB Gyne specialist for further evaluation of the symptoms. ED course: CT shows uterine fibroid, no other acute findings. Ultrasound shows small fibroid as well. 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 Normal H\T\H. No evidence of UTI. Pain resolved. I have personally reviewed all of the results, including but not limited to blood tests and imaging deemed necessary to safely discharge this patient at this time. All results given to and printed out for patient. I personally went over all the results with the patient and answered all questions. Patient will follow-up with PCP and or specialist as discussed. Return precautions given and understood.. 03/26 10:30 Order name: CBC with Diff; Complete Time: 11:29 rn 03/26 10:30 Order name: CMP rn 03/26 10:30 Order name: Lipase rn 03/26 10:30 Order name: Test, Urine; Complete Time: 11:29 rn 03/26 10:30 Order name: UA Rfx Jorge Cult if indicated; Complete Time: 11:29 rn 03/26 11:27 Order name: Urine Culture EDNM 03/26 10:30 Order name: CT Abd/Pelvis - IV Contrast Only; Complete Time: 12:10 rn 03/26 10:45 Order name: Transvaginal Study Probe; Complete Time: 11:29 EDMS 03/26 10:30 Order name: IV Saline Lock; Complete Time: 11:25 rn 03/26 10:30 Order name: Labs collected and sent; Complete Time: 11:25 rn Administered Medications: 11:05 Drug: Ondansetron IVP 4 mg IVP once; over 2 minutes Route: IVP; Site: left upper arm; db 12:00 Follow up: Response: No adverse reaction db 11:26 Drug: morphine IVP or IV 4 mg IVP once over 4 mins Route: IVP; Infused Over: 4 mins; db Site: left upper arm; 12:15 Follow up: Response: No adverse reaction db Disposition Summary: 03/26/25 12:16 Discharge Ordered Notes: Location: Home rn Problem: new rn Symptoms: have improved rn Condition: Stable rn Diagnosis - Leiomyoma of uterus, unspecified rn - Abdominal pain, unspecified rn Followup: rn - With: Private Physician - When: As needed - Reason: Recheck today's complaints, Re-evaluation by your physician Discharge Instructions: - Discharge Summary Sheet rn - Abdominal Pain, Adult rn - Uterine Fibroids rn Forms: - Medication Reconciliation Form rn - Antibiotic oil burner repairer - Prescription Opioid Use rn - Patient Portal Instructions rn - Leadership Thank You Letter rn Signatures: Dispatcher [employer] Indra Lemus MD MD rn Lewis, Lynsay, RN RN ll1 Genia Freeman RN RN db Corrections: (The following items were deleted from the chart) 10:45 10:31 Pelvis Complete+US.RAD.BRZ ordered. EDNM EDNM
--- NOTE | 2025-03-26 12:17 | ER ---
Nurse's Notes [facility] Name: Leila Simons Age: 29 yrs Sex: Female : 1995 Arrival Date: 03/26/2025 Time: 10:06 Bed 16 Private MD: Diagnosis: Leiomyoma of uterus, unspecified;Abdominal pain, unspecified Presentation: 03/26 10:26 Chief complaint: Patient states: Severe lower back pain that radiates into lower ll1 abdomen. Started period yesterday. Pain for 1 week, and small blood clots noted today. Coronavirus screen: Client denies travel out of the [place] in the last 14 days. At this time, the client does not indicate any symptoms associated with coronavirus-19. Ebola Screen: Patient denies travel to an Ebola-affected area in the 21 days before illness onset. Initial Sepsis Screen: Does the patient meet any 2 criteria? No. Patient's initial sepsis screen is negative. Does the patient have a suspected source of infection? No. Patient's initial sepsis screen is negative. Risk Assessment: Do you want to hurt yourself or someone else? Patient reports no desire to harm self or others. Onset of symptoms was March 21, 2025. 10:26 Method Of Arrival: Ambulatory ll1 10:26 Acuity: FREYA 3 ll1 Triage Assessment: 10:26 General: Appears uncomfortable, Behavior is calm, cooperative, appropriate for age. ll1 Pain: Complains of pain in back Pain radiates to abdomen Pain currently is 10 out of 10 on a pain scale. Quality of pain is described as aching, crampy. GI: Reports lower abdominal pain, cramping. : Reports vaginal bleeding that is with clots. Historical: - Allergies: 10:28 No Known Allergies; ll1 - PMHx: 10:28 Hypothyroidism; ll1 - PSHx: 10:28 None; ll1 - Immunization history:: Adult Immunizations up to date. - Infectious Disease History:: Denies. - Social history:: Smoking status: Patient denies any tobacco usage or history of. - Family history:: not pertinent. - Hospitalizations: : No recent hospitalization is reported. Screenin:35 [facility] ED Fall Risk Assessment (Adult) History of falling in the last 3 months, db including since admission No falls in past 3 months (0 pts) Confusion or Disorientation No (0 pts) Intoxicated or Sedated No (0 pts) Impaired Gait No (0 pts) Mobility Assist Device Used No (0 pt) Altered Elimination No (0 pt) Score/Fall Risk Level 0 - 2 = Low Risk Oriented to surroundings, Maintained a safe environment. Abuse screen: Denies threats or abuse. Denies injuries from another. Nutritional screening: No deficits noted. Tuberculosis screening: No symptoms or risk factors identified. Assessment: 10:30 Reassessment: Patient appears in no apparent distress at this time. Patient and/or db family updated on plan of care and expected duration. Pain level reassessed. Patient is alert, oriented x 3, equal unlabored respirations, skin warm/dry/pink. General: Appears in no apparent distress. uncomfortable, Behavior is calm, cooperative. Pain: Complains of pain in back and abdomen. Neuro: Level of Consciousness is awake, alert, obeys commands, Oriented to person, place, time, situation. Respiratory: Airway is patent Respiratory effort is even, unlabored, Respiratory pattern is regular, symmetrical. GI: Bowel sounds present X 4 quads. Abd is soft. 10:38 Reassessment: PT AMBULATORY TO RESTROOM. db 11:30 Reassessment: Patient appears in no apparent distress at this time. Patient and/or db family updated on plan of care and expected duration. Pain level reassessed. Patient is alert, oriented x 3, equal unlabored respirations, skin warm/dry/pink. 12:30 Reassessment: Patient appears in no apparent distress at this time. Patient and/or db family updated on plan of care and expected duration. Pain level reassessed. Patient is alert, oriented x 3, equal unlabored respirations, skin warm/dry/pink. Patient states feeling better. Patient states symptoms have improved. Vital Signs: 10:30 BP 129 / 94; Pulse 74; Resp 17; Temp 98.4; Pulse Ox 100% ; Weight 104.33 kg; Height 5 ll1 ft. 2 in. ; Pain 10/10; 11:30 BP 124 / 75; Pulse 68; Resp 16; Pulse Ox 100% on R/A; db 10:30 Body Mass Index 42.07 (104.33 kg, 157.48 cm) ll1 10:30 Pain Scale: Adult ll1 ED Course: 10:10 Patient arrived in ED. al6 10:14 Indra Wade MD is Attending Physician. rn 10:28 Triage completed. ll1 10:30 Arm band placed on. ll1 10:35 Patient has correct armband on for positive identification. Bed in low position. Call db light in reach. Side rails up X 1. Pulse ox on. NIBP on. Pillow given. 10:36 Genia Freeman, RN is Primary Nurse. db 10:40 Patient taken to ultrasound. via wheelchair. db 11:01 Patient moved back from ultrasound. db 11:05 Initial lab(s) drawn, by or, sent to lab. Inserted saline lock: 20 gauge in left upper db arm, using aseptic technique. Blood collected. Flushed with 10 mL NS. 11:08 Transvaginal Study Probe In Process Unspecified. EDMS 11:53 CT Abd/Pelvis - IV Contrast Only In Process Unspecified. EDMS 12:30 Provided Education on: DISCHARGE. db 12:52 No provider procedures requiring assistance completed. IV discontinued, intact, hb bleeding controlled, No redness/swelling at site. Pressure dressing applied. Administered Medications: 11:05 Drug: Ondansetron IVP 4 mg IVP once; over 2 minutes Route: IVP; Site: left upper arm; db 12:00 Follow up: Response: No adverse reaction db 11:26 Drug: morphine IVP or IV 4 mg IVP once over 4 mins Route: IVP; Infused Over: 4 mins; db Site: left upper arm; 12:15 Follow up: Response: No adverse reaction db Medication: 12:30 VIS not applicable for this client. db Outcome: 12:16 Discharge ordered by . rn 12:52 Discharged to home ambulatory, hb 12:52 Condition: stable 12:52 Discharge instructions given to patient, Instructed on discharge instructions, follow up and referral plans. medication usage, Demonstrated understanding of instructions, follow-up care, medications, 12:53 Patient left the ED. hb Signatures: Dispatcher [employer] EDMS Indra Wade MD MD rn Baxter, Heather, RN RN Aditi Jang RN RN ll1 Genia Freeman, RN RN Duncan Benavidesssa al6
[2025-03-26 15:17] VITALS: BP 129/94; TEMP 98.4; O2SAT 100
== END 2025-03-26 12:53 | disposition home or self-care (01) ==
LOC: ER 10:06
DX: D25.9 Leiomyoma of uterus, unspecified (principal)
CPT/HCPCS: 36415; 74177; 76830; 80053; 81001; 81025; 83690; 85025; 87086; 87088; 96374; 96375; 99285; J2405; Q9967

== ENCOUNTER 2025-08-11 08:06 | Emergency (ER) | payer OTHER, SELFPAY ==
--- OUTSIDE RECORDS SUMMARY | 2025-08-11 08:11 | XMS REPORT | Continuity of Care Document ---
Author Name Unknown Address [address] [facility] [address] [place] [address] [facility] [place] Address [address] [facility] [address] [place] [address] Care Team Providers Care Store Planner Name Role Phone PCP, PATIENT DOES NOT HAVE A Primary Care Physic prashanth Unavailable DON VALENCIA Attending Clinician Unavailab JADIEL Kuhn Attending Clinician Unavailable MARY LALA Attending Clinician Unavailable BEENA HARDIN Attending Clinician Unavailable GILDA RODRIGUEZ Attending Clinician Unavailab le LAB90 Attending Clinician [...] Date Expirati on Date Source DAVID Cuadra PLEAT TAPER 94 9 [id number] 2024 00:00:00 [employer] [id number] 2023 00:00:00 Problems Condition Name Condition Details [...] Allergie s DA Active 2011-11 00:00: 00 [facility] NO KNOWN ALLERGIE S Drug Class Active [facility] Social History Social Habit Start Date Stop Date Quantity Comments Source Gender identity [facility] History of tobacco use Cigarette Smoker Elizabeth [...] 2023-11-04 00:00:00 Brina Dempsey Never smoked tobacco [facility] Medications Ordered Medication Name Filled Medication Name Start Date Stop Date Current Medication? Ordering Clinician Indication Dosage Frequency Signature (SIG) Comments Components Source Topiramate 25 MG oral Tablet 06-15 00:00: 00 Yes [id number] 25mg Q.5D Take 1 tablet (25 mg total) by mouth 2 times daily. Elizabeth carolina Sumatriptan Succinate 25 MG oral Tablet 06-15 00:00: 00 06-15 00:00 :00 No [id number] 25mg Take 1 tablet (25 mg total) by mouth once as needed for migraine (May repeat in 2 hours if unresolved . Do not exceed 200 mg in 24 hours.). Elizabeth carolina Ondansetron (ZOFRAN) 8 MG oral TABLET DISPERSIBLE 02-25 00:00: 00 06-15 00:00 :00 No [id number] 8mg Q.[id number] 3D Take 1 tablet (8 mg total) by mouth every 8 hours as needed for nausea. Elizabeth carolina Albuterol HFA 108 (90 Base) MCG/ACT IN AERS 02-25 00:00: 00 06-15 00:00 :00 No [id number] 2{puff} Q.25D Inhale 2 puffs into the lungs every 6 hours as needed for wheezing. Elizabeth carolina Pseudoeph-B romphen-DM 30-2-10 MG/5ML oral Syrup 02-25 00:00: 00 06-15 00:00 :00 No [id number] 10mL Q.25D Take 10 mL by mouth 4 times daily as needed. Elizabeth carolina Nirmatrelvi r & Ritonavir STANDARD (30) (300/100) Therapy Pack 02-25 00:00: 00 06-15 00:00 :00 No [id number] Take two 150 mg nirmatrelv ir (pink) tablets with one 100 mg ritonavir (white) tablet by mouth two times daily for 5 days. Elizabeth carolina Mupirocin (BACTROBAN) 2 % apply externally Ointment 2022-11 00:00: 00 06-15 00:00 :00 No [id number] Q.96563545 8859954424 3D Apply 1 applicatio n. topically 3 times daily. Elizabeth carolina FENTanyl PF (SUBLIMAZE (PF)) injection 50 mcg 06-13 02:15: 06-13 01:51 :00 No 50ug 50 mcg, Intramuscu lar, ONCE, 1 dose, On 06/12/23 at 2114, Routine [facility] ondansetron (ZOFRAN-ODT ) disintegrat ing tablet 4 mg 06-13 02:15: 00 06-13 01:51 :00 No 4mg 4 mg, Oral, ONCE, 1 dose, On 06/12/23 at 2114, Routine [facility] [place] [facility] acetaminoph en-codeine 300-30 mg tablet 06-12 00:00: 00 07-03 04:59 :00 No [id number] 1{tbl} Take 1 tablet by mouth every 6 (six) hours as needed for Pain (scale 4-6) for up to 20 days. Indication s: acute pain [facility] ondansetron (ZOFRAN) 4 mg tablet 06-12 00:00: 00 06-23 04:59 :00 No [id number] 4mg Take 1 tablet by mouth every 8 (eight) hours as needed for Nausea and Vomiting (N/V) for up to 10 days. [facility] traMADoL 50 mg tablet 12-29 00:00: 00 Yes [id number] 50mg Take 1 tablet by mouth every 6 (six) hours as needed for Pain (scale 7-10). Indication s: acute pain [facility] cyclobenzap rine 10 mg tablet 17 00:00: 00 Yes [id number] 10mg Take 1 tablet by mouth 3 (three) times daily as needed for Muscle Spasms. [facility] ibuprofen 800 mg tablet 07-07 00:00: 00 Yes [id number] 800mg Take 1 tablet by mouth every 8 (eight) hours as needed for Pain (scale 4-6). [facility] cyclobenzap rine 10 mg tablet 05-11 00:00: 00 Yes [id number] 10mg Take 1 tablet by mouth every 8 (eight) hours as needed for Muscle Spasms for up to 15 doses. [facility] Immunizations Ordered Immunization Name Filled [...] Systolic blood pressure 2023-06-13 03:00:00 141 mm[Hg] [facility] Diastolic blood pressure 2023-06-13 03:00:00 97 mm[Hg] [facility] Heart rate 2023-06-13 03:00:00 81 /min [facility] Oxygen saturation in Arterial blood by Pulse oximetry 2023-06-13 03:00:00 98 /min [facility] Body temperature 2023-06-13 01:24:00 36.94 Carol [facility] Respiratory rate 2023-06-13 01:07:00 20 /min [facility] Body height 2023-06-13 01:06:00 162.6 cm [facility] Body weight 2023-06-13 01:06:00 127.007 kg [facility] BMI 2023-06-13 01:06:00 48.06 kg/m2 [facility] Procedures Procedure Date / Time Performed Performing Clinicia n Source CONSENT/REFUSAL FOR DIAGNOSIS AND TREATMENT 2023-06-13 01:05:04 Doctor Unassigned, [place] [facility] Encounters Start Date/Time End Date/Time Encounter Type Admission Type Attending [facility] Care Department Encounter ID Source 2025-05-27 00:00:00 2025-05-27 00:00:00 Outpatient DON VALENCIA [id number] [facility] 2025-02-12 00:00:00 2025-02-12 00:00:00 Outpatient SANTO JADIEL ELIZABETH BETANCOURT [id number] [facility] 2024-09-24 09:45:00 2024-09-24 09:45:00 Outpatient LALA MARY ELIZABETH BETANCOURT [id number] [facility] 2024-09-10 14:00:00 2024-09-10 14:00:00 Outpatient BEENA HARDIN [id number] [facility] 2024-09-03 13:45:00 2024-09-03 13:45:00 Outpatient GILDA RODRIGUEZ [id number] [facility] 2024-08-14 08:00:00 2024-08-14 08:00:00 Outpatient ELIZABETH BETANCOURT [id number] [facility] 2024-07-24 08:30:00 2024-07-24 08:30:00 Outpatient ELIZABETH BETANCOURT [id number] [facility] 2024-07-16 00:00:00 2024-07-16 00:00:00 Outpatient DON VALENCIA [id number] [facility] 2024-07-15 00:00:00 2024-07-15 00:00:00 Outpatient DON VALENCIA [id number] [facility] 2024-07-13 08:30:00 2024-07-13 08:30:00 Outpatient DON VALENCIA [id number] [facility] 2024-07-11 09:30:00 2024-07-11 09:30:00 Outpatient ELIZABETH BETANCOURT [id number] [facility] 2024-07-10 08:00:00 2024-07-10 08:00:00 Outpatient ELIZABETH ELIZABETH [id number] Elizabeth [facility] 2024-07-05 00:00:00 2024-07-05 00:00:00 Outpatient DON VALENCIA ELIZABETH [id number] Elizabeth [facility] 2024-07-05 00:00:00 2024-07-05 00:00:00 Outpatient DON VALENCIA ELIZABETH [id number] Elizabeth [facility] 2024-07-04 08:00:00 2024-07-04 08:00:00 Outpatient ELIZABETH BETANCOURT [id number] Elizabeth [facility] 2024-07-02 08:00:00 2024-07-02 08:00:00 Outpatient ELIZABETH BETANCOURT [id number] [facility] 2024-07-01 00:00:00 2024-07-01 00:00:00 Outpatient DON VALENCIA ELIZABETH BETANCOURT [id number] Elizabeth [facility] 2024-06-29 16:10:00 2024-06-29 16:10:00 Outpatient LAB90 ELIZABETH BETANCOURT [id number] Elizabeth Sey[facility] 2024-06-29 00:00:00 2024-06-29 00:00:00 Outpatient DON VALENCIA ELIZABETH BETANCOURT [id number] Elizabeth Sey[facility] 2024-06-27 08:00:00 2024-06-27 08:00:00 Outpatient ELIZABETH BETANCOURT [id number] Elizabeth Sey[facility] 2024-06-22 00:00:00 2024-06-22 00:00:00 Outpatient DON VALENCIA ELIZABETH BETANCOURT [id number] Elizabeth Sey[facility] 2024-06-20 08:00:00 2024-06-20 08:00:00 Outpatient ELIZABETH BETANCOURT [id number] Elizabeth Seybold 2024-06-19 00:00:00 2024-06-19 00:00:00 Outpatient DON VALENCIA ELIZABETH BETANCOURT [id number] Elizabeth [facility] 2024-06-19 00:00:00 2024-06-19 00:00:00 Outpatient DON VALENCIA ELIZABETH BETANCOURT [id number] Elizabeth Seybold 2024-06-15 15:45:00 2024-06-15 15:45:00 Outpatient LABDat ELIZABETH BETANCOURT [id number] [facility] 2024-06-15 15:00:00 2024-06-15 15:00:00 Outpatient DON VALENCIACAITLIN BETANCOURT [id number] [facility] 2024-06-15 00:00:00 2024-06-15 00:00:00 Outpatient ELIZABETH BETANCOURT [id number] [facility] 2024-06-15 00:00:00 2024-06-15 00:00:00 Outpatient DON VALENCIA ELIZABETH BETANCOURT [id number] [facility] 2024-03-07 00:00:00 2024-03-07 00:00:00 Outpatient DON VALENCIA ELIZABETH BETANCOURT [id number] [facility] 2024-02-29 11:00:00 2024-02-29 11:00:00 Outpatient FARHAT DEL TORO [id number] [facility] 2024-02-26 14:15:00 2024-02-26 14:15:00 Outpatient CED ORONA [id number] [facility] 2024-01-26 18:15:00 2024-01-26 18:15:00 Outpatient BÁRBARA HUA [id number] [facility] 2023-12-22 13:45:00 2023-12-22 13:45:00 Outpatient GENET DENSON [id number] [facility] 2023-11-28 00:00:00 2023-11-28 00:00:00 Outpatient JADIEL BLANCHARD [id number] [facility] 2023-11-07 08:55:00 2023-11-07 08:55:00 Outpatient LABDat ELIZABETH BETANCOURT [id number] [facility] 2023-11-04 10:30:00 2023-11-04 10:30:00 Outpatient ANNIE DON ELIZABETH BETANCOURT [id number] [facility] 2023-08-31 14:22:34 2023-08-31 14:22:34 Outpatient [facility] [id number] Dmitriy Herbert 2023-08-29 14:14:37 2023-08-29 14:14:37 Outpatient [facility] [id number] Dmitriy Herbert 2023-06-12 20:07:00 2023-06-12 22:10:00 Emergency X ZELALEM LOOMIS [facility] ERT [id number] [facility] 2023-06-12 20:07:00 2023-06-12 22:10:00 Emergency Zelalem Loomis Augustine [facility] [id number] [facility] 2023-05-13 15:15:00 2023-05-13 15:15:00 [id number] 2021-03-21 22:50:00 2021-03-21 22:50:00 Emergency X [facility] ERT [id number] [facility] 2020-12-28 22:57:00 2020-12-29 03:04:00 Emergency X JAMES POTTS [facility] ERT [id number] [facility] 2020-07-07 14:07:00 2020-07-07 14:07:00 Emergency X JIM VANEGAS [facility] ERT [id number] [facility] 2020-05-10 21:14:00 2020-05-13 08:16:59 Inpatient HCAMN MARIANNE [id number] [facility] 2020-05-10 21:47:04 2020-05-10 21:47:04 Emergency X BETHANIE OLIVER [facility] ERT [id number] [facility] 2019-11-18 12:05:00 2019-11-18 13:24:00 Emergency EM Ridge Rosalba [facility] MARIANNE [id number] [facility] Results Test Description Test Time Test Comments Results Result Co mments Source UR HCG [id number] 12:50:00* Test Item Value Reference Range Interpretation Comme nts UR HCG QUAL (test code = HCGQLU) NEGATIVE NEGATIVE URINALYSIS [id number] 12:47:00* Test Item Value Reference Range Interpretation [...] (test code = BACU) NONE UR HCG [id number] 12:47:00* Test Item Value Reference Range Interpretation Comme nts UR HCG QUAL (test code = HCGQLU) NEGATIVE URINALYSIS [id number] 12:47:00* Test Item Value Reference Range Interpretation [...] (test code = BACU) NONE UR HCG [id number] 12:47:00* Test Item Value Reference Range Interpretation Comme nts UR HCG QUAL (test code = HCGQLU) NEGATIVE NEGATIVE - XR CHEST 2 [id number] 12:34:00FAX: Oliver Villalpando NP [phone] [place]: St: PRE Name: SHERLEY PARRISH [facility] : 1995 Age/S: 24/F [address] [facility] Unit #: [id number] Loc: [place], [place]: [place] [id number] Acct: [id number] Dis Date: Status: PRE ER PHONE #: [phone] Exam Date: 11/18/2019 1224 FAX #: Reason: cough EXAMS: CPT CODE: [id number] XR CHEST 2 V 94165 EXAM: - XR CHEST 2 V COMPARISON: 06/11/2018 LOCATION: [facility] HISTORY: 24 years-old Female with cough FINDINGS: The cardiomediastinal silhouette is within normal limits. The lungs are well aerated. No large pneumothorax or pleural effusion. Osseous structures and soft tissues demonstrate no acute findings. The visualized upper abdomen is unremarkable. IMPRESSION: No acute cardiopulmonary abnormality. at 1234 Reported and signed by: Krishan Pitt MD CC: Oliver Villalpando NP Technologist: BARBARA Hoffman Date/Time/By: 11/18/2019 (7356) : By: [email or web address] PAGE 1 Signed Report FAX: Oliver Villalpando REJI [phone] [facility]: St: PRE Name: SHERLEY PARRISH [facility] : 1995 [facility] [address] [facility]: [id number] Loc: [place], [place]: [place] [address] Acct: [id number] Dis Date: Status: PRE ER PHONE #: [phone] Exam Date: 2018 1227 FAX #: [phone] Reason: cough EXAMS: CPT CODE: [id number] XR CHEST 2 V 86892 (Continued) Orig Print D/T: S: 11/18/2019 (8301) PAGE 2 Signed Report- CT ABD PELVIS [id number] 16:55:00FAX: Toiñto Aguilar MD [facility]: St: PRE Name: FRANCOISSHERLEY [facility] : 1995 Age/S: /[address] [facility] [employer] Unit: [id number] Loc: [address] [place] [address] Phys: Toñ[place] [id number] Acct: [id number] Dis Date: Status: PRE ER PHONE #: [phone] Exam Date: 09/25/2019 1643 FAX #: [phone] Reason: LLq pain EXAMS: CPT CODE: [id number] CT ABD PELVIS W/CONT 28133 HISTORY: Left lower quadrantpain, abdominal pain. CT [...] Signed Report (CONTINUED) FAX: Toñito Aguilar MD [place]: St: PRE Name: SHERLEY PARRISH [facility] : 1995 Age/S: [address] [employer] Unit: [id number] Loc: [place] [place], [place] Phys: Toñ[place] [address] Acct: [id number] Dis Date: Status: PRE ER PHONE #: [phone] Exam Date: 03/2019 1643 FAX #: [phone] Reason: LLq pain EXAMS: CPT CODE: [id number] CT ABD PELVIS W/CONT 60841 (Continued) appearance to the previous study possibly with a right-sided follicular cyst this time. No inflammatory changes or free fluid. No acute inflammatory changes in the left lower quadrant. Location: [facility] at 3634 Reported and signed by: Ari Gaston M.D. CC: Toñito Aguilar MD Technologist: WALLACE STOREY Trnidrd Dt/Tm: 09/25/2019 (0468) t.RCM Orig Print D/T: S: 09/25/2019 (3628 PAGE 2 Signed Report- DUP AB/PEL/SC COMP 2019-09-25 16:32:00FAX: Toñito Aguilar MD [place]: St: PRE Name: PARRISHSHERLEY [facility] : 1995 Age/S: [address] Unit #: [id number] Loc: [place] [place], [place] Phys: Toñ[place] [id number] Acct: [id number] Dis Date: Status: PRE ER PHONE #: [phone] Exam Date: 09/25/2019 1620 FAX #: [phone]: PELVIC PAIN LLQ PAIN EXAMS: CPT CODE: [id number] DUP AB/PEL/SC COMP 01643 ULTRASOUND: - US PELVIS COMPLETE, - DUP [...] CC: Toñito Aguilar MD Technologist: LOGAN [facility]ILLER [facility] Date/Time/By: 09/25/2019 (1632) : By: [facility] PAGE 1 Signed Report FAX: Toñito Aguilar MD [place]: St: PRE Name: SHERLEY PARRISH [facility] : 1995 Age/S: 24/F [address] [facility] Unit #: [id number] Loc: [address] [place] [address] Phys: Toñ[place] [address] Acct: [id number] Date: Status: PRE ER PHONE #: [phone] Exam Date: 09/25/2019 1620 FAX #: [phone] Reason: PELVIC PAIN LLQ PAIN EXAMS: CPT CODE: [id number] DUP AB/PEL/SC COMP 51207 (Continued) Orig PrintD/T: S: 09/25/2019 (0864) PAGE 2 Signed Report- US PELVIS COMPLETE 2019-09-25 16:32:00FAX: Toñito Aguilar MD [place]: St: PRE Name: SHERLEY PARRISH [facility] : 1995 Age/S: 24/F [address] [facility] Unit #: [id number] Loc: [address] Phys: [place] [address] Acct: [id number] Dis Date: Status: PRE ER PHONE #: [phone] Exam Date: 09/25/2019 1619 FAX #: [phone]: Pelvic pain llq pain EXAMS: CPT CODE: [id number] US PELVIS COMPLETE 60934 ULTRASOUND: - US PELVIS COMPLETE, - DUP [...] ovarian perfusion bilaterally. Location: U 19 at 3852 Reported and signed by: Ari Gaston M.D. CC: Toñito Aguilar MD Technologist:LOGAN MILLER Trnscrd Date/Time/By: 09/25/2019 (2448) : By: AnitaM PAGE 1 Signed Report FAX: Toñito Aguilar MD [place]: St: PRE Name: SHERLEY PARRISH [facility] : 1995 Age/S: 24/F [address] [facility] [employer] [facility] Unit #: [id number] Loc: [address] Phys: Toñ[place] [address] Acct: [id number] Dis Date: Status: PRE ER PHONE #: [phone] Exam Date: 09/25/2019 1619 FAX #: [phone] Reason: Pelvic pain llq pain EXAMS: CPT CODE: [id number] PELVIS COMPLETE 10962 (Continued) Orig Print D/T: S: 09/25/2019 (7375) PAGE 2 Signed ReportURINALYSIS COMPLETE 2019-09-25 16:31:00* [...] CLUE CELLS Specimen comments: Clean CatchUR HCG [id number] 16:16:00* Test Item Value Reference Range Interpretation Comme nts UR HCG QUAL (test code = HCGQLU) NEGATIVE NEGATIVE BASIC METABOLIC [id number] 16:16:00* Test Item Value Reference Range Interpretation [...] 8.9 mg/dl 8.0-10.5 N HEPATIC FUNCTION PANEL [id number] 16:16:00* Test Item Value Reference Range Interpretation [...] code = ALKP) 67 Units/L 50.0-136.0 N [id number] 16:16:00* Test Item Value Reference Range Interpretation Comme nts LIPASE (test code = LIP) 135 Units/L 65.0-230.0 N DRUGS OF ABUSE SCREEN [id number] 16:12:00* Test Item Value Reference Range Interpretation [...] 300 ng/mL Specimen comments: Clean CatchBASIC METABOLIC [id number] 16:12:00* Test Item Value Reference Range Interpretation [...] = CA) mg/dl 8.0-10.5 HEPATIC FUNCTION PANEL [id number] 16:12:00* Test Item Value Reference Range Interpretation [...] ( test code = ALKP) Units/L 50.0-136.0 [id number] 16:12:00* Test Item Value Reference Range Interpretation Comme nts LIPASE (test code = LIP) Units/L 65.0-230.0 CBC W/AUTO [id number] 16:08:00* Test Item Value Reference Range Interpretation [...] in no apparent distress. Shawnee Zamora RN [facility] 2023-06-12 20:05:26 Formatting of this n ote might be different from the original. Sherley Parrish is a 28 year old female presenting after falling down two steps and hitting her head about 20min [employer]. Patient denies LOC or blood thinner use. Reports head pain and vomiting. Pmhx: hypothyroidism Patient GCS 15, RR Even and unlabored, NAD Chen Houser RN [facility] 2023-06-12 20:04:00 Formatting of this n ote is different from the original. 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 No loc reported. CT head unremarkable. [...] Electronically signed by: Zelalem Loomis MD 06/12/232134 Critical [facility] hospital 2020-05-10 21:20:00 [facility] ([facility] EMERGENCY PROVIDER REPORT REPORT#:[id number] REPORT STATUS: Signed DATE:05/10/20 TIME: 2119 PATIENT: SHERLEY PARRISH UNIT #: [id number] ROOM/BED: AGE: 25 SEX: F PCP PHYS: [...] CARES IN THE AREA at 2201 RPT #:[id number] END OF REPORT [facility] 2019-11-18 12:16:00 [facility] ([facility]) EMERGENCY PROVIDER REPORT REPORT#:[id number] REPORT STATUS: Signed DATE:11/18/19 TIME: 1216 PATIENT: SHERLEY PARRISH UNIT #: [id number] ROOM/BED: AGE: 24 SEX: F PCP PHYS: No Primary or Family Physician SERVICE AUTHOR: Olvier Villalpando COATER HAND * ALL edits or amendments must be made on the electronic/computer document * ORP-Sye-Uyqk Illness General Confirmed Patient Yes Patient Type [...] throat x 3 days. patient works at [employer]. Patient also states she took a home [...] pH (5.0 - 9.0) 6.0 Ur Specific [place] (1.000 - 1.030) 1.020 Urine Protein (NEGATIVE [...] a call to 911. at 1329 RPT #:[id number] END OF REPORT [facility] 2019-11-18 12:16:00 [facility] ([facility] EMERGENCY PROVIDER REPORT REPORT#:[id number] REPORT STATUS: Signed DATE:11/18/19 TIME: 1216 PATIENT: SHERLEY PARRISH UNIT #: [id number] ROOM/BED: AGE: 24 SEX: F PCP PHYS: No Primary or Family Physician SERVICE AUTHOR: Oliver Villalpando NP * ALL edits or amendments must be made on the electronic/computer document * Oliver Villalpando 11/18/19 1216: EHE-Zhj-Iirb Illness General Confirmed Patient Yes Patient Type [...] throat x 3 days. patient works at [employer]. Patient also states she took a home [...] 116 11/18 1206 Resp 18 11/18 120 Review of Vital [...] pH (5.0 - 9.0) 6.0 Ur Specific [place] (1.000 - 1.030) 1.020 Urine Protein (NEGATIVE [...] Temp 38.8 11/18 1206 Pulse 116 11/18 120 Resp 18 11/18 120 All vital signs [...] call to 911. Rosalba Sabillon 11/18/19 1341: JYJ-Wst-Sxdj Illness General Initial Greet Date/Time 11/18/19 1209 Patient Discharge Departure Supervising Physician Note MidLv Saw Pt Alone I have reviewed the PA/COATER HAND's note and plan of care. I was available for consultation as needed at all times during the patient's visit in the emergency department. I agree with the clinical impression, plan and disposition. at 1329 at 1341 RPT #:[id number] END OF REPORT [facility] 2019-09-25 15:46:00 [facility] ([facility]) EMERGENCY PROVIDER REPORT REPORT#:[id number] REPORT STATUS: Signed DATE:09/25/19 TIME: 154 PATIENT: SHERLEY PARRISH UNIT #: [id number] ROOM/BED: AGE: 24 SEX: F PCP PHYS: [...] pH (5.0 - 9.0) 8.0 Ur Specific [place] (1.000 - 1.030) 1.020 Urine Protein (NEGATIVE [...] % (Auto) (23.0 - 38.0 %) 30.1 [place] % (Auto) (1.0 - 10.0 %) 7.2 Eos % (Auto) (1.0 - 5.0 %) 2.2 Baso % (Auto) (0.0 - 1.0 %) 0.4 Neut # (Auto) (2.4 - 6.3 K/mm3) 6.7 H Lymph # (Auto) (1.2 - 4.0 K/mm3) 3.4 [place] # (Auto) (0.0 - 0.6 K/mm3) 0.8 [...] Rai Myles on 09/25/19 at 1937 Re-Evaluation [facility] )( Re-Evaluation/Progress #1 Time of Re-Eval 1600 [...] Abdominal pain, Bacterial vaginosis Time of Impression 174 Disposition Decision Discharge )( Discharged to Home [...] Physician Note Scribe Statement Rai Myles, 09/25/19 4346, scribing for and in the presence of [Dr. Aguilar ]. Signed By: Rai Myles, 09/25/19 7152 Provider Scribed Statement I personally performed the services described in this documentation and reviewed the documentation that was dictated to the scribe(s) in my presence, and it accurately records my words and actions. Toñito Aguilar, 09/27/19 Portions of this section were scribed by Rai Myles on 09/25/19 at 1937 at 1578 RPT #:[id number] END OF REPORT [facility]
[2025-08-11] MEDS ORDERED: BACI/NEOMYCIN/POLY OINT 15GM TOP ONE (08:29)
[2025-08-11] MEDS ORDERED: HYDROCODONE/APAP 10/325 TAB ONE (08:29)
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
[2025-08-11 09:46] VITALS: BP 113/69; TEMP 98.1; O2SAT 100
== END 2025-08-11 09:31 | disposition home or self-care (01) ==
LOC: ER 08:06
DX: T21.11XA Burn of first degree of chest wall, initial encounter (principal); T31.0 Burns involving less than 10% of body surface; X12.XXXA Contact with other hot fluids, initial encounter; Y93.89 Activity, other specified; Y92.019 Unspecified place in single-family (private) house as the place of occurrence of the external cause
CPT/HCPCS: 99283